=== PATIENT | female | born 1955 | race Caucasian/White ===

== ENCOUNTER 2021-01-17 12:47 | Outpatient (REF) | payer MEDICAID, SELFPAY ==
[2021-01-17 14:45] LABS: Vitamin B12 423 pg/mL (200-900)
[2021-01-17 14:54] LABS: Syphilis Screen Nonreactive (Nonreactive)
[2021-01-17 15:12] LABS: Erythrocyte Sedimentation Rate 9 MM/HR (0-20)
[2021-01-18 06:21] LABS: Lyme Abs Screen <0.90 index
[2021-01-19 14:27] LABS: ANA Pattern 2 Nuclear, Homogeneous; Anti Nuclear Antibody Screen POSITIVE (NEGATIVE)
== END 2021-01-17 12:48 | disposition home or self-care (01) ==
LOC: HO.LAB 12:47
PROVIDERS: PCP Internal Medicine; Visit Provider Psychiatry & Neurology Neurology
DX: F01.50 Vascular dementia, unspecified severity, without behavioral disturbance, psychotic disturbance, mood disturbance, and anxiety (principal)
CPT/HCPCS: 36415; 82607; 85652; 86038; 86039; 86617; 86618; 86780

== ENCOUNTER 2021-03-15 12:36 | Outpatient (REF) | payer MEDICAID, SELFPAY ==
--- NOTE | ~2021-03-15 | XR_ITS ---
EXAMINATION: XR CHEST CLINICAL INFORMATION: Unspecified COMPARISON: 02/21/2008 TECHNIQUE: 2 views of the chest were obtained. FINDINGS: No significant abnormality is noted involving the heart, lungs, mediastinum, bony thorax or soft tissues. XR/XR chest 2V IMPRESSION: Unremarkable examination.
== END 2021-03-15 12:37 | disposition home or self-care (01) ==
LOC: HO.XRAY 12:36
PROVIDERS: PCP Internal Medicine; Visit Provider Internal Medicine
DX: R41.0 Disorientation, unspecified (principal)
CPT/HCPCS: 71046

== ENCOUNTER 2021-12-07 13:44 | Outpatient (REF) | payer MEDICAID, SELFPAY ==
--- NOTE | 2021-12-07 16:00 | MHC.AU.ANR ---
Adult Audiological Evaluation Date of Visit: 12/07/21 Silk Examiner Used: Daughter translated Reason for Appointment: Ms. Spain was seen for a hearing evaluation to determine the status of her hearing. She was accompanied by her daughter at today's appointment. Ms. Spain states that her left ear is worse than her right ear, and she has tinnitus on the left side. Her daughter reports that Ms. Spain often complains of sensitivity to loud sounds, especially on the left side. 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 Throughout the appointment, Ms. Spain stated she had some ear pain right below her ear lobe. Ms. Spain is diagnosed with dementia. Does patient feel they have a hearing loss?: Yes If Yes, Which Ear?: Left Ear When Was Hearing Difficulty First Noticed?: years ago Hearing Handicap Inventory: HHIE SCORE: 28 Based on HHIE score, patient has: Severe perceived hearing handicap Ear History: Recent Ear Pain: Left Ear Recent Ear Infections: does not remember which ears or when Bothersome Tinnitus/Ringing/Noises in Ears: Left Ear Blocked/Full Sensation in Ear(s): Left Ear History of occupational noise exposure?: Yes, exposed when younger to factory noise Medical History: Medical History: Diabetes, Headache, High Blood Pressure, Migraines, Vascular dementia with behavior disturbance, type 2 diabetes, cataract surgery, mood disorder, Sun-downing, lumbar spondylosis Allergies: Penicillins, acetaminophen, penicillin V, codenine Medication List: Prilosec OTC, Lipitor, singulair, advair, protonix, meclizine HCL, proair, aspir, zofran, cyclobenzaprine HCl, nabumetone, melatonin, triamcinolone acetonide, acetaminophen, vitamin D, tylenol arthritis, lisinopril, asprinin, simvastatin, omeprazole, citalopram hydrobromide, risperidone, clonazepam, ibuprofen Otoscopy: Right Ear: Unremarkable Left Ear: Unremarkable Tympanometry: Tympanometry performed due to: To assess integrity of the middle ear system Right Ear: Reduced Middle Ear Compliance (Type As) Left Ear: Reduced Middle Ear Compliance (Type As) Hearing Evaluation: Transducer(s) Used: Insert Earphones, Bone Conduction Method: Conventional Audiometry Stimuli Used: Pure Tones Right Ear: Description of Hearing: Normal hearing 250-500 Hz, sloping to a moderate sensorineural hearing loss through 4000 Hz, rising to within normal limits thereafter. Left Ear: Description of Hearing: Mild sloping to a moderately severe sensorineural hearing loss from 250-2000 Hz, rising to a mild hearing loss through 8000 Hz. A 10-30 dB HL asymmetry is noted from 250-8000 Hz, left ear worse. Speech Recognition Threshold (SRT): Method Used: Monitored Live Voice Stimuli Used: Spondee Words Right Ear: 30 dB HL Left Ear: 50 dB HL Word Discrimination: Method: Recorded Lists Word Lists Used: Lista Bisil?bica (Chinese) Right Ear: 100% at 70 dB HL Left Ear: 96% at 85 dB HL Interpretation of Results: Borderline normal to moderate sensorineural hearing loss in the right ear and a moderate to moderately severe sensorineural hearing loss in the left ear. A 10-30 dB asymmetry is noted between ears, left ear worse at all frequencies. Reduced middle ear compliance bilaterally. Recommendations: Audiological re-evaluation in one year. Referral to Ear, Nose, and Throat is recommended. Patient should follow up with ENT due to significant asymmetry between ears. If medical clearance is obtained, patient should be considered a hearing aid candidate and return for a hearing aid evaluation. Diagnosis: Primary Diagnosis: H90.3 Bilateral Sensorineural Hearing Loss Services Performed: Services Performed: Comprehensive Audiological Evaluation (CPT 79130) Tympanometry (CPT 22781) Signature: Student/Clinical Fellow: Yes: Ofe Gaines B.A., [employer] I have reviewed/agreed with student/fellow documentation: Yes Provider: Kike Cifuentes, [facility]
== END 2021-12-07 13:45 | disposition home or self-care (01) ==
LOC: HO.SH 13:44
PROVIDERS: Visit Provider Internal Medicine
DX: Z01.118 Encounter for examination of ears and hearing with other abnormal findings (principal); H90.3 Sensorineural hearing loss, bilateral
CPT/HCPCS: 92557; 92567

== ENCOUNTER 2022-03-14 12:23 | Outpatient (REF) | payer MEDICARE, MEDICAID, SELFPAY ==
[2022-03-14 12:34] LABS: MANUAL DIFF FLAG NO
[2022-03-14 13:25] LABS: Basophils Percent Auto 0.3 % (0-2); Eosinophils Percent Auto 0.1 % (0-4); Hematocrit 37.7 % (37.0-47.0); Hemoglobin 12.7 g/dl (12.0-16.0); Imm Gran Abs Auto 0.02 X10*3/uL (0.00-0.03); Imm Gran Pct Auto 0.3 % (0.0-0.4); Lymphocytes Absolute Auto 2.2 X10*3/uL (1.2-4.9); Lymphocytes Percent Auto 27.6 % (20-40); Mean Corpuscular HGB Conc 33.7 g/dl (31.0-35.0); Mean Corpuscular Hemoglobin 30.2 pg (27.0-33.0); Mean Corpuscular Volume 89.5 fL (80.0-98.0); Mean Platelet Volume 9.9 fL (9.4-12.3); Monocytes Absolute Auto 0.7 X10*3/uL (0.1-1.2); Monocytes Percent Auto 8.3 % (2-11); Neutrophils Percent Auto 63.4 % (45-73); Platelet Count 298 X10*3/uL (160-400); Red Blood Count 4.21 X10*6/uL (4.20-5.50); Red Cell Distribution Width 12.7 % (11.0-16.0); White Blood Count 7.9 X10*3/uL (4.8-10.8)
[2022-03-14 14:07] LABS: Alanine Aminotransferase 13 U/L (0-31); Albumin Level 4.7 g/dL (3.5-5.0); Alkaline Phosphatase 59 U/L (39-117); Anion Gap 15 (12-20); Aspartate Amino Transferase 16 U/L (5-31); Bilirubin Total 0.4 mg/dL (0.0-1.0); Blood Urea Nitrogen 11 mg/dL (9-16); Calcium 9.7 mg/dL (8.4-10.2); Carbon Dioxide 27 mmol/L (22-29); Chloride 98 mmol/L (96-108); Estimated Glomerular Filt Rate > 60; Glucose Random 101 mg/dL (60-115); Potassium 3.8 mmol/L (3.3-5.1); Sodium 136 mmol/L (135-145); Total Protein 7.7 g/dL (6.5-8.0)
== END 2022-03-14 12:24 | disposition home or self-care (01) ==
LOC: HO.LAB 12:23
PROVIDERS: Visit Provider Nurse Practitioner
DX: Z01.818 Encounter for other preprocedural examination (principal); K21.9 Gastro-esophageal reflux disease without esophagitis
CPT/HCPCS: 36415; 80053; 85025; 99202

== ENCOUNTER 2022-05-12 09:31 | Emergency (ER) | payer MEDICARE, MEDICAID, SELFPAY ==
[2022-05-12 09:52] VITALS: BP 138/74; PULSE 78; O2SAT 98
[2022-05-12 10:49] VITALS: BP 142/83; PULSE 77; RESP 18; TEMP 37.1; O2SAT 99; BMI 26.5
[2022-05-12 10:58] LABS: MANUAL DIFF FLAG NO
[2022-05-12 11:00] LABS: Appearance Urine CLEAR; Color Urine YELLOW; Glucose Urine UA NEG (NEG); Leukocyte Esterase Urine 2+ (NEG); Nitrite Urine NEG (NEG); UACC Culture Trigger YES; Urine Blood NEG (NEG); Urine Ketones NEG (NEG); Urine Protein NEG (NEG-TRACE)
[2022-05-12 11:00] LABS: Basophils Percent Auto 0.2 % (0-2); Eosinophils Percent Auto 0.4 % (0-4); Hemoglobin 12.8 g/dl (12.0-16.0); Imm Gran Abs Auto 0.02 X10*3/uL (0.00-0.03); Imm Gran Pct Auto 0.4 % (0.0-0.4); Lymphocytes Absolute Auto 1.3 X10*3/uL (1.2-4.9); Lymphocytes Percent Auto 24.2 % (20-40); Mean Corpuscular HGB Conc 32.8 g/dl (31.0-35.0); Mean Corpuscular Hemoglobin 30.2 pg (27.0-33.0); Mean Platelet Volume 9.4 fL (9.4-12.3); Monocytes Absolute Auto 0.4 X10*3/uL (0.1-1.2); Monocytes Percent Auto 6.6 % (2-11); Neutrophils Absolute Auto 3.6 x10*3/uL (2.0-8.3); Neutrophils Percent Auto 68.2 % (45-73); Platelet Count 256 X10*3/uL (160-400); Red Blood Count 4.24 X10*6/uL (4.20-5.50); Red Cell Distribution Width 12.9 % (11.0-16.0); White Blood Count 5.3 X10*3/uL (4.8-10.8)
[2022-05-12 11:11] LABS: RBC Urine 0 /HPF (0); Squamous Epithelial Cell Urine 1+ /LPF
[2022-05-12 11:16] LABS: Alanine Aminotransferase 15 U/L (0-31); Albumin Level 4.4 g/dL (3.5-5.0); Alkaline Phosphatase 64 U/L (39-117); Anion Gap 13 (12-20); Aspartate Amino Transferase 16 U/L (5-31); Bilirubin Direct < 0.2 mg/dL (0.0-0.5); Bilirubin Total 0.5 mg/dL (0.0-1.0); Blood Urea Nitrogen 12 mg/dL (9-16); Calcium 9.2 mg/dL (8.4-10.2); Carbon Dioxide 30 mmol/L (22-29); Chloride 104 mmol/L (96-108); Estimated Glomerular Filt Rate > 60; Glucose Random 115 mg/dL (60-115); Lipase 41 U/L (8-78); Potassium 4.7 mmol/L (3.3-5.1); Sodium 142 mmol/L (135-145); Total Protein 7.2 g/dL (6.5-8.0)
[2022-05-12 11:21] LABS: IDNOW Serial# 16C4AD1C; Influenza A Negative (Negative); Influenza B2 Negative (Negative)
[2022-05-12 11:22] LABS: COVID-19 Test Negative (Negative)
[2022-05-12 12:00] VITALS: BP 139/82; PULSE 65; RESP 16; TEMP 36.8; O2SAT 99
--- NOTE | 2022-05-12 12:00 | ED.GENADULT ---
HPI - General Adult General Chief complaint: Weakness Stated complaint: dehydration Time Seen by Provider: 05/12/22 09:35 History of Present Illness HPI narrative: Patient with mild dementia brought by EMS from very hot apartment, her home care visiting nurse had noticed the patient was sweating and very hot and in apartment that was over 95 degrees so called EMS The patient herself says she feels warm but denies any other complaint , denies fever denies chills denies headache neck pain chest pain abdominal pain no nausea or vomiting Related Data Home Medications Medication Instructions Recorded Confirmed acetaminophen 650 mg 1,300 mg PO Q8H PRN 03/14/22 tablet,extended release aspirin 81 mg tablet,delayed 81 mg PO DAILY 03/14/22 release cholecalciferol (vitamin D3) 25 25 mcg PO DAILY 03/14/22 mcg (1,000 unit) capsule citalopram 20 mg tablet 20 mg PO DAILY 03/14/22 lisinopril 20 mg tablet 20 mg PO DAILY 03/14/22 melatonin 5 mg capsule 5 mg PO BEDTIME 03/14/22 metformin 500 mg tablet 500 mg PO BID 03/14/22 risperidone 0.5 mg tablet 0.5 mg PO BID 03/14/22 simvastatin 20 mg tablet 20 mg PO BEDTIME 03/14/22 Previous Rx's Medication Instructions Recorded pantoprazole 40 mg tablet,delayed 40 mg PO DAILY 30 days #30 tabs 03/14/22 release (Protonix) peg 3350-electrolytes 236 240 ml PO Q10M 1 day #4,000 mL 03/14/22 gram-22.74 gram-6.74 gram-5.86 gram solution (Golytely) Allergies Allergy/AdvReac Type Severity Reaction Status Date / Time Penicillins [PENICILLINS] Allergy Intermediate SYNCOPE Unverified 03/14/22 11:44 acetaminophen Allergy Unknown Abdominal Verified 03/14/22 11:44 [Tylenol-Codeine #3] Pain penicillin V Allergy Unknown Abdominal Verified 03/14/22 11:44 Pain codeine [CODEINE] AdvReac Intermediate NAUSEA & Unverified 03/14/22 11:44 VOMITING Penicillin Allergy Unknown Abdominal Uncoded 03/14/22 11:44 Pain Tylenol/Codeine #3 Allergy Unknown Abdominal Uncoded 03/14/22 11:44 Pain Review of Systems Review of Systems: Negatives no fall no headache no head injury no dizziness no weakness no confusion no fainting or feeling faint no headache no vision changes no stiff neck no chest pain no shortness of breath no palpitations no abdominal pain no nausea vomiting or diarrhea no dysuria no skin rash no numbness or weakness Yes all other systems are reviewed and are negative [facility] Social History Social History Advance Directives: No Advance Directives Information Provided: No Physical Exam ED Vital Signs: Vital Signs - 24 hr 05/12/22 10:49 05/12/22 12:00 Temperature 98.8 F 98.2 F Pulse Rate 77 65 Respiratory Rate 18 16 Blood Pressure 142/83 H 139/82 Pulse Oximetry 99 99 Oxygen Delivery Method Room Air Room Air BMI result Body Mass Index 26.5 General appearance is no acute distress, comfortable and cooperative The eyes pupils equal round reactive to light The pharynx is clear no redness swelling or exudate mucous membranes are moist Neck is supple Chest clear to auscultation bilateral Heart no murmur Abdomen soft nontender Extremities full range of motion x4 There is no edema, there is no calf swelling or tenderness no leg swelling Skin no rash Neuro gait and balance are normal Interaction both expression and comprehension are good Cerebellar exam is normal Cranial nerves 2-12 intact as tested Motor is 5/5 x4 and sensation is intact and symmetrical in extremities Course Course Course Narrative: The patient got a L of fluids from EMS, never had any complaint except feeling warm this morning Labs were checked with no acute abnormalities I called her daughter who said that the patient lives with her son in a 2nd floor apartment and does have an air conditioner and a fan but always turns them off as she thinks it is too expensive I discussed with the daughter the high risk of severe illness or from heat related illness during the see wave and the daughter agreed that Dee would come live with her for the duration of the he until temperatures are safe to be in her apartment without an air conditioner Well-appearing cheerful patient was discharged in the company of her daughter with a safe place to stay Medical Decision Making Lab Data Result diagrams: 05/12/22 10:53 05/12/22 10:53 Labs: Lab Results 05/12/22 05/12/22 05/12/22 Range/Units 10:52 10:53 10:53 WBC 5.3 (4.8-10.8) X10*3/uL RBC 4.24 (4.20-5.50) X10*6/uL Hgb 12.8 (12.0-16.0) g/dl Hct 39.0 (37.0-47.0) % MCV 92.0 (80.0-98.0) fL MCH 30.2 (27.0-33.0) pg MCHC 32.8 (31.0-35.0) g/dl RDW 12.9 (11.0-16.0) % Plt Count 256 (160-400) X10*3/uL MPV 9.4 (9.4-12.3) fL Immature Gran % (Auto) 0.4 (0.0-0.4) % Neut % (Auto) 68.2 (45-73) % Lymph % (Auto) 24.2 (20-40) % Upton % (Auto) 6.6 (2-11) % Eos % (Auto) 0.4 (0-4) % Baso % (Auto) 0.2 (0-2) % Lymph # (Auto) 1.3 (1.2-4.9) X10*3/uL Upton # (Auto) 0.4 (0.1-1.2) X10*3/uL Eos # (Auto) 0.0 (0.0-0.4) X10*3/uL Baso # (Auto) 0.0 (0.0-0.2) X10*3/uL Abs Immat Gran (auto) 0.02 (0.00-0.03) X10*3/uL Absolute Neuts (auto) 3.6 (2.0-8.3) x10*3/uL Absolute Nucleated RBC 0.000 (0.0-0.012) X10*3/uL Nucleated RBC % (auto) 0.0 (0.0-0.2) /100WBC Sodium 142 (135-145) mmol/L Potassium 4.7 D (3.3-5.1) mmol/L Chloride 104 (96-108) mmol/L Carbon Dioxide 30 H (22-29) mmol/L Anion Gap 13 (12-20) BUN 12 (9-16) mg/dL Creatinine 0.86 (0.5-1.4) mg/dL Estim Creat Clear Calc 58.0 Estimated GFR > 60 Random Glucose 115 (60-115) mg/dL Calcium 9.2 (8.4-10.2) mg/dL Total Bilirubin 0.5 (0.0-1.0) mg/dL Direct Bilirubin < 0.2 (0.0-0.5) mg/dL AST 16 (5-31) U/L ALT 15 (0-31) U/L Alkaline Phosphatase 64 (39-117) U/L Total Protein 7.2 (6.5-8.0) g/dL Albumin 4.4 (3.5-5.0) g/dL Lipase 41 (8-78) U/L Urine Color YELLOW Urine Appearance CLEAR Urine pH 7.0 (5.0-8.0) Ur Specific [place] 1.010 (1.005-1.025) Urine Protein NEG (NEG-TRACE) MG/DL Urine Glucose (UA) NEG (NEG) MG/DL Urine Ketones NEG (NEG) MG/DL Urine Blood NEG (NEG) Urine Nitrite NEG (NEG) Ur Leukocyte Esterase 2+ H (NEG) Urine RBC 0 (0) /HPF Urine WBC 5-9 H (0-4) /HPF Ur Squamous Epith Cells 1+ /LPF Urine Bacteria NONE /LPF COVID-19 ([facility]) (Negative) COVID-19 Clin Com Influenza Type A ([facility]) (Negative) Influenza Type B ([facility]) (Negative) Influenza A & B Note 05/12/22 05/12/22 Range/Units 10:53 10:53 WBC (4.8-10.8) X10*3/uL RBC (4.20-5.50) X10*6/uL Hgb (12.0-16.0) g/dl Hct (37.0-47.0) % MCV (80.0-98.0) fL MCH (27.0-33.0) pg MCHC (31.0-35.0) g/dl RDW (11.0-16.0) % Plt Count (160-400) X10*3/uL MPV (9.4-12.3) fL Immature Gran % (Auto) (0.0-0.4) % Neut % (Auto) (45-73) % Lymph % (Auto) (20-40) % Upton % (Auto) (2-11) % Eos % (Auto) (0-4) % Baso % (Auto) (0-2) % Lymph # (Auto) (1.2-4.9) X10*3/uL Upton # (Auto) (0.1-1.2) X10*3/uL Eos # (Auto) (0.0-0.4) X10*3/uL Baso # (Auto) (0.0-0.2) X10*3/uL Abs Immat Gran (auto) (0.00-0.03) X10*3/uL Absolute Neuts (auto) (2.0-8.3) x10*3/uL Absolute Nucleated RBC (0.0-0.012) X10*3/uL Nucleated RBC % (auto) (0.0-0.2) /100WBC Sodium (135-145) mmol/L Potassium (3.3-5.1) mmol/L Chloride (96-108) mmol/L Carbon Dioxide (22-29) mmol/L Anion Gap (12-20) BUN (9-16) mg/dL Creatinine (0.5-1.4) mg/dL Estim Creat Clear Calc Estimated GFR Random Glucose (60-115) mg/dL Calcium (8.4-10.2) mg/dL Total Bilirubin (0.0-1.0) mg/dL Direct Bilirubin (0.0-0.5) mg/dL AST (5-31) U/L ALT (0-31) U/L Alkaline Phosphatase (39-117) U/L Total Protein (6.5-8.0) g/dL Albumin (3.5-5.0) g/dL Lipase (8-78) U/L Urine Color Urine Appearance Urine pH (5.0-8.0) Ur Specific [place] (1.005-1.025) Urine Protein (NEG-TRACE) MG/DL Urine Glucose (UA) (NEG) MG/DL Urine Ketones (NEG) MG/DL Urine Blood (NEG) Urine Nitrite (NEG) Ur Leukocyte Esterase (NEG) Urine RBC (0) /HPF Urine WBC (0-4) /HPF Ur Squamous Epith Cells /LPF Urine Bacteria /LPF COVID-19 ([facility]) Negative (Negative) COVID-19 Clin Com See Note Influenza Type A ([facility]) Negative (Negative) Influenza Type B ([facility]) Negative (Negative) Influenza A & B Note See Note Discharge Plan Discharge Clinical Impression: Heat effect Patient Disposition: Home, Self-Care Additional Instructions: You were brought here by ambulance because your visiting nurse was concerned that your in a dangerous situation of an overheated apartment We checked labs and right now you appear to be well and her daughter came and says you can stay with her so we know you have a safe place to go during this heat wave Best plan is do not stay in your apartment alone until the he wave is gone, stay with her daughter until it is safe to go home Return any time any worse condition or any concerns Prescriptions: No Action peg 3350-electrolytes [Golytely] 236-22.74-6.74 -5.86 gram recon soln 240 ml PO Q10M 1 Days Qty: 4000 0RF Rx Instructions: until fecal effluent is clear; do not exceed a total volume of 2,000 mL risperidone 0.5 mg tablet 0.5 mg PO BID metformin 500 mg tablet 500 mg PO BID lisinopril 20 mg tablet 20 mg PO DAILY simvastatin 20 mg tablet 20 mg PO BEDTIME citalopram 20 mg tablet 20 mg PO DAILY acetaminophen 650 mg tablet extended release 1,300 mg PO Q8H PRN melatonin 5 mg capsule 5 mg PO BEDTIME aspirin 81 mg tablet,delayed release (DR/EC) 81 mg PO DAILY cholecalciferol (vitamin D3) 25 mcg (1,000 unit) capsule 25 mcg PO DAILY pantoprazole [Protonix] 40 mg tablet,delayed release (DR/EC) 40 mg PO DAILY 30 Days Qty: 30 6RF Interventions: ED Discharge Assessment Last Done: 05/12/22 12:09 Discharge Date/Time: 05/12/22 12:10
== END 2022-05-12 12:10 | disposition home or self-care (01) ==
PROVIDERS: Physician Assistant Medical; Emergency Provider Emergency Medicine; PCP Internal Medicine
DX: T67.9XXA Effect of heat and light, unspecified, initial encounter (principal); X58.XXXA Exposure to other specified factors, initial encounter; E11.9 Type 2 diabetes mellitus without complications; I10 Essential (primary) hypertension; E78.5 Hyperlipidemia, unspecified; Z20.822 Contact with and (suspected) exposure to COVID-19; Z79.82 Long term (current) use of aspirin; Z79.02 Long term (current) use of antithrombotics/antiplatelets; Z79.84 Long term (current) use of oral hypoglycemic drugs; Z79.899 Other long term (current) drug therapy; Y93.9 Activity, unspecified; Y92.039 Unspecified place in apartment as the place of occurrence of the external cause; Y99.9 Unspecified external cause status
CPT/HCPCS: 36415; 80048; 80076; 81001; 81003; 83690; 85025; 87086; 87502; 87635; 99283

== ENCOUNTER 2022-12-02 16:59 | Inpatient (IN) | payer MEDICARE, MEDICAID, SELFPAY ==
[2022-12-02] VITALS (9 sets, daily range): BP systolic 153–185; BP diastolic 81–101; PULSE 79–95; RESP 14–22; TEMP 35.1–37.1; O2SAT 97–100; BMI 29.1
--- NOTE | 2022-12-02 | ECG_ITS ---
Test Reason : cp Blood Pressure : / mmHG Vent. Rate : 084 BPM Atrial Rate : 084 BPM P-R Int : 142 ms QRS Dur : 082 ms QT Int : 394 ms P-R-T Axes : 071 066 053 degrees QTc Int : 465 ms Normal sinus rhythm Normal ECG When compared with ECG of 02-DEC-2022 18:02, ST elevation has replaced ST depression in Inferior leads ST no longer depressed in Lateral leads T wave inversion no longer evident in Lateral leads QT has shortened Referred By: Acosta Ledbetter Electronically Signed By:MUNA LORA MD
--- NOTE | ~2022-12-02 | MR_ITS ---
MRI OF THE BRAIN WITHOUT IV CONTRAST INDICATION: Patient confused/agitated. New onset seizure. COMPARISON: Head CT 12/02/2022. TECHNIQUE: Multiplanar multisequence MR imaging of the brain was obtained without IV contrast. FINDINGS: There is no hydrocephalus, extra-axial surface collection, or herniation. There is global cerebral volume loss. There is asymmetric left hippocampal volume loss and there are possible T2 signal changes within the left hippocampus that could reflect left-sided mesial temporal sclerosis which can be clinically correlated. There is moderate chronic microangiopathy. The major flow voids at the skull base are preserved. There is no acute infarct on diffusion-weighted imaging. There is no intracranial hemorrhage on the gradient recalled echo acquisition. Empty sella. The cerebellar tonsils are normally positioned. The cerebellum and brainstem are normal. The craniocervical junction is normal. Osseous marrow signal intensity is homogenous. The visualized soft tissues are unremarkable. MR/MR head/brain wo con IMPRESSION: No definite acute intracranial findings with assessment limited by the degree of motion artifact. There is global cerebral volume loss. There is asymmetric left hippocampal volume loss and there are possible T2 signal changes within the left hippocampus that could reflect left-sided mesial temporal sclerosis which can be clinically correlated. There is moderate chronic microangiopathy. Empty sella.
--- NOTE | ~2022-12-02 | CT_ITS ---
EXAMINATION: CT HEAD WITHOUT CONTRAST CLINICAL INFORMATION: Weakness and confusion. COMPARISON: CT head 07/15/2018. TECHNIQUE: Contiguous axial imaging was performed from the skull base to vertex without intravenous administration of contrast. This CT examination was performed using dose optimization techniques as appropriate, variously including the following: *Automated exposure control *Adjustment of mA and/or kV according to patient size (this includes techniques or standardized protocols for targeted exams where dose is matched to indication/reason for exam; i.e. extremities or head) *Use of iterative reconstruction technique DLP: 669 mGy-cm FINDINGS: There are scattered nonspecific foci of hypoattenuation within the perivertebral white matter that most likely represent a chronic manifestation of small vessel ischemia. Bueno-white matter differentiation is otherwise preserved and there is no evidence of acute territorial infarct. There is no acute hemorrhage or abnormal extra-axial collection. No intracranial mass effect or midline shift. Lateral and third ventricles are normal. No hydrocephalus. The calvarium and skull base are intact. Mastoid air cells and middle ear cavities are well-aerated. No active paranasal sinus disease. CT/CT head/brain wo IV con IMPRESSION: There are scattered chronic small vessel ischemic changes within the periventricular white matter. Otherwise unremarkable examination. No evidence of acute territorial infarct or hemorrhage.
--- NOTE | ~2022-12-02 | CT_ITS ---
EXAMINATION: CT ABDOMEN AND PELVIS WITH CONTRAST CLINICAL INFORMATION: 10/05/2018 CT scan of the pelvis abd pain COMPARISON: None. TECHNIQUE: Multidetector volumetric imaging was performed from the superior aspect of the liver through the pubic symphysis following administration of 85 mL Omnipaque 300 intravenous contrast. Sagittal and coronal reformatted images were obtained on the technologist workstation.. This CT examination was performed using dose optimization techniques as appropriate, variously including the following: *Automated exposure control *Adjustment of mA and/or kV according to patient size (this includes techniques or standardized protocols for targeted exams where dose is matched to indication/reason for exam; i.e. extremities or head) *Use of iterative reconstruction technique DLP: 720 mGy-cm FINDINGS: LUNG BASES: Linear scarring or atelectasis at the lung bases with possible consolidation within the left lung base. Infectious etiology cannot be excluded at the left lung base in particular. Vascular calcification seen. Small hiatal hernia with fluid seen in the lower esophagus. LIVER, GALLBLADDER, AND BILIARY TREE: Low-attenuation subcapsular likely thin septated complex 1 cm cyst in segment 8 laterally. No suspicious hepatic lesions nor biliary ductal dilatation. The gallbladder is unremarkable with no evidence of radiopaque gallstones, gallbladder wall thickening, or obvious pericholecystic inflammatory changes. PANCREAS: Unremarkable. SPLEEN: Unremarkable. ADRENAL GLANDS: There is a 2 cm left adrenal nodule seen. On the 11/13/2010 CT scanner for comparison and at that time there was a subtle 0.9 cm nodule in the left adrenal gland. The 1 cm interval growth from 2011 suggests a more indolent process such as an adrenal adenoma. Contralateral right adrenal gland is unremarkable. KIDNEYS AND URETERS: The kidneys are normal in size, shape, and attenuation. Incidental extrarenal right renal pelvis No hydronephrosis, hydroureter, or calculi seen. No perinephric stranding. BLADDER: Decompressed with Ngo catheter GASTROINTESTINAL TRACT: Scattered colonic diverticulosis but no colonic wall thickening or pericolonic inflammatory change to suggest diverticulitis. Normal-appearing appendix in the right lower quadrant. Visualized small bowel is unremarkable. Stomach is decompressed and difficult to assess ABDOMINAL WALL: Small fat-containing umbilical hernia LYMPHOVASCULAR STRUCTURES: Vascular calcification within the aorta iliac system. No bulky adenopathy PELVIC VISCERA: Presumably surgically absent. Small amount of likely physiologic free fluid in the dependent pelvis OSSEOUS STRUCTURES: Unremarkable. CT/CT abdomen pelvis w IV con IMPRESSION: Chronic appearing changes as described above. Airspace changes more likely due to atelectasis although early infiltrate at the left lung base cannot be excluded. I do not appreciate any acute intra-abdominal process.
--- NOTE | ~2022-12-02 | XR_ITS ---
EXAMINATION: XR CHEST CLINICAL INFORMATION: Intubated patient COMPARISON: 03/15/2021 TECHNIQUE: Frontal view of the chest was obtained. FINDINGS: Lungs of low volume without infiltrates or nodules. There is endotracheal tube with left and of the tube 4 cm above the felicitas. XR/XR chest 1V IMPRESSION: Well-positioned endotracheal tube
--- NOTE | 2022-12-02 17:10 | ED_ITS ---
HPI - Altered Mental Status General Chief Complaint: General Medical <MILAGRO Salmeron - Last Filed: 12/02/22 17:16> Stated Complaint: ams,high pressure <MILAGRO Salmeron - Last Filed: 12/02/22 17:16> Time Seen by Provider: 12/02/22 17:20 <MILAGRO Salmeron - Last Filed: 12/02/22 17:16> Source: family <Angela Kelley MD - Last Filed: 12/03/22 02:21> Mode of arrival: ambulatory <Angela Kelley MD - Last Filed: 12/03/22 02:21> History of Present Illness HPI narrative: 67-year-old female with known baseline dementia but does live on her own in the unit above her son but has visiting nurses who provide her with her medications in the morning and evening and family member at bedside states that she has been having some increased confusion, not following instructions and had multiple episodes of nausea and vomiting today with associated tremors and stiffness. History is not provided by the patient and the daughter states that typically the mother will answer questions and interact verbally a and that this is a complete change. She denies any recent fevers or chills. <Angela Kelley MD - Last Filed: 12/03/22 02:21> Related Data Home Medications: Home Medications Medication Instructions Recorded Confirmed acetaminophen 650 mg 1,300 mg PO Q8H PRN pain 03/14/22 12/02/22 tablet,extended release aspirin 81 mg tablet,delayed 81 mg PO DAILY 03/14/22 12/02/22 release cholecalciferol (vitamin D3) 25 25 mcg PO DAILY 03/14/22 12/02/22 mcg (1,000 unit) capsule citalopram 20 mg tablet 20 mg PO DAILY 03/14/22 12/02/22 lisinopril 20 mg tablet 20 mg PO DAILY 03/14/22 12/02/22 melatonin 5 mg capsule 5 mg PO BEDTIME 03/14/22 12/02/22 risperidone 0.5 mg tablet 0.5 mg PO BID 03/14/22 12/02/22 simvastatin 20 mg tablet 20 mg PO BEDTIME 03/14/22 12/02/22 omeprazole 20 mg capsule,delayed 1 cap PO DAILY 12/02/22 12/02/22 release <MILAGRO Salmeron - Last Filed: 12/02/22 17:16> Allergies/Adverse Reactions: Allergies Allergy/AdvReac Type Severity Reaction Status Date / Time Penicillins [PENICILLINS] Allergy Intermediate SYNCOPE Verified 12/02/22 23:39 codeine [CODEINE] AdvReac Intermediate NAUSEA & Verified 12/02/22 23:39 VOMITING <MILAGRO Salmeron - Last Filed: 12/02/22 17:16> Review of Systems Review of Systems: Pertinent positives and negatives as stated in HPI <Angela Kelley MD - Last Filed: 12/03/22 02:21> PMFSH Past Medical History Source: nursing notes reviewed <Angela Kelley MD - Last Filed: 12/03/22 02:21> Medical History: Medical History (Updated 12/03/22 @ 08:55 by Madhav Gauthier MD) Asthma Diabetes GERD (gastroesophageal reflux disease) High cholesterol Hypertension Lumbar spondylosis Vascular dementia <MILAGRO Salmeron - Last Filed: 12/02/22 17:16> Social History Social History: Social History Household Members: Family Unable to assess alcohol history related to: Unable to respond Patient Tobacco Use Status: Tobacco use Unknown Use of substances other than those prescribed or required for medical reasons: Unable to respond Currently Displaying Signs/Symptoms of Drug Intoxication Withdrawal: No Advance Directives: No Advance Directives Information Provided: No Recently lost weight without trying: Unsure Patient : No : No Poor oral hygiene: No service: No Current occupational status: disabled <MILAGRO Salmeron - Last Filed: 12/02/22 17:16> Physical Exam ED Vital Signs: Vital Signs - 24 hr 12/02/22 17:10 12/02/22 18:42 12/02/22 18:52 Temperature 97.5 F Pulse Rate 93 Respiratory Rate 20 Blood Pressure 154/98 H 171/99 H Pulse Oximetry 100 Oxygen Delivery Method Mechanical Ventilation Fraction of Inspired Oxygen 40 30 12/02/22 19:45 12/02/22 20:52 Temperature 98.1 F Pulse Rate 82 82 Respiratory Rate 20 20 Blood Pressure 160/89 H 185/101 H Pulse Oximetry 98 99 Oxygen Delivery Method Mechanical Ventilation Fraction of Inspired Oxygen BMI result Body Mass Index 29.1 <MILAGRO Salmeron - Last Filed: 12/02/22 17:16> Vital Signs - 24 hr 12/02/22 17:10 12/02/22 18:42 12/02/22 18:52 Temperature 97.5 F Pulse Rate 93 Respiratory Rate 20 Blood Pressure 154/98 H 171/99 H Pulse Oximetry 100 Oxygen Delivery Method Mechanical Ventilation Fraction of Inspired Oxygen 40 30 12/02/22 19:45 12/02/22 20:52 Temperature 98.1 F Pulse Rate 82 82 Respiratory Rate 20 20 Blood Pressure 160/89 H 185/101 H Pulse Oximetry 98 99 Oxygen Delivery Method Mechanical Ventilation Fraction of Inspired Oxygen BMI result Body Mass Index 29.1 VITAL SIGNS: Reviewed. GENERAL: Well developed, mild distress. HEAD: Normocephalic/atraumatic EYES: PERRLA, EOMI OROPHARYNX: no oral lesions noted, posterior pharynx clear, dry mucosa NECK: Supple, no adenopathy LUNGS: Normal breath sounds, no tachypnea. CARDIOVASCULAR: Regular rate and rhythm without noted murmurs, no JVD or lower extremity edema. ABDOMEN: Soft, non-tender, non-distended with bowel sounds. MUSCULOSKELETAL: No tenderness, deformities, or effusions noted on gross inspection. EXTREMITIES: No cyanosis, clubbing or edema. SKIN: Inspection of the skin reveals no rashes NEUROLOGIC: Alert and oriented x 1. Strength and sensation to light touch were grossly intact x 4 but noted to be tremulous, not following commands. <Angela Kelley MD - Last Filed: 12/03/22 02:21> Vital Signs - 24 hr 12/02/22 17:10 12/02/22 18:42 12/02/22 18:52 Temperature 97.5 F Pulse Rate 93 Respiratory Rate 20 Blood Pressure 154/98 H 171/99 H Pulse Oximetry 100 Oxygen Delivery Method Mechanical Ventilation Fraction of Inspired Oxygen 40 30 12/02/22 19:45 12/02/22 20:52 Temperature 98.1 F Pulse Rate 82 82 Respiratory Rate 20 20 Blood Pressure 160/89 H 185/101 H Pulse Oximetry 98 99 Oxygen Delivery Method Mechanical Ventilation Fraction of Inspired Oxygen BMI result Body Mass Index 29.1 <MILAGRO Dumont - Last Filed: 12/03/22 11:38> Course Course Course Narrative: RME - 67 y/o Japanese speaking female with history of HTN, DM, mild dementia who presents to the ER for evaluation of new onset confusion that started today. Family was notified by visiting nurse that patient was more co nfused and vomited up her meds this afternoon. Family noticed new onset tremor but she is awake and alert, eyes are twitching. Not speaking in triage. Ambulated into waiting room with assistance. Plan: CT head, EKG, CXR, labs. will need to go back to treatment room given AMS. <MILAGRO Salmeron - Last Filed: 12/02/22 17:16> Medications Administered Generic Name Dose Route Start Last Admin Trade Name Freq PRN Reason Stop Dose Admin Albuterol Sulfate 2.5 mg 12/03/22 01:55 12/03/22 08:45 Albuterol Sulfate (0.083%) 2.5 Mg/3 Ml Vial.Neb INHALE 2.5 mg RQ4H WHILE AWAKE AZUCENA Administration Heparin Sodium (Porcine) 5,000 unit 12/03/22 03:45 12/03/22 04:36 Heparin Sodium,Porcine 5,000 Unit/Ml Vial SUBCUT 5,000 unit Q12H AZUCENA Administration Levetiracetam 500 mg in 100 mls @ 400 mls/hr 12/03/22 09:00 12/03/22 08:40 Keppra IV Infused Q12H AZUCENA Infusion Insulin Human Lispro 0 unit 12/02/22 23:45 12/03/22 05:51 Insulin Lispro 100 Unit/Ml 3 Ml Vial SUBCUT Not Given Q6H AZUCENA Protocol Lactulose 200 gm 12/03/22 01:45 12/03/22 09:23 Lactulose 320 Gm/480 Ml Solution WA Not Given Q4H AZUCENA Discontinued Medications Generic Name Dose Route Start Last Admin Trade Name Freq PRN Reason Stop Dose Admin Etomidate 20 mg 12/02/22 18:34 12/02/22 18:17 Etomidate 20 Mg/10 Ml Vial IVPUSH 12/02/22 18:35 20 mg ONCE ONE Administration Fentanyl 25 mcg 12/02/22 23:22 12/02/22 23:32 Fentanyl Citrate/Pf 100 Mcg/2 Ml Vial IVPUSH 12/02/22 23:23 25 mcg ONCE ONE Administration Protocol Hydralazine HCl 5 mg 12/02/22 22:55 12/02/22 23:05 Hydralazine Hcl 20 Mg/Ml Vial IVPUSH 12/02/22 22:56 5 mg ONCE ONE Administration Protocol Propofol 1,000 mg in 100 mls @ 0 mls/hr 12/02/22 18:30 12/02/22 23:35 Diprivan IVCONT Infused .Q0M AZUCENA Titration Protocol Per Protocol Magnesium Sulfate 2 gm in 50 mls @ 25 mls/hr 12/02/22 18:42 12/02/22 19:40 Magnesium Sulfate/H2o IV 12/02/22 20:41 Infused ONCE ONE Infusion Potassium Chloride 10 meq in 100 mls @ 100 mls/hr 12/02/22 19:45 12/03/22 01:46 Potassium Chloride/H20 IV 12/02/22 23:44 Infused Q1H AZUCENA Infusion Magnesium Sulfate 2 gm in 50 mls @ 25 mls/hr 12/02/22 22:58 12/03/22 01:34 Magnesium Sulfate/H2o IV 12/03/22 00:57 Infused ONCE ONE Infusion Levetiracetam 1,000 mg in 100 mls @ 400 mls/hr 12/02/22 23:37 12/03/22 00:10 Keppra IV 12/02/22 23:51 Infused ONCE ONE Infusion Lactated Ringer's 1,000 mls @ 100 mls/hr 12/02/22 23:45 12/03/22 08:29 Lr IVCONT Infused .Q10H AZUCENA Infusion Doxycycline Hyclate 100 mg/ 250 mls @ 166.67 mls/hr 12/02/22 23:45 12/03/22 01:59 Sodium Chloride IV Infused Q12H AZUCENA Infusion Iohexol 100 ml 12/02/22 20:46 12/02/22 20:46 Iohexol 350 Mg/Ml 100 Ml Infus..Btl IV 12/02/22 20:47 85 ml ONCE ONE Administration Pantoprazole Sodium 40 mg 12/03/22 06:30 12/03/22 05:52 Pantoprazole Sodium 40 Mg/10 Ml Vial IVPUSH 40 mg DAILY@0630 AZUCENA Administration Potassium Chloride 40 meq 12/03/22 01:17 12/03/22 01:33 Potassium Chloride Er 20 Meq Tab.Er.Prt PO 12/03/22 01:18 Not Given ONCE ONE Rocuronium Cameron 100 mg 12/02/22 18:34 12/02/22 18:17 Rocuronium Cameron 50 Mg/5 Ml Vial IVPUSH 12/02/22 18:35 100 mg ONCE ONE Administration <MILAGRO Salmeron - Last Filed: 12/02/22 17:16> Medications Administered Generic Name Dose Route Start Last Admin Trade Name Freq PRN Reason Stop Dose Admin Albuterol Sulfate 2.5 mg 12/03/22 01:55 12/03/22 08:45 Albuterol Sulfate (0.083%) 2.5 Mg/3 Ml Vial.Neb INHALE 2.5 mg RQ4H WHILE AWAKE AZUCENA Administration Heparin Sodium (Porcine) 5,000 unit 12/03/22 03:45 12/03/22 04:36 Heparin Sodium,Porcine 5,000 Unit/Ml Vial SUBCUT 5,000 unit Q12H AZUCENA Administration Levetiracetam 500 mg in 100 mls @ 400 mls/hr 12/03/22 09:00 12/03/22 08:40 Keppra IV Infused Q12H AZUCENA Infusion Insulin Human Lispro 0 unit 12/02/22 23:45 12/03/22 05:51 Insulin Lispro 100 Unit/Ml 3 Ml Vial SUBCUT Not Given Q6H AZUCENA Protocol Lactulose 200 gm 12/03/22 01:45 12/03/22 09:23 Lactulose 320 Gm/480 Ml Solution WA Not Given Q4H AZUCENA Discontinued Medications Generic Name Dose Route Start Last Admin Trade Name Freq PRN Reason Stop Dose Admin Etomidate 20 mg 12/02/22 18:34 12/02/22 18:17 Etomidate 20 Mg/10 Ml Vial IVPUSH 12/02/22 18:35 20 mg ONCE ONE Administration Fentanyl 25 mcg 12/02/22 23:22 12/02/22 23:32 Fentanyl Citrate/Pf 100 Mcg/2 Ml Vial IVPUSH 12/02/22 23:23 25 mcg ONCE ONE Administration Protocol Hydralazine HCl 5 mg 12/02/22 22:55 12/02/22 23:05 Hydralazine Hcl 20 Mg/Ml Vial IVPUSH 12/02/22 22:56 5 mg ONCE ONE Administration Protocol Propofol 1,000 mg in 100 mls @ 0 mls/hr 12/02/22 18:30 12/02/22 23:35 Diprivan IVCONT Infused .Q0M AZUCENA Titration Protocol Per Protocol Magnesium Sulfate 2 gm in 50 mls @ 25 mls/hr 12/02/22 18:42 12/02/22 19:40 Magnesium Sulfate/H2o IV 12/02/22 20:41 Infused ONCE ONE Infusion Potassium Chloride 10 meq in 100 mls @ 100 mls/hr 12/02/22 19:45 12/03/22 01:46 Potassium Chloride/H20 IV 12/02/22 23:44 Infused Q1H AZUCENA Infusion Magnesium Sulfate 2 gm in 50 mls @ 25 mls/hr 12/02/22 22:58 12/03/22 01:34 Magnesium Sulfate/H2o IV 12/03/22 00:57 Infused ONCE ONE Infusion Levetiracetam 1,000 mg in 100 mls @ 400 mls/hr 12/02/22 23:37 12/03/22 00:10 Keppra IV 12/02/22 23:51 Infused ONCE ONE Infusion Lactated Ringer's 1,000 mls @ 100 mls/hr 12/02/22 23:45 12/03/22 08:29 Lr IVCONT Infused .Q10H AZUCENA Infusion Doxycycline Hyclate 100 mg/ 250 mls @ 166.67 mls/hr 12/02/22 23:45 12/03/22 01:59 Sodium Chloride IV Infused Q12H AZUCENA Infusion Iohexol 100 ml 12/02/22 20:46 12/02/22 20:46 Iohexol 350 Mg/Ml 100 Ml Infus..Btl IV 12/02/22 20:47 85 ml ONCE ONE Administration Pantoprazole Sodium 40 mg 12/03/22 06:30 12/03/22 05:52 Pantoprazole Sodium 40 Mg/10 Ml Vial IVPUSH 40 mg DAILY@0630 AZUCENA Administration Potassium Chloride 40 meq 12/03/22 01:17 12/03/22 01:33 Potassium Chloride Er 20 Meq Tab.Er.Prt PO 12/03/22 01:18 Not Given ONCE ONE Rocuronium Cameron 100 mg 12/02/22 18:34 12/02/22 18:17 Rocuronium Cameron 50 Mg/5 Ml Vial IVPUSH 12/02/22 18:35 100 mg ONCE ONE Administration <Angela Kelley MD - Last Filed: 12/03/22 02:21> Medications Administered Generic Name Dose Route Start Last Admin Trade Name Freq PRN Reason Stop Dose Admin Albuterol Sulfate 2.5 mg 12/03/22 01:55 12/03/22 08:45 Albuterol Sulfate (0.083%) 2.5 Mg/3 Ml Vial.Neb INHALE 2.5 mg RQ4H WHILE AWAKE AZUCENA Administration Heparin Sodium (Porcine) 5,000 unit 12/03/22 03:45 12/03/22 04:36 Heparin Sodium,Porcine 5,000 Unit/Ml Vial SUBCUT 5,000 unit Q12H AZUCENA Administration Levetiracetam 500 mg in 100 mls @ 400 mls/hr 12/03/22 09:00 12/03/22 08:40 Keppra IV Infused Q12H AZUCENA Infusion Insulin Human Lispro 0 unit 12/02/22 23:45 12/03/22 05:51 Insulin Lispro 100 Unit/Ml 3 Ml Vial SUBCUT Not Given Q6H AZUCENA Protocol Lactulose 200 gm 12/03/22 01:45 12/03/22 09:23 Lactulose 320 Gm/480 Ml Solution WA Not Given Q4H AZUCENA Discontinued Medications Generic Name Dose Route Start Last Admin Trade Name Freq PRN Reason Stop Dose Admin Etomidate 20 mg 12/02/22 18:34 12/02/22 18:17 Etomidate 20 Mg/10 Ml Vial IVPUSH 12/02/22 18:35 20 mg ONCE ONE Administration Fentanyl 25 mcg 12/02/22 23:22 12/02/22 23:32 Fentanyl Citrate/Pf 100 Mcg/2 Ml Vial IVPUSH 12/02/22 23:23 25 mcg ONCE ONE Administration Protocol Hydralazine HCl 5 mg 12/02/22 22:55 12/02/22 23:05 Hydralazine Hcl 20 Mg/Ml Vial IVPUSH 12/02/22 22:56 5 mg ONCE ONE Administration Protocol Propofol 1,000 mg in 100 mls @ 0 mls/hr 12/02/22 18:30 12/02/22 23:35 Diprivan IVCONT Infused .Q0M AZUCENA Titration Protocol Per Protocol Magnesium Sulfate 2 gm in 50 mls @ 25 mls/hr 12/02/22 18:42 12/02/22 19:40 Magnesium Sulfate/H2o IV 12/02/22 20:41 Infused ONCE ONE Infusion Potassium Chloride 10 meq in 100 mls @ 100 mls/hr 12/02/22 19:45 12/03/22 01:46 Potassium Chloride/H20 IV 12/02/22 23:44 Infused Q1H AZUCENA Infusion Magnesium Sulfate 2 gm in 50 mls @ 25 mls/hr 12/02/22 22:58 12/03/22 01:34 Magnesium Sulfate/H2o IV 12/03/22 00:57 Infused ONCE ONE Infusion Levetiracetam 1,000 mg in 100 mls @ 400 mls/hr 12/02/22 23:37 12/03/22 00:10 Keppra IV 12/02/22 23:51 Infused ONCE ONE Infusion Lactated Ringer's 1,000 mls @ 100 mls/hr 12/02/22 23:45 12/03/22 08:29 Lr IVCONT Infused .Q10H AZUCENA Infusion Doxycycline Hyclate 100 mg/ 250 mls @ 166.67 mls/hr 12/02/22 23:45 12/03/22 01:59 Sodium Chloride IV Infused Q12H AZUCENA Infusion Iohexol 100 ml 12/02/22 20:46 12/02/22 20:46 Iohexol 350 Mg/Ml 100 Ml Infus..Btl IV 12/02/22 20:47 85 ml ONCE ONE Administration Pantoprazole Sodium 40 mg 12/03/22 06:30 12/03/22 05:52 Pantoprazole Sodium 40 Mg/10 Ml Vial IVPUSH 40 mg DAILY@0630 AZUCENA Administration Potassium Chloride 40 meq 12/03/22 01:17 12/03/22 01:33 Potassium Chloride Er 20 Meq Tab.Er.Prt PO 12/03/22 01:18 Not Given ONCE ONE Rocuronium Cameron 100 mg 12/02/22 18:34 12/02/22 18:17 Rocuronium Cameron 50 Mg/5 Ml Vial IVPUSH 12/02/22 18:35 100 mg ONCE ONE Administration <MILAGRO Dumont - Last Filed: 12/03/22 11:38> Medical Decision Making Medical Decision Making MDM Narrative: 67-year-old female who is brought in by family members for change in mental status and noted to have a high blood pressure. It would seem that the afternoon visiting nurse informed the family that patient had taken her afternoon medications but then vomited afterwards. Patient does not provide any of the history which is a beebe departure according the family from her baseline although she does have underlying dementia. Patient has no elevated temperature but within nausea and vomiting and surgical history of hysterectomy provided by the family will insure that patient does not have a bowel obstruction. Imaging, labs, urinalysis will be obtained. 1800: Patient had a seizure with cyanotic changes and poor airway protection. Patient is currently a GCS 6 and will be intubated for airway protection. Patient has clearly bitten her tongue at the tip with some bleeding noted. I have kept family up-to-date and they are aware that the patient will be intubated for airway protection. 1839: On review of the EKG and noting the QTC and QT prolongation on review of patient's medication history she has noted risperidone which in conjunction with citalopram raises concerns for possible drug etiology. However, also on review patient's ammonia is noted to be elevated. Patient is currently intubated and will undergo further imaging studies to include CT angio of head and neck as well as abdomen/pelvis. I am continuing to keep the family members up-to-date. 1905: Order placed for soft restraints due to patient being intubated, chest x- ray read as tip of tube 4 cm from felicitas and will advance 2 cm, magnesium level noted to be low but have already ordered 2 g of Mag sulfate based on EKG find ings. <Angela Kelley MD - Last Filed: 12/03/22 02:21> Differential Diagnosis Differential Diagnoses: The differential diagnosis associated with the presentation includes <Angela Kelley MD - Last Filed: 12/03/22 02:21> Please see the discussion above <Angela Kelley MD - Last Filed: 12/03/22 02:21> Consult Healthcare Provider Management of the patient was discussed with: Shingles Roofer Helper <Angela Kelley MD - Last Filed: 12/03/22 02:21> Cattle Sorter: I discussed case with beam builder who recommend CT abdomen pelvis with IV contrast,, CT scan is negative for acute findings and patient has been accepted to the ICU. <Angela Kelley MD - Last Filed: 12/03/22 02:21> Lab Data Please see the discussion above <Angela Kelley MD - Last Filed: 12/03/22 02:21> Result Diagrams: 12/02/22 18:06 12/02/22 18:06 <MILAGRO Salmeron - Last Filed: 12/02/22 17:16> Labs: Lab Results 12/02/22 12/02/22 12/02/22 Range/Units 18:03 18:06 18:06 WBC 20.9 H (4.8-10.8) X10*3/uL RBC 3.99 L (4.20-5.50) X10*6/uL Hgb 12.1 (12.0-16.0) g/dl Hct 34.6 L (37.0-47.0) % MCV 86.7 (80.0-98.0) fL MCH 30.3 (27.0-33.0) pg MCHC 35.0 (31.0-35.0) g/dl RDW 11.8 (11.0-16.0) % Plt Count 276 (160-400) X10*3/uL MPV 9.4 (9.4-12.3) fL Immature Gran % (Auto) 0.6 H (0.0-0.4) % Neut % (Auto) 83.8 H (45-73) % Lymph % (Auto) 10.8 L (20-40) % Harding % (Auto) 4.6 (2-11) % Eos % (Auto) 0.0 (0-4) % Baso % (Auto) 0.2 (0-2) % Lymph # (Auto) 2.3 (1.2-4.9) X10*3/uL Harding # (Auto) 1.0 (0.1-1.2) X10*3/uL Eos # (Auto) 0.0 (0.0-0.4) X10*3/uL Baso # (Auto) 0.0 (0.0-0.2) X10*3/uL Abs Immat Gran (auto) 0.13 H (0.00-0.03) X10*3/uL Absolute Neuts (auto) 17.5 H (2.0-8.3) x10*3/uL Absolute Nucleated RBC 0.000 (0.0-0.012) X10*3/uL Nucleated RBC % (auto) 0.0 (0.0-0.2) /100WBC VBG pH (7.32-7.43) VBG pCO2 mmHg VBG pO2 mmHg VBG HCO3 (22-26) mmol/L VBG O2 Saturation % VBG Base Excess mmol/L Sodium 123 L (135-145) mmol/L Potassium 2.6 L D (3.3-5.1) mmol/L Chloride 85 L (96-108) mmol/L Carbon Dioxide 13 L (22-29) mmol/L Anion Gap 28 H (12-20) BUN 8 L (9-16) mg/dL Creatinine 0.76 (0.5-1.4) mg/dL Estim Creat Clear Calc 66.0 Estimated GFR > 60 POC Glucose 211 H (60-115) mg/dL Random Glucose 191 H (60-115) mg/dL Lactic Acid (0.5-2.0) mmol/L Calcium 8.8 (8.4-10.2) mg/dL Phosphorus 4.6 H (2.7-4.5) mg/dL Magnesium 1.2 L* (1.6-2.6) mg/dL Total Bilirubin 0.8 (0.0-1.0) mg/dL Direct Bilirubin 0.2 (0.0-0.5) mg/dL AST 22 (5-31) U/L ALT 16 (0-31) U/L Alkaline Phosphatase 70 (39-117) U/L Ammonia (13-55) umol/L Total Creatine Kinase 411 H (26-140) U/L Troponin I High Sens (<3.5-17.0) ng/L Total Protein 7.1 (6.5-8.0) g/dL Albumin 4.3 (3.5-5.0) g/dL TSH (0.32-4.0) uIU/mL Free T4 (0.71-1.85) ng/dL Urine Color Urine Appearance Urine pH (5.0-9.0) Ur Specific [place] (1.005-1.025) Urine Protein (Neg-Trace) mg/dL Urine Glucose (UA) (Negative) mg/dL Urine Ketones (Negative) mg/dL Urine Blood (Negative) Urine Nitrite (Negative) Ur Leukocyte Esterase (Negative) Salicylates < 5.0 L (15-30) mg/dL Urine Opiates Screen (Not Detect) Urine Fentanyl Screen (Not Detect) Acetaminophen < 17 (<30) mcg/mL Ur Barbiturates Screen (Not Detect) Ur Phencyclidine Scrn (Not Detect) Ur Amphetamines Screen (Not Detect) U Benzodiazepines Scrn (Not Detect) Urine Cocaine Screen (Not Detect) U Marijuana (THC) Screen (Not Detect) Ethyl Alcohol < 10 mg/dL COVID-19 ([facility]) (Negative) COVID-19 Clin Com Influenza Type A ([facility]) (Negative) Influenza Type B ([facility]) (Negative) Influenza A & B Note 12/02/22 12/02/22 12/02/22 Range/Units 18:06 18:06 18:06 WBC (4.8-10.8) X10*3/uL RBC (4.20-5.50) X10*6/uL Hgb (12.0-16.0) g/dl Hct (37.0-47.0) % MCV (80.0-98.0) fL MCH (27.0-33.0) pg MCHC (31.0-35.0) g/dl RDW (11.0-16.0) % Plt Count (160-400) X10*3/uL MPV (9.4-12.3) fL Immature Gran % (Auto) (0.0-0.4) % Neut % (Auto) (45-73) % Lymph % (Auto) (20-40) % Harding % (Auto) (2-11) % Eos % (Auto) (0-4) % Baso % (Auto) (0-2) % Lymph # (Auto) (1.2-4.9) X10*3/uL Harding # (Auto) (0.1-1.2) X10*3/uL Eos # (Auto) (0.0-0.4) X10*3/uL Baso # (Auto) (0.0-0.2) X10*3/uL Abs Immat Gran (auto) (0.00-0.03) X10*3/uL Absolute Neuts (auto) (2.0-8.3) x10*3/uL Absolute Nucleated RBC (0.0-0.012) X10*3/uL Nucleated RBC % (auto) (0.0-0.2) /100WBC VBG pH (7.32-7.43) VBG pCO2 mmHg VBG pO2 mmHg VBG HCO3 (22-26) mmol/L VBG O2 Saturation % VBG Base Excess mmol/L Sodium (135-145) mmol/L Potassium (3.3-5.1) mmol/L Chloride (96-108) mmol/L Carbon Dioxide (22-29) mmol/L Anion Gap (12-20) BUN (9-16) mg/dL Creatinine (0.5-1.4) mg/dL Estim Creat Clear Calc Estimated GFR POC Glucose (60-115) mg/dL Random Glucose (60-115) mg/dL Lactic Acid (0.5-2.0) mmol/L Calcium (8.4-10.2) mg/dL Phosphorus (2.7-4.5) mg/dL Magnesium (1.6-2.6) mg/dL Total Bilirubin (0.0-1.0) mg/dL Direct Bilirubin (0.0-0.5) mg/dL AST (5-31) U/L ALT (0-31) U/L Alkaline Phosphatase (39-117) U/L Ammonia 79 H (13-55) umol/L Total Creatine Kinase (26-140) U/L Troponin I High Sens 7.5 (<3.5-17.0) ng/L Total Protein (6.5-8.0) g/dL Albumin (3.5-5.0) g/dL TSH 0.19 L (0.32-4.0) uIU/mL Free T4 1.28 (0.71-1.85) ng/dL Urine Color Urine Appearance Urine pH (5.0-9.0) Ur Specific [place] (1.005-1.025) Urine Protein (Neg-Trace) mg/dL Urine Glucose (UA) (Negative) mg/dL Urine Ketones (Negative) mg/dL Urine Blood (Negative) Urine Nitrite (Negative) Ur Leukocyte Esterase (Negative) Salicylates (15-30) mg/dL Urine Opiates Screen (Not Detect) Urine Fentanyl Screen (Not Detect) Acetaminophen (<30) mcg/mL Ur Barbiturates Screen (Not Detect) Ur Phencyclidine Scrn (Not Detect) Ur Amphetamines Screen (Not Detect) U Benzodiazepines Scrn (Not Detect) Urine Cocaine Screen (Not Detect) U Marijuana (THC) Screen (Not Detect) Ethyl Alcohol mg/dL COVID-19 ([facility]) (Negative) COVID-19 Clin Com Influenza Type A ([facility]) (Negative) Influenza Type B ([facility]) (Negative) Influenza A & B Note 12/02/22 12/02/22 12/02/22 Range/Units 18:09 18:11 18:11 WBC (4.8-10.8) X10*3/uL RBC (4.20-5.50) X10*6/uL Hgb (12.0-16.0) g/dl Hct (37.0-47.0) % MCV (80.0-98.0) fL MCH (27.0-33.0) pg MCHC (31.0-35.0) g/dl RDW (11.0-16.0) % Plt Count (160-400) X10*3/uL MPV (9.4-12.3) fL Immature Gran % (Auto) (0.0-0.4) % Neut % (Auto) (45-73) % Lymph % (Auto) (20-40) % [place] % (Auto) (2-11) % Eos % (Auto) (0-4) % Baso % (Auto) (0-2) % Lymph # (Auto) (1.2-4.9) X10*3/uL [place] # (Auto) (0.1-1.2) X10*3/uL Eos # (Auto) (0.0-0.4) X10*3/uL Baso # (Auto) (0.0-0.2) X10*3/uL Abs Immat Gran (auto) (0.00-0.03) X10*3/uL Absolute Neuts (auto) (2.0-8.3) x10*3/uL Absolute Nucleated RBC (0.0-0.012) X10*3/uL Nucleated RBC % (auto) (0.0-0.2) /100WBC VBG pH 7.26 L (7.32-7.43) VBG pCO2 30 mmHg VBG pO2 153 mmHg VBG HCO3 13 L (22-26) mmol/L VBG O2 Saturation 99.0 % VBG Base Excess -11.8 mmol/L Sodium (135-145) mmol/L Potassium (3.3-5.1) mmol/L Chloride (96-108) mmol/L Carbon Dioxide (22-29) mmol/L Anion Gap (12-20) BUN (9-16) mg/dL Creatinine (0.5-1.4) mg/dL Estim Creat Clear Calc Estimated GFR POC Glucose (60-115) mg/dL Random Glucose (60-115) mg/dL Lactic Acid (0.5-2.0) mmol/L Calcium (8.4-10.2) mg/dL Phosphorus (2.7-4.5) mg/dL Magnesium (1.6-2.6) mg/dL Total Bilirubin (0.0-1.0) mg/dL Direct Bilirubin (0.0-0.5) mg/dL AST (5-31) U/L ALT (0-31) U/L Alkaline Phosphatase (39-117) U/L Ammonia (13-55) umol/L Total Creatine Kinase (26-140) U/L Troponin I High Sens (<3.5-17.0) ng/L Total Protein (6.5-8.0) g/dL Albumin (3.5-5.0) g/dL TSH (0.32-4.0) uIU/mL Free T4 (0.71-1.85) ng/dL Urine Color Urine Appearance Urine pH (5.0-9.0) Ur Specific [place] (1.005-1.025) Urine Protein (Neg-Trace) mg/dL Urine Glucose (UA) (Negative) mg/dL Urine Ketones (Negative) mg/dL Urine Blood (Negative) Urine Nitrite (Negative) Ur Leukocyte Esterase (Negative) Salicylates (15-30) mg/dL Urine Opiates Screen (Not Detect) Urine Fentanyl Screen (Not Detect) Acetaminophen (<30) mcg/mL Ur Barbiturates Screen (Not Detect) Ur Phencyclidine Scrn (Not Detect) Ur Amphetamines Screen (Not Detect) U Benzodiazepines Scrn (Not Detect) Urine Cocaine Screen (Not Detect) U Marijuana (THC) Screen (Not Detect) Ethyl Alcohol mg/dL COVID-19 ([facility]A) Negative (Negative) COVID-19 Clin Com See Note Influenza Type A (CISCO) Negative (Negative) Influenza Type B (CISCO) Negative (Negative) Influenza A & B Note See Note 12/02/22 12/02/22 12/02/22 Range/Units 19:27 20:08 20:59 WBC (4.8-10.8) X10*3/uL RBC (4.20-5.50) X10*6/uL Hgb (12.0-16.0) g/dl Hct (37.0-47.0) % MCV (80.0-98.0) fL MCH (27.0-33.0) pg MCHC (31.0-35.0) g/dl RDW (11.0-16.0) % Plt Count (160-400) X10*3/uL MPV (9.4-12.3) fL Immature Gran % (Auto) (0.0-0.4) % Neut % (Auto) (45-73) % Lymph % (Auto) (20-40) % [place] % (Auto) (2-11) % Eos % (Auto) (0-4) % Baso % (Auto) (0-2) % Lymph # (Auto) (1.2-4.9) X10*3/uL [place] # (Auto) (0.1-1.2) X10*3/uL Eos # (Auto) (0.0-0.4) X10*3/uL Baso # (Auto) (0.0-0.2) X10*3/uL Abs Immat Gran (auto) (0.00-0.03) X10*3/uL Absolute Neuts (auto) (2.0-8.3) x10*3/uL Absolute Nucleated RBC (0.0-0.012) X10*3/uL Nucleated RBC % (auto) (0.0-0.2) /100WBC VBG pH (7.32-7.43) VBG pCO2 mmHg VBG pO2 mmHg VBG HCO3 (22-26) mmol/L VBG O2 Saturation % VBG Base Excess mmol/L Sodium 122 L (135-145) mmol/L Potassium 3.2 L D (3.3-5.1) mmol/L Chloride 87 L (96-108) mmol/L Carbon Dioxide 19 L (22-29) mmol/L Anion Gap 19 (12-20) BUN 6 L (9-16) mg/dL Creatinine 0.71 (0.5-1.4) mg/dL Estim Creat Clear Calc 70.6 Estimated GFR > 60 POC Glucose (60-115) mg/dL Random Glucose 184 H (60-115) mg/dL Lactic Acid 8.5 H* (0.5-2.0) mmol/L Calcium 8.2 L D (8.4-10.2) mg/dL Phosphorus (2.7-4.5) mg/dL Magnesium (1.6-2.6) mg/dL Total Bilirubin (0.0-1.0) mg/dL Direct Bilirubin (0.0-0.5) mg/dL AST (5-31) U/L ALT (0-31) U/L Alkaline Phosphatase (39-117) U/L Ammonia (13-55) umol/L Total Creatine Kinase (26-140) U/L Troponin I High Sens (<3.5-17.0) ng/L Total Protein (6.5-8.0) g/dL Albumin (3.5-5.0) g/dL TSH (0.32-4.0) uIU/mL Free T4 (0.71-1.85) ng/dL Urine Color Urine Appearance Urine pH (5.0-9.0) Ur Specific [place] (1.005-1.025) Urine Protein (Neg-Trace) mg/dL Urine Glucose (UA) (Negative) mg/dL Urine Ketones (Negative) mg/dL Urine Blood (Negative) Urine Nitrite (Negative) Ur Leukocyte Esterase (Negative) Salicylates (15-30) mg/dL Urine Opiates Screen Not Detected (Not Detect) Urine Fentanyl Screen Not Detected (Not Detect) Acetaminophen (<30) mcg/mL Ur Barbiturates Screen Not Detected (Not Detect) Ur Phencyclidine Scrn Not Detected (Not Detect) Ur Amphetamines Screen Not Detected (Not Detect) U Benzodiazepines Scrn Not Detected (Not Detect) Urine Cocaine Screen Not Detected (Not Detect) U Marijuana (THC) Screen Not Detected (Not Detect) Ethyl Alcohol mg/dL COVID-19 ([facility]A) (Negative) COVID-19 Clin Com Influenza Type A (CISCO) (Negative) Influenza Type B (CISCO) (Negative) Influenza A & B Note 12/02/22 Range/Units 20:59 WBC (4.8-10.8) X10*3/uL RBC (4.20-5.50) X10*6/uL Hgb (12.0-16.0) g/dl Hct (37.0-47.0) % MCV (80.0-98.0) fL MCH (27.0-33.0) pg MCHC (31.0-35.0) g/dl RDW (11.0-16.0) % Plt Count (160-400) X10*3/uL MPV (9.4-12.3) fL Immature Gran % (Auto) (0.0-0.4) % Neut % (Auto) (45-73) % Lymph % (Auto) (20-40) % [place] % (Auto) (2-11) % Eos % (Auto) (0-4) % Baso % (Auto) (0-2) % Lymph # (Auto) (1.2-4.9) X10*3/uL [place] # (Auto) (0.1-1.2) X10*3/uL Eos # (Auto) (0.0-0.4) X10*3/uL Baso # (Auto) (0.0-0.2) X10*3/uL Abs Immat Gran (auto) (0.00-0.03) X10*3/uL Absolute Neuts (auto) (2.0-8.3) x10*3/uL Absolute Nucleated RBC (0.0-0.012) X10*3/uL Nucleated RBC % (auto) (0.0-0.2) /100WBC VBG pH (7.32-7.43) VBG pCO2 mmHg VBG pO2 mmHg VBG HCO3 (22-26) mmol/L VBG O2 Saturation % VBG Base Excess mmol/L Sodium (135-145) mmol/L Potassium (3.3-5.1) mmol/L Chloride (96-108) mmol/L Carbon Dioxide (22-29) mmol/L Anion Gap (12-20) BUN (9-16) mg/dL Creatinine (0.5-1.4) mg/dL Estim Creat Clear Calc Estimated GFR POC Glucose (60-115) mg/dL Random Glucose (60-115) mg/dL Lactic Acid (0.5-2.0) mmol/L Calcium (8.4-10.2) mg/dL Phosphorus (2.7-4.5) mg/dL Magnesium (1.6-2.6) mg/dL Total Bilirubin (0.0-1.0) mg/dL Direct Bilirubin (0.0-0.5) mg/dL AST (5-31) U/L ALT (0-31) U/L Alkaline Phosphatase (39-117) U/L Ammonia (13-55) umol/L Total Creatine Kinase (26-140) U/L Troponin I High Sens (<3.5-17.0) ng/L Total Protein (6.5-8.0) g/dL Albumin (3.5-5.0) g/dL TSH (0.32-4.0) uIU/mL Free T4 (0.71-1.85) ng/dL Urine Color Yellow Urine Appearance Clear Urine pH 6.5 (5.0-9.0) Ur Specific [place] 1.015 (1.005-1.025) Urine Protein Negative (Neg-Trace) mg/dL Urine Glucose (UA) Negative (Negative) mg/dL Urine Ketones Negative (Negative) mg/dL Urine Blood Negative (Negative) Urine Nitrite Negative (Negative) Ur Leukocyte Esterase Negative (Negative) Salicylates (15-30) mg/dL Urine Opiates Screen (Not Detect) Urine Fentanyl Screen (Not Detect) Acetaminophen (<30) mcg/mL Ur Barbiturates Screen (Not Detect) Ur Phencyclidine Scrn (Not Detect) Ur Amphetamines Screen (Not Detect) U Benzodiazepines Scrn (Not Detect) Urine Cocaine Screen (Not Detect) U Marijuana (THC) Screen (Not Detect) Ethyl Alcohol mg/dL COVID-19 ([facility]) (Negative) COVID-19 Clin Com Influenza Type A ([facility]CO) (Negative) Influenza Type B (CISCO) (Negative) Influenza A & B Note <MILAGRO Salmeron - Last Filed: 12/02/22 17:16> Lab Results 12/02/22 12/02/22 12/02/22 Range/Units 18:03 18:06 18:06 WBC 20.9 H (4.8-10.8) X10*3/uL RBC 3.99 L (4.20-5.50) X10*6/uL Hgb 12.1 (12.0-16.0) g/dl Hct 34.6 L (37.0-47.0) % MCV 86.7 (80.0-98.0) fL MCH 30.3 (27.0-33.0) pg MCHC 35.0 (31.0-35.0) g/dl RDW 11.8 (11.0-16.0) % Plt Count 276 (160-400) X10*3/uL MPV 9.4 (9.4-12.3) fL Immature Gran % (Auto) 0.6 H (0.0-0.4) % Neut % (Auto) 83.8 H (45-73) % Lymph % (Auto) 10.8 L (20-40) % [place] % (Auto) 4.6 (2-11) % Eos % (Auto) 0.0 (0-4) % Baso % (Auto) 0.2 (0-2) % Lymph # (Auto) 2.3 (1.2-4.9) X10*3/uL [place] # (Auto) 1.0 (0.1-1.2) X10*3/uL Eos # (Auto) 0.0 (0.0-0.4) X10*3/uL Baso # (Auto) 0.0 (0.0-0.2) X10*3/uL Abs Immat Gran (auto) 0.13 H (0.00-0.03) X10*3/uL Absolute Neuts (auto) 17.5 H (2.0-8.3) x10*3/uL Absolute Nucleated RBC 0.000 (0.0-0.012) X10*3/uL Nucleated RBC % (auto) 0.0 (0.0-0.2) /100WBC VBG pH (7.32-7.43) VBG pCO2 mmHg VBG pO2 mmHg VBG HCO3 (22-26) mmol/L VBG O2 Saturation % VBG Base Excess mmol/L Sodium 123 L (135-145) mmol/L Potassium 2.6 L D (3.3-5.1) mmol/L Chloride 85 L (96-108) mmol/L Carbon Dioxide 13 L (22-29) mmol/L Anion Gap 28 H (12-20) BUN 8 L (9-16) mg/dL Creatinine 0.76 (0.5-1.4) mg/dL Estim Creat Clear Calc 66.0 Estimated GFR > 60 POC Glucose 211 H (60-115) mg/dL Random Glucose 191 H (60-115) mg/dL Lactic Acid (0.5-2.0) mmol/L Calcium 8.8 (8.4-10.2) mg/dL Phosphorus 4.6 H (2.7-4.5) mg/dL Magnesium 1.2 L* (1.6-2.6) mg/dL Total Bilirubin 0.8 (0.0-1.0) mg/dL Direct Bilirubin 0.2 (0.0-0.5) mg/dL AST 22 (5-31) U/L ALT 16 (0-31) U/L Alkaline Phosphatase 70 (39-117) U/L Ammonia (13-55) umol/L Total Creatine Kinase 411 H (26-140) U/L Troponin I High Sens (<3.5-17.0) ng/L Total Protein 7.1 (6.5-8.0) g/dL Albumin 4.3 (3.5-5.0) g/dL TSH (0.32-4.0) uIU/mL Free T4 (0.71-1.85) ng/dL Urine Color Urine Appearance Urine pH (5.0-9.0) Ur Specific [place] (1.005-1.025) Urine Protein (Neg-Trace) mg/dL Urine Glucose (UA) (Negative) mg/dL Urine Ketones (Negative) mg/dL Urine Blood (Negative) Urine Nitrite (Negative) Ur Leukocyte Esterase (Negative) Salicylates < 5.0 L (15-30) mg/dL Urine Opiates Screen (Not Detect) Urine Fentanyl Screen (Not Detect) Acetaminophen < 17 (<30) mcg/mL Ur Barbiturates Screen (Not Detect) Ur Phencyclidine Scrn (Not Detect) Ur Amphetamines Screen (Not Detect) U Benzodiazepines Scrn (Not Detect) Urine Cocaine Screen (Not Detect) U Marijuana (THC) Screen (Not Detect) Ethyl Alcohol < 10 mg/dL COVID-19 ([facility]A) (Negative) COVID-19 Clin Com Influenza Type A ([facility]ISCO) (Negative) Influenza Type B ([facility]CO) (Negative) Influenza A & B Note 12/02/22 12/02/22 12/02/22 Range/Units 18:06 18:06 18:06 WBC (4.8-10.8) X10*3/uL RBC (4.20-5.50) X10*6/uL Hgb (12.0-16.0) g/dl Hct (37.0-47.0) % MCV (80.0-98.0) fL MCH (27.0-33.0) pg MCHC (31.0-35.0) g/dl RDW (11.0-16.0) % Plt Count (160-400) X10*3/uL MPV (9.4-12.3) fL Immature Gran % (Auto) (0.0-0.4) % Neut % (Auto) (45-73) % Lymph % (Auto) (20-40) % [place] % (Auto) (2-11) % Eos % (Auto) (0-4) % Baso % (Auto) (0-2) % Lymph # (Auto) (1.2-4.9) X10*3/uL [place] # (Auto) (0.1-1.2) X10*3/uL Eos # (Auto) (0.0-0.4) X10*3/uL Baso # (Auto) (0.0-0.2) X10*3/uL Abs Immat Gran (auto) (0.00-0.03) X10*3/uL Absolute Neuts (auto) (2.0-8.3) x10*3/uL Absolute Nucleated RBC (0.0-0.012) X10*3/uL Nucleated RBC % (auto) (0.0-0.2) /100WBC VBG pH (7.32-7.43) VBG pCO2 mmHg VBG pO2 mmHg VBG HCO3 (22-26) mmol/L VBG O2 Saturation % VBG Base Excess mmol/L Sodium (135-145) mmol/L Potassium (3.3-5.1) mmol/L Chloride (96-108) mmol/L Carbon Dioxide (22-29) mmol/L Anion Gap (12-20) BUN (9-16) mg/dL Creatinine (0.5-1.4) mg/dL Estim Creat Clear Calc Estimated GFR POC Glucose (60-115) mg/dL Random Glucose (60-115) mg/dL Lactic Acid (0.5-2.0) mmol/L Calcium (8.4-10.2) mg/dL Phosphorus (2.7-4.5) mg/dL Magnesium (1.6-2.6) mg/dL Total Bilirubin (0.0-1.0) mg/dL Direct Bilirubin (0.0-0.5) mg/dL AST (5-31) U/L ALT (0-31) U/L Alkaline Phosphatase (39-117) U/L Ammonia 79 H (13-55) umol/L Total Creatine Kinase (26-140) U/L Troponin I High Sens 7.5 (<3.5-17.0) ng/L Total Protein (6.5-8.0) g/dL Albumin (3.5-5.0) g/dL TSH 0.19 L (0.32-4.0) uIU/mL Free T4 1.28 (0.71-1.85) ng/dL Urine Color Urine Appearance Urine pH (5.0-9.0) Ur Specific [place] (1.005-1.025) Urine Protein (Neg-Trace) mg/dL Urine Glucose (UA) (Negative) mg/dL Urine Ketones (Negative) mg/dL Urine Blood (Negative) Urine Nitrite (Negative) Ur Leukocyte Esterase (Negative) Salicylates (15-30) mg/dL Urine Opiates Screen (Not Detect) Urine Fentanyl Screen (Not Detect) Acetaminophen (<30) mcg/mL Ur Barbiturates Screen (Not Detect) Ur Phencyclidine Scrn (Not Detect) Ur Amphetamines Screen (Not Detect) U Benzodiazepines Scrn (Not Detect) Urine Cocaine Screen (Not Detect) U Marijuana (THC) Screen (Not Detect) Ethyl Alcohol mg/dL COVID-19 ([facility]A) (Negative) COVID-19 Clin Com Influenza Type A ([facility]CO) (Negative) Influenza Type B (C[facility]CO) (Negative) Influenza A & B Note 12/02/22 12/02/22 12/02/22 Range/Units 18:09 18:11 18:11 WBC (4.8-10.8) X10*3/uL RBC (4.20-5.50) X10*6/uL Hgb (12.0-16.0) g/dl Hct (37.0-47.0) % MCV (80.0-98.0) fL MCH (27.0-33.0) pg MCHC (31.0-35.0) g/dl RDW (11.0-16.0) % Plt Count (160-400) X10*3/uL MPV (9.4-12.3) fL Immature Gran % (Auto) (0.0-0.4) % Neut % (Auto) (45-73) % Lymph % (Auto) (20-40) % [place] % (Auto) (2-11) % Eos % (Auto) (0-4) % Baso % (Auto) (0-2) % Lymph # (Auto) (1.2-4.9) X10*3/uL [place] # (Auto) (0.1-1.2) X10*3/uL Eos # (Auto) (0.0-0.4) X10*3/uL Baso # (Auto) (0.0-0.2) X10*3/uL Abs Immat Gran (auto) (0.00-0.03) X10*3/uL Absolute Neuts (auto) (2.0-8.3) x10*3/uL Absolute Nucleated RBC (0.0-0.012) X10*3/uL Nucleated RBC % (auto) (0.0-0.2) /100WBC VBG pH 7.26 L (7.32-7.43) VBG pCO2 30 mmHg VBG pO2 153 mmHg VBG HCO3 13 L (22-26) mmol/L VBG O2 Saturation 99.0 % VBG Base Excess -11.8 mmol/L Sodium (135-145) mmol/L Potassium (3.3-5.1) mmol/L Chloride (96-108) mmol/L Carbon Dioxide (22-29) mmol/L Anion Gap (12-20) BUN (9-16) mg/dL Creatinine (0.5-1.4) mg/dL Estim Creat Clear Calc Estimated GFR POC Glucose (60-115) mg/dL Random Glucose (60-115) mg/dL Lactic Acid (0.5-2.0) mmol/L Calcium (8.4-10.2) mg/dL Phosphorus (2.7-4.5) mg/dL Magnesium (1.6-2.6) mg/dL Total Bilirubin (0.0-1.0) mg/dL Direct Bilirubin (0.0-0.5) mg/dL AST (5-31) U/L ALT (0-31) U/L Alkaline Phosphatase (39-117) U/L Ammonia (13-55) umol/L Total Creatine Kinase (26-140) U/L Troponin I High Sens (<3.5-17.0) ng/L Total Protein (6.5-8.0) g/dL Albumin (3.5-5.0) g/dL TSH (0.32-4.0) uIU/mL Free T4 (0.71-1.85) ng/dL Urine Color Urine Appearance Urine pH (5.0-9.0) Ur Specific [place] (1.005-1.025) Urine Protein (Neg-Trace) mg/dL Urine Glucose (UA) (Negative) mg/dL Urine Ketones (Negative) mg/dL Urine Blood (Negative) Urine Nitrite (Negative) Ur Leukocyte Esterase (Negative) Salicylates (15-30) mg/dL Urine Opiates Screen (Not Detect) Urine Fentanyl Screen (Not Detect) Acetaminophen (<30) mcg/mL Ur Barbiturates Screen (Not Detect) Ur Phencyclidine Scrn (Not Detect) Ur Amphetamines Screen (Not Detect) U Benzodiazepines Scrn (Not Detect) Urine Cocaine Screen (Not Detect) U Marijuana (THC) Screen (Not Detect) Ethyl Alcohol mg/dL COVID-19 ([facility]A) Negative (Negative) COVID-19 Clin Com See Note Influenza Type A ([facility]CO) Negative (Negative) Influenza Type B (C[facility]CO) Negative (Negative) Influenza A & B Note See Note 12/02/22 12/02/22 12/02/22 Range/Units 19:27 20:08 20:59 WBC (4.8-10.8) X10*3/uL RBC (4.20-5.50) X10*6/uL Hgb (12.0-16.0) g/dl Hct (37.0-47.0) % MCV (80.0-98.0) fL MCH (27.0-33.0) pg MCHC (31.0-35.0) g/dl RDW (11.0-16.0) % Plt Count (160-400) X10*3/uL MPV (9.4-12.3) fL Immature Gran % (Auto) (0.0-0.4) % Neut % (Auto) (45-73) % Lymph % (Auto) (20-40) % [place] % (Auto) (2-11) % Eos % (Auto) (0-4) % Baso % (Auto) (0-2) % Lymph # (Auto) (1.2-4.9) X10*3/uL [place] # (Auto) (0.1-1.2) X10*3/uL Eos # (Auto) (0.0-0.4) X10*3/uL Baso # (Auto) (0.0-0.2) X10*3/uL Abs Immat Gran (auto) (0.00-0.03) X10*3/uL Absolute Neuts (auto) (2.0-8.3) x10*3/uL Absolute Nucleated RBC (0.0-0.012) X10*3/uL Nucleated RBC % (auto) (0.0-0.2) /100WBC VBG pH (7.32-7.43) VBG pCO2 mmHg VBG pO2 mmHg VBG HCO3 (22-26) mmol/L VBG O2 Saturation % VBG Base Excess mmol/L Sodium 122 L (135-145) mmol/L Potassium 3.2 L D (3.3-5.1) mmol/L Chloride 87 L (96-108) mmol/L Carbon Dioxide 19 L (22-29) mmol/L Anion Gap 19 (12-20) BUN 6 L (9-16) mg/dL Creatinine 0.71 (0.5-1.4) mg/dL Estim Creat Clear Calc 70.6 Estimated GFR > 60 POC Glucose (60-115) mg/dL Random Glucose 184 H (60-115) mg/dL Lactic Acid 8.5 H* (0.5-2.0) mmol/L Calcium 8.2 L D (8.4-10.2) mg/dL Phosphorus (2.7-4.5) mg/dL Magnesium (1.6-2.6) mg/dL Total Bilirubin (0.0-1.0) mg/dL Direct Bilirubin (0.0-0.5) mg/dL AST (5-31) U/L ALT (0-31) U/L Alkaline Phosphatase (39-117) U/L Ammonia (13-55) umol/L Total Creatine Kinase (26-140) U/L Troponin I High Sens (<3.5-17.0) ng/L Total Protein (6.5-8.0) g/dL Albumin (3.5-5.0) g/dL TSH (0.32-4.0) uIU/mL Free T4 (0.71-1.85) ng/dL Urine Color Urine Appearance Urine pH (5.0-9.0) Ur Specific [place] (1.005-1.025) Urine Protein (Neg-Trace) mg/dL Urine Glucose (UA) (Negative) mg/dL Urine Ketones (Negative) mg/dL Urine Blood (Negative) Urine Nitrite (Negative) Ur Leukocyte Esterase (Negative) Salicylates (15-30) mg/dL Urine Opiates Screen Not Detected (Not Detect) Urine Fentanyl Screen Not Detected (Not Detect) Acetaminophen (<30) mcg/mL Ur Barbiturates Screen Not Detected (Not Detect) Ur Phencyclidine Scrn Not Detected (Not Detect) Ur Amphetamines Screen Not Detected (Not Detect) U Benzodiazepines Scrn Not Detected (Not Detect) Urine Cocaine Screen Not Detected (Not Detect) U Marijuana (THC) Screen Not Detected (Not Detect) Ethyl Alcohol mg/dL COVID-19 ([facility]A) (Negative) COVID-19 Clin Com Influenza Type A (CISCO) (Negative) Influenza Type B (CISCO) (Negative) Influenza A & B Note 12/02/22 Range/Units 20:59 WBC (4.8-10.8) X10*3/uL RBC (4.20-5.50) X10*6/uL Hgb (12.0-16.0) g/dl Hct (37.0-47.0) % MCV (80.0-98.0) fL MCH (27.0-33.0) pg MCHC (31.0-35.0) g/dl RDW (11.0-16.0) % Plt Count (160-400) X10*3/uL MPV (9.4-12.3) fL Immature Gran % (Auto) (0.0-0.4) % Neut % (Auto) (45-73) % Lymph % (Auto) (20-40) % [place] % (Auto) (2-11) % Eos % (Auto) (0-4) % Baso % (Auto) (0-2) % Lymph # (Auto) (1.2-4.9) X10*3/uL [place] # (Auto) (0.1-1.2) X10*3/uL Eos # (Auto) (0.0-0.4) X10*3/uL Baso # (Auto) (0.0-0.2) X10*3/uL Abs Immat Gran (auto) (0.00-0.03) X10*3/uL Absolute Neuts (auto) (2.0-8.3) x10*3/uL Absolute Nucleated RBC (0.0-0.012) X10*3/uL Nucleated RBC % (auto) (0.0-0.2) /100WBC VBG pH (7.32-7.43) VBG pCO2 mmHg VBG pO2 mmHg VBG HCO3 (22-26) mmol/L VBG O2 Saturation % VBG Base Excess mmol/L Sodium (135-145) mmol/L Potassium (3.3-5.1) mmol/L Chloride (96-108) mmol/L Carbon Dioxide (22-29) mmol/L Anion Gap (12-20) BUN (9-16) mg/dL Creatinine (0.5-1.4) mg/dL Estim Creat Clear Calc Estimated GFR POC Glucose (60-115) mg/dL Random Glucose (60-115) mg/dL Lactic Acid (0.5-2.0) mmol/L Calcium (8.4-10.2) mg/dL Phosphorus (2.7-4.5) mg/dL Magnesium (1.6-2.6) mg/dL Total Bilirubin (0.0-1.0) mg/dL Direct Bilirubin (0.0-0.5) mg/dL AST (5-31) U/L ALT (0-31) U/L Alkaline Phosphatase (39-117) U/L Ammonia (13-55) umol/L Total Creatine Kinase (26-140) U/L Troponin I High Sens (<3.5-17.0) ng/L Total Protein (6.5-8.0) g/dL Albumin (3.5-5.0) g/dL TSH (0.32-4.0) uIU/mL Free T4 (0.71-1.85) ng/dL Urine Color Yellow Urine Appearance Clear Urine pH 6.5 (5.0-9.0) Ur Specific [place] 1.015 (1.005-1.025) Urine Protein Negative (Neg-Trace) mg/dL Urine Glucose (UA) Negative (Negative) mg/dL Urine Ketones Negative (Negative) mg/dL Urine Blood Negative (Negative) Urine Nitrite Negative (Negative) Ur Leukocyte Esterase Negative (Negative) Salicylates (15-30) mg/dL Urine Opiates Screen (Not Detect) Urine Fentanyl Screen (Not Detect) Acetaminophen (<30) mcg/mL Ur Barbiturates Screen (Not Detect) Ur Phencyclidine Scrn (Not Detect) Ur Amphetamines Screen (Not Detect) U Benzodiazepines Scrn (Not Detect) Urine Cocaine Screen (Not Detect) U Marijuana (THC) Screen (Not Detect) Ethyl Alcohol mg/dL COVID-19 (RAMA) (Negative) COVID-19 Clin Com Influenza Type A (CISCO) (Negative) Influenza Type B (CISCO) (Negative) Influenza A & B Note <Angela Kelley MD - Last Filed: 12/03/22 02:21> Lab Results 12/02/22 12/02/22 12/02/22 Range/Units 18:03 18:06 18:06 WBC 20.9 H (4.8-10.8) X10*3/uL RBC 3.99 L (4.20-5.50) X10*6/uL Hgb 12.1 (12.0-16.0) g/dl Hct 34.6 L (37.0-47.0) % MCV 86.7 (80.0-98.0) fL MCH 30.3 (27.0-33.0) pg MCHC 35.0 (31.0-35.0) g/dl RDW 11.8 (11.0-16.0) % Plt Count 276 (160-400) X10*3/uL MPV 9.4 (9.4-12.3) fL Immature Gran % (Auto) 0.6 H (0.0-0.4) % Neut % (Auto) 83.8 H (45-73) % Lymph % (Auto) 10.8 L (20-40) % [place] % (Auto) 4.6 (2-11) % Eos % (Auto) 0.0 (0-4) % Baso % (Auto) 0.2 (0-2) % Lymph # (Auto) 2.3 (1.2-4.9) X10*3/uL [place] # (Auto) 1.0 (0.1-1.2) X10*3/uL Eos # (Auto) 0.0 (0.0-0.4) X10*3/uL Baso # (Auto) 0.0 (0.0-0.2) X10*3/uL Abs Immat Gran (auto) 0.13 H (0.00-0.03) X10*3/uL Absolute Neuts (auto) 17.5 H (2.0-8.3) x10*3/uL Absolute Nucleated RBC 0.000 (0.0-0.012) X10*3/uL Nucleated RBC % (auto) 0.0 (0.0-0.2) /100WBC VBG pH (7.32-7.43) VBG pCO2 mmHg VBG pO2 mmHg VBG HCO3 (22-26) mmol/L VBG O2 Saturation % VBG Base Excess mmol/L Sodium 123 L (135-145) mmol/L Potassium 2.6 L D (3.3-5.1) mmol/L Chloride 85 L (96-108) mmol/L Carbon Dioxide 13 L (22-29) mmol/L Anion Gap 28 H (12-20) BUN 8 L (9-16) mg/dL Creatinine 0.76 (0.5-1.4) mg/dL Estim Creat Clear Calc 66.0 Estimated GFR > 60 POC Glucose 211 H (60-115) mg/dL Random Glucose 191 H (60-115) mg/dL Lactic Acid (0.5-2.0) mmol/L Calcium 8.8 (8.4-10.2) mg/dL Phosphorus 4.6 H (2.7-4.5) mg/dL Magnesium 1.2 L* (1.6-2.6) mg/dL Total Bilirubin 0.8 (0.0-1.0) mg/dL Direct Bilirubin 0.2 (0.0-0.5) mg/dL AST 22 (5-31) U/L ALT 16 (0-31) U/L Alkaline Phosphatase 70 (39-117) U/L Ammonia (13-55) umol/L Total Creatine Kinase 411 H (26-140) U/L Troponin I High Sens (<3.5-17.0) ng/L Total Protein 7.1 (6.5-8.0) g/dL Albumin 4.3 (3.5-5.0) g/dL TSH (0.32-4.0) uIU/mL Free T4 (0.71-1.85) ng/dL Urine Color Urine Appearance Urine pH (5.0-9.0) Ur Specific [place] (1.005-1.025) Urine Protein (Neg-Trace) mg/dL Urine Glucose (UA) (Negative) mg/dL Urine Ketones (Negative) mg/dL Urine Blood (Negative) Urine Nitrite (Negative) Ur Leukocyte Esterase (Negative) Salicylates < 5.0 L (15-30) mg/dL Urine Opiates Screen (Not Detect) Urine Fentanyl Screen (Not Detect) Acetaminophen < 17 (<30) mcg/mL Ur Barbiturates Screen (Not Detect) Ur Phencyclidine Scrn (Not Detect) Ur Amphetamines Screen (Not Detect) U Benzodiazepines Scrn (Not Detect) Urine Cocaine Screen (Not Detect) U Marijuana (THC) Screen (Not Detect) Ethyl Alcohol < 10 mg/dL COVID-19 ([facility]) (Negative) COVID-19 Clin Com Influenza Type A ([facility]) (Negative) Influenza Type B ([facility]) (Negative) Influenza A & B Note 12/02/22 12/02/22 12/02/22 Range/Units 18:06 18:06 18:06 WBC (4.8-10.8) X10*3/uL RBC (4.20-5.50) X10*6/uL Hgb (12.0-16.0) g/dl Hct (37.0-47.0) % MCV (80.0-98.0) fL MCH (27.0-33.0) pg MCHC (31.0-35.0) g/dl RDW (11.0-16.0) % Plt Count (160-400) X10*3/uL MPV (9.4-12.3) fL Immature Gran % (Auto) (0.0-0.4) % Neut % (Auto) (45-73) % Lymph % (Auto) (20-40) % [place] % (Auto) (2-11) % Eos % (Auto) (0-4) % Baso % (Auto) (0-2) % Lymph # (Auto) (1.2-4.9) X10*3/uL [place] # (Auto) (0.1-1.2) X10*3/uL Eos # (Auto) (0.0-0.4) X10*3/uL Baso # (Auto) (0.0-0.2) X10*3/uL Abs Immat Gran (auto) (0.00-0.03) X10*3/uL Absolute Neuts (auto) (2.0-8.3) x10*3/uL Absolute Nucleated RBC (0.0-0.012) X10*3/uL Nucleated RBC % (auto) (0.0-0.2) /100WBC VBG pH (7.32-7.43) VBG pCO2 mmHg VBG pO2 mmHg VBG HCO3 (22-26) mmol/L VBG O2 Saturation % VBG Base Excess mmol/L Sodium (135-145) mmol/L Potassium (3.3-5.1) mmol/L Chloride (96-108) mmol/L Carbon Dioxide (22-29) mmol/L Anion Gap (12-20) BUN (9-16) mg/dL Creatinine (0.5-1.4) mg/dL Estim Creat Clear Calc Estimated GFR POC Glucose (60-115) mg/dL Random Glucose (60-115) mg/dL Lactic Acid (0.5-2.0) mmol/L Calcium (8.4-10.2) mg/dL Phosphorus (2.7-4.5) mg/dL Magnesium (1.6-2.6) mg/dL Total Bilirubin (0.0-1.0) mg/dL Direct Bilirubin (0.0-0.5) mg/dL AST (5-31) U/L ALT (0-31) U/L Alkaline Phosphatase (39-117) U/L Ammonia 79 H (13-55) umol/L Total Creatine Kinase (26-140) U/L Troponin I High Sens 7.5 (<3.5-17.0) ng/L Total Protein (6.5-8.0) g/dL Albumin (3.5-5.0) g/dL TSH 0.19 L (0.32-4.0) uIU/mL Free T4 1.28 (0.71-1.85) ng/dL Urine Color Urine Appearance Urine pH (5.0-9.0) Ur Specific [place] (1.005-1.025) Urine Protein (Neg-Trace) mg/dL Urine Glucose (UA) (Negative) mg/dL Urine Ketones (Negative) mg/dL Urine Blood (Negative) Urine Nitrite (Negative) Ur Leukocyte Esterase (Negative) Salicylates (15-30) mg/dL Urine Opiates Screen (Not Detect) Urine Fentanyl Screen (Not Detect) Acetaminophen (<30) mcg/mL Ur Barbiturates Screen (Not Detect) Ur Phencyclidine Scrn (Not Detect) Ur Amphetamines Screen (Not Detect) U Benzodiazepines Scrn (Not Detect) Urine Cocaine Screen (Not Detect) U Marijuana (THC) Screen (Not Detect) Ethyl Alcohol mg/dL COVID-19 ([facility]) (Negative) COVID-19 Clin Com Influenza Type A ([facility]) (Negative) Influenza Type B ([facility]) (Negative) Influenza A & B Note 12/02/22 12/02/22 12/02/22 Range/Units 18:09 18:11 18:11 WBC (4.8-10.8) X10*3/uL RBC (4.20-5.50) X10*6/uL Hgb (12.0-16.0) g/dl Hct (37.0-47.0) % MCV (80.0-98.0) fL MCH (27.0-33.0) pg MCHC (31.0-35.0) g/dl RDW (11.0-16.0) % Plt Count (160-400) X10*3/uL MPV (9.4-12.3) fL Immature Gran % (Auto) (0.0-0.4) % Neut % (Auto) (45-73) % Lymph % (Auto) (20-40) % [place] % (Auto) (2-11) % Eos % (Auto) (0-4) % Baso % (Auto) (0-2) % Lymph # (Auto) (1.2-4.9) X10*3/uL [place] # (Auto) (0.1-1.2) X10*3/uL Eos # (Auto) (0.0-0.4) X10*3/uL Baso # (Auto) (0.0-0.2) X10*3/uL Abs Immat Gran (auto) (0.00-0.03) X10*3/uL Absolute Neuts (auto) (2.0-8.3) x10*3/uL Absolute Nucleated RBC (0.0-0.012) X10*3/uL Nucleated RBC % (auto) (0.0-0.2) /100WBC VBG pH 7.26 L (7.32-7.43) VBG pCO2 30 mmHg VBG pO2 153 mmHg VBG HCO3 13 L (22-26) mmol/L VBG O2 Saturation 99.0 % VBG Base Excess -11.8 mmol/L Sodium (135-145) mmol/L Potassium (3.3-5.1) mmol/L Chloride (96-108) mmol/L Carbon Dioxide (22-29) mmol/L Anion Gap (12-20) BUN (9-16) mg/dL Creatinine (0.5-1.4) mg/dL Estim Creat Clear Calc Estimated GFR POC Glucose (60-115) mg/dL Random Glucose (60-115) mg/dL Lactic Acid (0.5-2.0) mmol/L Calcium (8.4-10.2) mg/dL Phosphorus (2.7-4.5) mg/dL Magnesium (1.6-2.6) mg/dL Total Bilirubin (0.0-1.0) mg/dL Direct Bilirubin (0.0-0.5) mg/dL AST (5-31) U/L ALT (0-31) U/L Alkaline Phosphatase (39-117) U/L Ammonia (13-55) umol/L Total Creatine Kinase (26-140) U/L Troponin I High Sens (<3.5-17.0) ng/L Total Protein (6.5-8.0) g/dL Albumin (3.5-5.0) g/dL TSH (0.32-4.0) uIU/mL Free T4 (0.71-1.85) ng/dL Urine Color Urine Appearance Urine pH (5.0-9.0) Ur Specific [place] (1.005-1.025) Urine Protein (Neg-Trace) mg/dL Urine Glucose (UA) (Negative) mg/dL Urine Ketones (Negative) mg/dL Urine Blood (Negative) Urine Nitrite (Negative) Ur Leukocyte Esterase (Negative) Salicylates (15-30) mg/dL Urine Opiates Screen (Not Detect) Urine Fentanyl Screen (Not Detect) Acetaminophen (<30) mcg/mL Ur Barbiturates Screen (Not Detect) Ur Phencyclidine Scrn (Not Detect) Ur Amphetamines Screen (Not Detect) U Benzodiazepines Scrn (Not Detect) Urine Cocaine Screen (Not Detect) U Marijuana (THC) Screen (Not Detect) Ethyl Alcohol mg/dL COVID-19 (RAMA) Negative (Negative) COVID-19 Clin Com See Note Influenza Type A (CISCO) Negative (Negative) Influenza Type B (CISCO) Negative (Negative) Influenza A & B Note See Note 12/02/22 12/02/22 12/02/22 Range/Units 19:27 20:08 20:59 WBC (4.8-10.8) X10*3/uL RBC (4.20-5.50) X10*6/uL Hgb (12.0-16.0) g/dl Hct (37.0-47.0) % MCV (80.0-98.0) fL MCH (27.0-33.0) pg MCHC (31.0-35.0) g/dl RDW (11.0-16.0) % Plt Count (160-400) X10*3/uL MPV (9.4-12.3) fL Immature Gran % (Auto) (0.0-0.4) % Neut % (Auto) (45-73) % Lymph % (Auto) (20-40) % [place] % (Auto) (2-11) % Eos % (Auto) (0-4) % Baso % (Auto) (0-2) % Lymph # (Auto) (1.2-4.9) X10*3/uL [place] # (Auto) (0.1-1.2) X10*3/uL Eos # (Auto) (0.0-0.4) X10*3/uL Baso # (Auto) (0.0-0.2) X10*3/uL Abs Immat Gran (auto) (0.00-0.03) X10*3/uL Absolute Neuts (auto) (2.0-8.3) x10*3/uL Absolute Nucleated RBC (0.0-0.012) X10*3/uL Nucleated RBC % (auto) (0.0-0.2) /100WBC VBG pH (7.32-7.43) VBG pCO2 mmHg VBG pO2 mmHg VBG HCO3 (22-26) mmol/L VBG O2 Saturation % VBG Base Excess mmol/L Sodium 122 L (135-145) mmol/L Potassium 3.2 L D (3.3-5.1) mmol/L Chloride 87 L (96-108) mmol/L Carbon Dioxide 19 L (22-29) mmol/L Anion Gap 19 (12-20) BUN 6 L (9-16) mg/dL Creatinine 0.71 (0.5-1.4) mg/dL Estim Creat Clear Calc 70.6 Estimated GFR > 60 POC Glucose (60-115) mg/dL Random Glucose 184 H (60-115) mg/dL Lactic Acid 8.5 H* (0.5-2.0) mmol/L Calcium 8.2 L D (8.4-10.2) mg/dL Phosphorus (2.7-4.5) mg/dL Magnesium (1.6-2.6) mg/dL Total Bilirubin (0.0-1.0) mg/dL Direct Bilirubin (0.0-0.5) mg/dL AST (5-31) U/L ALT (0-31) U/L Alkaline Phosphatase (39-117) U/L Ammonia (13-55) umol/L Total Creatine Kinase (26-140) U/L Troponin I High Sens (<3.5-17.0) ng/L Total Protein (6.5-8.0) g/dL Albumin (3.5-5.0) g/dL TSH (0.32-4.0) uIU/mL Free T4 (0.71-1.85) ng/dL Urine Color Urine Appearance Urine pH (5.0-9.0) Ur Specific [place] (1.005-1.025) Urine Protein (Neg-Trace) mg/dL Urine Glucose (UA) (Negative) mg/dL Urine Ketones (Negative) mg/dL Urine Blood (Negative) Urine Nitrite (Negative) Ur Leukocyte Esterase (Negative) Salicylates (15-30) mg/dL Urine Opiates Screen Not Detected (Not Detect) Urine Fentanyl Screen Not Detected (Not Detect) Acetaminophen (<30) mcg/mL Ur Barbiturates Screen Not Detected (Not Detect) Ur Phencyclidine Scrn Not Detected (Not Detect) Ur Amphetamines Screen Not Detected (Not Detect) U Benzodiazepines Scrn Not Detected (Not Detect) Urine Cocaine Screen Not Detected (Not Detect) U Marijuana (THC) Screen Not Detected (Not Detect) Ethyl Alcohol mg/dL COVID-19 ([facility]A) (Negative) COVID-19 Clin Com Influenza Type A (CISCO) (Negative) Influenza Type B ([facility]ISCO) (Negative) Influenza A & B Note 12/02/22 Range/Units 20:59 WBC (4.8-10.8) X10*3/uL RBC (4.20-5.50) X10*6/uL Hgb (12.0-16.0) g/dl Hct (37.0-47.0) % MCV (80.0-98.0) fL MCH (27.0-33.0) pg MCHC (31.0-35.0) g/dl RDW (11.0-16.0) % Plt Count (160-400) X10*3/uL MPV (9.4-12.3) fL Immature Gran % (Auto) (0.0-0.4) % Neut % (Auto) (45-73) % Lymph % (Auto) (20-40) % [place] % (Auto) (2-11) % Eos % (Auto) (0-4) % Baso % (Auto) (0-2) % Lymph # (Auto) (1.2-4.9) X10*3/uL [place] # (Auto) (0.1-1.2) X10*3/uL Eos # (Auto) (0.0-0.4) X10*3/uL Baso # (Auto) (0.0-0.2) X10*3/uL Abs Immat Gran (auto) (0.00-0.03) X10*3/uL Absolute Neuts (auto) (2.0-8.3) x10*3/uL Absolute Nucleated RBC (0.0-0.012) X10*3/uL Nucleated RBC % (auto) (0.0-0.2) /100WBC VBG pH (7.32-7.43) VBG pCO2 mmHg VBG pO2 mmHg VBG HCO3 (22-26) mmol/L VBG O2 Saturation % VBG Base Excess mmol/L Sodium (135-145) mmol/L Potassium (3.3-5.1) mmol/L Chloride (96-108) mmol/L Carbon Dioxide (22-29) mmol/L Anion Gap (12-20) BUN (9-16) mg/dL Creatinine (0.5-1.4) mg/dL Estim Creat Clear Calc Estimated GFR POC Glucose (60-115) mg/dL Random Glucose (60-115) mg/dL Lactic Acid (0.5-2.0) mmol/L Calcium (8.4-10.2) mg/dL Phosphorus (2.7-4.5) mg/dL Magnesium (1.6-2.6) mg/dL Total Bilirubin (0.0-1.0) mg/dL Direct Bilirubin (0.0-0.5) mg/dL AST (5-31) U/L ALT (0-31) U/L Alkaline Phosphatase (39-117) U/L Ammonia (13-55) umol/L Total Creatine Kinase (26-140) U/L Troponin I High Sens (<3.5-17.0) ng/L Total Protein (6.5-8.0) g/dL Albumin (3.5-5.0) g/dL TSH (0.32-4.0) uIU/mL Free T4 (0.71-1.85) ng/dL Urine Color Yellow Urine Appearance Clear Urine pH 6.5 (5.0-9.0) Ur Specific [place] 1.015 (1.005-1.025) Urine Protein Negative (Neg-Trace) mg/dL Urine Glucose (UA) Negative (Negative) mg/dL Urine Ketones Negative (Negative) mg/dL Urine Blood Negative (Negative) Urine Nitrite Negative (Negative) Ur Leukocyte Esterase Negative (Negative) Salicylates (15-30) mg/dL Urine Opiates Screen (Not Detect) Urine Fentanyl Screen (Not Detect) Acetaminophen (<30) mcg/mL Ur Barbiturates Screen (Not Detect) Ur Phencyclidine Scrn (Not Detect) Ur Amphetamines Screen (Not Detect) U Benzodiazepines Scrn (Not Detect) Urine Cocaine Screen (Not Detect) U Marijuana (THC) Screen (Not Detect) Ethyl Alcohol mg/dL COVID-19 (RAMA) (Negative) COVID-19 Clin Com Influenza Type A ([facility]ISCO) (Negative) Influenza Type B ([facility]ISCO) (Negative) Influenza A & B Note <MILAGRO Dumont - Last Filed: 12/03/22 11:38> Independent Interpretation I performed an independent interpretation of an: EKG <Angela Kelley MD - Last Filed: 12/03/22 02:21> Interpretation: Sinus tachycardia, HR-104, no STEMI, WA/QRS is within normal limits, QTC - 633. <Angela Kelley MD - Last Filed: 12/03/22 02:21> Radiology Impression Radiologist Impression: My interpretation is in agreement with radiology's impression imaging study <Angela Kelley MD - Last Filed: 12/03/22 02:21> External Record Review External record reviewed: Outpatient record and Prior outpatient labs <Angela Kelley MD - Last Filed: 12/03/22 02:21> Chronic Conditions Patient?s care impacted by: Hypertension <Angela Kelley MD - Last Filed: 12/03/22 02:21> Procedures Intubation Time out performed: Yes <MILAGRO Dumont - Last Filed: 12/03/22 11:38> sedative: Etomidate <MILAGRO Dumont - Last Filed: 12/03/22 11:38> Mg Given: 20 <MILAGRO Dumont - Last Filed: 12/03/22 11:38> paralytic: Rocuronium <MILAGRO Dumont - Last Filed: 12/03/22 11:38> Mg Given: 100 <MILAGRO Dumont - Last Filed: 12/03/22 11:38> Laryngoscope: fiber optic video scope <MILAGRO Dumont - Last Filed: 12/03/22 11:38> ET Tube Size: 7.5 <MILAGRO Dumont - Last Filed: 12/03/22 11:38> ET Tube Uncuffed: Yes <MILAGRO Dumont - Last Filed: 12/03/22 11:38> Tube Secured Depth (cm): 23 <MILAGRO Dumont - Last Filed: 12/03/22 11:38> Tube Secured Location: lips <MILAGRO Dumont - Last Filed: 12/03/22 11:38> Tube Placement Confirmation: visualized tube passing through cords, equal breath sounds bilaterally and confirmation by capnometry <MILAGRO Dumont - Last Filed: 12/03/22 11:38> Patient Tolerated Procedure: well and no complications <MILAGRO Dumont - Last Filed: 12/03/22 11:38> Intubation Complications: none <Angela Kelley MD - Last Filed: 12/03/22 02:21> Critical Care Time Critical Care Time Critical Care Time: Yes <Angela Kelley MD - Last Filed: 12/03/22 02:21> Total Critical Care Time: 60 <MILAGRO Dumont - Last Filed: 12/03/22 11:38> Attestation: I personally attest to this time spent taking care of the patient. <Angela Kelley MD - Last Filed: 12/03/22 02:21> Discharge Plan Discharge Clinical Impression: Metabolic encephalopathy, Dehydration, Hyponatremia, Seizure <MILAGRO Salmeron - Last Filed: 12/02/22 17:16> Patient Disposition: Admitted As Inpatient <MILAGRO Salmeron - Last Filed: 12/02/22 17:16> Interventions: Admission Worksheet (ED) Last Done: 12/02/22 22:21 <MILAGRO Salmeron - Last Filed: 12/02/22 17:16> Discharge Date/Time: 12/02/22 22:22 <MILAGRO Salmeron - Last Filed: 12/02/22 17:16>
--- NOTE | 2022-12-02 17:11 | ECG_ITS ---
Test Reason : SEIZURE Blood Pressure : / mmHG Vent. Rate : 104 BPM Atrial Rate : 104 BPM P-R Int : 144 ms QRS Dur : 088 ms QT Int : 482 ms P-R-T Axes : 056 063 068 degrees QTc Int : [address] depressed inferolateral leads Prolonged QT Abnormal ECG When compared with ECG of 05-JUL-2008 14:13, Vent. rate has increased BY [address] now depressed in Inferior leads ST now depressed in Lateral leads T wave inversion now evident in Anterolateral leads QT has lengthened Referred By: Bharati Kulkarni Electronically Signed By:MUNA LORA MD
[2022-12-02 18:12] LABS: MANUAL DIFF FLAG NO
[2022-12-02 18:16] LABS: Venous Blood Gas Refer to POC result
[2022-12-02] MEDS: Rocuronium Bromide 50 MG/5 ML VIAL 100 MG IVPUSH (18:17)
[2022-12-02] MEDS: Etomidate 20 MG/10 ML VIAL IVPUSH (18:17)
[2022-12-02 18:18] LABS: Basophils Percent Auto 0.2 % (0-2); Hematocrit 34.6 % (37.0-47.0); Hemoglobin 12.1 g/dl (12.0-16.0); Imm Gran Abs Auto 0.13 X10*3/uL (0.00-0.03); Imm Gran Pct Auto 0.6 % (0.0-0.4); Lymphocytes Absolute Auto 2.3 X10*3/uL (1.2-4.9); Lymphocytes Percent Auto 10.8 % (20-40); Mean Corpuscular Hemoglobin 30.3 pg (27.0-33.0); Mean Corpuscular Volume 86.7 fL (80.0-98.0); Mean Platelet Volume 9.4 fL (9.4-12.3); Monocytes Percent Auto 4.6 % (2-11); Neutrophils Absolute Auto 17.5 x10*3/uL (2.0-8.3); Neutrophils Percent Auto 83.8 % (45-73); Platelet Count 276 X10*3/uL (160-400); Red Blood Count 3.99 X10*6/uL (4.20-5.50); Red Cell Distribution Width 11.8 % (11.0-16.0); White Blood Count 20.9 X10*3/uL (4.8-10.8)
[2022-12-02 18:18] LABS: VBG Base Excess -11.8 mmol/L; VBG HCO3 13 mmol/L (22-26); VBG pCO2 30 mmHg; VBG pH 7.26 (7.32-7.43); VBG pO2 153 mmHg
[2022-12-02 18:22] LABS: Ammonia 79 umol/L (13-55)
[2022-12-02 18:32] LABS: COVID-19 Test Negative (Negative); IDNOW Serial# 9DB6401D; IDNOW Serial# BCCEAD1C; Influenza A Negative (Negative); Influenza B2 Negative (Negative)
[2022-12-02] MEDS: propofoL 1,000 MG/100 ML VIAL 12.6 MG IVCONT (18:32)
[2022-12-02 18:38] LABS: Troponin-I High Sensitivity 7.5 ng/L (<3.5-17.0)
[2022-12-02 18:52] LABS: TSH reflex Free T4 0.19 uIU/mL (0.32-4.0)
[2022-12-02] MEDS: Magnesium Sulfate/H2O 2 GM/50 ML PIGGYBACK IV ×2 (19:00→23:15)
[2022-12-02 19:04] LABS: Acetaminophen LAB < 17 mcg/mL (<30); Alanine Aminotransferase 16 U/L (0-31); Albumin Level 4.3 g/dL (3.5-5.0); Alkaline Phosphatase 70 U/L (39-117); Anion Gap 28 (12-20); Aspartate Amino Transferase 22 U/L (5-31); Bilirubin Direct 0.2 mg/dL (0.0-0.5); Bilirubin Total 0.8 mg/dL (0.0-1.0); Blood Urea Nitrogen 8 mg/dL (9-16); Calcium 8.8 mg/dL (8.4-10.2); Carbon Dioxide 13 mmol/L (22-29); Chloride 85 mmol/L (96-108); Estimated Glomerular Filt Rate > 60; Glucose Random 191 mg/dL (60-115); Magnesium 1.2 mg/dL (1.6-2.6); Potassium 2.6 mmol/L (3.3-5.1); Salicylate < 5.0 mg/dL (15-30); Sodium 123 mmol/L (135-145); Total Protein 7.1 g/dL (6.5-8.0)
--- NOTE | 2022-12-02 19:05 | PC.NURSE ---
witnessed seizure by ED staff. patient unresponsive to stimuli. intubated for airway protection. 7.5 tube @ 23 lip. propofol drip started per DEC. soft wrist restraints in place for safety. miramontes placed.
[2022-12-02 19:49] LABS: Ethanol < 10 mg/dL
[2022-12-02 19:50] LABS: Lactic Acid 8.5 mmol/L (0.5-2.0)
[2022-12-02 19:52] LABS: Free T4 (Free Thyroxine) 1.28 ng/dL (0.71-1.85)
[2022-12-02 19:52] LABS: Glucose, Whole Blood 211 mg/dL (60-115)
--- NOTE | 2022-12-02 19:52 | PHA.MEDREC ---
Pharmacy Consult ? Medication Reconciliation Pharmacy has completed the medication reconciliation. Patient is intubated and has dementia. Unable to communicate to get med rec. Used claim history and previous discharge to compile med rec.
[2022-12-02] MEDS: Potassium Chloride/H20 10 MEQ/100 ML PIGGYBACK 100 MEQ IV ×3 (20:10→23:33)
[2022-12-02] MEDS: iohexoL 350 MG/ML 100 ML INFUS..BTL IV (20:46)
--- NOTE | 2022-12-02 21:04 | PC.NURSE ---
Assumed care of pt at 1900. Pt is intubated and sedated. 7.5 tube 23 at lip. Respiratory at bedside suctioning. Tube repositioned to 25 at lip. Propofol titrated to 50mcg as pt is moving bilateral upper extremities and trying to cough. Pt transferred to ct scan. Tolerated transfer well with no concerns. Family is at bedside and aware of plan of care.
[2022-12-02 21:10] LABS: Appearance Urine Clear; Color Urine Yellow; Glucose Urine UA Negative (Negative); Leukocyte Esterase Urine Negative (Negative); Nitrite Urine Negative (Negative); PH 6.5 (5.0-9.0); Specific Gravity - Urine 1.015 (1.005-1.025); Urine Blood Negative (Negative); Urine Ketones Negative (Negative); Urine Protein Negative (Neg-Trace)
[2022-12-02 21:18] LABS: Amphetamine Screen Urine Not Detected (Not Detect); Barbiturates, Urine Not Detected (Not Detect); Benzodiazepines Screen Urine Not Detected (Not Detect); Cannabinoid Screen Urine Not Detected (Not Detect); Cocaine Screen Urine Not Detected (Not Detect); Fentanyl, urine Not Detected (Not Detect); Opiate Screen Urine Not Detected (Not Detect); Phencyclidine Screen Urine Not Detected (Not Detect)
[2022-12-02 21:21] LABS: Anion Gap 19 (12-20); Blood Urea Nitrogen 6 mg/dL (9-16); Calcium 8.2 mg/dL (8.4-10.2); Carbon Dioxide 19 mmol/L (22-29); Chloride 87 mmol/L (96-108); Creatinine Clr Calc Pharmacy 70.6; Estimated Glomerular Filt Rate > 60; Glucose Random 184 mg/dL (60-115); Potassium 3.2 mmol/L (3.3-5.1); Sodium 122 mmol/L (135-145)
[2022-12-02 21:28] LABS: Reflex Lactate? Lactic Acid Added
--- NOTE | 2022-12-02 21:36 | P.HPCC_ITS ---
History of Present Illness Date of Service: 12/02/22 Attending physician on admission: Madhav Gauthier Chief Complaint: SEPSIS, BILATERAL PNA, MET ACIDOSIS, ELECTROLYTE ABN HPI: ?67-year-old patient with underlying history of obesity, asthma, diabetes, GERD, hyperlipidemia, hypertension, vascular dementia, lumbar spondylosis presented to the emergency room today with complaints of not being herself and some mental status changes as she was not able to follow commands a nd had multiple episodes of nausea and vomiting at home associated with some new tremor and stiffness of her body; as this was reported by the patient's visiting nurse to the patient's daughter. ? It seems she was triaged in the ER at 17:10 while in the ER, patient was noted to be normotensive with otherwise normal vital signs and no febrile, the patient had been moved to a room and later while going to CT reportedly the patient quickly decompensated and her mental status became even more alter with some shakiness movements, the patient was seen then by the physician Dr. Fiore who reports that the patient seemed to be in a postictal like state, she bit her tongue; no responsive even to painful stimuli, showing signs of cyanosis and given acuity symptoms and description of what had happened just prior to her seeing her, she was under the impression that the patient had a seizure and dec ided to intubate the patient for airway protection. ? A subsequent workup reveal a negative head CT indicating scattered chronic small-vessel ischemic changes within the periventricular white matter.? Otherwise unremarkable examination, no evidence of acute territorial infarct or hemorrhage.? Chest x-ray showed low lung volumes without infiltrates or nodules.? ET tube 4 cm above the felicitas. CT abdomen pelvis with IV contrast showed chronic appearing changes of scattered colonic diverticulosis without colonic wall thickening or pericolonic inflammatory changes to suggest diverticulitis.? Airspace changes in the lungs more likely atelectasis although early infiltrate at the left lung base cannot be excluded.? No evidence of intra-abdominal processes. ? Laboratory data obtained after the intubation showed a white count of 20.9, H&H of 12.1 and 34.6 respectively, platelets 236, sodium 122, potassium 3.2, chloride 87, carbon dioxide 19, anion gap 19, BUN 6, creatinine 0.71, random glucose 184, lactic acid 8.5 with a subsequent of 4.6.? Total CK 411, ammonia 79, LFTs normal, TSH 0.19, free T4 1.28. ?Venous blood gas pH 7.26, pCO2 30, PO2 153, HC03 13. respiratory panel, urinalysis and urine toxicology are all negative. ? Patient was then taken to the ICU for further care.? I spoke to patient's daughter who reports the patient does not have a history of seizures, she is not sure of what happened in the ER, reassures me, she wants her mom to be full code. ? ROS:? Unable to obtain ? Past Medical History:? As above ? Past Surgical History:? As above ? Family history:? Noncontributory ? Social History: ?Lives at home with 1 of her children.? Patient has been suffering from dementia for about a year so diagnosed by her PCP, however she is still able to perform her own activities of daily living maintain a good conversations, minimally forgetful.? She does have a visiting nurse.? No history of alcohol, tobacco or drug use. ? CODE STATUS: FULL CODE ? Allergies: NKDA ? Home Medications: See Med Rec ? Sepsis physical exam a 2130 p.m.. VS: ?Miriam 5 or 99, 7 9, 14, 98.8 F, 99% on AC, 20, 400, 5, 24 % FiO2 General:? Sedated, intubated Skin:? Intact, no lesions, edema, erythema, clubbing or cyanosis.? No ulcers. HEENT:? Head is normocephalic, atraumatic, pupils equal round reactive to light accommodation bilaterally.? Extraocular movements appear intact.? Buccal mucosa is moist, Neck is supple without lymphadenopathy. Cardiac:? Clear S1-S2, no murmurs rubs or gallops. Pulmonary:? Coarse lung sounds with minimal rhonchi at the left base, minor expiratory wheezing of the anterior upper chest, no crackles. Abdomen:? Protuberant, positive bowel sounds in all 4 quadrants.? Soft. ?Ngo catheter in place with yellow urine Musculoskeletal:? Passive range of motion of the upper and lower extremities at the major joints reveal no cogwheeling, no crepitus, there is no leg edema, no calf asymmetry. Neurologic:? As above, unable to further assess Vascular:? 2+ pulses upper and lower extremities distally. ?Less than 2nd c apillary refill at the finger and toes bilaterally of the upper and lower extremities respectively. ? SIGNIFICANT LABORATORY DATA:? As above ? REVIEW OF IMAGES: ?As above ? EKG REVIEW: ?To my view the EKG in the ER shows sinus tachycardia 104 beats per minute.? There is nonspecific ST and T-wave abnormalities in the inferior and lateral leads with questionable T-wave inversion in the anterior leads.? QTC 480 2 QTC 633.? No comparison available. ? ASSESSMENT : 1. Acute mental status changes with possible seizure activity 2. Status post intubation for airway protection in the setting of the above 3. Hypo smaller hypovolemic hyponatremia 4. Severe hypomagnesemia 5. Acute rhabdomyolysis (statin, prolonged immobility, related to questionable seizure activity although this is less likely as the patient did not have a confirmed or prolongued event) 6. Dysphagia ? ?New versus old r/o stroke 7. Acute metabolic and lactic acidosis likely due to Impaired tissue oxygenation in the setting of Seizures; ? SIRS/less likely Sepsis, r/o thiamine deff, liver disease, not DKA even though AG was 28 initially. 8. Systemic inflammatory response syndrome versus early sepsis causing #7 with the likely source of lung infection given the rhonchi heard on exam at the left lung and CT findings. 9. Metabolic encephalopathy question hepatic component, post ictal, TIA 10. Sick euthyroid syndrome 11. Underlying history of vascular dementia 12. Right hand Pill Rolling tremor (new according to the daughter) question underlying parkinsonism 13. Uncontrolled hypertension with possible hypertensive encephalopathy related crisis 14. Acute Hypokalemia 15. Hx of Diabetes but no medications for it are on the med rec, need to r/o Metformin intake which can be the cause of the Lactic acidosis ? PLAN OF CARE: Admit to ICU, monitor I and O's, vital signs, will reassess the need for keeping the patient intubated as I do not think this is needed at this point.? I will repeat a blood gas likely arterial for her initial numbers do not match her current tidal volumes or vent needs. If anything the patient is hypertensive, she does not appear to be significantly dehydrated, she has good urine output, my suspicion for sepsis is present, but there is no actual fever although this does not rule it out, I do not think the patient will tolerate 30 milligrams/kilogram of IV fluid bolus, rather I am concerned that she will go into CHF therefore I will do gentle hydration. IV hydralazine will be given to decrease her BP by 25% and will use it as needed after that. The patient does have QTc prolongation on EKG and I will start her on doxycycline rather than a beta-lactam with a macrolide for this last will increase the risk of further QT prolongation, fluoroquinolones not indicated due to the same reason as well as lowering the seizure threshold. Started the patient on Keppra 1000 mg IV load will follow with Keppra 500 mg IV every 12 hours, order an EEG for the morning and neurological consult has been requested. Will discontinue statin, recheck laboratories including lactic acid, correct electrolyte abnormalities, repeat ammonia level in the morning and order lactulose rectally for the patient cannot take anything by mouth. She will need a formal speech and swallow evaluation ? GI PROPHYLAXIS: ?IV ppi DVT PROPHYLAXIS: ?Heparin subQ b.i.d. ? Clinical update 12 40 a.m. on 12/03/2022 follow-up sepsis exam Although initially the patient arrived to the ICU intubated, patient did not seem to need mechanical support, if anything the patient was awake and following my commands despite of 50 mg of propofol drip. I switched the patient to pressure support and titrated her of propofol, administered 25 mg IV push of fentanyl and subsequently extubated her at 1130 pm on 12/02/2022 without any complications.? ? The patient satting 99% on room air and fully capable of following my commands given and Thai. Repeat laboratories showed a significant improvement in her white count; Her lactic acid has improved, she still has good urinary output. ? Currently her vital signs blood pressure 136/87, heart rate 85, respirations 21, O2 sat 97% room air, temperature 99 degrees F. Patient is alert, oriented to person, not talking, follows all commands in an accurate manner. HEENT normocephalic, atraumatic extraocular movements appear intact.? Pupils equal round reactive to light and accommodation bilaterally.? Tongue protrudes midline without deviation.? All facial movements are symmetrical and there is no drooping.? Her swallowing ability however appears to be compromise as she seems to cough when asked swallow her own saliva as well as with a single sip of water. Heart regular In rate and rhythm no murmurs rubs gallops Lungs coarse lung sounds at the bases particularly at the left with minimal rhonchi. Abdomen protuberant, positive bowel sounds in all 4 quadrants.? Soft and nontender. Musculoskeletal patient is able to flex and stent the upper extremities upon request the major joints.? Hand macaroni maker is weak but equal at 3/5 bilaterally.? Lower extremity range of motion request movement is slow and only possible at the toes and ankles, no edema, no asymmetry. ? Neuro: ?As above mentioned, there is no facial drooping, no apparent pronator drift, follows all commands.? [id number] test is possible with some ataxia of the left upper extremity.? Patient not able to perform heel to zelaya upon request.? Swallowing ability appears compromised. Vascular 2+ pulses upper and lower extremities bilaterally.? Less than 2nd capillary refill of the finger and toes bilaterally upper and lower extremities respectively. ? Revised Added assessment and plan Patient minimally talks, failed health swallow evaluation I am unable to perform a full neuro exam. EEG ordered, neuro consult requested, and started Keppra administration for seizure prevention, I will discuss the possibility of an MRI study to further rule out the possibility of a stroke. ? Patient will be kept NPO. ?Continue to monitor her mental status for the repeat labs chest after she came to the ICU show an increase of her sodium from 123-129 millimoles per L. with have like a more gentle correction I will continue with IV fluids and monitor for any further mental status changes which could represent CPM. ? As part of the encephalopathy treatment, we have been able to control her blood pressure and we will administer lactulose rectally to try to get her ammonia level down and see if her level of alertness improves. ?We might also consider a dedicated liver ultrasound rule out underlying fatty liver versus cirrhosis of followed etiologies although there is no active evidence of hepatitis. ? Repeat EKG to my view shows normal sinus rhythm.? No ST elevations, no ST depressions.? There is T-wave inversions and the preseptal leads also present on prior EKG, QTC 394/QTC 465 MS. ? Critical care time used for critical evaluation of this patient, diagnosis, treatment and coordination of care, review her records and documentation TOTAL CRITICAL CARE TIME 120?MIN . discussion and coordination with consultants, completely separate from any procedures performed. ? Patient's care was discussed in detail with Dr. Gauthier.? He is aware of all the above as well as the plan of care for this patient. [facility] Past Medical History Medical History (Updated 12/03/22 @ 08:55 by Madhav Gauthier MD) Asthma Diabetes GERD (gastroesophageal reflux disease) High cholesterol Hypertension Lumbar spondylosis Vascular dementia Social History Social History Household Members: Family Unable to assess alcohol history related to: Unable to respond Patient Tobacco Use Status: Tobacco use Unknown Use of substances other than those prescribed or required for medical reasons: Unable to respond Currently Displaying Signs/Symptoms of Drug Intoxication Withdrawal: No Advance Directives: No Advance Directives Information Provided: No Recently lost weight without trying: Unsure Patient : No : No Poor oral hygiene: No service: No Current occupational status: disabled Meds Allergies Allergy/AdvReac Type Severity Reaction Status Date / Time Penicillins [PENICILLINS] Allergy Intermediate SYNCOPE Verified 12/02/22 23:39 codeine [CODEINE] AdvReac Intermediate NAUSEA & Verified 12/02/22 23:39 VOMITING Active Medications: Current Medications Aspirin (Aspirin Enteric Coated 81 Mg Tablet.) 81 mg PO DAILY [facility] Propofol (Diprivan) 1,000 mg in 100 mls @ 0 mls/hr IVCONT .Q0M [facility]; Protocol Last Titration: 12/02/22 20:17 Dose: 50 mcg/kg/min, 21 mls/hr Potassium Chloride (Potassium Chloride/H20) 10 meq in 100 mls @ 100 mls/hr IV Q1H AZUCENA Stop: 12/02/22 23:44 Last Admin: 12/02/22 20:10 Dose: 100 mls/hr Lisinopril (Lisinopril 20 Mg Tablet) 20 mg PO DAILY [facility]; Protocol Non-Formulary Medication (Citalopram) 20 mg PO DAILY [facility] Omeprazole (Omeprazole 20 Mg Capsule.) 20 mg PO DAILY [facility] Pharmacy Consult (Consult Rx Perform Med Rec) 1 each MISCELLANE ONCE PRN PRN Reason: Consult order Risperidone (Risperidone 0.5 Mg Tablet) 0.5 mg PO BID [facility] Home Medications Medication Instructions Recorded Confirmed Last Taken Type acetaminophen 650 mg 1,300 mg PO Q8H PRN pain 03/14/22 12/02/22 Unknown History tablet,extended release aspirin 81 mg tablet,delayed 81 mg PO DAILY 03/14/22 12/02/22 Unknown History release cholecalciferol (vitamin D3) 25 25 mcg PO DAILY 03/14/22 12/02/22 Unknown History mcg (1,000 unit) capsule citalopram 20 mg tablet 20 mg PO DAILY 03/14/22 12/02/22 Unknown History lisinopril 20 mg tablet 20 mg PO DAILY 03/14/22 12/02/22 Unknown History melatonin 5 mg capsule 5 mg PO BEDTIME 03/14/22 12/02/22 Unknown History risperidone 0.5 mg tablet 0.5 mg PO BID 03/14/22 12/02/22 Unknown History simvastatin 20 mg tablet 20 mg PO BEDTIME 03/14/22 12/02/22 Unknown History omeprazole 20 mg capsule,delayed 1 cap PO DAILY 12/02/22 12/02/22 Unknown History release Physical Exam Vital Signs: Vital Signs: Last Vital Signs Temp 98.1 F 12/02/22 20:52 Pulse 82 12/02/22 20:52 Resp 20 12/02/22 20:52 BP 185/101 H 12/02/22 20:52 Pulse Ox 99 12/02/22 20:52 O2 Del Method 12/02/22 20:52 FiO2 30 12/02/22 18:52 BMI result Body Mass Index 29.1 Results Labs 12/02/22 18:06 12/02/22 20:08 Labs: Laboratory Results - last 24 hr 12/02/22 12/02/22 12/02/22 18:03 18:06 18:06 MCV 86.7 MCH 30.3 MCHC 35.0 RDW 11.8 Plt Count 276 MPV 9.4 Immature Gran % (Auto) 0.6 H Neut % (Auto) 83.8 H Lymph % (Auto) 10.8 L [place] % (Auto) 4.6 Eos % (Auto) 0.0 Baso % (Auto) 0.2 Lymph # (Auto) 2.3 [place] # (Auto) 1.0 Eos # (Auto) 0.0 Baso # (Auto) 0.0 Abs Immat Gran (auto) 0.13 H Absolute Neuts (auto) 17.5 H Absolute Nucleated RBC 0.000 Nucleated RBC % (auto) 0.0 VBG pH VBG pCO2 VBG pO2 VBG HCO3 VBG O2 Saturation VBG Base Excess Anion Gap 28 H Estim Creat Clear Calc 66.0 Estimated GFR > 60 POC Glucose 211 H Random Glucose 191 H Lactic Acid Calcium 8.8 Magnesium 1.2 L* Total Bilirubin 0.8 Direct Bilirubin 0.2 AST 22 ALT 16 Alkaline Phosphatase 70 Ammonia Total Creatine Kinase 411 H Troponin I High Sens Total Protein 7.1 Albumin 4.3 TSH Free T4 Urine Color Urine Appearance Urine pH Ur Specific [place] Urine Protein Urine Glucose (UA) Urine Ketones Urine Blood Urine Nitrite Ur Leukocyte Esterase Salicylates < 5.0 L Urine Opiates Screen Urine Fentanyl Screen Acetaminophen < 17 Ur Barbiturates Screen Ur Phencyclidine Scrn Ur Amphetamines Screen U Benzodiazepines Scrn Urine Cocaine Screen U Marijuana (THC) Screen Ethyl Alcohol < 10 COVID-19 (RAMA) COVID-19 Clin Com Influenza Type A (CISCO) Influenza Type B (CISCO) Influenza A & B Note 12/02/22 12/02/22 12/02/22 18:06 18:06 18:06 MCV MCH MCHC RDW Plt Count MPV Immature Gran % (Auto) Neut % (Auto) Lymph % (Auto) [place] % (Auto) Eos % (Auto) Baso % (Auto) Lymph # (Auto) [place] # (Auto) Eos # (Auto) Baso # (Auto) Abs Immat Gran (auto) Absolute Neuts (auto) Absolute Nucleated RBC Nucleated RBC % (auto) VBG pH VBG pCO2 VBG pO2 VBG HCO3 VBG O2 Saturation VBG Base Excess Anion Gap Estim Creat Clear Calc Estimated GFR POC Glucose Random Glucose Lactic Acid Calcium Magnesium Total Bilirubin Direct Bilirubin AST ALT Alkaline Phosphatase Ammonia 79 H Total Creatine Kinase Troponin I High Sens 7.5 Total Protein Albumin TSH 0.19 L Free T4 1.28 Urine Color Urine Appearance Urine pH Ur Specific [place] Urine Protein Urine Glucose (UA) Urine Ketones Urine Blood Urine Nitrite Ur Leukocyte Esterase Salicylates Urine Opiates Screen Urine Fentanyl Screen Acetaminophen Ur Barbiturates Screen Ur Phencyclidine Scrn Ur Amphetamines Screen U Benzodiazepines Scrn Urine Cocaine Screen U Marijuana (THC) Screen Ethyl Alcohol COVID-19 (RAMA) COVID-19 Clin Com Influenza Type A (CISCO) Influenza Type B (CISCO) Influenza A & B Note 12/02/22 12/02/22 12/02/22 18:09 18:11 18:11 MCV MCH MCHC RDW Plt Count MPV Immature Gran % (Auto) Neut % (Auto) Lymph % (Auto) [place] % (Auto) Eos % (Auto) Baso % (Auto) Lymph # (Auto) [place] # (Auto) Eos # (Auto) Baso # (Auto) Abs Immat Gran (auto) Absolute Neuts (auto) Absolute Nucleated RBC Nucleated RBC % (auto) VBG pH 7.26 L VBG pCO2 30 VBG pO2 153 VBG HCO3 13 L VBG O2 Saturation 99.0 VBG Base Excess -11.8 Anion Gap Estim Creat Clear Calc Estimated GFR POC Glucose Random Glucose Lactic Acid Calcium Magnesium Total Bilirubin Direct Bilirubin AST ALT Alkaline Phosphatase Ammonia Total Creatine Kinase Troponin I High Sens Total Protein Albumin TSH Free T4 Urine Color Urine Appearance Urine pH Ur Specific [place] Urine Protein Urine Glucose (UA) Urine Ketones Urine Blood Urine Nitrite Ur Leukocyte Esterase Salicylates Urine Opiates Screen Urine Fentanyl Screen Acetaminophen Ur Barbiturates Screen Ur Phencyclidine Scrn Ur Amphetamines Screen U Benzodiazepines Scrn Urine Cocaine Screen U Marijuana (THC) Screen Ethyl Alcohol COVID-19 (RAMA) Negative COVID-19 Clin Com See Note Influenza Type A (CISCO) Negative Influenza Type B (CISCO) Negative Influenza A & B Note See Note 12/02/22 12/02/22 12/02/22 19:27 20:08 20:59 MCV MCH MCHC RDW Plt Count MPV Immature Gran % (Auto) Neut % (Auto) Lymph % (Auto) [place] % (Auto) Eos % (Auto) Baso % (Auto) Lymph # (Auto) [place] # (Auto) Eos # (Auto) Baso # (Auto) Abs Immat Gran (auto) Absolute Neuts (auto) Absolute Nucleated RBC Nucleated RBC % (auto) VBG pH VBG pCO2 VBG pO2 VBG HCO3 VBG O2 Saturation VBG Base Excess Anion Gap 19 Estim Creat Clear Calc 70.6 Estimated GFR > 60 POC Glucose Random Glucose 184 H Lactic Acid 8.5 H* Calcium 8.2 L D Magnesium Total Bilirubin Direct Bilirubin AST ALT Alkaline Phosphatase Ammonia Total Creatine Kinase Troponin I High Sens Total Protein Albumin TSH Free T4 Urine Color Urine Appearance Urine pH Ur Specific [place] Urine Protein Urine Glucose (UA) Urine Ketones Urine Blood Urine Nitrite Ur Leukocyte Esterase Salicylates Urine Opiates Screen Not Detected Urine Fentanyl Screen Not Detected Acetaminophen Ur Barbiturates Screen Not Detected Ur Phencyclidine Scrn Not Detected Ur Amphetamines Screen Not Detected U Benzodiazepines Scrn Not Detected Urine Cocaine Screen Not Detected U Marijuana (THC) Screen Not Detected Ethyl Alcohol COVID-19 (RAMA) COVID-19 Clin Com Influenza Type A (CISCO) Influenza Type B (CISCO) Influenza A & B Note 12/02/22 20:59 MCV MCH MCHC RDW Plt Count MPV Immature Gran % (Auto) Neut % (Auto) Lymph % (Auto) [place] % (Auto) Eos % (Auto) Baso % (Auto) Lymph # (Auto) [place] # (Auto) Eos # (Auto) Baso # (Auto) Abs Immat Gran (auto) Absolute Neuts (auto) Absolute Nucleated RBC Nucleated RBC % (auto) VBG pH VBG pCO2 VBG pO2 VBG HCO3 VBG O2 Saturation VBG Base Excess Anion Gap Estim Creat Clear Calc Estimated GFR POC Glucose Random Glucose Lactic Acid Calcium Magnesium Total Bilirubin Direct Bilirubin AST ALT Alkaline Phosphatase Ammonia Total Creatine Kinase Troponin I High Sens Total Protein Albumin TSH Free T4 Urine Color Yellow Urine Appearance Clear Urine pH 6.5 Ur Specific [place] 1.015 Urine Protein Negative Urine Glucose (UA) Negative Urine Ketones Negative Urine Blood Negative Urine Nitrite Negative Ur Leukocyte Esterase Negative Salicylates Urine Opiates Screen Urine Fentanyl Screen Acetaminophen Ur Barbiturates Screen Ur Phencyclidine Scrn Ur Amphetamines Screen U Benzodiazepines Scrn Urine Cocaine Screen U Marijuana (THC) Screen Ethyl Alcohol COVID-19 (RAMA) COVID-19 Clin Com Influenza Type A (CISCO) Influenza Type B (CISCO) Influenza A & B Note Imaging Radiologist's Impressions: Impressions Head CT 12/02/22 17:25 IMPRESSION: There are scattered chronic small vessel ischemic changes within the periventricular white matter. Otherwise unremarkable examination. No evidence of acute territorial infarct or hemorrhage. Chest X-Ray 12/02/22 18:36 IMPRESSION: Well-positioned endotracheal tube Assessment and Plan Time Spent With Patient Time: Total time managing care of this patient today ____ minutes.
[2022-12-02 22:03] LABS: ~Lactic Acid-LAB USE ONLY 4.6 mmol/L (0.5-2.0)
--- NOTE | 2022-12-02 22:20 | PC.NURSE ---
Report given to RAFA Ornelas. Pt being transferred to ICU room 252. Family aware.
[2022-12-02] MEDS: propofoL 1,000 MG/100 ML VIAL 21 MG IVCONT (22:24)
[2022-12-02 23:03] LABS: ABG Base Excess -0.1 mmol/L; ABG HCO3 22 mmol/L (22-26); ABG pCO2 30 mmHg (32-45); ABG pH 7.47 (7.35-7.45); ABG pO2 87 mmHg (83-108)
[2022-12-02] MEDS: hydrALAZINE HCl 20 MG/ML VIAL 5 MG IVPUSH (23:05)
[2022-12-02] MEDS: fentaNYL citrate/PF 100 MCG/2 ML VIAL 25 MCG IVPUSH (23:32)
[2022-12-02 23:40] LABS: ABG Refer to POC result
[2022-12-02 23:45] LABS: Reflex Lactate? 2 Y
[2022-12-02] MEDS: Lactated Ringers 1,000 ML 100 ML IVCONT (23:45)
[2022-12-02 23:52] LABS: Glucose, Whole Blood 115 mg/dL (60-115)
[2022-12-02] MEDS: levETIRAcetam in NaCl (iso-os) 1,000 MG/100 ML PIGGYBACK 400 MG IV (23:54)
[2022-12-02 23:59] LABS: Phosphorus 4.6 mg/dL (2.7-4.5)
[2022-12-03] VITALS (17 sets, daily range): BP systolic 129–160; BP diastolic 66–98; PULSE 75–101; RESP 11–27; TEMP 36.2–37.9; O2SAT 94–100; BMI 29.0; BMI 27.0; BMI 26.9
[2022-12-03 00:23] LABS: Alanine Aminotransferase 16 U/L (0-31); Albumin Level 3.9 g/dL (3.5-5.0); Alkaline Phosphatase 63 U/L (39-117); Anion Gap 15 (12-20); Aspartate Amino Transferase 20 U/L (5-31); Bilirubin Total 0.9 mg/dL (0.0-1.0); Blood Urea Nitrogen 6 mg/dL (9-16); Calcium 8.7 mg/dL (8.4-10.2); Carbon Dioxide 24 mmol/L (22-29); Chloride 93 mmol/L (96-108); Creatinine Clr Calc Pharmacy 74.9; Estimated Glomerular Filt Rate > 60; Glucose Random 136 mg/dL (60-115); Magnesium 2.1 mg/dL (1.6-2.6); Phosphorus 3.6 mg/dL (2.7-4.5); Potassium 3.4 mmol/L (3.3-5.1); Sodium 129 mmol/L (135-145); Total Protein 6.4 g/dL (6.5-8.0)
[2022-12-03 00:24] LABS: ~Lactic Acid-LAB USE ONLY 2.9 mmol/L (0.5-2.0)
[2022-12-03] MEDS: Doxycycline Hyclate 100 MG in 0.9 % Sodium Chloride 250 ML 166.67 MG IV (00:25)
[2022-12-03] MEDS: Potassium Chloride/H20 10 MEQ/100 ML PIGGYBACK 100 MEQ IV (00:36)
[2022-12-03 00:37] LABS: MANUAL DIFF FLAG NO
[2022-12-03 00:38] LABS: Basophils Percent Auto 0.2 % (0-2); Hematocrit 31.3 % (37.0-47.0); Hemoglobin 11.5 g/dl (12.0-16.0); Imm Gran Abs Auto 0.03 X10*3/uL (0.00-0.03); Imm Gran Pct Auto 0.2 % (0.0-0.4); Lymphocytes Absolute Auto 1.2 X10*3/uL (1.2-4.9); Lymphocytes Percent Auto 9.7 % (20-40); Mean Corpuscular HGB Conc 36.7 g/dl (31.0-35.0); Mean Corpuscular Hemoglobin 30.7 pg (27.0-33.0); Mean Corpuscular Volume 83.7 fL (80.0-98.0); Mean Platelet Volume 9.6 fL (9.4-12.3); Monocytes Absolute Auto 0.9 X10*3/uL (0.1-1.2); Monocytes Percent Auto 7.5 % (2-11); Neutrophils Absolute Auto 10.1 x10*3/uL (2.0-8.3); Neutrophils Percent Auto 82.4 % (45-73); Platelet Count 225 X10*3/uL (160-400); Red Blood Count 3.74 X10*6/uL (4.20-5.50); Red Cell Distribution Width 11.9 % (11.0-16.0); White Blood Count 12.3 X10*3/uL (4.8-10.8)
[2022-12-03] MEDS: Lactulose 320 GM/480 ML SOLUTION 200 GM PR ×2 (02:10→06:26)
--- NOTE | 2022-12-03 02:40 | PC.NURSE ---
Patient confused tried to leave the unit stopped by hospital staff. Pt became agitated and combative. Code assist initiated. Zyprexa IM given per providers order.
[2022-12-03] MEDS: Heparin Sodium,Porcine 5,000 UNIT/ML VIAL 5000 UNIT SUBCUT ×2 (04:36→15:42)
[2022-12-03 05:00] LABS: VBG Base Excess 2.1 mmol/L; VBG HCO3 24 mmol/L (22-26); VBG pCO2 30 mmHg; VBG pO2 74 mmHg
[2022-12-03 05:04] LABS: Ammonia 38 umol/L (13-55); Venous Blood Gas Refer to POC result
[2022-12-03 05:25] LABS: MANUAL DIFF FLAG NO
[2022-12-03 05:32] LABS: Basophils Percent Auto 0.2 % (0-2); Hematocrit 33.2 % (37.0-47.0); Hemoglobin 11.9 g/dl (12.0-16.0); Imm Gran Abs Auto 0.05 X10*3/uL (0.00-0.03); Imm Gran Pct Auto 0.4 % (0.0-0.4); Lymphocytes Absolute Auto 1.1 X10*3/uL (1.2-4.9); Lymphocytes Percent Auto 9.4 % (20-40); Mean Corpuscular HGB Conc 35.8 g/dl (31.0-35.0); Mean Corpuscular Hemoglobin 30.5 pg (27.0-33.0); Mean Corpuscular Volume 85.1 fL (80.0-98.0); Mean Platelet Volume 10.1 fL (9.4-12.3); Monocytes Absolute Auto 0.8 X10*3/uL (0.1-1.2); Neutrophils Absolute Auto 9.9 x10*3/uL (2.0-8.3); Platelet Count 265 X10*3/uL (160-400); White Blood Count 11.9 X10*3/uL (4.8-10.8)
[2022-12-03 05:48] LABS: Alanine Aminotransferase 16 U/L (0-31); Alkaline Phosphatase 66 U/L (39-117); Anion Gap 14 (12-20); Aspartate Amino Transferase 20 U/L (5-31); Bilirubin Total 0.7 mg/dL (0.0-1.0); Blood Urea Nitrogen 5 mg/dL (9-16); Carbon Dioxide 26 mmol/L (22-29); Chloride 103 mmol/L (96-108); Creatinine Clr Calc Pharmacy 73.3; Estimated Glomerular Filt Rate > 60; Glucose Random 118 mg/dL (60-115); Magnesium 2.2 mg/dL (1.6-2.6); Potassium 3.6 mmol/L (3.3-5.1); Sodium 139 mmol/L (135-145); Total Protein 6.5 g/dL (6.5-8.0)
[2022-12-03] MEDS: Pantoprazole Sodium 40 MG/10 ML VIAL IVPUSH (05:52)
[2022-12-03 05:53] LABS: Glucose, Whole Blood 115 mg/dL (60-115)
[2022-12-03 07:18] LABS: Lactic Acid 1.6 mmol/L (0.5-2.0)
[2022-12-03 07:29] LABS: Troponin-I High Sensitivity 24.8 ng/L (<3.5-17.0)
--- NOTE | 2022-12-03 07:50 | PC.RT ---
Addendum entered by RT Ambrosio 12/04/22 08:03: Late entry: Vent order was eventually put in at 21:28 Original Note: pt was intubated yesterday in the ED MD/Provider. MD/provider was told by RT to place vent orders and never happened Pt then went to ICU overnight and then was extubated this am.
[2022-12-03] MEDS: levETIRAcetam in NaCl (iso-os) 500 MG/100 ML PIGGYBACK 400 MG IV (08:23)
[2022-12-03] MEDS: Albuterol Sulfate (0.083%) 2.5 MG/3 ML VIAL.NEB INHALE ×4 (08:45→20:21)
--- NOTE | 2022-12-03 08:48 | MHC.CM.PN ---
IMM EXPLAINED TO DAUGHTER/HCP CARLOS EDUARDO VIA TELEPHONE. WHITE COPY TO BE MAILED, YELLOW COPY TO CHART. PT LIVES WITH SON ON SECOND FLOOR OF AN [place]. ON [place] , DAUGHTER WILL BE TAKING MOTHER HOME WITH HER ( [address], [place]) PT HAS SERVICES THROUGH [facility], DAUGHTER UNSURE IF SHE HAS ANOTHER AGENCY IN ADDITION. OPEN TO REFERRAL TO [facility] IF REC. INDEPENDENT, NO DME + HCP +COVID VAX X2. PCP AT [facility]. DP: HOME WITH RESUMPTION OF SERVICES, [facility] IF REC. REFERRAL MADE. DAUGHTER WILL TRANSPORT HOME ON DC
--- NOTE | 2022-12-03 08:49 | P.PNCC_ITS ---
Subjective Subjective Date of Service: 12/03/22 Interval History: Lady with underlying history of obesity asthma, diabetes mellitus, hypertension, vascular dementia admitted on 12/02/2022 with acute mental status change and possible seizure with postictal state intubated in ER for hour protection. Upon arrival to intensive care unit patient awake and following commands on minimal ventilatory support. Patient extubated after the brief pressure support trial and had no further events overnight. No evidence of sepsis, elevated lactate and organ dysfunction are likely secondary to postictal state. Neurology evaluation requested. MRI brain is pending. Initial CT head negative. No events overnight. Critical Care Time (minutes): 0 Physical Exam Vital Signs: Vital Signs: Last Vital Signs Temp 100.2 F 12/03/22 08:00 Pulse 82 12/03/22 08:47 Resp 11 L 12/03/22 08:47 BP 151/91 H 12/03/22 08:00 Pulse Ox 95 12/03/22 08:00 O2 Del Method 12/03/22 08:00 FiO2 21 12/02/22 23:13 BMI result Body Mass Index 26.9 Const: General: no acute distress, alert and awake Eyes: Sclerae: sclerae normal EOM: EOMs intact bilaterally Neck: Neck: Yes no lymphadenopathy, Yes trachea midline and Yes supple Resp: Effort & Inspection: normal respiratory effort and no respiratory dist ress Auscultation: clear to auscultation bilaterally Cardio: Rate: regular rate Rhythm: regular rhythm Heart sounds: no gallops, no murmurs and no rubs GI: Palpation (GI): Soft to palpation and Other GI palpation findings present ( Nontender) Auscultation: normal bowel sounds Extrem: General: Yes no pedal edema, No clubbing and No cyanosis Objective Data Labs 12/03/22 04:53 12/03/22 04:54 Labs: Laboratory Results - last 24 hr 12/02/22 12/02/22 12/02/22 18:03 18:06 18:06 WBC 20.9 H RBC 3.99 L Hgb 12.1 Hct 34.6 L MCV 86.7 MCH 30.3 MCHC 35.0 RDW 11.8 Plt Count 276 MPV 9.4 Immature Gran % (Auto) 0.6 H Neut % (Auto) 83.8 H Lymph % (Auto) 10.8 L [place] % (Auto) 4.6 Eos % (Auto) 0.0 Baso % (Auto) 0.2 Lymph # (Auto) 2.3 [place] # (Auto) 1.0 Eos # (Auto) 0.0 Baso # (Auto) 0.0 Abs Immat Gran (auto) 0.13 H Absolute Neuts (auto) 17.5 H Absolute Nucleated RBC 0.000 Nucleated RBC % (auto) 0.0 O2 Saturation ABG pH at Pt Temp ABG pCO2 at Pt Temp ABG pO2 at Pt Temp ABG HCO3 ABG Base Excess (Actual) VBG pH VBG pCO2 VBG pO2 VBG HCO3 VBG O2 Saturation VBG Base Excess Sodium 123 L Potassium 2.6 L D Chloride 85 L Carbon Dioxide 13 L Anion Gap 28 H BUN 8 L Creatinine 0.76 Estim Creat Clear Calc 66.0 Estimated GFR > 60 POC Glucose 211 H Random Glucose 191 H Lactic Acid Lactic Acid F/U @ 2Hr Lactic Acid F/U @ 4Hr Calcium 8.8 Phosphorus 4.6 H Magnesium 1.2 L* Total Bilirubin 0.8 Direct Bilirubin 0.2 AST 22 ALT 16 Alkaline Phosphatase 70 Ammonia Total Creatine Kinase 411 H Troponin I High Sens Total Protein 7.1 Albumin 4.3 TSH Free T4 Urine Color Urine Appearance Urine pH Ur Specific [place] Urine Protein Urine Glucose (UA) Urine Ketones Urine Blood Urine Nitrite Ur Leukocyte Esterase Salicylates < 5.0 L Urine Opiates Screen Urine Fentanyl Screen Acetaminophen < 17 Ur Barbiturates Screen Ur Phencyclidine Scrn Ur Amphetamines Screen U Benzodiazepines Scrn Urine Cocaine Screen U Marijuana (THC) Screen Ethyl Alcohol < 10 COVID-19 (RAMA) COVID-19 Clin Com Influenza Type A (CISCO) Influenza Type B (CISCO) Influenza A & B Note 12/02/22 12/02/22 12/02/22 18:06 18:06 18:06 WBC RBC Hgb Hct MCV MCH MCHC RDW Plt Count MPV Immature Gran % (Auto) Neut % (Auto) Lymph % (Auto) [place] % (Auto) Eos % (Auto) Baso % (Auto) Lymph # (Auto) [place] # (Auto) Eos # (Auto) Baso # (Auto) Abs Immat Gran (auto) Absolute Neuts (auto) Absolute Nucleated RBC Nucleated RBC % (auto) O2 Saturation ABG pH at Pt Temp ABG pCO2 at Pt Temp ABG pO2 at Pt Temp ABG HCO3 ABG Base Excess (Actual) VBG pH VBG pCO2 VBG pO2 VBG HCO3 VBG O2 Saturation VBG Base Excess Sodium Potassium Chloride Carbon Dioxide Anion Gap BUN Creatinine Estim Creat Clear Calc Estimated GFR POC Glucose Random Glucose Lactic Acid Lactic Acid F/U @ 2Hr Lactic Acid F/U @ 4Hr Calcium Phosphorus Magnesium Total Bilirubin Direct Bilirubin AST ALT Alkaline Phosphatase Ammonia 79 H Total Creatine Kinase Troponin I High Sens 7.5 Total Protein Albumin TSH 0.19 L Free T4 1.28 Urine Color Urine Appearance Urine pH Ur Specific [place] Urine Protein Urine Glucose (UA) Urine Ketones Urine Blood Urine Nitrite Ur Leukocyte Esterase Salicylates Urine Opiates Screen Urine Fentanyl Screen Acetaminophen Ur Barbiturates Screen Ur Phencyclidine Scrn Ur Amphetamines Screen U Benzodiazepines Scrn Urine Cocaine Screen U Marijuana (THC) Screen Ethyl Alcohol COVID-19 (RAMA) COVID-19 Clin Com Influenza Type A (CISCO) Influenza Type B (CISCO) Influenza A & B Note 12/02/22 12/02/22 12/02/22 18:09 18:11 18:11 WBC RBC Hgb Hct MCV MCH MCHC RDW Plt Count MPV Immature Gran % (Auto) Neut % (Auto) Lymph % (Auto) [place] % (Auto) Eos % (Auto) Baso % (Auto) Lymph # (Auto) [place] # (Auto) Eos # (Auto) Baso # (Auto) Abs Immat Gran (auto) Absolute Neuts (auto) Absolute Nucleated RBC Nucleated RBC % (auto) O2 Saturation ABG pH at Pt Temp ABG pCO2 at Pt Temp ABG pO2 at Pt Temp ABG HCO3 ABG Base Excess (Actual) VBG pH 7.26 L VBG pCO2 30 VBG pO2 153 VBG HCO3 13 L VBG O2 Saturation 99.0 VBG Base Excess -11.8 Sodium Potassium Chloride Carbon Dioxide Anion Gap BUN Creatinine Estim Creat Clear Calc Estimated GFR POC Glucose Random Glucose Lactic Acid Lactic Acid F/U @ 2Hr Lactic Acid F/U @ 4Hr Calcium Phosphorus Magnesium Total Bilirubin Direct Bilirubin AST ALT Alkaline Phosphatase Ammonia Total Creatine Kinase Troponin I High Sens Total Protein Albumin TSH Free T4 Urine Color Urine Appearance Urine pH Ur Specific [place] Urine Protein Urine Glucose (UA) Urine Ketones Urine Blood Urine Nitrite Ur Leukocyte Esterase Salicylates Urine Opiates Screen Urine Fentanyl Screen Acetaminophen Ur Barbiturates Screen Ur Phencyclidine Scrn Ur Amphetamines Screen U Benzodiazepines Scrn Urine Cocaine Screen U Marijuana (THC) Screen Ethyl Alcohol COVID-19 (ARMA) Negative COVID-19 Clin Com See Note Influenza Type A (CISCO) Negative Influenza Type B (CISCO) Negative Influenza A & B Note See Note 12/02/22 12/02/22 12/02/22 19:27 20:08 20:59 WBC RBC Hgb Hct MCV MCH MCHC RDW Plt Count MPV Immature Gran % (Auto) Neut % (Auto) Lymph % (Auto) [place] % (Auto) Eos % (Auto) Baso % (Auto) Lymph # (Auto) [place] # (Auto) Eos # (Auto) Baso # (Auto) Abs Immat Gran (auto) Absolute Neuts (auto) Absolute Nucleated RBC Nucleated RBC % (auto) O2 Saturation ABG pH at Pt Temp ABG pCO2 at Pt Temp ABG pO2 at Pt Temp ABG HCO3 ABG Base Excess (Actual) VBG pH VBG pCO2 VBG pO2 VBG HCO3 VBG O2 Saturation VBG Base Excess Sodium 122 L Potassium 3.2 L D Chloride 87 L Carbon Dioxide 19 L Anion Gap 19 BUN 6 L Creatinine 0.71 Estim Creat Clear Calc 70.6 Estimated GFR > 60 POC Glucose Random Glucose 184 H Lactic Acid 8.5 H* Lactic Acid F/U @ 2Hr Lactic Acid F/U @ 4Hr Calcium 8.2 L D Phosphorus Magnesium Total Bilirubin Direct Bilirubin AST ALT Alkaline Phosphatase Ammonia Total Creatine Kinase Troponin I High Sens Total Protein Albumin TSH Free T4 Urine Color Urine Appearance Urine pH Ur Specific [place] Urine Protein Urine Glucose (UA) Urine Ketones Urine Blood Urine Nitrite Ur Leukocyte Esterase Salicylates Urine Opiates Screen Not Detected Urine Fentanyl Screen Not Detected Acetaminophen Ur Barbiturates Screen Not Detected Ur Phencyclidine Scrn Not Detected Ur Amphetamines Screen Not Detected U Benzodiazepines Scrn Not Detected Urine Cocaine Screen Not Detected U Marijuana (THC) Screen Not Detected Ethyl Alcohol COVID-19 (RAMA) COVID-19 Clin Com Influenza Type A (CISCO) Influenza Type B (CISCO) Influenza A & B Note 12/02/22 12/02/22 12/02/22 20:59 21:41 22:55 WBC RBC Hgb Hct MCV MCH MCHC RDW Plt Count MPV Immature Gran % (Auto) Neut % (Auto) Lymph % (Auto) [place] % (Auto) Eos % (Auto) Baso % (Auto) Lymph # (Auto) [place] # (Auto) Eos # (Auto) Baso # (Auto) Abs Immat Gran (auto) Absolute Neuts (auto) Absolute Nucleated RBC Nucleated RBC % (auto) O2 Saturation 97.0 ABG pH at Pt Temp 7.47 H ABG pCO2 at Pt Temp 30 L ABG pO2 at Pt Temp 87 ABG HCO3 22 ABG Base Excess (Actual) -0.1 VBG pH VBG pCO2 VBG pO2 VBG HCO3 VBG O2 Saturation VBG Base Excess Sodium Potassium Chloride Carbon Dioxide Anion Gap BUN Creatinine Estim Creat Clear Calc Estimated GFR POC Glucose Random Glucose Lactic Acid Lactic Acid F/U @ 2Hr 4.6 H* Lactic Acid F/U @ 4Hr Calcium Phosphorus Magnesium Total Bilirubin Direct Bilirubin AST ALT Alkaline Phosphatase Ammonia Total Creatine Kinase Troponin I High Sens Total Protein Albumin TSH Free T4 Urine Color Yellow Urine Appearance Clear Urine pH 6.5 Ur Specific [place] 1.015 Urine Protein Negative Urine Glucose (UA) Negative Urine Ketones Negative Urine Blood Negative Urine Nitrite Negative Ur Leukocyte Esterase Negative Salicylates Urine Opiates Screen Urine Fentanyl Screen Acetaminophen Ur Barbiturates Screen Ur Phencyclidine Scrn Ur Amphetamines Screen U Benzodiazepines Scrn Urine Cocaine Screen U Marijuana (THC) Screen Ethyl Alcohol COVID-19 (RAMA) COVID-19 Clin Com Influenza Type A (CISCO) Influenza Type B (CISCO) Influenza A & B Note 12/02/22 12/02/22 12/02/22 23:49 23:56 23:56 WBC RBC Hgb Hct MCV MCH MCHC RDW Plt Count MPV Immature Gran % (Auto) Neut % (Auto) Lymph % (Auto) [place] % (Auto) Eos % (Auto) Baso % (Auto) Lymph # (Auto) [place] # (Auto) Eos # (Auto) Baso # (Auto) Abs Immat Gran (auto) Absolute Neuts (auto) Absolute Nucleated RBC Nucleated RBC % (auto) O2 Saturation ABG pH at Pt Temp ABG pCO2 at Pt Temp ABG pO2 at Pt Temp ABG HCO3 ABG Base Excess (Actual) VBG pH VBG pCO2 VBG pO2 VBG HCO3 VBG O2 Saturation VBG Base Excess Sodium 129 L Potassium 3.4 Chloride 93 L Carbon Dioxide 24 Anion Gap 15 BUN 6 L Creatinine 0.67 Estim Creat Clear Calc 74.9 Estimated GFR > 60 POC Glucose 115 Random Glucose 136 H Lactic Acid Lactic Acid F/U @ 2Hr Lactic Acid F/U @ 4Hr 2.9 H* Calcium 8.7 D Phosphorus 3.6 Magnesium 2.1 Total Bilirubin 0.9 Direct Bilirubin AST 20 ALT 16 Alkaline Phosphatase 63 Ammonia Total Creatine Kinase 461 H Troponin I High Sens Total Protein 6.4 L Albumin 3.9 TSH Free T4 Urine Color Urine Appearance Urine pH Ur Specific [place] Urine Protein Urine Glucose (UA) Urine Ketones Urine Blood Urine Nitrite Ur Leukocyte Esterase Salicylates Urine Opiates Screen Urine Fentanyl Screen Acetaminophen Ur Barbiturates Screen Ur Phencyclidine Scrn Ur Amphetamines Screen U Benzodiazepines Scrn Urine Cocaine Screen U Marijuana (THC) Screen Ethyl Alcohol COVID-19 (RAMA) COVID-19 Clin Com Influenza Type A (CISCO) Influenza Type B (CISCO) Influenza A & B Note 12/03/22 12/03/22 12/03/22 00:24 04:52 04:53 WBC 12.3 H 11.9 H RBC 3.74 L 3.90 L Hgb 11.5 L 11.9 L Hct 31.3 L 33.2 L MCV 83.7 85.1 MCH 30.7 30.5 MCHC 36.7 H 35.8 H RDW 11.9 12.0 Plt Count 225 265 MPV 9.6 10.1 Immature Gran % (Auto) 0.2 0.4 Neut % (Auto) 82.4 H 83.0 H Lymph % (Auto) 9.7 L 9.4 L [place] % (Auto) 7.5 7.0 Eos % (Auto) 0.0 0.0 Baso % (Auto) 0.2 0.2 Lymph # (Auto) 1.2 1.1 L [place] # (Auto) 0.9 0.8 Eos # (Auto) 0.0 0.0 Baso # (Auto) 0.0 0.0 Abs Immat Gran (auto) 0.03 0.05 H Absolute Neuts (auto) 10.1 H 9.9 H Absolute Nucleated RBC 0.000 0.000 Nucleated RBC % (auto) 0.0 0.0 O2 Saturation ABG pH at Pt Temp ABG pCO2 at Pt Temp ABG pO2 at Pt Temp ABG HCO3 ABG Base Excess (Actual) VBG pH 7.50 H VBG pCO2 30 VBG pO2 74 VBG HCO3 24 VBG O2 Saturation 94.0 VBG Base Excess 2.1 Sodium Potassium Chloride Carbon Dioxide Anion Gap BUN Creatinine Estim Creat Clear Calc Estimated GFR POC Glucose Random Glucose Lactic Acid Lactic Acid F/U @ 2Hr Lactic Acid F/U @ 4Hr Calcium Phosphorus Magnesium Total Bilirubin Direct Bilirubin AST ALT Alkaline Phosphatase Ammonia Total Creatine Kinase Troponin I High Sens Total Protein Albumin TSH Free T4 Urine Color Urine Appearance Urine pH Ur Specific [place] Urine Protein Urine Glucose (UA) Urine Ketones Urine Blood Urine Nitrite Ur Leukocyte Esterase Salicylates Urine Opiates Screen Urine Fentanyl Screen Acetaminophen Ur Barbiturates Screen Ur Phencyclidine Scrn Ur Amphetamines Screen U Benzodiazepines Scrn Urine Cocaine Screen U Marijuana (THC) Screen Ethyl Alcohol COVID-19 (RAMA) COVID-19 Clin Com Influenza Type A (CISCO) Influenza Type B (CISCO) Influenza A & B Note 12/03/22 12/03/22 12/03/22 04:53 04:53 04:54 WBC RBC Hgb Hct MCV MCH MCHC RDW Plt Count MPV Immature Gran % (Auto) Neut % (Auto) Lymph % (Auto) [place] % (Auto) Eos % (Auto) Baso % (Auto) Lymph # (Auto) [place] # (Auto) Eos # (Auto) Baso # (Auto) Abs Immat Gran (auto) Absolute Neuts (auto) Absolute Nucleated RBC Nucleated RBC % (auto) O2 Saturation ABG pH at Pt Temp ABG pCO2 at Pt Temp ABG pO2 at Pt Temp ABG HCO3 ABG Base Excess (Actual) VBG pH VBG pCO2 VBG pO2 VBG HCO3 VBG O2 Saturation VBG Base Excess Sodium 139 Potassium 3.6 Chloride 103 Carbon Dioxide 26 Anion Gap 14 BUN 5 L Creatinine 0.66 Estim Creat Clear Calc 73.3 Estimated GFR > 60 POC Glucose Random Glucose 118 H Lactic Acid Lactic Acid F/U @ 2Hr Lactic Acid F/U @ 4Hr Calcium 9.0 Phosphorus Magnesium 2.2 Total Bilirubin 0.7 Direct Bilirubin AST 20 ALT 16 Alkaline Phosphatase 66 Ammonia 38 Total Creatine Kinase Troponin I High Sens 23.0 H D Total Protein 6.5 Albumin 4.0 TSH Free T4 Urine Color Urine Appearance Urine pH Ur Specific [place] Urine Protein Urine Glucose (UA) Urine Ketones Urine Blood Urine Nitrite Ur Leukocyte Esterase Salicylates Urine Opiates Screen Urine Fentanyl Screen Acetaminophen Ur Barbiturates Screen Ur Phencyclidine Scrn Ur Amphetamines Screen U Benzodiazepines Scrn Urine Cocaine Screen U Marijuana (THC) Screen Ethyl Alcohol COVID-19 (RAMA) COVID-19 Clin Com Influenza Type A (CISCO) Influenza Type B (CISCO) Influenza A & B Note 12/03/22 12/03/22 12/03/22 05:49 06:54 06:54 WBC RBC Hgb Hct MCV MCH MCHC RDW Plt Count MPV Immature Gran % (Auto) Neut % (Auto) Lymph % (Auto) [place] % (Auto) Eos % (Auto) Baso % (Auto) Lymph # (Auto) [place] # (Auto) Eos # (Auto) Baso # (Auto) Abs Immat Gran (auto) Absolute Neuts (auto) Absolute Nucleated RBC Nucleated RBC % (auto) O2 Saturation ABG pH at Pt Temp ABG pCO2 at Pt Temp ABG pO2 at Pt Temp ABG HCO3 ABG Base Excess (Actual) VBG pH VBG pCO2 VBG pO2 VBG HCO3 VBG O2 Saturation VBG Base Excess Sodium Potassium Chloride Carbon Dioxide Anion Gap BUN Creatinine Estim Creat Clear Calc Estimated GFR POC Glucose 115 Random Glucose Lactic Acid 1.6 Lactic Acid F/U @ 2Hr Lactic Acid F/U @ 4Hr Calcium Phosphorus Magnesium Total Bilirubin Direct Bilirubin AST ALT Alkaline Phosphatase Ammonia Total Creatine Kinase 395 H Troponin I High Sens Total Protein Albumin TSH Free T4 Urine Color Urine Appearance Urine pH Ur Specific [place] Urine Protein Urine Glucose (UA) Urine Ketones Urine Blood Urine Nitrite Ur Leukocyte Esterase Salicylates Urine Opiates Screen Urine Fentanyl Screen Acetaminophen Ur Barbiturates Screen Ur Phencyclidine Scrn Ur Amphetamines Screen U Benzodiazepines Scrn Urine Cocaine Screen U Marijuana (THC) Screen Ethyl Alcohol COVID-19 (RAMA) COVID-19 Clin Com Influenza Type A (CISCO) Influenza Type B (CISCO) Influenza A & B Note 12/03/22 06:54 WBC RBC Hgb Hct MCV MCH MCHC RDW Plt Count MPV Immature Gran % (Auto) Neut % (Auto) Lymph % (Auto) [place] % (Auto) Eos % (Auto) Baso % (Auto) Lymph # (Auto) [place] # (Auto) Eos # (Auto) Baso # (Auto) Abs Immat Gran (auto) Absolute Neuts (auto) Absolute Nucleated RBC Nucleated RBC % (auto) O2 Saturation ABG pH at Pt Temp ABG pCO2 at Pt Temp ABG pO2 at Pt Temp ABG HCO3 ABG Base Excess (Actual) VBG pH VBG pCO2 VBG pO2 VBG HCO3 VBG O2 Saturation VBG Base Excess Sodium Potassium Chloride Carbon Dioxide Anion Gap BUN Creatinine Estim Creat Clear Calc Estimated GFR POC Glucose Random Glucose Lactic Acid Lactic Acid F/U @ 2Hr Lactic Acid F/U @ 4Hr Calcium Phosphorus Magnesium Total Bilirubin Direct Bilirubin AST ALT Alkaline Phosphatase Ammonia Total Creatine Kinase Troponin I High Sens 24.8 H Total Protein Albumin TSH Free T4 Urine Color Urine Appearance Urine pH Ur Specific [place] Urine Protein Urine Glucose (UA) Urine Ketones Urine Blood Urine Nitrite Ur Leukocyte Esterase Salicylates Urine Opiates Screen Urine Fentanyl Screen Acetaminophen Ur Barbiturates Screen Ur Phencyclidine Scrn Ur Amphetamines Screen U Benzodiazepines Scrn Urine Cocaine Screen U Marijuana (THC) Screen Ethyl Alcohol COVID-19 (RAMA) COVID-19 Clin Com Influenza Type A (CISCO) Influenza Type B (CISCO) Influenza A & B Note Progress Note: A&P Assessment and plan (1) Seizure: Status: Acute (2) Metabolic encephalopathy: Status: Acute (3) Hyponatremia: Status: Acute (4) GERD (gastroesophageal reflux disease): Status: Acute (5) Vascular dementia: Status: Acute (6) Diabetes: Status: Acute (7) Hypertension: Status: Acute Plan Assessment: 67-year-old lady admitted with alteration of mental status seizure with postictal state intubated for airway protection and extubated upon arrival to the intensive care unit with no recurrence of seizure thereafter. Plan: Neuro: Likely new onset seizure with postictal state, now resolved. Neurology evaluation requested. Initial CT head normal. MRI brain requested. Continue on Keppra. Cardiac: No acute issues. Pulmonary: Intubated for airway protection, extubated upon arrival to intensive care unit. Renal: Acute metabolic acidosis a as of with hyponatremia likely combination intravascular volume depletion with postictal state, now resolved. Non oliguric. Continue to monitor renal indices and urine output. Endo: No acute issues. GI: No acute issues. ID: No evidence of sepsis, leukocytosis and elevated lactate are likely secondary to postictal state. Heme/Onc: No acute issues. Psych: No acute issues. Miscellaneous: No acute issues. Prophylaxis: heparin Diet: pending swallow evaluation Quality Stroke Does the patient have a stroke diagnosis?: No VTE Prior VTE?: No VTE Risk Level:: Medical - moderate - high VTE Device Contraindication: N/A - Device Ordered VTE Drug Contraindication: N/A - Med Ordered
--- NOTE | 2022-12-03 10:27 | PM.NEUROCN ---
History of Present Illness Data of Consult Service Date: 12/03/22 Primary Care Provider: Unknown Physician HPI Reason for consult: Possible new onset Sz and AMS This is a 67-year-old woman with history of obesity, asthma, diabetes, GERD, hyperlipidemia, hypertension, vascular dementia, lumbar spondylosis, who presented to the emergency room with mental status changes, inability to follow commands and had multiple episodes of nausea and vomiting at home associated with some tremulousness and stiffness of her body. In ER she had normal vital signs and was afebrile. Later, her mental status became even more altered with some shakiness movements, she bit her tongue; was unresponsive even to painful stimuli, showing signs of cyanosis so she was intubated for airway protection assuming a new onset Sz. ?Head CT showed scattered chronic small-vessel ischemic changes within the periventricular white matter. No evidence of acute territorial infarct or hemorrhage.?White count of 20.9, urinalysis and urine toxicology are all negative. She was admitted to ICU as a full code. She is now extubated and alert and oriented Review of Systems Review of Systems: Pertinent positives and negatives as stated in HPI [facility] Past Medical History Medical History (Updated 12/03/22 @ 08:55 by Madhav Gauthier MD) Asthma Diabetes GERD (gastroesophageal reflux disease) High cholesterol Hypertension Lumbar spondylosis Vascular dementia Social History Social History Household Members: Family Unable to assess alcohol history related to: Unable to respond Patient Tobacco Use Status: Tobacco use Unknown Use of substances other than those prescribed or required for medical reasons: Unable to respond Currently Displaying Signs/Symptoms of Drug Intoxication Withdrawal: No Advance Directives: No Advance Directives Information Provided: No Recently lost weight without trying: Unsure Patient : No : No Poor oral hygiene: No service: No Current occupational status: disabled Meds Allergies Allergy/AdvReac Type Severity Reaction Status Date / Time Penicillins [PENICILLINS] Allergy Intermediate SYNCOPE Verified 12/02/22 23:39 codeine [CODEINE] AdvReac Intermediate NAUSEA & Verified 12/02/22 23:39 VOMITING Active Medications: Current Medications Albuterol Sulfate (Albuterol Sulfate (0.083%) 2.5 Mg/3 Ml Vial.Neb) 2.5 mg INHALE RQ4H WHILE AWAKE AZUCENA Last Admin: 12/03/22 08:45 Dose: 2.5 mg Dextrose (Dextrose 50 % 25 Gm/50 Ml Syringe) 25 gm IVPUSH Q15M PRN; Protocol PRN Reason: per Hypoglycemia Standing Ord. Glucose (Glucose Gel 15 Gm Gel..Gram.) 15 gm PO Q15M PRN; Protocol PRN Reason: per Hypoglycemia Standing Ord. Heparin Sodium (Porcine) (Heparin Sodium,Porcine 5,000 Unit/Ml Vial) 5,000 unit SUBCUT Q12H AZUCENA Last Admin: 12/03/22 04:36 Dose: 5,000 unit Levetiracetam (Keppra) 500 mg in 100 mls @ 400 mls/hr IV Q12H AZUCENA Last Infusion: 12/03/22 08:40 Dose: Infused Insulin Human Lispro (Insulin Lispro 100 Unit/Ml 3 Ml Vial) 0 unit SUBCUT Q6H AZUCENA; Protocol Last Admin: 12/03/22 05:51 Dose: Not Given Lactulose (Lactulose 320 Gm/480 Ml Solution) 200 gm WI Q4H AZUCENA Last Admin: 12/03/22 09:23 Dose: Not Given Pharmacy Consult (Consult Rx Perform Med Rec) 1 each MISCELLANE ONCE PRN PRN Reason: Consult order Home Medications Medication Instructions Recorded Confirmed Last Taken Type acetaminophen 650 mg 1,300 mg PO Q8H PRN pain 03/14/22 12/02/22 Unknown History tablet,extended release aspirin 81 mg tablet,delayed 81 mg PO DAILY 03/14/22 12/02/22 Unknown History release cholecalciferol (vitamin D3) 25 25 mcg PO DAILY 03/14/22 12/02/22 Unknown History mcg (1,000 unit) capsule citalopram 20 mg tablet 20 mg PO DAILY 03/14/22 12/02/22 Unknown History lisinopril 20 mg tablet 20 mg PO DAILY 03/14/22 12/02/22 Unknown History melatonin 5 mg capsule 5 mg PO BEDTIME 03/14/22 12/02/22 Unknown History risperidone 0.5 mg tablet 0.5 mg PO BID 03/14/22 12/02/22 Unknown History simvastatin 20 mg tablet 20 mg PO BEDTIME 03/14/22 12/02/22 Unknown History omeprazole 20 mg capsule,delayed 1 cap PO DAILY 12/02/22 12/02/22 Unknown History release Physical Exam Vital Signs: Vital Signs: Last Vital Signs Temp 99.9 F 12/03/22 09:00 Pulse 85 12/03/22 09:00 Resp 18 12/03/22 09:00 BP 142/98 H 12/03/22 09:00 Pulse Ox 95 12/03/22 09:00 O2 Del Method 12/03/22 09:00 FiO2 21 12/02/22 23:13 BMI result Body Mass Index 26.9 Const: General: no acute distress, alert and awake Eyes: Sclerae: sclerae normal EOM: EOMs intact bilaterally Neck: Neck: Yes no lymphadenopathy, Yes trachea midline and Yes supple Resp: Effort & Inspection: normal respiratory effort and no respiratory distress Auscultation: clear to auscultation bilaterally Cardio: Rate: regular rate Rhythm: regular rhythm Heart sounds: no gallops, no murmurs and no rubs GI: Palpation (GI): Soft to palpation and Other GI palpation findings present ( Nontender) Auscultation: normal bowel sounds Neuro: Other: She is alert and oriented cooperative. Her cranial nerves II through XII are normal. The tip and left margin of the tongue are bitten and ecchymotic and sore. There is no facial asymmetry. No visual field cuts. There is no drift of the upper extremities. She moves all 4 extremities against gravity with a nonfocal examination. Plantar response is flexor. Neck is supple. Extrem: General: Yes no pedal edema, No clubbing and No cyanosis Results Labs 12/03/22 04:53 12/03/22 04:54 Labs: Short CBC 12/02/22 12/03/22 12/03/22 Range/Units 18:06 00:24 04:53 WBC 20.9 H 12.3 H 11.9 H (4.8-10.8) X10*3/uL Hgb 12.1 11.5 L 11.9 L (12.0-16.0) g/dl Hct 34.6 L 31.3 L 33.2 L (37.0-47.0) % Plt Count 276 225 265 (160-400) X10*3/uL BMP 12/02/22 12/02/22 12/02/22 18:06 20:08 23:56 Sodium 123 L 122 L 129 L Potassium 2.6 L D 3.2 L D 3.4 Chloride 85 L 87 L 93 L Carbon Dioxide 13 L 19 L 24 BUN 8 L 6 L 6 L Creatinine 0.76 0.71 0.67 Calcium 8.8 8.2 L D 8.7 D 12/03/22 04:54 Sodium 139 Potassium 3.6 Chloride 103 Carbon Dioxide 26 BUN 5 L Creatinine 0.66 Calcium 9.0 Cardiac Enzymes 12/02/22 12/02/22 12/03/22 Range/Units 18:06 23:56 06:54 Total Creatine Kinase 411 H 461 H 395 H (26-140) U/L Liver Function 12/02/22 12/02/22 12/03/22 Range/Units 18:06 23:56 04:54 Total Bilirubin 0.8 0.9 0.7 (0.0-1.0) mg/dL Direct Bilirubin 0.2 (0.0-0.5) mg/dL AST 22 20 20 (5-31) U/L ALT 16 16 16 (0-31) U/L Alkaline Phosphatase 70 63 66 (39-117) U/L Albumin 4.3 3.9 4.0 (3.5-5.0) g/dL Urine 12/02/22 Range/Units 20:59 Urine Color Yellow Urine Appearance Clear Urine pH 6.5 (5.0-9.0) Ur Specific [place] 1.015 (1.005-1.025) Urine Protein Negative (Neg-Trace) mg/dL Urine Glucose (UA) Negative (Negative) mg/dL Assessment and Plan (1) Seizure: Status: Acute 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 Mild vascular dementia. Recommendations: EEG. Start Keppra 250mg bid. (2) Metabolic encephalopathy: Status: Acute Probably a post ictal state rather than true metabolic encephalopathy (3) Hyponatremia: Status: Acute (4) GERD (gastroesophageal reflux disease): Status: Acute (5) Vascular dementia: Status: Acute (6) Diabetes: Status: Acute (7) Hypertension: Status: Acute Plan Assessment: 67-year-old lady admitted with alteration of mental status seizure with postictal state intubated for airway protection and extubated upon arrival to the intensive care unit with no recurrence of seizure thereafter. Plan: Neuro: Likely new onset seizure with postictal state, now resolved. Neurology evaluation requested. Initial CT head normal. MRI brain requested. Continue on Keppra. Cardiac: No acute issues. Pulmonary: Intubated for airway protection, extubated upon arrival to intensive care unit. Renal: Acute metabolic acidosis a as of with hyponatremia likely combination intravascular volume depletion with postictal state, now resolved. Non oliguric. Continue to monitor renal indices and urine output. Endo: No acute issues. GI: No acute issues. ID: No evidence of sepsis, leukocytosis and elevated lactate are likely secondary to postictal state. Heme/Onc: No acute issues. Psych: No acute issues. Miscellaneous: No acute issues. Prophylaxis: heparin Diet: pending swallow evaluation Time Spent With Patient Time: Total time managing care of this patient today ____ minutes. Procedures Date of Service Date of Service: 12/03/22
--- NOTE | 2022-12-03 11:10 | PM.EVENT ---
Event Note Date of Service: 12/03/22 Event Note: Hospitalist accept note 67yo F with asthma, DM2, HTN, vascular dementia admitted 12/02/22 with AMS + likely seizure, intubated for airway protection in ED, extubated upon arrival in ICU Normal head CT and no evidence of infection. On exam in NAD, answering questions appropriately in Mongolian, no focal motor findings. She has a somewhat tender hard palate mass. Lactic acidosis has resolved. Leukocytosis likely due to seizure; no evidence of sepsis. Plan to transfer to telemetry, Neuro consult, MRI brain. Seen by [employer]OR and recommended for ground mechanical diet/thin liquids. 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 Time Spent With Patient Time: Total time managing care of this patient today ____ minutes.
[2022-12-03 12:07] LABS: Glucose, Whole Blood 109 mg/dL (60-115)
--- NOTE | 2022-12-03 16:15 | PC.NURSE ---
Pt Turkmen speaking and insole rounder utilized PRN. Pt continues to be disoriented but cooperative. Pt continues to be on RA, tolerating. pt on tele: SR/ ST in the 100s. Pt brought to MRI, see report. ST recommended thin liquids and ground diet, tolerating well. Pt's miramontes dc'd per Md's request, voiding appropriately at bedside commode with a SBA. Plan to downgrade, patient and family updated, all questions answered. Pt started to report pain in mouth, upon assessment, mass noted to the roof of the mouth on hard palate, accepting MD made aware and no new orders at this time. Pt received IV Keppra per order and otherwise is resting in bed with no acute distress. Safety maintained throughout. Report given to receiving RAFA Hooper who will continue with plan of care. Pt left the unit at 1600.
[2022-12-03 16:43] LABS: Glucose, Whole Blood 121 mg/dL (60-115)
[2022-12-03 21:01] LABS: Glucose, Whole Blood 116 mg/dL (60-115)
[2022-12-03] MEDS: OLANZapine 10 MG VIAL IM (21:28)
[2022-12-04] VITALS: BP 131/60; PULSE 78; RESP 20; TEMP 36.7; O2SAT 97
[2022-12-04] MEDS: levETIRAcetam 500 MG TABLET PO (00:05)
--- NOTE | 2022-12-04 02:39 | PM.SEPBOLA4 ---
Sepsis Bolus Exclusion Sepsis Bolus Exclusion Date of Occurrence: 12/30/22 This patient met severe sepsis criteria due to the following condition(s):: Lactate>=4mmol/L In my clinical judgement the administration of 30 ml/kg of crystalloid would be detrimental to this patient due to the patient's following conditions:: Concern for fluid overload (pt not hypotensive, but at risk of fluid overload CHF, did not need to be fluid resucitated. ) Other (must be specific):: WBC > 12 K, mental status changes Replace the 30 mls/kg with (*zero amount not acceptable): *Note: One of the harris must be documented
[2022-12-04 04:00] VITALS: BP 166/80; PULSE 70; RESP 18; TEMP 36.5; O2SAT 98
[2022-12-04] MEDS: Heparin Sodium,Porcine 5,000 UNIT/ML VIAL 5000 UNIT SUBCUT (05:11)
[2022-12-04 05:27] VITALS: BMI 27.6
[2022-12-04 06:39] LABS: MANUAL DIFF FLAG NO
[2022-12-04 06:44] LABS: Basophils Percent Auto 0.3 % (0-2); Eosinophils Percent Auto 0.5 % (0-4); Hematocrit 32.9 % (37.0-47.0); Hemoglobin 11.3 g/dl (12.0-16.0); Imm Gran Abs Auto 0.02 X10*3/uL (0.00-0.03); Imm Gran Pct Auto 0.3 % (0.0-0.4); Lymphocytes Absolute Auto 1.6 X10*3/uL (1.2-4.9); Lymphocytes Percent Auto 25.4 % (20-40); Mean Corpuscular HGB Conc 34.3 g/dl (31.0-35.0); Mean Corpuscular Hemoglobin 29.8 pg (27.0-33.0); Mean Corpuscular Volume 86.8 fL (80.0-98.0); Mean Platelet Volume 9.7 fL (9.4-12.3); Monocytes Absolute Auto 0.6 X10*3/uL (0.1-1.2); Monocytes Percent Auto 8.9 % (2-11); Neutrophils Absolute Auto 4.1 x10*3/uL (2.0-8.3); Neutrophils Percent Auto 64.6 % (45-73); Platelet Count 237 X10*3/uL (160-400); Red Blood Count 3.79 X10*6/uL (4.20-5.50); Red Cell Distribution Width 12.6 % (11.0-16.0); White Blood Count 6.3 X10*3/uL (4.8-10.8)
[2022-12-04 07:07] LABS: Alanine Aminotransferase 15 U/L (0-31); Albumin Level 3.8 g/dL (3.5-5.0); Alkaline Phosphatase 58 U/L (39-117); Anion Gap 9 (12-20); Aspartate Amino Transferase 20 U/L (5-31); Bilirubin Total 0.5 mg/dL (0.0-1.0); Blood Urea Nitrogen 10 mg/dL (9-16); Calcium 8.9 mg/dL (8.4-10.2); Carbon Dioxide 29 mmol/L (22-29); Chloride 107 mmol/L (96-108); Creatinine Clr Calc Pharmacy 66.9; Estimated Glomerular Filt Rate > 60; Glucose Random 113 mg/dL (60-115); Magnesium 2.1 mg/dL (1.6-2.6); Phosphorus 3.5 mg/dL (2.7-4.5); Potassium 3.4 mmol/L (3.3-5.1); Sodium 142 mmol/L (135-145); Total Protein 6.3 g/dL (6.5-8.0)
[2022-12-04 07:35] LABS: Glucose, Whole Blood 108 mg/dL (60-115)
[2022-12-04 07:36] VITALS: BP 118/68; PULSE 70; RESP 16; TEMP 37.2; O2SAT 95
[2022-12-04] MEDS: Cholecalciferol (Vitamin D3) 25 MCG TABLET PO (09:22)
[2022-12-04] MEDS: levETIRAcetam 250 MG TABLET PO (09:22)
--- NOTE | 2022-12-04 10:31 | MHC.SLORD ---
Speech Language Pathology Order Status: PATROL DRIVER attempted to see pt for dysphagia tx this morning, pt fast asleep. No PO trials given this date. Updated whiteboard in pt's room- Pt was evaluated by PATROL DRIVER yesterday post-extubation and was recommended a GROUND/MECH ALTERED (NDD2) diet with THIN liquids, pills whole w/ liquid. Pt reported difficulty eating hard solids at home. Per RN note, pt tolerating diet well. PATROL DRIVER will continue to follow.
[2022-12-04 11:02] VITALS: BP 122/57; PULSE 74; RESP 16; TEMP 36.7; O2SAT 95
[2022-12-04 11:04] LABS: Glucose, Whole Blood 122 mg/dL (60-115)
--- NOTE | 2022-12-04 13:54 | P.F2F_ITS ---
Service Date Service Date: 12/04/22 Encounter Date of encounter: 12/04/22 Reasons for Services Signs and symptoms assessed: Impaired Cognition, Impaired Gait Pattern, Impaired Safety ,Impaired Standing Balance, Impaired Transfer Ability, Impaired Trunk Control,Muscle Weakness Reason for penitentiary: medication management, medication treatment and teach disease management Reason for physical therapy: home safety and mobility, therapeutic exercises, gait/transfer training, assess need for DME, ADL training and energy conservation MD Overseeing Care: [facility] Homebound: Leaving the home is medically contraindicated at this time without the asist of a device and/or another person due th the listed conditions above and below. Reason homebound: unsteady gait / fall risk, cognitively impaired / unsafe and weakness related to hospital stay Certification: Based on the above findings, I certify that this patient is confined to the home and needs intermittent penitentiary care, physical therapy and/or speech therapy, or continues to need occupational therapy. The patient is under my care, and I have initiated the establishment of the plan of care. The patient will be followed by a physician who will periodically review the plan of care. Time Spent With Patient Time: Total time managing care of this patient today ____ minutes.
--- NOTE | 2022-12-04 13:56 | P.DS_ITS ---
DS: Providers Provider Date of Service: 12/04/22 Date of admission: 12/02/22 21:28 Date of discharge: 12/04/22 Primary care physician: [facility] Consults: 12/02/22 23:44 Consult to Neurology Stat Consulting Provider: [facility] Reason for consultation: new onset sz Has provider been notified: Yes DS: Diagnosis Discharge Diagnosis (1) Seizure: Status: Acute (2) Metabolic encephalopathy: Status: Acute (3) Hyponatremia: Status: Acute (4) GERD (gastroesophageal reflux disease): Status: Acute (5) Vascular dementia: Status: Acute (6) Diabetes: Status: Acute (7) Hypertension: Status: Acute DS: Summary Hospital Course Hospital Course: from admission H+P by activity coordinator MILAGRO Vu, 12/02/22: 67-year-old patient with underlying history of obesity, asthma, diabetes, GERD, hyperlipidemia, hypertension, vascular dementia, lumbar spondylosis presented to the emergency room today with complaints of not being herself and some mental status changes as she was not able to follow commands and had multiple episodes of nausea and vomiting at home associated with some new tremor and stiffness of her body; as this was reported by the patient's visiting nurse to the patient's daughter. ? It seems she was triaged in the ER at 17:10 while in the ER, patient was noted to be normotensive with otherwise normal vital signs and no febrile, the patient had been moved to a room and later while going to CT reportedly the patient quickly decompensated and her mental status became even more alter with some shakiness movements, the patient was seen then by the physician Dr. Fiore who reports that the patient seemed to be in a postictal like state, she bit her tongue; no responsive even to painful stimuli, showing signs of cyanosis and given acuity symptoms and description of what had happened just prior to her seeing her, she was under the impression that the patient had a seizure and decided to intubate the patient for airway protection. ? A subsequent workup reveal a negative head CT indicating scattered chronic small-vessel ischemic changes within the periventricular white matter.? Otherwise unremarkable examination, no evidence of acute territorial infarct or hemorrhage.? Chest x-ray showed low lung volumes without infiltrates or nodules.? ET tube 4 cm above the felicitas. CT abdomen pelvis with IV contrast showed chronic appearing changes of scattered colonic diverticulosis without colonic wall thickening or pericolonic inflammatory changes to suggest diverticu litis.? Airspace changes in the lungs more likely atelectasis although early infiltrate at the left lung base cannot be excluded.? No evidence of intra- abdominal processes. ? Laboratory data obtained after the intubation showed a white count of 20.9, H&H of 12.1 and 34.6 respectively, platelets 236, sodium 122, potassium 3.2, chloride 87, carbon dioxide 19, anion gap 19, BUN 6, creatinine 0.71, random glucose 184, lactic acid 8.5 with a subsequent of 4.6.? Total CK 411, ammonia 79, LFTs normal, TSH 0.19, free T4 1.28. ?Venous blood gas pH 7.26, pCO2 30, PO2 153, HC03 13. respiratory panel, urinalysis and urine toxicology are all negative. ? Patient was then taken to the ICU for further care.? I spoke to patient's daughter who reports the patient does not have a history of seizures, she is not sure of what happened in the ER,? reassures me,? she wants her mom to be full code. 67yo F with asthma, DM2, HTN, vascular dementia admitted 12/02/22 with AMS + likely seizure, intubated for airway protection in ED, extubated upon arrival in ICU. Normal head CT and no evidence of infection. Lactic acidosis resolved.? Leukocytosis likely due to seizure; no evidence of sepsis. She was transferred to the [facility] [place] [place] on 12/03/22 and diet was advanced. 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 She was started on Keppra and discharged home with VNA services. 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 Time Spent with Patient Time attestation: Total time managing care of this patient today _35___ minutes. Discharge coordination time: Greater than 30 minutes Quality: Safe Use of Opioids Does Pt have an Active Cancer Diagnosis on the Problem List?: No Quality: Stroke Does the patient have a stroke diagnosis?: No Physical Exam Vital Signs: Vital Signs: Last Vital Signs Temp 98.1 F 12/04/22 11:02 Pulse 74 12/04/22 11:02 Resp 16 12/04/22 11:02 BP 122/57 L 03/01/23 11:02 Pulse Ox 95 12/04/22 11:02 O2 Del Method 12/04/22 11:02 FiO2 21 12/02/22 23:13 BMI result Body Mass Index 27.6 Gen: in no acute distress HEENT: sclera anicteric, moist mucus membranes, hard palate mass, bruising on tongue from biting Neck: supple Lungs: clear to auscultation bilaterally Heart: regular rate and rhythm, no murmurs Abd: soft, non-tender, non-distended Ext: no edema Skin: warm/well-perfused Neuro: alert and oriented x3, no focal findings Psych: appropriate affect DS: Data Data Completed and Pending Completed studies during hospitalization [Text1]: Laboratory Results WBC 6.3 X10*3/uL (4.8-10.8) 12/04/22 06:27 RBC 3.79 X10*6/uL (4.20-5.50) L 12/04/22 06:27 Hgb 11.3 g/dl (12.0-16.0) L 12/04/22 06:27 Hct 32.9 % (37.0-47.0) L 12/04/22 06:27 MCV 86.8 fL (80.0-98.0) 12/04/22 06:27 MCH 29.8 pg (27.0-33.0) 12/04/22 06:27 MCHC 34.3 g/dl (31.0-35.0) 12/04/22 06:27 RDW 12.6 % (11.0-16.0) 12/04/22 06:27 Plt Count 237 X10*3/uL (160-400) 12/04/22 06:27 MPV 9.7 fL (9.4-12.3) 12/04/22 06:27 Immature Gran % (Auto) 0.3 % (0.0-0.4) 12/04/22 06:27 Neut % (Auto) 64.6 % (45-73) 12/04/22 06:27 Lymph % (Auto) 25.4 % (20-40) 12/04/22 06:27 [place] % (Auto) 8.9 % (2-11) 12/04/22 06:27 Eos % (Auto) 0.5 % (0-4) 12/04/22 06: Baso % (Auto) 0.3 % (0-2) 12/04/22 06:27 Lymph # (Auto) 1.6 X10*3/uL (1.2-4.9) 12/04/22 06:27 [place] # (Auto) 0.6 X10*3/uL (0.1-1.2) 12/04/22 06: Eos # (Auto) 0.0 X10*3/uL (0.0-0.4) 12/04/22 06: Baso # (Auto) 0.0 X10*3/uL (0.0-0.2) 12/04/22 06: Abs Immat Gran (auto) 0.02 X10*3/uL (0.00-0.03) 12/04/22 06: Absolute Neuts (auto) 4.1 x10*3/uL (2.0-8.3) 12/04/22 06: Absolute Nucleated RBC 0.000 X10*3/uL (0.0-0.012) 12/04/22 06: Nucleated RBC % (auto) 0.0 /100WBC (0.0-0.2) 12/04/22 06: O2 Saturation 97.0 % 12/02/22 22:55 ABG pH at Pt Temp 7.47 (7.35-7.45) H 12/02/22 22:55 ABG pCO2 at Pt Temp 30 mmHg (32-45) L 12/02/22 22:55 ABG pO2 at Pt Temp 87 mmHg (83-108) 12/02/22 22:55 ABG HCO3 22 mmol/L (22-26) 12/02/22 22:55 ABG Base Excess (Actual) -0.1 mmol/L 12/02/22 22:55 VBG pH 7.50 (7.32-7.43) H 12/03/22 04:52 VBG pCO2 30 mmHg 12/03/22 04:52 VBG pO2 74 mmHg 12/03/22 04:52 VBG HCO3 24 mmol/L (22-26) 12/03/22 04:52 VBG O2 Saturation 94.0 % 12/03/22 04:52 VBG Base Excess 2.1 mmol/L 12/03/22 04:52 Sodium 142 mmol/L (135-145) 12/04/22 06:27 Potassium 3.4 mmol/L (3.3-5.1) 12/04/22 06:27 Chloride 107 mmol/L (96-108) 12/04/22 06:27 Carbon Dioxide 29 mmol/L (22-29) 12/04/22 06:27 Anion Gap 9 (12-20) L 12/04/22 06:27 BUN 10 mg/dL (9-16) 12/04/22 06:27 Creatinine 0.73 mg/dL (0.5-1.4) 12/04/22 06:27 Estim Creat Clear Calc 66.9 12/04/22 06:27 Estimated GFR > 60 12/04/22 06:27 POC Glucose 122 mg/dL (60-115) H 12/04/22 10:55 Random Glucose 113 mg/dL (60-115) 12/04/22 06:27 Lactic Acid 1.6 mmol/L (0.5-2.0) 12/03/22 06:54 Lactic Acid F/U @ 2Hr 4.6 mmol/L (0.5-2.0) H* 12/02/22 21:41 Lactic Acid F/U @ 4Hr 2.9 mmol/L (0.5-2.0) H* 12/02/22 23:56 Calcium 8.9 mg/dL (8.4-10.2) 12/04/22 06:27 Phosphorus 3.5 mg/dL (2.7-4.5) 12/04/22 06:27 Magnesium 2.1 mg/dL (1.6-2.6) 12/04/22 06:27 Total Bilirubin 0.5 mg/dL (0.0-1.0) 12/04/22 06:27 Direct Bilirubin 0.2 mg/dL (0.0-0.5) 12/02/22 18:06 AST 20 U/L (5-31) 12/04/22 06:27 ALT 15 U/L (0-31) 12/04/22 06:27 Alkaline Phosphatase 58 U/L (39-117) 12/04/22 06:27 Ammonia 38 umol/L (13-55) 12/03/22 04:53 Total Creatine Kinase 395 U/L (26-140) H 12/03/22 06:54 Troponin I High Sens 24.8 ng/L (<3.5-17.0) H 12/03/22 06:54 Total Protein 6.3 g/dL (6.5-8.0) L 12/04/22 06:27 Albumin 3.8 g/dL (3.5-5.0) 12/04/22 06:27 TSH 0.19 uIU/mL (0.32-4.0) L 12/02/22 18:06 Free T4 1.28 ng/dL (0.71-1.85) 12/02/22 18:06 Urine Color Yellow 12/02/22 20:59 Urine Appearance Clear 12/02/22 20:59 Urine pH 6.5 (5.0-9.0) 12/02/22 20:59 Ur Specific [place] 1.015 (1.005-1.025) 12/02/22 20:59 Urine Protein Negative mg/dL (Neg-Trace) 12/02/22 20:59 Urine Glucose (UA) Negative mg/dL (Negative) 12/02/22 20:59 Urine Ketones Negative mg/dL (Negative) 12/02/22 20:59 Urine Blood Negative (Negative) 12/02/22 20:59 Urine Nitrite Negative (Negative) 12/02/22 20:59 Ur Leukocyte Esterase Negative (Negative) 12/02/22 20:59 Salicylates < 5.0 mg/dL (15-30) L 12/02/22 18:06 Urine Opiates Screen Not Detected (Not Detect) 12/02/22 20:59 Urine Fentanyl Screen Not Detected (Not Detect) 12/02/22 20:59 Acetaminophen < 17 mcg/mL (<30) 12/02/22 18:06 Ur Barbiturates Screen Not Detected (Not Detect) 12/02/22 20:59 Ur Phencyclidine Scrn Not Detected (Not Detect) 12/02/22 20:59 Ur Amphetamines Screen Not Detected (Not Detect) 12/02/22 20:59 U Benzodiazepines Scrn Not Detected (Not Detect) 12/02/22 20:59 Urine Cocaine Screen Not Detected (Not Detect) 12/02/22 20:59 U Marijuana (THC) Screen Not Detected (Not Detect) 12/02/22 20:59 Ethyl Alcohol < 10 mg/dL 12/02/22 18:06 COVID-19 (RAMA) Negative (Negative) 12/02/22 18:11 COVID-19 Clin Com See Note 12/02/22 18:11 Influenza Type A (CISCO) Negative (Negative) 12/02/22 18:11 Influenza Type B (CISCO) Negative (Negative) 12/02/22 18:11 Influenza A & B Note See Note 12/02/22 18:[address] 12/02/22 17:25 IMPRESSION: There are scattered chronic small vessel ischemic changes within the periventricular white matter. Otherwise unremarkable examination. No evidence of acute territorial infarct or hemorrhage. Chest X-Ray 12/02/22 18:36 IMPRESSION: Well-positioned endotracheal tube Abdomen/Pelvis CT 12/02/22 20:49 IMPRESSION: Chronic appearing changes as described above. Airspace changes more likely due to atelectasis although early infiltrate at the left lung base cannot be excluded. I do not appreciate any acute intra-abdominal process. Brain MRI 12/03/22 11:27 IMPRESSION: No definite acute intracranial findings with assessment limited by the degree of motion artifact. There is global cerebral volume loss. There is asymmetric left hippocampal volume loss and there are possible T2 signal changes within the left hippocampus that could reflect left-sided mesial temporal sclerosis which can be clinically correlated. There is moderate chronic microangiopathy. Empty sella. 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, vascular dementia hard palate mass Referrals: [facility] [Primary Care Provider] - 1 Week Discharge Medications: New levetiracetam 250 mg Tablet 250 mg PO BID Qty: 60 0RF Continued omeprazole 20 mg capsule,delayed release(DR/EC) 1 cap PO DAILY risperidone 0.5 mg tablet 0.5 mg PO BID lisinopril 20 mg tablet 20 mg PO DAILY simvastatin 20 mg tablet 20 mg PO BEDTIME citalopram 20 mg tablet 20 mg PO DAILY acetaminophen 650 mg tablet extended release 1,300 mg PO Q8H PRN (Reason: pain) melatonin 5 mg capsule 5 mg PO BEDTIME aspirin 81 mg tablet,delayed release (DR/EC) 81 mg PO DAILY Label Comments: patient no longer takes it cholecalciferol (vitamin D3) 25 mcg (1,000 unit) capsule 25 mcg PO DAILY Discharge Orders: Discharge Order (Routine); Ordered 12/04/22 Ordered By: Rashid Mathews Diet: Advance to usual diet Activity on Discharge: As tolerated Stand Alone Forms: Patient Portal Discharge page Care Plan Goals: prevention of seizure Health Concerns: 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 Return to the hospital if you experience recurrent or worsening symptoms. Outpatient oral surgery referral for evaluation of hard palate mass Assessment: See Discharge Summary.
--- NOTE | 2022-12-04 15:04 | MHC.CM.PN ---
IMM 12/04/22 Patient is discharged to dtrs home today. PT eval recommends Home with supervision and assist vs STR. Patients dtr will take pt home with home care services. Pt preference is [facility]. The [facility] has been notified of discharge today. Patients dtr will provide transport home.
[2022-12-04 15:51] LABS: Glucose, Whole Blood 114 mg/dL (60-115)
[2022-12-04 16:00] VITALS: BP 154/78; PULSE 76; RESP 18; TEMP 37.1; O2SAT 97
== END 2022-12-04 17:49 | disposition home health service (06) | DRG 101 ==
LOC: HO.ED 18:49 → HO.EDOVER 21:37 → HO.ICU 22:06 → HO.IMC 12-03 15:13
PROVIDERS: Internal Medicine Pulmonary Disease; Physician Assistant; Admitting Provider Physician Assistant Medical; Emergency Provider Student in an Organized Health Care Education/Training Program; Visit Provider Family Medicine
DX: R56.9 Unspecified convulsions (principal); E87.1 Hypo-osmolality and hyponatremia; E87.21 Acute metabolic acidosis; E78.00 Pure hypercholesterolemia, unspecified; K21.9 Gastro-esophageal reflux disease without esophagitis; E11.9 Type 2 diabetes mellitus without complications; E86.0 Dehydration; F01.50 Vascular dementia, unspecified severity, without behavioral disturbance, psychotic disturbance, mood disturbance, and anxiety; I69.398 Other sequelae of cerebral infarction; M27.0 Developmental disorders of jaws; I10 Essential (primary) hypertension; Z20.822 Contact with and (suspected) exposure to COVID-19; Z88.0 Allergy status to penicillin; Z88.5 Allergy status to narcotic agent; Z79.82 Long term (current) use of aspirin; Z79.899 Other long term (current) drug therapy
CPT/HCPCS: 36415; 70450; 70551; 71045; 74177; 80048; 80053; 80076; 80143; 80179; 80307; 81003; 82077; 82140; 82550; 82803; 82947; 83605; 83735; 84100; 84439; 84443; 84484; 85025; 87040; 87502; 87635; 92610; 93005; 94002; 94799; 97162; 99285; C1758; J1643; J1953; J3010; J3475; Q9967

== ENCOUNTER 2023-03-07 12:59 | Inpatient (IN) | payer MEDICARE, MEDICAID, SELFPAY ==
--- NOTE | 2023-03-07 13:04 | ED_ITS ---
HPI - Seizure General Chief Complaint: Seizure Stated Complaint: ? Seizure L Side Facial Droop Time Seen by Provider: 03/07/23 13:04 Source: family Mode of arrival: ambulatory Limitations: altered mental status History of Present Illness HPI Narrative: Patient has a known history of seizure, today family found the patient sitting on her cough with dried blood coming out of her mouth. Patient is fully functional but has dementia. She normally talks MD complaint: seizure and possible seizure Onset (ago): hour(s) Witnessed: No Seizure History: Yes Place: Home Related Data Home Medications Medication Instructions Recorded Confirmed acetaminophen 650 mg 1,300 mg PO Q8H PRN pain 03/14/22 12/02/22 tablet,extended release aspirin 81 mg tablet,delayed 81 mg PO DAILY 03/14/22 12/02/22 release cholecalciferol (vitamin D3) 25 25 mcg PO DAILY 03/14/22 12/02/22 mcg (1,000 unit) capsule citalopram 20 mg tablet 20 mg PO DAILY 03/14/22 12/02/22 lisinopril 20 mg tablet 20 mg PO DAILY 03/14/22 12/02/22 melatonin 5 mg capsule 5 mg PO BEDTIME 03/14/22 12/02/22 risperidone 0.5 mg tablet 0.5 mg PO BID 03/14/22 12/02/22 simvastatin 20 mg tablet 20 mg PO BEDTIME 03/14/22 12/02/22 omeprazole 20 mg capsule,delayed 1 cap PO DAILY 12/02/22 12/02/22 release Previous Rx's Medication Instructions Recorded levetiracetam 250 mg tablet 250 mg PO BID #60 tabs 12/04/22 Allergies Allergy/AdvReac Type Severity Reaction Status Date / Time Penicillins [PENICILLINS] Allergy Intermediate SYNCOPE Verified 12/02/22 23:39 codeine [CODEINE] AdvReac Intermediate NAUSEA & Verified 12/02/22 23:39 VOMITING Review of Systems Review of Systems: Yes Unobtainable due to mental status PMFSH Past Medical History Medical History Asthma Dehydration Diabetes GERD (gastroesophageal reflux disease) High cholesterol Hypertension Hyponatremia Lumbar spondylosis Metabolic encephalopathy Seizure Vascular dementia Social History Social History Household Members: Family Unable to assess alcohol history related to: Unable to respond Alcohol intake: never Patient Tobacco Use Status: Tobacco use Unknown Smoked in Last 30 Days: No Use of substances other than those prescribed or required for medical reasons: No Advance Directives: Yes Advance Directives Information Provided: No Advance Directives on File: No service: No Current occupational status: disabled Physical Exam Vital Signs: Vital Signs: Last Vital Signs Temp 96.7 F L 03/07/23 14:30 Pulse 74 03/07/23 14:30 Resp 19 03/07/23 14:30 BP 135/81 03/07/23 14:30 Pulse Ox 95 03/07/23 14:30 O2 Del Method Room Air 03/07/23 14:30 BMI result Body Mass Index 27.1 Const: Other: female appearing lethargic confused Nutritional Appearance: average body habitus Limitations: altered mental status HEENT: Head: Yes normal to inspection Ears: external ears normal General nose exam: Normal external nose present Mouth: Normal oral and palatal mucosa present and oropharynx normal Throat: Yes posterior oropharynx normal Eyes: General: appearance normal, both eyes and all related structures Neck: Other: supple Neck: Yes normal visual inspection Chest: Chest palpation & inspection: normal inspection of the chest Resp: Auscultation: clear to auscultation bilaterally Cardio: Jugular venous distension: no JVD Rate: regular rate Rhythm: regular rhythm Heart sounds: S1 normal heart sound present and S2 normal heart sound present GI: Inspection: Yes normal to inspection Palpation (GI): Soft to palpation, nontender and No hepatosplenomegaly present Auscultation: normal bowel sounds : General: Yes no CVA tenderness Back/Spine/Pelvis: Back: no CVA tenderness Skin: General skin exam: no rashes or lesions noted Neuro: Other: right facial twitching right hand twitching and contraction Extrem: General: Yes normal to inspection Psych: Appearance: grossly normal Course Reevaluation(s) Reevaluation #1: Sodium and Magnesium low, started replacement will admit Time: 14:10 Reevaluation #2: I spent 40 minutes of critical care, with interventions, assessments, speaking to patient, consultants, and family. Time: 14:14 Reevaluation #3: Discussed with ICU, Hospitalist and renal. If patient sodium is improving will admit to tele Time: 15:46 Medications Administered Generic Name Dose Route Start Last Admin Trade Name Freq PRN Reason Stop Dose Admin Sodium Chloride 1,000 mls @ 200 mls/hr 03/07/23 14:00 03/07/23 14:53 Ns IVCONT 03/07/23 18:59 200 mls/hr .Q5H AZUCENA Administration Discontinued Medications Generic Name Dose Route Start Last Admin Trade Name Joel PRN Reason Stop Dose Admin Magnesium Sulfate 2 gm in 50 mls @ 25 mls/hr 03/07/23 13:56 03/07/23 14:52 Magnesium Sulfate/H2o IV 03/07/23 15:55 25 mls/hr ONCE ONE Administration Lorazepam 1 mg 03/07/23 13:15 03/07/23 13:29 Lorazepam 2 Mg/Ml Vial IVPUSH 03/07/23 13:16 1 mg STAT STA Administration Medical Decision Making Differential Diagnosis Differential Diagnoses: The differential diagnosis associated with the presentation includes (Seizure, hypomagnesemia, dehydration, UTI) Admission/Observation Consideration of admission/observation: Escalation of care including admission/observation considered (upon arrival this patient with seizure was considered for admission) Consult Healthcare Provider Management of the patient was discussed with: Hospitalist and Hospital Aide ([facility]) Lab Data MDM Lab Attestation statement: I reviewed the patient's lab results. 03/07/23 13:24 03/07/23 13:24 Labs: Lab Results 03/07/23 03/07/23 03/07/23 Range/Units 13:24 13:24 13:24 WBC 9.9 (4.8-10.8) X10*3/uL RBC 3.83 L (4.20-5.50) X10*6/uL Hgb 11.2 L (12.0-16.0) g/dl Hct 31.5 L (37.0-47.0) % MCV 82.2 (80.0-98.0) fL MCH 29.2 (27.0-33.0) pg MCHC 35.6 H (31.0-35.0) g/dl RDW 11.8 (11.0-16.0) % Plt Count 216 (160-400) X10*3/uL MPV 9.2 L (9.4-12.3) fL Immature Gran % (Auto) 0.8 H (0.0-0.4) % Neut % (Auto) 84.1 H (45-73) % Lymph % (Auto) 10.5 L (20-40) % [place] % (Auto) 4.6 (2-11) % Eos % (Auto) 0.0 (0-4) % Baso % (Auto) 0.0 (0-2) % Lymph # (Auto) 1.0 L (1.2-4.9) X10*3/uL [place] # (Auto) 0.5 (0.1-1.2) X10*3/uL Eos # (Auto) 0.0 (0.0-0.4) X10*3/uL Baso # (Auto) 0.0 (0.0-0.2) X10*3/uL Abs Immat Gran (auto) 0.08 H (0.00-0.03) X10*3/uL Absolute Neuts (auto) 8.3 (2.0-8.3) x10*3/uL Absolute Nucleated RBC 0.000 (0.0-0.012) X10*3/uL Nucleated RBC % (auto) 0.0 (0.0-0.2) /100WBC Sodium 120 L* (135-145) mmol/L Potassium 3.3 (3.3-5.1) mmol/L Chloride 85 L D (96-108) mmol/L Carbon Dioxide 24 (22-29) mmol/L Anion Gap 14 (12-20) BUN 8 L (9-16) mg/dL Creatinine 0.73 (0.5-1.4) mg/dL Estim Creat Clear Calc 68.2 Estimated GFR > 60 Random Glucose 144 H (60-115) mg/dL Calcium 9.2 (8.4-10.2) mg/dL Magnesium 1.4 L* (1.6-2.6) mg/dL Total Bilirubin 0.8 (0.0-1.0) mg/dL AST 20 (5-31) U/L ALT 14 (0-31) U/L Alkaline Phosphatase 78 (39-117) U/L Total Protein 7.2 (6.5-8.0) g/dL Albumin 4.1 (3.5-5.0) g/dL Discharge Plan Discharge Clinical Impression: Epileptic seizure, Acute hyponatremia, Hypomagnesemia Patient Disposition: Admitted As Inpatient Prescriptions: No Action omeprazole 20 mg capsule,delayed release(DR/EC) 1 cap PO DAILY levetiracetam 250 mg Tablet 250 mg PO BID Qty: 60 0RF risperidone 0.5 mg tablet 0.5 mg PO BID lisinopril 20 mg tablet 20 mg PO DAILY simvastatin 20 mg tablet 20 mg PO BEDTIME citalopram 20 mg tablet 20 mg PO DAILY acetaminophen 650 mg tablet extended release 1,300 mg PO Q8H PRN (Reason: pain) melatonin 5 mg capsule 5 mg PO BEDTIME aspirin 81 mg tablet,delayed release (DR/EC) 81 mg PO DAILY Patient Comments: patient no longer takes it cholecalciferol (vitamin D3) 25 mcg (1,000 unit) capsule 25 mcg PO DAILY
[2023-03-07 13:13] VITALS: BP 154/91; PULSE 90; RESP 20; TEMP 37.4; O2SAT 94; BMI 27.1
[2023-03-07] MEDS: LORazepam 2 MG/ML VIAL 1 MG IVPUSH (13:29)
[2023-03-07 13:30] VITALS: BP 148/81; PULSE 79; RESP 16
[2023-03-07 13:31] LABS: MANUAL DIFF FLAG NO
[2023-03-07 13:34] LABS: Hematocrit 31.5 % (37.0-47.0); Hemoglobin 11.2 g/dl (12.0-16.0); Imm Gran Abs Auto 0.08 X10*3/uL (0.00-0.03); Imm Gran Pct Auto 0.8 % (0.0-0.4); Lymphocytes Percent Auto 10.5 % (20-40); Mean Corpuscular HGB Conc 35.6 g/dl (31.0-35.0); Mean Corpuscular Hemoglobin 29.2 pg (27.0-33.0); Mean Corpuscular Volume 82.2 fL (80.0-98.0); Mean Platelet Volume 9.2 fL (9.4-12.3); Monocytes Absolute Auto 0.5 X10*3/uL (0.1-1.2); Monocytes Percent Auto 4.6 % (2-11); Neutrophils Absolute Auto 8.3 x10*3/uL (2.0-8.3); Neutrophils Percent Auto 84.1 % (45-73); Platelet Count 216 X10*3/uL (160-400); Red Blood Count 3.83 X10*6/uL (4.20-5.50); Red Cell Distribution Width 11.8 % (11.0-16.0); White Blood Count 9.9 X10*3/uL (4.8-10.8)
[2023-03-07 13:55] LABS: Magnesium 1.4 mg/dL (1.6-2.6)
[2023-03-07 13:59] LABS: Alanine Aminotransferase 14 U/L (0-31); Albumin Level 4.1 g/dL (3.5-5.0); Alkaline Phosphatase 78 U/L (39-117); Anion Gap 14 (12-20); Aspartate Amino Transferase 20 U/L (5-31); Bilirubin Total 0.8 mg/dL (0.0-1.0); Blood Urea Nitrogen 8 mg/dL (9-16); Calcium 9.2 mg/dL (8.4-10.2); Carbon Dioxide 24 mmol/L (22-29); Chloride 85 mmol/L (96-108); Creatinine Clr Calc Pharmacy 68.2; Estimated Glomerular Filt Rate > 60; Glucose Random 144 mg/dL (60-115); Potassium 3.3 mmol/L (3.3-5.1); Sodium 120 mmol/L (135-145); Total Protein 7.2 g/dL (6.5-8.0)
[2023-03-07 14:30] VITALS: BP 135/81; PULSE 74; RESP 19; TEMP 35.9; O2SAT 95
[2023-03-07] MEDS: Magnesium Sulfate/H2O 2 GM/50 ML PIGGYBACK IV ×2 (14:52→19:57)
[2023-03-07] MEDS: 0.9 % Sodium Chloride 1,000 ML 200 ML IVCONT (14:53)
--- NOTE | 2023-03-07 15:47 | ECG_ITS ---
Test Reason : SZ Blood Pressure : / mmHG Vent. Rate : 082 BPM Atrial Rate : 082 BPM P-R Int : 150 ms QRS Dur : 088 ms QT Int : 402 ms P-R-T Axes : 067 060 048 degrees QTc Int : 469 ms Normal sinus rhythm Normal ECG When compared with ECG of 03-DEC-2022 00:33, No significant change was found Referred By: Goran Olson Electronically Signed By:MUNA LORA MD
--- NOTE | 2023-03-07 16:15 | PHA.MEDREC ---
Pharmacy Consult ? Medication Reconciliation Spoke with patient daughter and she provide me a list of medications and she gave number of nurse that help patient with medications.Called patient nurse to confirm medications .Pharmacy has completed the medication reconciliation.
[2023-03-07 16:21] LABS: Osmolality, Serum 258 mosm/kg (281-305)
[2023-03-07 16:25] LABS: Anion Gap 16 (12-20); Blood Urea Nitrogen 7 mg/dL (9-16); Calcium 9.1 mg/dL (8.4-10.2); Carbon Dioxide 21 mmol/L (22-29); Chloride 88 mmol/L (96-108); Creatinine Clr Calc Pharmacy 71.1; Estimated Glomerular Filt Rate > 60; Glucose Random 137 mg/dL (60-115); Magnesium 1.5 mg/dL (1.6-2.6); Potassium 3.4 mmol/L (3.3-5.1); Sodium 122 mmol/L (135-145)
[2023-03-07 16:36] VITALS: BP 159/73; PULSE 73; RESP 16; O2SAT 95
--- NOTE | 2023-03-07 16:36 | PC.NURSE ---
Pt is asleep but easilyy arousable. Pt is lethargic when aroused, pt recognizes family at bedside and is aware of her surroundings but cannot sarry a conversation. reflexes are slow but = in all ext. pt is able to fix and focus on er staff. pt is tolerating own oral secretions and is protecting airway. pt remains in nsr in lead 2 with strong radial pulses and nonlabored spontaneous resps. awaiting admission.
--- NOTE | 2023-03-07 17:09 | P.HPHOSP_ITS ---
History of Present Illness Date of Service: 03/07/23 Attending physician on admission: Kaleigh Monroy Chief Complaint: Seizure Pt is a 68-year-old Burkinan-speaking female with a PMH significant for?asthma, HLD, HTN, GERD, vascular dementia, and lumbar spondylolysis who presents to the ED after family found patient sitting on couch with dried blood in the corner of her mouth and altered mental status after an apparent seizure. Patient is alert and oriented to self only and minimally responsive to questions. HPI provided by daughter who is at bedside. Pt was recenty admitted to the hospital for seizure and hyponatremia on 12/02/2022 through 12/04/2022 and discharged home on Keppra 250 bid. Pt lives by herself with help from family and VNA. She apparently did quite well after discharge, and was in her normal state of health up until this morning. Pt's daughter checked in on her at 08:30 and then went to drop her daughter off at school and run some errands. When she returned at [place] 10:00 she found her mother on the couch with AMS, blood in the corner of her mouth, and with twitching eyes, and clenched hands. Daughter also notes that patient is always constantly drinking water at home. In the ED labs were significant for stable normocytic anemia of 11.2/31.5, hyponatremia of 120, chloride of 85, magnesium of 1.4. Renal function baseline. EKG demonstrated normal sinus rhythm evidence of ST elevations or depressions. Pt was treated with lorazepam, IV magnesium, and 1 L IVF. Pt will be admitted to the hospital for treatment and further evaluation of altered mental status and seizure likely secondary to hyponatremia. Review of Systems Review of Systems: Likely seizure Altered mental status Patient incapable of providing HPI due to mentation [facility], [facility] Medical History Asthma Dehydration Diabetes GERD (gastroesophageal reflux disease) High cholesterol Hypertension Hyponatremia Lumbar spondylosis Metabolic encephalopathy Seizure Vascular dementia Social History Household Members: Family Unable to assess alcohol history related to: Unable to respond Alcohol intake: never Patient Tobacco Use Status: Tobacco use Unknown Smoked in Last 30 Days: No Use of substances other than those prescribed or required for medical reasons: No Currently Displaying Signs/Symptoms of Drug Intoxication Withdrawal: No Advance Directives: Yes Advance Directives Information Provided: No Advance Directives on File: No Advance Directives Date on File: 03/08/23 Do you have thoughts of harming others: None Do you have a plan to hurt others: No Plan Nutrition Risks: No Nutritional Risk Patient : No (refuses to answer) service: No Current occupational status: disabled Meds Allergies Allergy/AdvReac Type Severity Reaction Status Date / Time Penicillins [PENICILLINS] Allergy Intermediate SYNCOPE Verified 12/02/22 23:39 codeine [CODEINE] AdvReac Intermediate NAUSEA & Verified 12/02/22 23:39 VOMITING Active Medications: Current Medications Sodium Chloride (Ns) 1,000 mls @ 200 mls/hr IVCONT .Q5H AZUCENA Stop: 03/07/23 18:59 Last Admin: 03/07/23 14:53 Dose: 200 mls/hr Pharmacy Consult (Consult Rx Perform Med Rec) 1 each MISCELLANE ONCE PRN PRN Reason: Consult order Home Medications Medication Instructions Recorded Confirmed Last Taken Type acetaminophen 650 mg 1,300 mg PO Q12H PRN pain 03/14/22 03/07/23 Unknown History tablet,extended release aspirin 81 mg tablet,delayed 81 mg PO DAILY 03/14/22 03/07/23 Unknown History release cholecalciferol (vitamin D3) 25 25 mcg PO DAILY 03/14/22 03/07/23 Unknown History mcg (1,000 unit) capsule citalopram 20 mg tablet 20 mg PO DAILY 03/14/22 03/07/23 Unknown History lisinopril 20 mg tablet 20 mg PO DAILY 03/14/22 03/07/23 Unknown History melatonin 5 mg capsule 5 mg PO BEDTIME 03/14/22 03/07/23 Unknown History risperidone 0.5 mg tablet 0.5 mg PO BID 03/14/22 03/07/23 Unknown History simvastatin 20 mg tablet 20 mg PO BEDTIME 03/14/22 03/07/23 Unknown History omeprazole 20 mg capsule,delayed 1 cap PO DAILY 12/02/22 03/07/23 Unknown History release Physical Exam Vital Signs and Narrative: Vital Signs: Last Vital Signs Temp 96.7 F L 03/07/23 14:30 Pulse 73 03/07/23 16:36 Resp 16 03/07/23 16:36 BP 159/73 H 03/07/23 16:36 Pulse Ox 95 03/07/23 16:36 O2 Del Method Room Air 03/07/23 14:30 BMI result Body Mass Index 27.1 Constitutional: Alert, confused, restless. In no acute distress. Mental Status: Oriented to person only, not to place, time, or situation. Patient minimally responsive, not answering questions or following basic commands. Eyes: Pupils are equal, round, and reactive to light. Ear, Nose, and Throat: Oropharynx clear, mucous membranes moist. Ears and nose without deformities. Trachea midline. Respiratory: Clear to auscultation bilaterally. No wheezing, rales, or rhonchi. Cardiovascular: S1, S2 regular. No murmurs, rubs, or gallops. Gastrointestinal: Abdomen soft, non-tender, non-distended. Normal bowel sounds. Neurologic: Moves all extremities spontaneously. Skin: No rashes or lesions noted. Musculoskeletal: No cyanosis or clubbing. Extremities: No edema. Results Labs 03/07/23 13:24 03/07/23 16:02 Labs: Laboratory Results - last 24 hr 03/07/23 03/07/23 03/07/23 13:24 13:24 13:24 MCV 82.2 MCH 29.2 MCHC 35.6 H RDW 11.8 Plt Count 216 MPV 9.2 L Immature Gran % (Auto) 0.8 H Neut % (Auto) 84.1 H Lymph % (Auto) 10.5 L Phelps % (Auto) 4.6 Eos % (Auto) 0.0 Baso % (Auto) 0.0 Lymph # (Auto) 1.0 L [place] # (Auto) 0.5 Eos # (Auto) 0.0 Baso # (Auto) 0.0 Abs Immat Gran (auto) 0.08 H Absolute Neuts (auto) 8.3 Absolute Nucleated RBC 0.000 Nucleated RBC % (auto) 0.0 Anion Gap 14 Estim Creat Clear Calc 68.2 Estimated GFR > 60 Random Glucose 144 H Osmolality Calcium 9.2 Magnesium 1.4 L* Total Bilirubin 0.8 AST 20 ALT 14 Alkaline Phosphatase 78 Total Protein 7.2 Albumin 4.1 03/07/23 03/07/23 16:02 16:02 MCV MCH MCHC RDW Plt Count MPV Immature Gran % (Auto) Neut % (Auto) Lymph % (Auto) [place]helps % (Auto) Eos % (Auto) Baso % (Auto) Lymph # (Auto) [place]hel[place] # (Auto) Eos # (Auto) Baso # (Auto) Abs Immat Gran (auto) Absolute Neuts (auto) Absolute Nucleated RBC Nucleated RBC % (auto) Anion Gap 16 Estim Creat Clear Calc 71.1 Estimated GFR > 60 Random Glucose 137 H Osmolality 258 L Calcium 9.1 Magnesium 1.5 L Total Bilirubin AST ALT Alkaline Phosphatase Total Protein Albumin Assessment and Plan (1) Acute hyponatremia: Status: Acute (2) Hypomagnesemia: Status: Acute (3) Epileptic seizure: Status: Acute Plan Pt is a 68-year-old Burkinan-speaking female with a PMH significant for?asthma, HLD, HTN, GERD, vascular dementia, and lumbar spondylolysis who presents to the ED after family found patient sitting on couch with dried blood in the corner of her mouth and altered mental status after an apparent seizure. Labs were significant for sodium of 120 and magnesium of 1.4. Patient will be admitted to the hospital on telemetry for treatment and further evaluation of altered mental status and seizure in setting of hyponatremia. Hyponatremia Patient's sodium 120 at time of presentation Likely secondary to SIADH Pt received 1L NS in ED Patient will be placed on fluid restrictions Check BMP q4hr through tonight Checking urine osmolality and sodium Nephrology consult Monitor on telemetry Seizure Likely secondary to hyponatremia Continue Keppra Check Keppra levels Seizure precautions Acute toxic metabolic encephalopathy Secondary to hyponatremia versus postictal Patient currently not back to baseline, alert and oriented to self only Monitor mentation HLD Continue statin GERD Continue omeprazole Full Code Attending:?Dr. Monroy DVT Prophylaxis: Lovenox Pt will require a hospitalization of at least two nights for treatment of?beth atment and further evaluation of altered mental status and seizure in setting of hyponatremia. Time Spent With Patient Time: Total time managing care of this patient today ____ minutes. Quality Stroke Does the patient have a stroke diagnosis?: No VTE Prior VTE?: No VTE Risk Level:: Medical - moderate - high VTE Device Contraindication: Treatment Not Indicated VTE Drug Contraindication: N/A - Med Ordered
[2023-03-07 19:34] LABS: Anion Gap 11 (12-20); Blood Urea Nitrogen 5 mg/dL (9-16); Calcium 7.2 mg/dL (8.4-10.2); Carbon Dioxide 19 mmol/L (22-29); Chloride 99 mmol/L (96-108); Creatinine Clr Calc Pharmacy 92.1; Estimated Glomerular Filt Rate > 60; Glucose Random 126 mg/dL (60-115); Potassium 2.8 mmol/L (3.3-5.1); Sodium 126 mmol/L (135-145)
[2023-03-07] MEDS: Enoxaparin Sodium 40 MG/0.4 ML SYRINGE SUBCUT (19:57)
[2023-03-07 20:43] LABS: Osmolality Urine 165 mosm/kg (373-1093)
[2023-03-07] MEDS: Dextrose 5 % 1,000 ML 75 ML IVCONT (20:50)
[2023-03-07] MEDS: levETIRAcetam 250 MG TABLET PO (20:58)
[2023-03-07] MEDS: Atorvastatin Calcium 10 MG TABLET PO (20:58)
[2023-03-07] MEDS: Melatonin 3 MG TABLET 6 MG PO (20:59)
[2023-03-07] MEDS: risperiDONE 0.5 MG TABLET PO (20:59)
--- NOTE | 2023-03-07 22:08 | PC.NURSE ---
report given to RAFA Copeland pt to room 471
--- NOTE | 2023-03-07 22:14 | PC.NURSE ---
med rec completed by pharm
[2023-03-07 23:18] LABS: Anion Gap 13 (12-20); Blood Urea Nitrogen 6 mg/dL (9-16); Calcium 8.9 mg/dL (8.4-10.2); Carbon Dioxide 25 mmol/L (22-29); Chloride 94 mmol/L (96-108); Creatinine Clr Calc Pharmacy 73.2; Estimated Glomerular Filt Rate > 60; Glucose Random 157 mg/dL (60-115); Potassium 3.3 mmol/L (3.3-5.1); Sodium 129 mmol/L (135-145)
[2023-03-07 23:39] VITALS: BP 169/85; PULSE 73; RESP 20; TEMP 36.4; O2SAT 95
[2023-03-08] MEDS: Dextrose 5 % 1,000 ML 125 ML IVCONT (01:20)
[2023-03-08 02:55] VITALS: BP 176/83; PULSE 77; RESP 16; TEMP 36.7; O2SAT 95
[2023-03-08 03:09] LABS: Anion Gap 14 (12-20); Blood Urea Nitrogen 6 mg/dL (9-16); Calcium 9.2 mg/dL (8.4-10.2); Carbon Dioxide 28 mmol/L (22-29); Chloride 99 mmol/L (96-108); Creatinine Clr Calc Pharmacy 66.3; Estimated Glomerular Filt Rate > 60; Glucose Random 162 mg/dL (60-115); Potassium 3.3 mmol/L (3.3-5.1); Sodium 138 mmol/L (135-145)
[2023-03-08 05:11] VITALS: BP 162/76
[2023-03-08] MEDS: Dextrose 5 % 1,000 ML 500 ML IVCONT (06:06)
--- NOTE | 2023-03-08 06:09 | PM.EVENT ---
Event Note Date of Service: 03/08/23 Event Note: On review of patient's lab he was noted the patient's sodium was correcting too quickly, I started her on fluids at sodium of 126 on D5 water at 75 cc with repeat of her labs 2 hours later, showed a sodium of 129. I then increased her D5 water to 125 cc an hour and placed a message to director immunology, with recommendation to repeat BMP more frequently. BMP from this morning shows increased sodium to 138, nephrology recommended to start patient on D5 water at 100 cc an hour, will repeat BMP Patient clinically remains the same, alert and oriented only x1 since admission. Time Spent With Patient Time: Total time managing care of this patient today ____ minutes.
[2023-03-08 07:04] LABS: Magnesium 2.3 mg/dL (1.6-2.6)
[2023-03-08 07:05] LABS: Anion Gap 14 (12-20); Blood Urea Nitrogen 6 mg/dL (9-16); Calcium 9.5 mg/dL (8.4-10.2); Carbon Dioxide 28 mmol/L (22-29); Chloride 98 mmol/L (96-108); Creatinine Clr Calc Pharmacy 66.3; Estimated Glomerular Filt Rate > 60; Glucose Random 151 mg/dL (60-115); Potassium 3.2 mmol/L (3.3-5.1); Sodium 137 mmol/L (135-145)
[2023-03-08 07:08] LABS: Anion Gap 13 (12-20); Blood Urea Nitrogen 6 mg/dL (9-16); Calcium 9.5 mg/dL (8.4-10.2); Carbon Dioxide 28 mmol/L (22-29); Chloride 99 mmol/L (96-108); Creatinine Clr Calc Pharmacy 67.2; Estimated Glomerular Filt Rate > 60; Glucose Random 153 mg/dL (60-115); Potassium 3.3 mmol/L (3.3-5.1); Sodium 137 mmol/L (135-145)
[2023-03-08] MEDS: Potassium Chloride Packet 20 MEQ PACKET 40 MEQ PO (07:46)
[2023-03-08] MEDS: Aspirin Enteric Coated 81 MG TABLET.DR PO (07:46)
[2023-03-08] MEDS: levETIRAcetam 250 MG TABLET PO (07:46)
[2023-03-08] MEDS: risperiDONE 0.5 MG TABLET PO (07:46)
[2023-03-08] MEDS: lisinopriL 20 MG TABLET PO (07:47)
--- NOTE | 2023-03-08 07:48 | PC.NURSE ---
pt when admitted to [facility] had an order for D5W at 80mls/hr. Patient was alert and oriented x1. MD notified me to increase D5W to 125mls/hr at 01:17. At 06:05 order placed for 500mls/hr D5W. Patient was alert and oriented x1, arousable by name, much more talkative and had needed a 1:1 patient observer.
[2023-03-08 07:55] VITALS: BP 160/90; PULSE 84; RESP 18; TEMP 36.7; O2SAT 96
[2023-03-08 09:37] LABS: Anion Gap 17 (12-20); Blood Urea Nitrogen 6 mg/dL (9-16); Calcium 9.5 mg/dL (8.4-10.2); Carbon Dioxide 23 mmol/L (22-29); Chloride 99 mmol/L (96-108); Estimated Glomerular Filt Rate > 60; Glucose Random 114 mg/dL (60-115); Potassium 3.8 mmol/L (3.3-5.1); Sodium 135 mmol/L (135-145)
--- NOTE | 2023-03-08 10:41 | P.DS_ITS ---
DS: Providers Provider Date of Service: 03/08/23 Date of admission: 03/07/23 18:52 Primary care physician: [facility] Consults: 03/07/23 16:56 Consult to Physician Stat Consulting Provider: Pierce Irvin Reason for consultation: hyponatremia Has provider been notified: Yes 03/08/23 07:43 Consult for Sitter Routine Reason for consultation: delerium DS: Diagnosis Discharge Diagnosis (1) Acute hyponatremia: Status: Acute (2) Hypomagnesemia: Status: Acute (3) Epileptic seizure: Status: Acute DS: Summary Hospital Course Hospital Course: Admission note HPI Pt is a 68-year-old Setswana-speaking female with a PMH significant for?asthma, HLD, HTN, GERD, vascular dementia, and lumbar spondylolysis who presents to the ED after family found patient sitting on couch with dried blood in the corner of her mouth and altered mental status after an apparent seizure.? Patient is alert and oriented to self only and minimally responsive to questions.? HPI provided by daughter who is at bedside. Pt was recenty admitted to the hospital for seizure and hyponatremia on 12/02/2022 through 12/04/2022 and discharged home on Keppra 250 bid. Pt lives by herself with help from family and VNA. She apparently did quite well after discharge, and was in her normal state of health up until this morning. Pt's daughter checked in on her at 08:30 and then went to drop her daughter off at school and run some errands. When she returned at around 10:00 she found her mother on the couch with AMS, blood in the corner of her mouth, and with twitching eyes, and clenched hands.? Daughter also notes that patient is always constantly drinking water at home. In the ED labs were significant for stable normocytic anemia of 11.2/31.5, hyponatremia of 120, chloride of 85, magnesium of 1.4.? Renal function baseline.? EKG demonstrated normal sinus rhythm evidence of ST elevations or depressions. Pt was treated with lorazepam, IV magnesium, and 1 L IVF. Pt will be admitted to the hospital for treatment and further evaluation of altered mental status and seizure likely secondary to hyponatremia. Hospital course The patient was admitted for evaluation of hyponatremia and breakthrough seizure. she was altered at time of presentaiton likely post-ictal and related to hyponatremia itself. received NS 1 L in with improvement of sodium to 122 from 120. evaluated by quilting supervisor who recommended water restriction and monitoring sodium values overnight. the patient corrected herself rapidly overn ight to 126, 129, D5W was started at that point after discussing with quilting supervisor by office administration instructor. Sodium continued to go up to 139, 137 and 135 while on D5W as her mental status improved to baseline. she refused the IV fluids and was asked to drink plenty of water instead. she was not helping with the management of the over correction. 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 explained to her and her daughter extensively. No more seizure incidents were noted during hospital stay. The patient made quicker than expected improvement in her sodium level and mentation and inability to adhere to medical plan or following it will discharge her earlier than 2 nights stay. To recheck labs as outpatient next week. Time Spent with Patient Time attestation: Total time managing care of this patient today ____ minutes. Discharge coordination time: Greater than 30 minutes Quality: Safe Use of Opioids Does Pt have an Active Cancer Diagnosis on the Problem List?: No Quality: Stroke Does the patient have a stroke diagnosis?: No Physical Exam Vital Signs: Vital Signs: Last Vital Signs Temp 98.0 F 03/08/23 07:55 Pulse 84 03/08/23 07:55 Resp 18 03/08/23 07:55 BP 160/90 H 03/08/23 07:55 Pulse Ox 96 03/08/23 07:55 O2 Del Method Room Air 03/08/23 07:55 BMI result Body Mass Index 27.1 Const: Other: Constitutional : Awake, interactive, not in distress Neck : Normal inspection, Supple Cardiovascular : RRR, no JVP, no lower extremity edema Respiratory : good bilateral air entry, no crackles, wheezes or rhonchi Gastrointestinal: soft, lax, Normal bowel sounds, Non tender Skin : Warm, Dry Neurological : Alert & oriented to self only, No focal deficit DS: Data Data Completed and Pending Completed studies during hospitalization [Text1]: Procedures Insertion of Endotracheal Airway into Trachea, Via Natural or Artificial Opening (02/27/23) Respiratory Ventilation, Less than 24 Consecutive Hours (12/02/22) Labs on day of discharge: Laboratory Results - last 24 hr 03/07/23 03/07/23 03/07/23 13:24 13:24 13:24 WBC 9.9 RBC 3.83 L Hgb 11.2 L Hct 31.5 L MCV 82.2 MCH 29.2 MCHC 35.6 H RDW 11.8 Plt Count 216 MPV 9.2 L Immature Gran % (Auto) 0.8 H Neut % (Auto) 84.1 H Lymph % (Auto) 10.5 L [place] % (Auto) 4.6 Eos % (Auto) 0.0 Baso % (Auto) 0.0 Lymph # (Auto) 1.0 L [place] # (Auto) 0.5 Eos # (Auto) 0.0 Baso # (Auto) 0.0 Abs Immat Gran (auto) 0.08 H Absolute Neuts (auto) 8.3 Absolute Nucleated RBC 0.000 Nucleated RBC % (auto) 0.0 Sodium 120 L* Potassium 3.3 Chloride 85 L D Carbon Dioxide 24 Anion Gap 14 BUN 8 L Creatinine 0.73 Estim Creat Clear Calc 68.2 Estimated GFR > 60 Random Glucose 144 H Osmolality Calcium 9.2 Magnesium 1.4 L* Total Bilirubin 0.8 AST 20 ALT 14 Alkaline Phosphatase 78 Total Protein 7.2 Albumin 4.1 Urine Osmolality Ur Random Sodium 03/07/23 03/07/23 03/07/23 16:02 16:02 19:15 WBC RBC Hgb Hct MCV MCH MCHC RDW Plt Count MPV Immature Gran % (Auto) Neut % (Auto) Lymph % (Auto) [place] % (Auto) Eos % (Auto) Baso % (Auto) Lymph # (Auto) [place] # (Auto) Eos # (Auto) Baso # (Auto) Abs Immat Gran (auto) Absolute Neuts (auto) Absolute Nucleated RBC Nucleated RBC % (auto) Sodium 122 L 126 L Potassium 3.4 2.8 L Chloride 88 L 99 Carbon Dioxide 21 L 19 L Anion Gap 16 11 L BUN 7 L 5 L Creatinine 0.70 0.54 Estim Creat Clear Calc 71.1 92.1 Estimated GFR > 60 > 60 Random Glucose 137 H 126 H Osmolality 258 L Calcium 9.1 7.2 L D Magnesium 1.5 L Total Bilirubin AST ALT Alkaline Phosphatase Total Protein Albumin Urine Osmolality Ur Random Sodium 03/07/23 03/07/23 03/07/23 20:09 20:09 22:53 WBC RBC Hgb Hct MCV MCH MCHC RDW Plt Count MPV Immature Gran % (Auto) Neut % (Auto) Lymph % (Auto) [place] % (Auto) Eos % (Auto) Baso % (Auto) Lymph # (Auto) [place] # (Auto) Eos # (Auto) Baso # (Auto) Abs Immat Gran (auto) Absolute Neuts (auto) Absolute Nucleated RBC Nucleated RBC % (auto) Sodium 129 L Potassium 3.3 Chloride 94 L Carbon Dioxide 25 Anion Gap 13 BUN 6 L Creatinine 0.68 Estim Creat Clear Calc 73.2 Estimated GFR > 60 Random Glucose 157 H Osmolality Calcium 8.9 D Magnesium Total Bilirubin AST ALT Alkaline Phosphatase Total Protein Albumin Urine Osmolality 165 L Ur Random Sodium 42.0 03/08/23 03/08/23 03/08/23 02:46 06:07 06:07 WBC RBC Hgb Hct MCV MCH MCHC RDW Plt Count MPV Immature Gran % (Auto) Neut % (Auto) Lymph % (Auto) [place] % (Auto) Eos % (Auto) Baso % (Auto) Lymph # (Auto) [place] # (Auto) Eos # (Auto) Baso # (Auto) Abs Immat Gran (auto) Absolute Neuts (auto) Absolute Nucleated RBC Nucleated RBC % (auto) Sodium 138 137 Potassium 3.3 3.3 Chloride 99 99 Carbon Dioxide 28 28 Anion Gap 14 13 BUN 6 L 6 L Creatinine 0.75 0.74 Estim Creat Clear Calc 66.3 67.2 Estimated GFR > 60 > 60 Random Glucose 162 H 153 H Osmolality Calcium 9.2 9.5 Magnesium 2.3 Total Bilirubin AST ALT Alkaline Phosphatase Total Protein Albumin Urine Osmolality Ur Random Sodium 03/08/23 03/08/23 06:07 09:15 WBC RBC Hgb Hct MCV MCH MCHC RDW Plt Count MPV Immature Gran % (Auto) Neut % (Auto) Lymph % (Auto) [place] % (Auto) Eos % (Auto) Baso % (Auto) Lymph # (Auto) [place] # (Auto) Eos # (Auto) Baso # (Auto) Abs Immat Gran (auto) Absolute Neuts (auto) Absolute Nucleated RBC Nucleated RBC % (auto) Sodium 137 135 Potassium 3.2 L 3.8 Chloride 98 99 Carbon Dioxide 28 23 Anion Gap 14 17 BUN 6 L 6 L Creatinine 0.75 0.79 Estim Creat Clear Calc 66.3 63.0 Estimated GFR > 60 > 60 Random Glucose 151 H 114 Osmolality Calcium 9.5 9.5 Magnesium Total Bilirubin AST ALT Alkaline Phosphatase Total Protein Albumin Urine Osmolality Ur Random Sodium Discharge Plan Discharge Anticipated Discharge Date/Time: 03/08/23 10:26 Patient Disposition: Home, Self-Care Discharge Diagnosis: Hyponatremia, acute Hypomagnesemia Seizure Referrals: [facility] [Primary Care Provider] - 1 Week Discharge Medications: Continued omeprazole 20 mg capsule,delayed release(DR/EC) 1 cap PO DAILY levetiracetam 250 mg Tablet 250 mg PO BID Qty: 60 0RF risperidone 0.5 mg tablet 0.5 mg PO BID lisinopril 20 mg tablet 20 mg PO DAILY simvastatin 20 mg tablet 20 mg PO BEDTIME citalopram 20 mg tablet 20 mg PO DAILY acetaminophen 650 mg tablet extended release 1,300 mg PO Q12H PRN (Reason: pain) melatonin 5 mg capsule 5 mg PO BEDTIME aspirin 81 mg tablet,delayed release (DR/EC) 81 mg PO DAILY Patient Comments: patient no longer takes it cholecalciferol (vitamin D3) 25 mcg (1,000 unit) capsule 25 mcg PO DAILY Discharge Orders: Discharge Order (Routine); Ordered 03/08/23 Ordered By: Kaleigh Monroy Diet: Advance to usual diet Activity on Discharge: As tolerated Stand Alone Forms: Patient Portal Discharge page Care Plan Goals: Read below Health Concerns: Read below Plan of Treatment: Read below Assessment: You were admitted to the hospital for evaluation of seizure. noticed to have too low sodium level. admitted for monitoring as oral fluids were held with quick improvement of your sodium level back to normal. evaluated by quilting supervisor who believes that is a result of drinking too much water. Decrease your daily water intake to 2L Discharge Date/Time: 03/08/23 15:26
[2023-03-08 11:03] VITALS: BP 154/80
--- NOTE | 2023-03-08 13:24 | MHC.CM.PN ---
MD D/C order prior to CM interview. order for Pt's home, self-care. CM acknowledged.
[2023-03-08 13:34] LABS: Anion Gap 16 (12-20); Blood Urea Nitrogen 6 mg/dL (9-16); Calcium 9.5 mg/dL (8.4-10.2); Carbon Dioxide 25 mmol/L (22-29); Chloride 98 mmol/L (96-108); Creatinine Clr Calc Pharmacy 59.2; Estimated Glomerular Filt Rate > 60; Glucose Random 195 mg/dL (60-115); Potassium 3.8 mmol/L (3.3-5.1); Sodium 135 mmol/L (135-145)
--- NOTE | 2023-03-08 17:25 | PM.PNNEP ---
Subjective Subjective Date of Service: 03/08/23 Interval history: Seen and examined, events noted PT has been refusing medications and IVF SNa noted overnite with SNa incr too fast Physical Exam Vital Signs: Vital Signs: Last Vital Signs Temp 98.0 F 03/08/23 07:55 Pulse 84 03/08/23 07:55 Resp 18 03/08/23 07:55 BP 154/80 H 03/08/23 11:03 Pulse Ox 96 03/08/23 07:55 O2 Del Method Room Air 03/08/23 07:55 BMI result Body Mass Index 27.1 Const: Other: Constitutional : Awake, interactive, not in distress Neck : Normal inspection, Supple Cardiovascular : RRR, no JVP, no lower extremity edema Respiratory : good bilateral air entry, no crackles, wheezes or rhonchi Gastrointestinal: soft, lax, Normal bowel sounds, Non tender Skin : Warm, Dry Neurological : Alert & oriented to self only, No focal deficit Nutritional Appearance: average body habitus Limitations: altered mental status HEENT: Head: Yes normal to inspection Ears: external ears normal General nose exam: Normal external nose present Mouth: Normal oral and palatal mucosa present and oropharynx normal Throat: Yes posterior oropharynx normal Eyes: General: appearance normal, both eyes and all related structures Neck: Other: supple Neck: Yes normal visual inspection Chest: Chest palpation & inspection: normal inspection of the chest Resp: Auscultation: clear to auscultation bilaterally Cardio: Jugular venous distension: no JVD Rate: regular rate Rhythm: regular rhythm Heart sounds: S1 normal heart sound present and S2 normal heart sound present GI: Inspection: Yes normal to inspection Palpation (GI): Soft to palpation, nontender and No hepatosplenomegaly present Auscultation: normal bowel sounds : General: Yes no CVA tenderness Back/Spine/Pelvis: Back: no CVA tenderness Skin: General skin exam: no rashes or lesions noted Neuro: Other: right facial twitching right hand twitching and contraction Extrem: General: Yes normal to inspection Psych: Appearance: grossly normal Objective Data Labs 03/07/23 13:24 03/08/23 13:08 Labs: Laboratory Results - last 24 hr 03/07/23 03/07/23 03/07/23 19:15 20:09 20:09 Sodium 126 L Potassium 2.8 L Chloride 99 Carbon Dioxide 19 L Anion Gap 11 L BUN 5 L Creatinine 0.54 Estim Creat Clear Calc 92.1 Estimated GFR > 60 Random Glucose 126 H Calcium 7.2 L D Magnesium Urine Osmolality 165 L Ur Random Sodium 42.0 03/07/23 03/08/23 03/08/23 22:53 02:46 06:07 Sodium 129 L 138 137 Potassium 3.3 3.3 3.3 Chloride 94 L 99 99 Carbon Dioxide 25 28 28 Anion Gap 13 14 13 BUN 6 L 6 L 6 L Creatinine 0.68 0.75 0.74 Estim Creat Clear Calc 73.2 66.3 67.2 Estimated GFR > 60 > 60 > 60 Random Glucose 157 H 162 H 153 H Calcium 8.9 D 9.2 9.5 Magnesium Urine Osmolality Ur Random Sodium 03/08/23 03/08/23 03/08/23 06:07 06:07 09:15 Sodium 137 135 Potassium 3.2 L 3.8 Chloride 98 99 Carbon Dioxide 28 23 Anion Gap 14 17 BUN 6 L 6 L Creatinine 0.75 0.79 Estim Creat Clear Calc 66.3 63.0 Estimated GFR > 60 > 60 Random Glucose 151 H 114 Calcium 9.5 9.5 Magnesium 2.3 Urine Osmolality Ur Random Sodium 03/08/23 13:08 Sodium 135 Potassium 3.8 Chloride 98 Carbon Dioxide 25 Anion Gap 16 BUN 6 L Creatinine 0.84 Estim Creat Clear Calc 59.2 Estimated GFR > 60 Random Glucose 195 H Calcium 9.5 Magnesium Urine Osmolality Ur Random Sodium Procedures Date of Service Date of Service: 03/08/23 Assessment & Plan Assessment and plan (1) Acute hyponatremia: Status: Acute (2) Hypomagnesemia: Status: Acute (3) Epileptic seizure: Status: Acute Plan Euvolemic HypoNa with Chana garcia on adm and now too rapid self correction 120---> 139 and she refused IVF in an attempt to correct the too rapid correction. 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 So given she has done this before ( 11/2022) without apparent ill consequence we have opted not to do any additional interventions, We have expalined to her daughter to have her get repeat labs next week and encurage her to avoid excess fluid intake Pt is a 68-year-old Upper Sorbian-speaking female with a PMH significant for?asthma, HLD, HTN, GERD, vascular dementia, and lumbar spondylolysis who presents to the ED after family found patient sitting on couch with dried blood in the corner of her mouth and altered mental status after an apparent seizure. Labs were significant for sodium of 120 and magnesium of 1.4. Patient will be admitted to the hospital on telemetry for treatment and further evaluation of altered mental status and seizure in setting of hyponatremia. Hyponatremia Patient's sodium 120 at time of presentation Likely secondary to SIADH Pt received 1L NS in ED Patient will be placed on fluid restrictions Check BMP q4hr through tonight Checking urine osmolality and sodium Nephrology consult Monitor on telemetry Seizure Likely secondary to hyponatremia Continue Keppra Check Keppra levels Seizure precautions Acute toxic metabolic encephalopathy Secondary to hyponatremia versus postictal Patient currently not back to baseline, alert and oriented to self only Monitor mentation HLD Continue statin GERD Continue omeprazole Full Code Attending:?Dr. Monroy DVT Prophylaxis: Lovenox Pt will require a hospitalization of at least two nights for treatment of?treatment and further evaluation of altered mental status and seizure in setting of hyponatremia. Time Spent With Patient Time: Total time managing care of this patient today ____ minutes. Progress Note: Quality Stroke Does the patient have a stroke diagnosis?: No
--- NOTE | 2023-03-09 03:26 | CONS_ITS ---
DATE OF SERVICE: 03/07/2023 Asked to see patient to assist in evaluation, management of patient's severe hyponatremia as reflected by serum sodium of 120 on admission at 1 p.m. in the afternoon of the 2nd. I came down to the emergency room and saw the patient, discussed the case with the ER doctor. They are giving her normal saline, which I told them to stop because she has a history of hyponatremia back in November that corrected too fast as a self correction. In summary, patient is a 68-year-old female with a history of asthma, hyponatremia, hypertension, GERD, vascular dementia, and lumbar spinal stenosis, came to emergency room when she was found by a family member altered in mental status. There was concern that she may have had a seizure. In the emergency room, patient was conversant, but was confused. Her daughter was there and tells me that she does have significant dementia, but feels not back to her baseline. Daughter also states that she drinks a lot of water. She is aware that patient was admitted in the hospital back in November with a similar episode of low sodium and a question of a seizure episode. Details of the prior hospitalization again showed the hyponatremia and treated with and she had the relatively rapid self correction of the serum sodium. PAST MEDICAL HISTORY: Notable for as mentioned above. Asthma, dehydration, diabetes, GERD, hyperlipidemia, hypertension, 3 episodes of hyponatremia, vascular dementia, and seizures noted. MEDICATIONS: On admission are noted in the admitting notes. She is not on a thiazide diuretic. Her current medications are as noted in the electronic medical record. ALLERGIES: TO PENICILLIN AND CODEINE LISTED. SOCIAL HISTORY: She is nonsmoker, nondrinker. No illicit drug use. FAMILY HISTORY: Noncontributory. REVIEW OF SYSTEMS: As noted above. PHYSICAL EXAMINATION: VITAL SIGNS: Blood pressure of 150/80 with a heart rate in the 70s. HEAD: Atraumatic, normocephalic. NECK: Supple. Mucous membranes are moist. LUNGS: Breath sounds are bilaterally. CARDIAC: Regular rate, rhythm. ABDOMEN: Soft. EXTREMITIES: Show no edema. LABORATORY DATA: Show hemoglobin of 11.2, hematocrit 31.5. Sodium of 120, potassium 3.4, chloride 88, bicarb 21, BUN 7, creatinine 0.7, blood sugar 137. IMPRESSION: 68-year-old female with a history of hypertension, vascular dementia, diabetes, who was admitted to the hospital for what appears to be a seizure episode along with relatively severe hyponatremia of 120 and a history of a similar episode back in November, and a question of excessive fluid intake. 1. Euvolemic hyponatremia. Patient's clinical presentation would include syndrome of inappropriate antidiuretic hormone secretion and I do see in the computer a urinalysis in the past with specific gravity of less than 1.005, however back in November, there was no urine osm or urine sodium done. The psychogenic polydipsia is suggestive of a history of the daughter stating that she drinks a lot of fluids and back in November, she had relatively rapid self correction. We typically do not see rapid self correction except for in patients who have Thiazide diuretics or patients who have excessive fluid intake and developed psychogenic polydipsia-associated hyponatremia and then fluid restriction. Other concerns include syndrome of inappropriate antidiuretic hormone secretion if she is on multiple medications that could be associating with this. RECOMMENDATIONS: At this time include the followin. Discontinue the normal saline, which I have done. 2. Placement of Ngo to monitor urine output. 3. Obtain urine studies including urine osm, urine sodium, as well as the urine uric acid. 4. Obtain a serum uric acid level. 5. Obtain repeat stat and lytes to see which direction things are going. 6. Monitor serum sodiums every 2 to 3 hours, so we can make sure that her serum sodiums do not correct by more than 8 mEq in 24 hours. 7. Obtain a TSH and an a.m. cortisol level. I am concerned about the rapid self correction because she did this back in November and the daughter says she drinks an excessive amount of fluids. We will follow patient closely with the team. MD NOLAN Celeste/CHARAN / [id number]
[2023-03-11 16:48] LABS: Levetiracetam Keppra 3.1 mcg/mL (6.0-46.0)
== END 2023-03-08 15:26 | disposition home or self-care (01) | DRG 641 ==
LOC: HO.ED 16:08 → HO.EDOVER 19:14 → HO.IMC 21:44
PROVIDERS: Internal Medicine; Physician Assistant Medical; Admitting Provider Student in an Organized Health Care Education/Training Program; Emergency Provider Emergency Medicine; Visit Provider Student in an Organized Health Care Education/Training Program
DX: E87.1 Hypo-osmolality and hyponatremia (principal); G40.909 Epilepsy, unspecified, not intractable, without status epilepticus; E78.00 Pure hypercholesterolemia, unspecified; I10 Essential (primary) hypertension; E83.42 Hypomagnesemia; F01.50 Vascular dementia, unspecified severity, without behavioral disturbance, psychotic disturbance, mood disturbance, and anxiety; Z88.0 Allergy status to penicillin; Z88.5 Allergy status to narcotic agent; Z79.82 Long term (current) use of aspirin; Z79.899 Other long term (current) drug therapy
CPT/HCPCS: 36415; 80048; 80053; 80177; 83735; 83930; 83935; 84300; 85025; 93005; 99285; J1650; J2060; J3475

== ENCOUNTER 2023-06-02 09:18 | Inpatient (IN) | payer MEDICARE, MEDICAID, SELFPAY ==
--- NOTE | 2023-06-02 | EEG_ITS ---
FINDINGS: The waking background activity consists of low voltage fast frequencies seen intermixed with the poorly defined 8-9 hertz posterior alpha frequency and anteriorly with muscle artifacts. Intermittent 1-2 hertz delta seen from the temporal region bilaterally with the right sided predominance. Photic stimulation is without activation. Hyperventilation was omitted. No sleep stages are identified. No paroxysmal features were seen. IMPRESSION: This EEG is considered abnormal due to intermittent bitemporal slowing in the delta range right greater than left that may suggest bitemporal dysfunction possibly underlying previous strokes. No clearly epileptiform discharges are seen. MD AMARA Adams/MODL / [id number]
--- NOTE | ~2023-06-02 | CT_ITS ---
EXAMINATION: CT HEAD WITHOUT CONTRAST CLINICAL INFORMATION: 68-year-old female with seizures COMPARISON: CT scan and MRI from same day earlier. TECHNIQUE: Contiguous axial imaging was performed from the skull base to vertex without intravenous administration of contrast. This CT examination was performed using dose optimization techniques as appropriate, variously including the following: *Automated exposure control *Adjustment of mA and/or kV according to patient size (this includes techniques or standardized protocols for targeted exams where dose is matched to indication/reason for exam; i.e. extremities or head) *Use of iterative reconstruction technique DLP: 644 mGy-cm FINDINGS: There is no evidence of acute intracranial hemorrhage or territorial infarction. [place]-white matter differentiation is preserved. No abnormal mass effect or midline shift. No extra-axial fluid collections. Scattered periventricular and deep white matter hypoattenuation consistent with mild chronic microangiopathy. The ventricles and sulcal spaces are proportional without hydrocephalus and with mild widening of the ventricles and sulci.. Global volume loss with proportional ventricular and sulcal spaces; no hydrocephalus. No acute osseous findings. No soft tissue abnormalities. The mastoid air cells and the other paranasal sinuses are well aerated. CT/CT head/brain wo IV con IMPRESSION: No acute intracranial hemorrhage or CT-evidence of large territorial infarction. No mass effect. No interval change
[2023-06-02 09:28] VITALS: BP 150/74; BP 160/90; PULSE 71; PULSE 80; RESP 16; TEMP 37.2; O2SAT 97; BMI 26.2
--- NOTE | 2023-06-02 09:39 | ED_ITS ---
HPI - Seizure General Chief Complaint: Seizure Stated Complaint: ? SZ IN NIGHT,INCONT&BLOOD IN MOUTH PER FAMILY Time Seen by Provider: 06/02/23 09:30 Source: family (daughter) Mode of arrival: EMS Limitations: other (dementia) History of Present Illness HPI Narrative: This is a 68 years old female with history of dementia, history of hyponatremia, history of seizure, brought here by ambulance for a possible seizure. Seizure was no weakness however the daughter found urine in the floor and dry secretion the mouth. Patient arrived awake and alert neurologically intact MD complaint: possible seizure Onset (ago): hour(s) (2) Witnessed: No Seizure History: Yes Place: Home Possible Precipitating Event: other (Hyponatremia) Related Data Home Medications Medication Instructions Recorded Confirmed cholecalciferol (vitamin D3) 25 25 mcg PO DAILY 03/14/22 06/02/23 mcg (1,000 unit) capsule citalopram 20 mg tablet 20 mg PO DAILY 03/14/22 06/02/23 lisinopril 20 mg tablet 20 mg PO DAILY 03/14/22 06/02/23 melatonin 5 mg capsule 5 mg PO BEDTIME 03/14/22 06/02/23 risperidone 0.5 mg tablet 0.5 mg PO BID 03/14/22 06/02/23 simvastatin 20 mg tablet 20 mg PO BEDTIME 03/14/22 06/02/23 omeprazole 20 mg capsule,delayed 1 cap PO DAILY 12/02/22 06/02/23 release Previous Rx's Medication Instructions Recorded levetiracetam 250 mg tablet 250 mg PO BID #60 tabs 12/04/22 Allergies Allergy/AdvReac Type Severity Reaction Status Date / Time Penicillins [PENICILLINS] Allergy Intermediate SYNCOPE Verified 12/02/22 23:39 codeine [CODEINE] AdvReac Intermediate NAUSEA & Verified 12/02/22 23:39 VOMITING Review of Systems Eyes: Eyes: Reports no additional eye complaints Respiratory: Respiratory: Reports no additional respiratory complaints Psychiatric: Psychiatric: Reports no additional psychiatric complaints PMF Past Medical History Medical History Asthma Dehydration Diabetes GERD (gastroesophageal reflux disease) High cholesterol Hypertension Hyponatremia Lumbar spondylosis Metabolic encephalopathy Seizure Vascular dementia Social History Social History Household Members: Family Unable to assess alcohol history related to: Unable to respond Alcohol intake: never Patient Tobacco Use Status: Never used Tobacco Smoked in Last 30 Days: No Use of substances other than those prescribed or required for medical reasons: No Advance Directives: Yes Advance Directives on File: Yes Advance Directives Date on File: 03/08/23 Nutrition Risks: No Nutritional Risk service: No Current occupational status: disabled Physical Exam Vital Signs: Vital Signs: Last Vital Signs Temp 99 F 06/02/23 09:28 Pulse 85 06/02/23 16:25 Resp 16 06/02/23 16:25 BP 180/86 H 06/02/23 16:25 Pulse Ox 97 06/02/23 16:25 O2 Del Method Room Air 06/02/23 16:25 BMI result Body Mass Index 26.2 Const: Nutritional Appearance: well nourished Limitations: no limitations HEENT: Head: Yes normal to inspection Ears: hearing grossly normal bilaterally General nose exam: Normal external nose present Face and sinus: Yes normal facial exam Mouth: Normal oral and palatal mucosa present Throat: Yes posterior oropharynx normal Neck: Neck: Yes normal visual inspection Chest: Chest palpation & inspection: normal inspection of the chest Resp: Effort & Inspection: normal respiratory effort Cardio: Jugular venous distension: no JVD Palpation: normal PMI Rate: regular rate Rhythm: regular rhythm GI: Inspection: Yes normal to inspection Palpation (GI): Soft to palpation Skin: General skin exam: no rashes or lesions noted and elasticity normal Neuro: Other: She is awake alert no focal, she follow command, there is no deficit in strength. Cranial nerves intact Medications Administered Generic Name Dose Route Start Last Admin Trade Name Freq PRN Reason Stop Dose Admin Enoxaparin Sodium 40 mg 06/02/23 16:00 06/02/23 16:39 Enoxaparin Sodium 40 Mg/0.4 Ml Syringe SUBCUT 40 mg Q24H AZUCENA Administration Sodium Chloride 1,000 mls @ 100 mls/hr 06/02/23 11:15 06/02/23 11:39 Ns IVCONT 100 mls/hr .Q10H AZUCENA Administration Sodium Chloride 3 ml 06/02/23 16:00 06/02/23 16:30 0.9 % Sodium Chloride Flush 3 Ml Syringe IVFLUSH Not Given QSHIFT AZUCENA Discontinued Medications Generic Name Dose Route Start Last Admin Trade Name Freq PRN Reason Stop Dose Admin Levetiracetam 500 mg 06/02/23 14:51 06/02/23 15:27 Levetiracetam 500 Mg Tablet PO 06/02/23 14:52 500 mg ONCE ONE Administration Lisinopril 20 mg 06/02/23 15:39 06/02/23 16:38 Lisinopril 20 Mg Tablet PO 06/02/23 15:40 20 mg ONCE ONE Administration Protocol Medical Decision Making Medical Decision Making [facility] Narrative: Patient presented to emergency room with a possible seizure she history of hyponatremia. She is also on Keppra 250 mg b.i.d. for seizure will check blood work electrolytes ST-T UA and reassessed Differential Diagnosis Differential Diagnoses: The differential diagnosis associated with the presentation includes Seizure/hyponatremia/head bleed Admission/Observation Consideration of admission/observation: Escalation of care including admission/observation considered Consult Healthcare Provider Management of the patient was discussed with: Hospitalist Lab Data [facility] Lab Attestation statement: I reviewed the patient's lab results. 06/02/23 10:11 06/02/23 10:11 Labs: Lab Results 06/02/23 06/02/23 06/02/23 Range/Units 10:11 10:11 10:11 WBC 7.0 (4.8-10.8) X10*3/uL RBC 4.34 (4.20-5.50) X10*6/uL Hgb 13.2 (12.0-16.0) g/dl Hct 36.1 L (37.0-47.0) % MCV 83.2 (80.0-98.0) fL MCH 30.4 (27.0-33.0) pg MCHC 36.6 H (31.0-35.0) g/dl RDW 11.9 (11.0-16.0) % Plt Count 268 (160-400) X10*3/uL MPV 9.9 (9.4-12.3) fL Immature Gran % (Auto) 0.3 (0.0-0.4) % Neut % (Auto) 83.4 H (45-73) % Lymph % (Auto) 11.6 L (20-40) % [place] % (Auto) 4.6 (2-11) % Eos % (Auto) 0.0 (0-4) % Baso % (Auto) 0.1 (0-2) % Lymph # (Auto) 0.8 L (1.2-4.9) X10*3/uL [place] # (Auto) 0.3 (0.1-1.2) X10*3/uL Eos # (Auto) 0.0 (0.0-0.4) X10*3/uL Baso # (Auto) 0.0 (0.0-0.2) X10*3/uL Abs Immat Gran (auto) 0.02 (0.00-0.03) X10*3/uL Absolute Neuts (auto) 5.9 (2.0-8.3) x10*3/uL Absolute Nucleated RBC 0.000 (0.0-0.012) X10*3/uL Nucleated RBC % (auto) 0.0 (0.0-0.2) /100WBC Sodium 125 L (135-145) mmol/L Potassium 3.9 (3.3-5.1) mmol/L Chloride 93 L (96-108) mmol/L Carbon Dioxide 24 (22-29) mmol/L Anion Gap 12 (12-20) BUN 4 L (9-16) mg/dL Creatinine 0.66 (0.5-1.4) mg/dL Estim Creat Clear Calc 74.2 Estimated GFR > 60 Random Glucose 126 H (60-115) mg/dL Calcium 9.7 (8.4-10.2) mg/dL Magnesium 1.7 (1.6-2.6) mg/dL Total Bilirubin 0.8 (0.0-1.0) mg/dL AST 22 (5-31) U/L ALT 12 (0-31) U/L Alkaline Phosphatase 83 (39-117) U/L Troponin I High Sens 15.3 (<3.5-17.0) ng/L Total Protein 7.9 (6.5-8.0) g/dL Albumin 4.5 (3.5-5.0) g/dL Urine Color Urine Appearance Urine pH (5.0-9.0) Ur Specific [place] (1.005-1.025) Urine Protein (Neg-Trace) mg/dL Urine Glucose (UA) (Negative) mg/dL Urine Ketones (Negative) mg/dL Urine Blood (Negative) Urine Nitrite (Negative) Ur Leukocyte Esterase (Negative) Urine RBC (0-2) /HPF Urine WBC (0-5) /HPF Ur Squamous Epith Cells (0-2) /HPF Urine Bacteria (None Seen) Hyaline Casts (0-2) /LPF Urine Osmolality (373-1093) mosm/kg 06/02/23 06/02/23 Range/Units 14:44 14:44 WBC (4.8-10.8) X10*3/uL RBC (4.20-5.50) X10*6/uL Hgb (12.0-16.0) g/dl Hct (37.0-47.0) % MCV (80.0-98.0) fL MCH (27.0-33.0) pg MCHC (31.0-35.0) g/dl RDW (11.0-16.0) % Plt Count (160-400) X10*3/uL MPV (9.4-12.3) fL Immature Gran % (Auto) (0.0-0.4) % Neut % (Auto) (45-73) % Lymph % (Auto) (20-40) % [place] % (Auto) (2-11) % Eos % (Auto) (0-4) % Baso % (Auto) (0-2) % Lymph # (Auto) (1.2-4.9) X10*3/uL [place] # (Auto) (0.1-1.2) X10*3/uL Eos # (Auto) (0.0-0.4) X10*3/uL Baso # (Auto) (0.0-0.2) X10*3/uL Abs Immat Gran (auto) (0.00-0.03) X10*3/uL Absolute Neuts (auto) (2.0-8.3) x10*3/uL Absolute Nucleated RBC (0.0-0.012) X10*3/uL Nucleated RBC % (auto) (0.0-0.2) /100WBC Sodium (135-145) mmol/L Potassium (3.3-5.1) mmol/L Chloride (96-108) mmol/L Carbon Dioxide (22-29) mmol/L Anion Gap (12-20) BUN (9-16) mg/dL Creatinine (0.5-1.4) mg/dL Estim Creat Clear Calc Estimated GFR Random Glucose (60-115) mg/dL Calcium (8.4-10.2) mg/dL Magnesium (1.6-2.6) mg/dL Total Bilirubin (0.0-1.0) mg/dL AST (5-31) U/L ALT (0-31) U/L Alkaline Phosphatase (39-117) U/L Troponin I High Sens (<3.5-17.0) ng/L Total Protein (6.5-8.0) g/dL Albumin (3.5-5.0) g/dL Urine Color Yellow Urine Appearance Clear Urine pH 6.5 (5.0-9.0) Ur Specific [place] <= 1.005 (1.005-1.025) Urine Protein Negative (Neg-Trace) mg/dL Urine Glucose (UA) Negative (Negative) mg/dL Urine Ketones Negative (Negative) mg/dL Urine Blood Negative (Negative) Urine Nitrite Negative (Negative) Ur Leukocyte Esterase Negative (Negative) Urine RBC 0-2 (0-2) /HPF Urine WBC 0-5 (0-5) /HPF Ur Squamous Epith Cells 0-2 (0-2) /HPF Urine Bacteria None Seen (None Seen) Hyaline Casts 0-2 (0-2) /LPF Urine Osmolality 75 L (373-1093) mosm/kg Independent Interpretation I performed an independent interpretation of an: CT Scan Interpretation: negative Radiology Impression Discussion of test interpretation with radiology: I have reviewed the radiologist's reading. Radiologist Impression: NAD Independent Historian Clinical information obtained from an independent historian. History obtained from or confirmed by: Other (daughter) External Record Review External record reviewed: Inpatient record Chronic Conditions dementia Discharge Plan Discharge Clinical Impression: Acute hyponatremia, Seizure Patient Disposition: Admitted As Inpatient
[2023-06-02 10:15] LABS: MANUAL DIFF FLAG NO
--- NOTE | 2023-06-02 10:16 | PHA.MEDREC ---
Pharmacy Consult ? Medication Reconciliation Pharmacy has completed the medication reconciliation. Used list from [facility]
[2023-06-02 10:17] LABS: Basophils Percent Auto 0.1 % (0-2); Hematocrit 36.1 % (37.0-47.0); Hemoglobin 13.2 g/dl (12.0-16.0); Imm Gran Abs Auto 0.02 X10*3/uL (0.00-0.03); Imm Gran Pct Auto 0.3 % (0.0-0.4); Lymphocytes Absolute Auto 0.8 X10*3/uL (1.2-4.9); Lymphocytes Percent Auto 11.6 % (20-40); Mean Corpuscular HGB Conc 36.6 g/dl (31.0-35.0); Mean Corpuscular Hemoglobin 30.4 pg (27.0-33.0); Mean Corpuscular Volume 83.2 fL (80.0-98.0); Mean Platelet Volume 9.9 fL (9.4-12.3); Monocytes Absolute Auto 0.3 X10*3/uL (0.1-1.2); Monocytes Percent Auto 4.6 % (2-11); Neutrophils Absolute Auto 5.9 x10*3/uL (2.0-8.3); Neutrophils Percent Auto 83.4 % (45-73); Platelet Count 268 X10*3/uL (160-400); Red Blood Count 4.34 X10*6/uL (4.20-5.50); Red Cell Distribution Width 11.9 % (11.0-16.0)
[2023-06-02 10:30] LABS: Alanine Aminotransferase 12 U/L (0-31); Albumin Level 4.5 g/dL (3.5-5.0); Alkaline Phosphatase 83 U/L (39-117); Anion Gap 12 (12-20); Aspartate Amino Transferase 22 U/L (5-31); Bilirubin Total 0.8 mg/dL (0.0-1.0); Blood Urea Nitrogen 4 mg/dL (9-16); Calcium 9.7 mg/dL (8.4-10.2); Carbon Dioxide 24 mmol/L (22-29); Chloride 93 mmol/L (96-108); Creatinine Clr Calc Pharmacy 74.2; Estimated Glomerular Filt Rate > 60; Glucose Random 126 mg/dL (60-115); Magnesium 1.7 mg/dL (1.6-2.6); Potassium 3.9 mmol/L (3.3-5.1); Sodium 125 mmol/L (135-145); Total Protein 7.9 g/dL (6.5-8.0)
[2023-06-02 10:37] LABS: Troponin-I High Sensitivity 15.3 ng/L (<3.5-17.0)
[2023-06-02] MEDS: 0.9 % Sodium Chloride 1,000 ML 100 ML IVCONT (11:39)
[2023-06-02 15:05] LABS: Appearance Urine Clear; Color Urine Yellow; Glucose Urine UA Negative (Negative); Leukocyte Esterase Urine Negative (Negative); Nitrite Urine Negative (Negative); PH 6.5 (5.0-9.0); Specific Gravity - Urine <= 1.005 (1.005-1.025); Urine Blood Negative (Negative); Urine Ketones Negative (Negative); Urine Protein Negative (Neg-Trace)
[2023-06-02 15:10] LABS: Bacteria Urine None Seen (None Seen); Hyaline Casts Urine 0-2 /LPF (0-2); RBC Urine 0-2 /HPF (0-2); Squamous Epithelial Cell Urine 0-2 /HPF (0-2); WBC Urine 0-5 /HPF (0-5)
[2023-06-02 15:26] VITALS: BP 188/92; PULSE 91; RESP 16; O2SAT 97
[2023-06-02] MEDS: levETIRAcetam 500 MG TABLET PO ×2 (15:27→23:37)
--- NOTE | 2023-06-02 15:37 | PM.IMHP ---
History of Present Illness Date of Service: 06/02/23 Attending physician on admission: Rose Bush Chief Complaint: seizure 68-year-old female with history [id number] type 2 diabetes, history of seizure disorder, GERD, hypertension, vascular dementia with mood disturbance, and history of hyponatremia presented to the ED earlier this morning following unwitnessed seizure episode. The patient lives alone but her daughter lives next door. VNA nurse arrived just before 07:00 the patient was noted to have dried blood in her mouth, had been incontinent of urine, was disoriented, and tremulous which is her typical presentation following seizure. The patient is not a good historian secondary to her dementia. On arrival, patient hypertensive to 188/92. Vitals otherwise stable. Her daughter reports she did not take her medications this morning. Hematology studies are unremarkable. Renal function is baseline. Sodium 125, potassium 3.9, chloride 93. Troponin 15.3. Urinalysis unremarkable. Urine osmolality and serum osmolality pending. Keppra level pending. Head CT is negative for any acute intracranial abnormality. In the ED started on 1 L IV NS at 100 mL/hr and also given 500 mg Keppra. Per pt daughter who assists with history, the patient is supposed to be on fluid restrictions but often drinks too much due to excess thirst. Review of Systems Review of Systems: Yes Unobtainable due to mental condition and Unobtainable due to mental status [facility] Medical History Asthma Dehydration Diabetes GERD (gastroesophageal reflux disease) High cholesterol Hypertension Hyponatremia Lumbar spondylosis Metabolic encephalopathy Seizure Vascular dementia Social History Household Members: Family Unable to assess alcohol history related to: Unable to respond Alcohol intake: never Patient Tobacco Use Status: Tobacco use Unknown Smoked in Last 30 Days: No Use of substances other than those prescribed or required for medical reasons: No Advance Directives: Yes Advance Directives on File: Yes Advance Directives Date on File: 03/08/23 service: No Current occupational status: disabled Meds Allergies Allergy/AdvReac Type Severity Reaction Status Date / Time Penicillins [PENICILLINS] Allergy Intermediate SYNCOPE Verified 12/02/22 23:39 codeine [CODEINE] AdvReac Intermediate NAUSEA & Verified 12/02/22 23:39 VOMITING Active Medications: Current Medications Acetaminophen (Acetaminophen 325 Mg Tablet) 650 mg PO Q6H PRN PRN Reason: Pain, Mild (Pain Scale 1-3) Docusate Sodium (Docusate Sodium 100 Mg Capsule) 100 mg PO DAILY PRN PRN Reason: Constipation Enoxaparin Sodium (Enoxaparin Sodium 40 Mg/0.4 Ml Syringe) 40 mg SUBCUT Q24H REPLACED BY [facility] Sodium Chloride (Ns) 1,000 mls @ 100 mls/hr IVCONT .Q10H REPLACED BY [facility] Last Admin: 06/02/23 11:39 Dose: 100 mls/hr Ondansetron HCl (Ondansetron Hcl 4 Mg/2 Ml Vial) 4 mg IVPUSH Q8H PRN PRN Reason: Nausea and Vomiting Sodium Chloride (0.9 % Sodium Chloride Flush 3 Ml Syringe) 3 ml IVFLUSH QSHIFT REPLACED BY [facility] Home Medications Medication Instructions Recorded Confirmed Last Taken Type cholecalciferol (vitamin D3) 25 25 mcg PO DAILY 03/14/22 06/02/23 Unknown History mcg (1,000 unit) capsule citalopram 20 mg tablet 20 mg PO DAILY 03/14/22 06/02/23 Unknown History lisinopril 20 mg tablet 20 mg PO DAILY 03/14/22 06/02/23 Unknown History melatonin 5 mg capsule 5 mg PO BEDTIME 03/14/22 06/02/23 Unknown History risperidone 0.5 mg tablet 0.5 mg PO BID 03/14/22 06/02/23 Unknown History simvastatin 20 mg tablet 20 mg PO BEDTIME 03/14/22 06/02/23 Unknown History omeprazole 20 mg capsule,delayed 1 cap PO DAILY 12/02/22 06/02/23 Unknown History release Physical Exam Vital Signs and Narrative: Vital Signs: Last Vital Signs Temp 99 F 06/02/23 09:28 Pulse 91 06/02/23 15:26 Resp 16 06/02/23 15:26 BP 188/92 H 06/02/23 15:26 Pulse Ox 97 06/02/23 15:26 O2 Del Method Room Air 06/02/23 15:26 BMI result Body Mass Index 26.2 Constitutional - Awake and Alert, No apparent distress Eyes - PERRLA, EOMI Cardiovascular - S1S2, RRR, No edema Respiratory - Normal lung expansion, Normal respiratory effort, No respiratory distress, CTA bilaterally Gastrointestinal - NT / ND; +BS; No rebound or guarding Extremities - no calf tenderness bilaterally, no swelling Skin - Warm/Dry Neurological - Alert & oriented to self only, CN II-XII in tact, 4/5 strength BLE, 5/5 strength BUE Results Labs 06/02/23 10:11 06/02/23 10:11 Labs: Laboratory Results - last 24 hr 06/02/23 06/02/23 06/02/23 10:11 10:11 14:44 MCV 83.2 MCH 30.4 MCHC 36.6 H RDW 11.9 Plt Count 268 MPV 9.9 Immature Gran % (Auto) 0.3 Neut % (Auto) 83.4 H Lymph % (Auto) 11.6 L [place] % (Auto) 4.6 Eos % (Auto) 0.0 Baso % (Auto) 0.1 Lymph # (Auto) 0.8 L [place] # (Auto) 0.3 Eos # (Auto) 0.0 Baso # (Auto) 0.0 Abs Immat Gran (auto) 0.02 Absolute Neuts (auto) 5.9 Absolute Nucleated RBC 0.000 Nucleated RBC % (auto) 0.0 Anion Gap 12 Estim Creat Clear Calc 74.2 Estimated GFR > 60 Random Glucose 126 H Calcium 9.7 Magnesium 1.7 Total Bilirubin 0.8 AST 22 ALT 12 Alkaline Phosphatase 83 Total Protein 7.9 Albumin 4.5 Urine Color Yellow Urine Appearance Clear Urine pH 6.5 Ur Specific [place] <= 1.005 Urine Protein Negative Urine Glucose (UA) Negative Urine Ketones Negative Urine Blood Negative Urine Nitrite Negative Ur Leukocyte Esterase Negative Urine RBC 0-2 Urine WBC 0-5 Ur Squamous Epith Cells 0-2 Urine Bacteria None Seen Hyaline Casts 0-2 Imaging Radiologist's Impressions: Impressions Head CT 06/02/23 10:44 IMPRESSION: No acute intracranial hemorrhage or CT-evidence of large territorial infarction. No mass effect. No interval change Assessment and Plan (1) Acute hyponatremia: Status: Acute (2) Seizure: Status: Acute Plan 68-year-old female with history [id number] type 2 diabetes, history of seizure disorder, GERD, hypertension, vascular dementia with mood disturbance, and history of hyponatremia admitted for breakthrough seizure and hyponatremia. 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 per neurology note 03/28 #HTN -bp uncontrolled, morning med -give lisinopril 20 mg now and continue daily #Vascular dementia with behavioral disturbance -mentation back to baseline per daughter -continue home meds DVT prophylaxis-Lovenox Full code Patient requires inpatient stay of at least 2 midnights for management of breakthrough seizure as well as acute hyponatremia requiring IV fluid resuscitation to gradually correct sodium levels no faster than 8 millimoles per 24 hours requiring serial monitoring as well as expert consultation Time Spent With Patient Time: Total time managing care of this patient today ____ minutes. Quality Stroke Does the patient have a stroke diagnosis?: No VTE Prior VTE?: No VTE Risk Level:: Medical - moderate - high VTE Device Contraindication: Treatment Not Indicated VTE Drug Contraindication: N/A - Med Ordered
[2023-06-02 16:21] LABS: Osmolality Urine 75 mosm/kg (373-1093)
[2023-06-02 16:21] LABS: Osmolality, Serum 278 mosm/kg (281-305)
[2023-06-02 16:25] VITALS: BP 180/86; PULSE 85; RESP 16; O2SAT 97
[2023-06-02] MEDS: lisinopriL 20 MG TABLET PO (16:38)
[2023-06-02] MEDS: Enoxaparin Sodium 40 MG/0.4 ML SYRINGE SUBCUT (16:39)
[2023-06-02 17:49] LABS: Sodium 136 mmol/L (135-145)
[2023-06-02 18:09] LABS: Glucose, Whole Blood 129 mg/dL (60-115)
[2023-06-02 19:45] VITALS: BP 139/83; PULSE 92; RESP 18; TEMP 36.8; O2SAT 99
--- NOTE | 2023-06-02 20:23 | PC.NURSE ---
Attempted to call report at 20:23, Floor RN will call back.
[2023-06-02 21:14] LABS: Sodium 139 mmol/L (135-145)
[2023-06-02 21:48] VITALS: BMI 25.2
[2023-06-02 21:48] LABS: Glucose, Whole Blood 141 mg/dL (60-115)
[2023-06-02 22:19] LABS: Creatinine Urine 10.82 mg/dL; Sodium Urine Random < 20.0 mmol/L
[2023-06-02 22:33] LABS: Sodium 137 mmol/L (135-145)
[2023-06-02] MEDS: risperiDONE 0.5 MG TABLET PO (23:37)
[2023-06-02] MEDS: Atorvastatin Calcium 10 MG TABLET PO (23:37)
[2023-06-02] MEDS: Dextrose 5 % 1,000 ML 100 ML IVCONT (23:38)
[2023-06-02] MEDS: 0.9 % Sodium Chloride Flush 3 ML SYRINGE IVFLUSH (23:38)
[2023-06-02] MEDS: Melatonin 3 MG TABLET 6 MG PO (23:38)
--- NOTE | 2023-06-03 02:16 | PC.NURSE ---
Patient alert and oriented to self and place, hx of dementia. Patient resistive to care , refused vital signs, non compliant with keeping on tele monitor despite teaching and encouragement, MD notified. 1 to 1 sitter @ bedside .
[2023-06-03 04:00] VITALS: BP 151/85; PULSE 73; RESP 18; TEMP 36.1; O2SAT 98
[2023-06-03 06:05] LABS: MANUAL DIFF FLAG NO
[2023-06-03 06:08] LABS: Basophils Percent Auto 0.2 % (0-2); Hematocrit 35.4 % (37.0-47.0); Hemoglobin 12.4 g/dl (12.0-16.0); Imm Gran Abs Auto 0.01 X10*3/uL (0.00-0.03); Imm Gran Pct Auto 0.2 % (0.0-0.4); Lymphocytes Absolute Auto 1.4 X10*3/uL (1.2-4.9); Lymphocytes Percent Auto 21.1 % (20-40); Mean Corpuscular Hemoglobin 30.3 pg (27.0-33.0); Mean Corpuscular Volume 86.6 fL (80.0-98.0); Mean Platelet Volume 9.9 fL (9.4-12.3); Monocytes Absolute Auto 0.6 X10*3/uL (0.1-1.2); Monocytes Percent Auto 8.5 % (2-11); Neutrophils Absolute Auto 4.5 x10*3/uL (2.0-8.3); Platelet Count 240 X10*3/uL (160-400); Red Blood Count 4.09 X10*6/uL (4.20-5.50); Red Cell Distribution Width 12.4 % (11.0-16.0); White Blood Count 6.5 X10*3/uL (4.8-10.8)
[2023-06-03 06:21] LABS: Anion Gap 12 (12-20); Blood Urea Nitrogen 7 mg/dL (9-16); Calcium 9.3 mg/dL (8.4-10.2); Carbon Dioxide 27 mmol/L (22-29); Chloride 103 mmol/L (96-108); Creatinine Clr Calc Pharmacy 62.4; Estimated Glomerular Filt Rate > 60; Glucose Random 109 mg/dL (60-115); Potassium 3.6 mmol/L (3.3-5.1); Sodium 138 mmol/L (135-145)
[2023-06-03] MEDS: Omeprazole 20 MG CAPSULE.DR PO (06:30)
[2023-06-03 07:15] LABS: Glucose, Whole Blood 112 mg/dL (60-115)
[2023-06-03 07:33] VITALS: BP 140/82; PULSE 84; RESP 18; TEMP 36.7; O2SAT 98
--- NOTE | 2023-06-03 09:23 | MHC.CM.PN ---
Addendum entered by Patrizia Tovar 06/03/23 16:08: [facility] DOES NOT HAVE A COPY OF HCP ON FILE PER MEDICAL RECORDS. Original Note: IMM DELIVERED -RIGHTS EXPLAINED TO DAUGHTER CARLOS EDUARDO, WHITE COPY TO BE MAILED. PER CARLOS EDUARDO, SHE AND HER MOTHER HAVE ADJOINING APARTMENTS AND SHE WOULD LIKE MOTHER TO RETURN HOME. PT IS ACTIVE WITH [facility]. DAUGHTER BELIEVES THERE IS A COPY OF A HCP AT MD OFFICE, WILL REQUEST COPY. + COVID [facility]AX PCP AT [facility] BUT DAUGHTER CANNOT RECALL NAME OF PROVIDER. DP: HOME WITH RESUMPTION OF [facility]. FAMILY WILL TRANSPORT. CM WILL CONTINUE TO FOLLOW FOR ANY CHANGE IN DC PLAN OR NEEDS.
[2023-06-03] MEDS: levETIRAcetam 500 MG TABLET PO ×2 (09:52→19:43)
[2023-06-03] MEDS: Escitalopram Oxalate 10 MG TABLET PO (09:52)
[2023-06-03] MEDS: 0.9 % Sodium Chloride Flush 3 ML SYRINGE IVFLUSH (09:53)
[2023-06-03] MEDS: lisinopriL 20 MG TABLET PO (09:53)
[2023-06-03] MEDS: risperiDONE 0.5 MG TABLET PO ×2 (09:53→19:44)
[2023-06-03] MEDS: Dextrose 5 % 1,000 ML 100 ML IVCONT ×2 (09:54→19:49)
[2023-06-03] MEDS: Cholecalciferol (Vitamin D3) 25 MCG TABLET PO (09:54)
--- NOTE | 2023-06-03 10:37 | PM.CNNEP ---
History of Present Illness Reason for Consult Consult date: 06/03/23 Reason for consult: hyponatremia Chief Complaint Chief complaint: hyponatremia, seizure History of Present Illness Narrative: 68-year-old female with history [id number] type 2 diabetes, history of seizure disorder, GERD, hypertension, vascular dementia with mood disturbance, and history of hyponatremia presented to the ED earlier this morning following unwitnessed seizure episode.? The patient lives alone but her daughter lives next door.? VNA nurse arrived just before 07:00 the patient was noted to have dried blood in her mouth, had been incontinent of urine, was disoriented, and tremulous which is her typical presentation following seizure.? The patient is not a good historian secondary to her dementia.? On arrival, patient hypertensive to 188/92.? Vitals otherwise stable.? Her daughter reports she did not take her medications this morning.? Hematology studies are unremarkable.? Renal function is baseline.? Sodium 125, potassium 3.9, chloride 93.? Troponin 15.3.? Urinalysis unremarkable.? Urine osmolality and serum osmolality pending.? Keppra level pending.? Head CT is negative for any acute intracranial abnormality.? In the ED started on 1 L IV NS at 100 mL/hr and also given 500 mg Keppra. Per pt daughter who assists with history, the patient is supposed to be on fluid restrictions but often drinks too much due to excess thirst. Review of Systems Constitutional: Denies chills Eyes: Denies dry eyes Cardiovascular: Denies chest pain, Denies leg edema, Denies lightheadedness and Denies dyspnea Respiratory: Denies cough and Denies dyspnea Gastrointestinal: Denies abdominal pain, Denies constipation and Denies diarrhea Genitourinary: Denies urinary incontinence and Denies urinary urgency Musculoskeletal: Denies back pain and Denies numbness Skin/Breast: Denies dry skin Denies numbness and Reports convulsions Endocrine: Reports polydipsia PMFSH Past Medical History Medical History Asthma Dehydration Diabetes GERD (gastroesophageal reflux disease) High cholesterol Hypertension Hyponatremia Lumbar spondylosis Metabolic encephalopathy Seizure Vascular dementia Social History Social History Household Members: Family Housing: Apartment Do you presently have visiting nurse or other home services: Yes ([employer]) Unable to assess alcohol history related to: Unable to respond Alcohol intake: never Patient Tobacco Use Status: Never used Tobacco Second Hand Smoke Exposure: No Advance Directives Date on File: 03/08/23 service: No Current occupational status: disabled Meds Allergies Allergy/AdvReac Type Severity Reaction Status Date / Time Penicillins [PENICILLINS] Allergy Intermediate SYNCOPE Verified 12/02/22 23:39 codeine [CODEINE] AdvReac Intermediate NAUSEA & Verified 12/02/22 23:39 VOMITING Active Medications: Current Medications Acetaminophen (Acetaminophen 325 Mg Tablet) 650 mg PO Q6H PRN PRN Reason: Pain, Mild (Pain Scale 1-3) Atorvastatin Calcium (Atorvastatin Calcium 10 Mg Tablet) 10 mg PO BEDTIME [facility] Last Admin: 06/02/23 23:37 Dose: 10 mg Dextrose (Dextrose 50 % 25 Gm/50 Ml Syringe) 25 gm IVPUSH Q15M PRN; Protocol PRN Reason: per Hypoglycemia Standing Ord. Docusate Sodium (Docusate Sodium 100 Mg Capsule) 100 mg PO DAILY PRN PRN Reason: Constipation Enoxaparin Sodium (Enoxaparin Sodium 40 Mg/0.4 Ml Syringe) 40 mg SUBCUT Q24H [facility] Last Admin: 06/02/23 16:39 Dose: 40 mg Escitalopram Oxalate (Escitalopram Oxalate 10 Mg Tablet) 10 mg PO DAILY [facility] Last Admin: 06/03/23 09:52 Dose: 10 mg Glucose (Glucose Gel 15 Gm Gel..Gram.) 15 gm PO Q15M PRN; Protocol PRN Reason: per Hypoglycemia Standing Ord. Dextrose (D5w) 1,000 mls @ 100 mls/hr IVCONT .Q10H [facility] Last Admin: 06/03/23 09:54 Dose: 100 mls/hr Insulin Human Lispro (Insulin Lispro 100 Unit/Ml 3 Ml Vial) 0 unit SUBCUT QIDACHS [facility]; Protocol Last Admin: 06/03/23 07:56 Dose: Not Given Levetiracetam (Levetiracetam 500 Mg Tablet) 500 mg PO BID [facility] Last Admin: 06/03/23 09:52 Dose: 500 mg Lisinopril (Lisinopril 20 Mg Tablet) 20 mg PO DAILY [facility]; Protocol Last Admin: 06/03/23 09:53 Dose: 20 mg Melatonin (Melatonin 3 Mg Tablet) 6 mg PO BEDTIME [facility] Last Admin: 06/02/23 23:38 Dose: 6 mg Omeprazole (Omeprazole 20 Mg Capsule.) 20 mg PO DAILY@0630 [facility] Last Admin: 06/03/23 06:30 Dose: 20 mg Ondansetron HCl (Ondansetron Hcl 4 Mg/2 Ml Vial) 4 mg IVPUSH Q8H PRN PRN Reason: Nausea and Vomiting Risperidone (Risperidone 0.5 Mg Tablet) 0.5 mg PO BID [facility] Last Admin: 06/03/23 09:53 Dose: 0.5 mg Sodium Chloride (0.9 % Sodium Chloride Flush 3 Ml Syringe) 3 ml IVFLUSH QSHIFT [facility] Last Admin: 06/03/23 09:53 Dose: 3 ml Vitamin D (Cholecalciferol (Vitamin D3) 25 Mcg Tablet) 25 mcg PO DAILY [facility] Last Admin: 06/03/23 09:54 Dose: 25 mcg Home Medications Medication Instructions Recorded Confirmed Last Taken Type cholecalciferol (vitamin D3) 25 25 mcg PO DAILY 03/14/22 06/02/23 Unknown History mcg (1,000 unit) capsule citalopram 20 mg tablet 20 mg PO DAILY 03/14/22 06/02/23 Unknown History lisinopril 20 mg tablet 20 mg PO DAILY 03/14/22 06/02/23 Unknown History melatonin 5 mg capsule 5 mg PO BEDTIME 03/14/22 06/02/23 Unknown History risperidone 0.5 mg tablet 0.5 mg PO BID 03/14/22 06/02/23 Unknown History simvastatin 20 mg tablet 20 mg PO BEDTIME 03/14/22 06/02/23 Unknown History omeprazole 20 mg capsule,delayed 1 cap PO DAILY 12/02/22 06/02/23 Unknown History release Physical Exam Vital Signs: Last Vital Signs Temp 98.0 F 06/03/23 07:33 Pulse 84 06/03/23 07:33 Resp 18 06/03/23 07:33 BP 140/82 H 06/03/23 07:33 Pulse Ox 98 06/03/23 07:33 O2 Del Method Room Air 06/03/23 07:33 BMI result Body Mass Index 25.2 Comfortable Neck is supple Lung: Air entry equal Heart: S1,S2, normal. No rub Abd: Soft. BS + NS : Alert.No asterexis Ext: No edema Results Lab Results 06/03/23 05:54 06/03/23 05:54 Lab results: Chemistry 06/02/23 06/02/23 06/02/23 10:11 17:31 21:00 Sodium 125 L 136 139 Potassium 3.9 Carbon Dioxide 24 BUN 4 L Creatinine 0.66 Calcium 9.7 06/02/23 06/03/23 22:12 05:54 Sodium 137 138 Potassium 3.6 Carbon Dioxide 27 BUN 7 L Creatinine 0.77 Calcium 9.3 Hematology 06/02/23 06/03/23 10:11 05:54 WBC 7.0 6.5 Hgb 13.2 12.4 Plt Count 268 240 Urinalysis 06/02/23 14:44 Urine Color Yellow Urine Appearance Clear Urine pH 6.5 Ur Specific [place] <= 1.005 Urine Protein Negative Urine Glucose (UA) Negative Urine Ketones Negative Urine Blood Negative Urine Nitrite Negative Ur Leukocyte Esterase Negative Urine RBC 0-2 Urine WBC 0-5 Ur Squamous Epith Cells 0-2 Hyaline Casts 0-2 Urine Studies 06/02/23 06/02/23 14:44 14:44 Urine Osmolality 75 L Urine Creatinine 10.82 Assessment and Plan (1) Acute hyponatremia: Status: Acute Plan 68-year-old manWith a history of colon cancer and comes in with is severe hyponatremia. urine osmolality was less than 75. Since admission she has been spontaneously diuresing and Serum sodium improved to 138. She also has had IV normal saline hyponatremia most likely due to excessive free water intake. Recommendations Discontinue IV normal saline. Start half-normal saline or D5W to avoid rapid correction. Monitor serum sodium every 4 hours. Avoid thiazides. Restrict oral free water intake to 1.2 L per [address] Bush we will follow along with the team. Time Spent With Patient Time: Total time managing care of this patient today ____ minutes. Procedures Date of Service Date of Service: 06/03/23
[2023-06-03 10:51] LABS: Glucose, Whole Blood 134 mg/dL (60-115)
--- NOTE | 2023-06-03 10:55 | PM.NEUROCN ---
History of Present Illness Data of Consult Service Date: 06/03/23 Primary Care Provider: [facility] Reason for consult: unwitnessed seizure This is a 68-year-old female with history of type 2 diabetes, seizure disorder, GERD, hypertension, vascular dementia with mood disturbance, and hyponatremia presented to the ED following unwitnessed seizure episode.? The patient lives alone, and was found by VNA just before 07:00 with dried blood in her mouth, incontinent of urine, disoriented, and tremulous which is her typical presentation following seizure.? The patient is not a good historian secondary to her dementia.? On arrival, patient was hypertensive to 188/92. Her daughter reports she did not take her medications this morning.? Hematology studies are unremarkable.? Renal function is baseline.? Sodium 125, potassium 3.9, chloride 93.? Troponin 15.3.? Urinalysis unremarkable.? Urine osmolality and serum osmolality pending.? Keppra level pending.? Head CT is negative for any acute intracranial abnormality. Review of Systems Review of Systems: Yes Unobtainable due to mental condition and Unobtainable due to mental status Constitutional: Constitutional: Denies chills Eyes: Eyes: Reports no additional eye complaints and Denies dry eyes Cardiovascular: Cardiovascular: Denies chest pain, Denies leg edema, Denies lightheadedness and Denies dyspnea Respiratory: Respiratory: Reports no additional respiratory complaints, Denies cough and Denies dyspnea Gastrointestinal: Gastrointestinal: Denies abdominal pain, Denies constipation and Denies diarrhea Musculoskeletal: Musculoskeletal: Denies back pain and Denies numbness Integumentary/Breasts: Skin/Breast: Denies dry skin Neurologic: Denies numbness and Reports convulsions Psychiatric: Psychiatric: Reports no additional psychiatric complaints Endocrine: Endocrine: Reports polydipsia PMFSH Past Medical History Medical History Asthma Dehydration Diabetes GERD (gastroesophageal reflux disease) High cholesterol Hypertension Hyponatremia Lumbar spondylosis Metabolic encephalopathy Seizure Vascular dementia Social History Social History Household Members: Family Housing: Apartment Do you presently have visiting nurse or other home services: Yes ([employer]) Unable to assess alcohol history related to: Unable to respond Alcohol intake: never Patient Tobacco Use Status: Never used Tobacco Second Hand Smoke Exposure: No Advance Directives Date on File: 03/08/23 service: No Current occupational status: disabled Meds Allergies Allergy/AdvReac Type Severity Reaction Status Date / Time Penicillins [PENICILLINS] Allergy Intermediate SYNCOPE Verified 12/02/22 23:39 codeine [CODEINE] AdvReac Intermediate NAUSEA & Verified 12/02/22 23:39 VOMITING Active Medications: Current Medications Acetaminophen (Acetaminophen 325 Mg Tablet) 650 mg PO Q6H PRN PRN Reason: Pain, Mild (Pain Scale 1-3) Atorvastatin Calcium (Atorvastatin Calcium 10 Mg Tablet) 10 mg PO BEDTIME [facility] Last Admin: 06/02/23 23:37 Dose: 10 mg Dextrose (Dextrose 50 % 25 Gm/50 Ml Syringe) 25 gm IVPUSH Q15M PRN; Protocol PRN Reason: per Hypoglycemia Standing Ord. Docusate Sodium (Docusate Sodium 100 Mg Capsule) 100 mg PO DAILY PRN PRN Reason: Constipation Enoxaparin Sodium (Enoxaparin Sodium 40 Mg/0.4 Ml Syringe) 40 mg SUBCUT Q24H [facility] Last Admin: 06/02/23 16:39 Dose: 40 mg Escitalopram Oxalate (Escitalopram Oxalate 10 Mg Tablet) 10 mg PO DAILY [facility] Last Admin: 06/03/23 09:52 Dose: 10 mg Glucose (Glucose Gel 15 Gm Gel..Gram.) 15 gm PO Q15M PRN; Protocol PRN Reason: per Hypoglycemia Standing Ord. Dextrose (D5w) 1,000 mls @ 100 mls/hr IVCONT .Q10H [facility] Last Admin: 06/03/23 09:54 Dose: 100 mls/hr Insulin Human Lispro (Insulin Lispro 100 Unit/Ml 3 Ml Vial) 0 unit SUBCUT QIDACHS [facility]; Protocol Last Admin: 06/03/23 07:56 Dose: Not Given Levetiracetam (Levetiracetam 500 Mg Tablet) 500 mg PO BID [facility] Last Admin: 06/03/23 09:52 Dose: 500 mg Lisinopril (Lisinopril 20 Mg Tablet) 20 mg PO DAILY [facility]; Protocol Last Admin: 06/03/23 09:53 Dose: 20 mg Melatonin (Melatonin 3 Mg Tablet) 6 mg PO BEDTIME [facility] Last Admin: 06/02/23 23:38 Dose: 6 mg Omeprazole (Omeprazole 20 Mg Capsule.) 20 mg PO DAILY@0630 [facility] Last Admin: 06/03/23 06:30 Dose: 20 mg Ondansetron HCl (Ondansetron Hcl 4 Mg/2 Ml Vial) 4 mg IVPUSH Q8H PRN PRN Reason: Nausea and Vomiting Risperidone (Risperidone 0.5 Mg Tablet) 0.5 mg PO BID [facility] Last Admin: 06/03/23 09:53 Dose: 0.5 mg Sodium Chloride (0.9 % Sodium Chloride Flush 3 Ml Syringe) 3 ml IVFLUSH QSHIFT [facility] Last Admin: 06/03/23 09:53 Dose: 3 ml Vitamin D (Cholecalciferol (Vitamin D3) 25 Mcg Tablet) 25 mcg PO DAILY [facility] Last Admin: 06/03/23 09:54 Dose: 25 mcg Home Medications Medication Instructions Recorded Confirmed Last Taken Type cholecalciferol (vitamin D3) 25 25 mcg PO DAILY 03/14/22 06/02/23 Unknown History mcg (1,000 unit) capsule citalopram 20 mg tablet 20 mg PO DAILY 03/14/22 06/02/23 Unknown History lisinopril 20 mg tablet 20 mg PO DAILY 03/14/22 06/02/23 Unknown History melatonin 5 mg capsule 5 mg PO BEDTIME 03/14/22 06/02/23 Unknown History risperidone 0.5 mg tablet 0.5 mg PO BID 03/14/22 06/02/23 Unknown History simvastatin 20 mg tablet 20 mg PO BEDTIME 03/14/22 06/02/23 Unknown History omeprazole 20 mg capsule,delayed 1 cap PO DAILY 12/02/22 06/02/23 Unknown History release Physical Exam Vital Signs: Vital Signs: Last Vital Signs Temp 98.0 F 06/03/23 07:33 Pulse 84 06/03/23 07:33 Resp 18 06/03/23 07:33 BP 140/82 H 06/03/23 07:33 Pulse Ox 98 06/03/23 07:33 O2 Del Method Room Air 06/03/23 07:33 BMI result Body Mass Index 25.2 Const: Nutritional Appearance: well nourished Limitations: no limitations HEENT: Head: Yes normal to inspection Ears: hearing grossly normal bilaterally General nose exam: Normal external nose present Face and sinus: Yes normal facial exam Mouth: Normal oral and palatal mucosa present Throat: Yes posterior oropharynx normal Neck: Neck: Yes normal visual inspection Chest: Chest palpation & inspection: normal inspection of the chest Resp: Effort & Inspection: normal respiratory effort Cardio: Jugular venous distension: no JVD Palpation: normal PMI Rate: regular rate Rhythm: regular rhythm GI: Inspection: Yes normal to inspection Palpation (GI): Soft to palpation Skin: General skin exam: no rashes or lesions noted and elasticity normal Neuro: Other: She is awake alert, no focal findings , she follow command, there is no deficit in strength. Cranial nerves intact Results Labs 06/03/23 05:54 06/03/23 05:54 Labs: Short CBC 06/03/23 Range/Units 05:54 WBC 6.5 (4.8-10.8) X10*3/uL Hgb 12.4 (12.0-16.0) g/dl Hct 35.4 L (37.0-47.0) % Plt Count 240 (160-400) X10*3/uL BMP 06/02/23 06/02/23 06/02/23 17:31 21:00 22:12 Sodium 136 139 137 Potassium Chloride Carbon Dioxide BUN Creatinine Calcium 06/03/23 05:54 Sodium 138 Potassium 3.6 Chloride 103 Carbon Dioxide 27 BUN 7 L Creatinine 0.77 Calcium 9.3 Urine 06/02/23 Range/Units 14:44 Urine Color Yellow Urine Appearance Clear Urine pH 6.5 (5.0-9.0) Ur Specific [place] <= 1.005 (1.005-1.025) Urine Protein Negative (Neg-Trace) mg/dL Urine Glucose (UA) Negative (Negative) mg/dL Assessment and Plan (1) Seizure: Status: Acute Ct negative. EEG pending. Recom : increase Levetiracetam to 500mg bid. (2) Acute hyponatremia: Status: Acute already corrected Plan 68-year-old manWith a history of colon cancer and comes in with is severe hyponatremia. urine osmolality was less than 75. Since admission she has been spontaneously diuresing and Serum sodium improved to 138. She also has had IV normal saline hyponatremia most likely due to excessive free water intake. Recommendations Discontinue IV normal saline. Start half-normal saline or D5W to avoid rapid correction. Monitor serum sodium every 4 hours. Avoid thiazides. Restrict oral free water intake to 1.2 L per [address] Bush we will follow along with the team. Time Spent With Patient Time: Total time managing care of this patient today ____ minutes. Procedures Date of Service Date of Service: 06/03/23
[2023-06-03 12:00] VITALS: BP 136/77; PULSE 86; RESP 20; TEMP 36.8; O2SAT 99
[2023-06-03 13:23] LABS: Anion Gap 14 (12-20); Carbon Dioxide 25 mmol/L (22-29); Chloride 103 mmol/L (96-108); Potassium 3.6 mmol/L (3.3-5.1); Sodium 138 mmol/L (135-145)
--- NOTE | 2023-06-03 15:12 | P.PNIM_ITS ---
Subjective Subjective Date of Service: 06/03/23 Interval History: Patient pleasantly confused offers no acute complaints, no recurrent episodes of seizure, sodium 138, no other acute events overnight no nausea, no vomiting, no abdominal pain tolerating diet, no fever, chills documented. Review of Systems Unable to obtain due to dementia Physical Exam Vital Signs: Vital Signs: Last Vital Signs Temp 98.2 F 06/03/23 12:00 Pulse 86 06/03/23 12:00 Resp 20 06/03/23 12:00 BP 136/77 06/03/23 12:00 Pulse Ox 99 06/03/23 12:00 O2 Del Method Room Air 06/03/23 12:00 BMI result Body Mass Index 25.2 Const: Other: Gen: Awake alert, in no acute distress HEENT: sclera anicteric, Neck: supple Lungs: clear to auscultation bilaterally Heart: regular rate and rhythm, no murmurs Abd: soft, non-tender, non-distended Ext: no edema Skin: warm/well-perfused Neuro: Speech clear, no focal findings Psych poor insight Objective Data Active Medications Acetaminophen (Acetaminophen 325 Mg Tablet) 650 mg PO Q6H PRN PRN Reason: Pain, Mild (Pain Scale 1-3) Atorvastatin Calcium (Atorvastatin Calcium 10 Mg Tablet) 10 mg PO BEDTIME [facility] Last Admin: 06/02/23 23:37 Dose: 10 mg Documented By: KERLINE Dextrose (Dextrose 50 % 25 Gm/50 Ml Syringe) 25 gm IVPUSH Q15M PRN; Protocol PRN Reason: per Hypoglycemia Standing Ord. Docusate Sodium (Docusate Sodium 100 Mg Capsule) 100 mg PO DAILY PRN PRN Reason: Constipation Enoxaparin Sodium (Enoxaparin Sodium 40 Mg/0.4 Ml Syringe) 40 mg SUBCUT Q24H [facility] Last Admin: 06/02/23 16:39 Dose: 40 mg Documented By: JAVON Escitalopram Oxalate (Escitalopram Oxalate 10 Mg Tablet) 10 mg PO DAILY [facility] Last Admin: 06/03/23 09:52 Dose: 10 mg Documented By: MICAELA Glucose (Glucose Gel 15 Gm Gel..Gram.) 15 gm PO Q15M PRN; Protocol PRN Reason: per Hypoglycemia Standing Ord. Dextrose (D5w) 1,000 mls @ 100 mls/hr IVCONT .Q10H [facility] Last Admin: 06/03/23 09:54 Dose: 100 mls/hr Documented By: MICAELA Insulin Human Lispro (Insulin Lispro 100 Unit/Ml 3 Ml Vial) 0 unit SUBCUT QIDACHS [facility]; Protocol Last Admin: 06/03/23 12:43 Dose: Not Given Documented By: MICAELA Non-Admin Reason: No Insulin Coverage Levetiracetam (Levetiracetam 500 Mg Tablet) 500 mg PO BID [facility] Last Admin: 06/03/23 09:52 Dose: 500 mg Documented By: MICAELA Lisinopril (Lisinopril 20 Mg Tablet) 20 mg PO DAILY [facility]; Protocol Last Admin: 06/03/23 09:53 Dose: 20 mg Documented By: MICAELA Melatonin (Melatonin 3 Mg Tablet) 6 mg PO BEDTIME [facility] Last Admin: 06/02/23 23:38 Dose: 6 mg Documented By: KERLINE Omeprazole (Omeprazole 20 Mg Capsule.) 20 mg PO DAILY@0630 [facility] Last Admin: 06/03/23 06:30 Dose: 20 mg Documented By: KERLINE Ondansetron HCl (Ondansetron Hcl 4 Mg/2 Ml Vial) 4 mg IVPUSH Q8H PRN PRN Reason: Nausea and Vomiting Risperidone (Risperidone 0.5 Mg Tablet) 0.5 mg PO BID [facility] Last Admin: 06/03/23 09:53 Dose: 0.5 mg Documented By: MICAELA Sodium Chloride (0.9 % Sodium Chloride Flush 3 Ml Syringe) 3 ml IVFLUSH QSHIFT [facility] Last Admin: 06/03/23 09:53 Dose: 3 ml Documented By: MICAELA Vitamin D (Cholecalciferol (Vitamin D3) 25 Mcg Tablet) 25 mcg PO DAILY [facility] Last Admin: 06/03/23 09:54 Dose: 25 mcg Documented By: MICAELA Labs 06/03/23 05:54 06/03/23 12:30 Labs: Laboratory Results - last 24 hr 06/02/23 06/02/23 06/02/23 14:44 14:44 15:40 MCV MCH MCHC RDW Plt Count MPV Immature Gran % (Auto) Neut % (Auto) Lymph % (Auto) [place] % (Auto) Eos % (Auto) Baso % (Auto) Lymph # (Auto) [place] # (Auto) Eos # (Auto) Baso # (Auto) Abs Immat Gran (auto) Absolute Neuts (auto) Absolute Nucleated RBC Nucleated RBC % (auto) Anion Gap Estim Creat Clear Calc Estimated GFR POC Glucose Random Glucose Osmolality 278 L Calcium Urine Osmolality 75 L Ur Random Sodium < 20.0 Urine Creatinine 10.82 06/02/23 06/02/23 06/03/23 18:02 21:25 05:54 MCV 86.6 MCH 30.3 MCHC 35.0 RDW 12.4 Plt Count 240 MPV 9.9 Immature Gran % (Auto) 0.2 Neut % (Auto) 70.0 Lymph % (Auto) 21.1 [place] % (Auto) 8.5 Eos % (Auto) 0.0 Baso % (Auto) 0.2 Lymph # (Auto) 1.4 [place] # (Auto) 0.6 Eos # (Auto) 0.0 Baso # (Auto) 0.0 Abs Immat Gran (auto) 0.01 Absolute Neuts (auto) 4.5 Absolute Nucleated RBC 0.000 Nucleated RBC % (auto) 0.0 Anion Gap Estim Creat Clear Calc Estimated GFR POC Glucose 129 H 141 H Random Glucose Osmolality Calcium Urine Osmolality Ur Random Sodium Urine Creatinine 06/03/23 06/03/23 06/03/23 05:54 07:06 10:48 MCV MCH MCHC RDW Plt Count MPV Immature Gran % (Auto) Neut % (Auto) Lymph % (Auto) [place] % (Auto) Eos % (Auto) Baso % (Auto) Lymph # (Auto) [place] # (Auto) Eos # (Auto) Baso # (Auto) Abs Immat Gran (auto) Absolute Neuts (auto) Absolute Nucleated RBC Nucleated RBC % (auto) Anion Gap 12 Estim Creat Clear Calc 62.4 Estimated GFR > 60 POC Glucose 112 134 H Random Glucose 109 Osmolality Calcium 9.3 Urine Osmolality Ur Random Sodium Urine Creatinine 06/03/23 12:30 MCV MCH MCHC RDW Plt Count MPV Immature Gran % (Auto) Neut % (Auto) Lymph % (Auto) [place] % (Auto) Eos % (Auto) Baso % (Auto) Lymph # (Auto) [place] # (Auto) Eos # (Auto) Baso # (Auto) Abs Immat Gran (auto) Absolute Neuts (auto) Absolute Nucleated RBC Nucleated RBC % (auto) Anion Gap 14 Estim Creat Clear Calc Estimated GFR POC Glucose Random Glucose Osmolality Calcium Urine Osmolality Ur Random Sodium Urine Creatinine Assessment and Plan (1) Acute hyponatremia: Status: Acute (2) Seizure: Status: Acute Plan 68-year-old female with history [id number] type 2 diabetes, history of seizure disorder, GERD, hypertension, vascular dementia with mood disturbance, and history of hyponatremia admitted for breakthrough seizure and hyponatremia. #Acute hyponatremia -Na 125, on admission improved to 138 , continue IV D5W to avoid too rapid correction for restrict fluid 1.2 L Low serum osmolality of 75 suggestive of excessive water intake -Monitor sodium q4h #Breakthrough seizure -Post ictal state resolved -Unlikely to be related to Na 125 -Increase keppa to 500mg BID, keppra level pending -seen by Neurology T agreed with increase dose of Keppra to 500 b.i.d., EEG pending #HTN -bp is stable continue lisinopril 20 mg daily #Vascular dementia with behavioral disturbance -mentation back to baseline per daughter,continue home meds DVT prophylaxis-Lovenox Full code Patient requires continued inpatient hospitalization for close monitoring of sodium to avoid rapid correction and to follow-up on seizures Time Spent With Patient Time: Total time managing care of this patient today ____ minutes. Quality Stroke Does the patient have a stroke diagnosis?: No VTE Prior VTE?: No VTE Risk Level:: Medical - moderate - high VTE Device Contraindication: Treatment Not Indicated VTE Drug Contraindication: N/A - Med Ordered
[2023-06-03 15:40] VITALS: BP 148/79; PULSE 103; RESP 22; TEMP 36.6; O2SAT 98
[2023-06-03 16:32] LABS: Glucose, Whole Blood 157 mg/dL (60-115)
[2023-06-03 18:06] LABS: Anion Gap 15 (12-20); Carbon Dioxide 23 mmol/L (22-29); Chloride 103 mmol/L (96-108); Potassium 3.3 mmol/L (3.3-5.1); Sodium 138 mmol/L (135-145)
[2023-06-03] MEDS: Insulin Lispro 100 UNIT/ML 3 ML VIAL SUBCUT (18:25)
[2023-06-03 19:17] VITALS: BP 170/88; PULSE 106; RESP 22; TEMP 36.5; O2SAT 98
[2023-06-03] MEDS: Atorvastatin Calcium 10 MG TABLET PO (19:44)
[2023-06-03] MEDS: Melatonin 3 MG TABLET 6 MG PO (19:44)
[2023-06-03 19:53] LABS: Glucose, Whole Blood 153 mg/dL (60-115)
--- NOTE | 2023-06-03 20:21 | PC.NURSE ---
Assumed care at 09:30. Patient alert and oriented x4, but very forgetful regarding situation. Patient needs encouragement and redireaction regarding meds and care. She refused her lovenox today and MD aware. She denies knowledge of seizure history or knowledge of keppra. Patient redirectable, consented to take keppra. Pulls on IV, IV wrapped and patient redirected wiwth effect. 1:1 sitter. Continues on IV D5%, although serum sodium WNL. Good appetite. Poor ability to tolerate fluid restriction.
[2023-06-03 21:57] LABS: Anion Gap 13 (12-20); Carbon Dioxide 25 mmol/L (22-29); Chloride 103 mmol/L (96-108); Potassium 3.6 mmol/L (3.3-5.1); Sodium 137 mmol/L (135-145)
[2023-06-03 23:55] VITALS: BP 156/73; PULSE 75; RESP 20; TEMP 36.4; O2SAT 96
[2023-06-04 04:00] VITALS: BP 175/97; PULSE 73; RESP 20; TEMP 36.5; O2SAT 98
[2023-06-04] MEDS: Dextrose 5 % 1,000 ML 100 ML IVCONT (06:22)
[2023-06-04] MEDS: Omeprazole 20 MG CAPSULE.DR PO (06:22)
[2023-06-04 07:20] VITALS: BP 173/92; PULSE 77; RESP 20; TEMP 36.4; O2SAT 99
[2023-06-04 07:24] LABS: Anion Gap 15 (12-20); Blood Urea Nitrogen 12 mg/dL (9-16); Calcium 9.8 mg/dL (8.4-10.2); Carbon Dioxide 26 mmol/L (22-29); Chloride 100 mmol/L (96-108); Creatinine Clr Calc Pharmacy 60.8; Estimated Glomerular Filt Rate > 60; Glucose Random 160 mg/dL (60-115); Potassium 3.2 mmol/L (3.3-5.1); Sodium 138 mmol/L (135-145)
[2023-06-04 07:45] LABS: Glucose, Whole Blood 116 mg/dL (60-115)
[2023-06-04] MEDS: levETIRAcetam 500 MG TABLET PO (09:46)
[2023-06-04] MEDS: Escitalopram Oxalate 10 MG TABLET PO (09:46)
[2023-06-04] MEDS: lisinopriL 20 MG TABLET PO (09:46)
[2023-06-04] MEDS: risperiDONE 0.5 MG TABLET PO (09:46)
[2023-06-04] MEDS: Potassium Chloride ER 20 MEQ TAB.ER.PRT PO (09:46)
[2023-06-04] MEDS: 0.9 % Sodium Chloride Flush 3 ML SYRINGE IVFLUSH (09:47)
[2023-06-04] MEDS: Cholecalciferol (Vitamin D3) 25 MCG TABLET PO (09:47)
--- NOTE | 2023-06-04 10:38 | PM.DS ---
DS: Providers Provider Date of Service: 06/04/23 Date of admission: 06/02/23 15:31 Primary care physician: [facility] Consults: 06/02/23 15:34 Consult to Nephrology Routine Consulting Provider: Percy Diamond Reason for consultation: hyponatremia Consult to Neurology Routine Consulting Provider: [facility] Reason for consultation: breakthrough seizure DS: Diagnosis Discharge Diagnosis (1) Acute hyponatremia: Status: Acute (2) Seizure: Status: Acute DS: Summary Hospital Course Hospital Course: Date of Service: 06/02/23 Attending physician on admission: Rose Bush Chief Complaint: seizure 68-year-old female with history [id number] type 2 diabetes, history of seizure disorder, GERD, hypertension, vascular dementia with mood disturbance, and history of hyponatremia presented to the ED earlier this morning following unwitnessed seizure episode.? The patient lives alone but her daughter lives next door.? VNA nurse arrived just before 07:00 the patient was noted to have dried blood in her mouth, had been incontinent of urine, was disoriented, and tremulous which is her typical presentation following seizure.? The patient is not a good historian secondary to her dementia.? On arrival, patient hypertensive to 188/92.? Vitals otherwise stable.? Her daughter reports she did not take her medications this morning.? Hematology studies are unremarkable.? Renal function is baseline.? Sodium 125, potassium 3.9, chloride 93.? Troponin 15.3.? Urinalysis unremarkable.? Urine osmolality and serum osmolality pending.? Keppra level pending.? Head CT is negative for any acute intracranial abnormality.? In the ED started on 1 L IV NS at 100 mL/hr and also given 500 mg Keppra. Per pt daughter who assists with history, the patient is supposed to be on fluid restrictions but often drinks too much due to excess thirst. Hospital course 68-year-old female with history [id number] type 2 diabetes, history of seizure disorder, GERD, hypertension, vascular dementia with mood disturbance, and history of hyponatremia admitted for breakthrough seizure and hyponatremia. #Acute hyponatremia noted to have Na 125 on admission likely due to excessive free water intake, patient treated with fluid restriction and IV normal saline sodium improved to 138 recommend to restrict free water intake to 1.2 L daily. #Breakthrough seizure not related to hyponatremia, patient seen by Neurology dose of Keppra increased to 500 mg b.i.d. EEG obtained that showed no epileptiform activity. #HTN recommend to continue lisinopril 20 mg daily blood pressure remains stable #Vascular dementia with behavioral disturbance patient was continued on home medications patient had no behavioral issues during hospitalization. Time Spent with Patient Time attestation: Total time managing care of this patient today ____ minutes. Discharge coordination time: Greater than 30 minutes Quality: Safe Use of Opioids Does Pt have an Active Cancer Diagnosis on the Problem List?: No Quality: Stroke Does the patient have a stroke diagnosis?: No Physical Exam Vital Signs: Vital Signs: Last Vital Signs Temp 97.6 F 06/04/23 07:20 Pulse 77 06/04/23 07:20 Resp 20 06/04/23 07:20 BP 173/92 H 06/04/23 07:20 Pulse Ox 99 06/04/23 07:20 O2 Del Method Room Air 06/04/23 07:20 BMI result Body Mass Index 25.2 Const: Other: Gen:? Awake alert, in no acute distress HEENT: sclera anicteric, Neck: supple Lungs: clear to auscultation bilaterally Heart: regular rate and rhythm, no murmurs Abd: soft, non-tender, non-distended Ext: no edema Skin: warm/well-perfused Neuro:? Speech clear, no focal findings Psych poor insight DS: Data Data Completed and Pending Completed studies during hospitalization [Text1]: Procedures Insertion of Endotracheal Airway into Trachea, Via Natural or Artificial Opening (12/02/22) Respiratory Ventilation, Less than 24 Consecutive Hours (12/02/22) Labs on day of discharge: Laboratory Results - last 24 hr 06/03/23 06/03/23 06/03/23 10:48 12:30 16:27 Sodium 138 Potassium 3.6 Chloride 103 Carbon Dioxide 25 Anion Gap 14 BUN Creatinine Estim Creat Clear Calc Estimated GFR POC Glucose 134 H 157 H Random Glucose Calcium 06/03/23 06/03/23 06/03/23 17:40 19:47 21:38 Sodium 138 137 Potassium 3.3 3.6 Chloride 103 103 Carbon Dioxide 23 25 Anion Gap 15 13 BUN Creatinine Estim Creat Clear Calc Estimated GFR POC Glucose 153 H Random Glucose Calcium 06/04/23 06/04/23 06:16 07:17 Sodium 138 Potassium 3.2 L Chloride 100 Carbon Dioxide 26 Anion Gap 15 BUN 12 Creatinine 0.79 Estim Creat Clear Calc 60.8 Estimated GFR > 60 POC Glucose 116 H Random Glucose 160 H Calcium 9.8 Discharge Plan Discharge Anticipated Discharge Date/Time: 06/04/23 10:30 Patient Disposition: Home, Self-Care Discharge Diagnosis: Hyponatremia Breakthrough seizure Referrals: [facility] [Primary Care Provider] - 1 Week Discharge Medications: New levetiracetam 500 mg Tablet 500 mg PO BID Qty: 60 0RF Continued omeprazole 20 mg capsule,delayed release(DR/EC) 1 cap PO DAILY risperidone 0.5 mg tablet 0.5 mg PO BID lisinopril 20 mg tablet 20 mg PO DAILY simvastatin 20 mg tablet 20 mg PO BEDTIME citalopram 20 mg tablet 20 mg PO DAILY melatonin 5 mg capsule 5 mg PO BEDTIME cholecalciferol (vitamin D3) 25 mcg (1,000 unit) capsule 25 mcg PO DAILY Discontinued levetiracetam 250 mg Tablet 250 mg PO BID Qty: 60 0RF Discharge Orders: Discharge Order (Routine); Ordered 06/04/23 Ordered By: oRse Bush Diet: Advance to usual diet Activity on Discharge: As tolerated Stand Alone Forms: Patient Portal Discharge page Care Plan Goals: Increase dose of Keppra to 500 mg 1 tablet twice daily EEG showed no seizure activity Health Concerns: Continue all other home medications as before Plan of Treatment: Outpatient follow-up with primary care physician and Neurology Assessment: As above
[2023-06-04 12:00] VITALS: BP 165/78; PULSE 76; RESP 20; TEMP 36.3; O2SAT 98
[2023-06-04 12:06] LABS: Glucose, Whole Blood 126 mg/dL (60-115)
[2023-06-04] MEDS: Acetaminophen 325 MG TABLET 650 MG PO (13:19)
--- NOTE | 2023-06-04 15:41 | MHC.CM.PN ---
PT MEDICALLY CLEARED FOR D/C HOME W/RESUMP OF [facility] W/FAMILY FOR TRANSPORT
[2023-06-04 17:12] LABS: Glucose, Whole Blood 116 mg/dL (60-115)
[2023-06-05 09:38] LABS: Levetiracetam Keppra <2.0 mcg/mL (6.0-46.0)
== END 2023-06-04 17:42 | disposition home or self-care (01) | DRG 101 ==
LOC: HO.ED 15:28 → HO.EDOVER 15:57 → HO.IMC 19:39
PROVIDERS: Admitting Provider Physician Assistant; Emergency Provider Emergency Medicine; PCP Internal Medicine; Visit Provider Hospitalist
DX: G40.909 Epilepsy, unspecified, not intractable, without status epilepticus (principal); E87.1 Hypo-osmolality and hyponatremia; F01.518 Vascular dementia, unspecified severity, with other behavioral disturbance; Z91.148 Patient's other noncompliance with medication regimen for other reason; K21.9 Gastro-esophageal reflux disease without esophagitis; Z79.899 Other long term (current) drug therapy
CPT/HCPCS: 36415; 70450; 80048; 80051; 80053; 80177; 81001; 82947; 83735; 83930; 83935; 84295; 84300; 84484; 85025; 95816; 99285; J1650

== ENCOUNTER → 2023-06-02 15:31 | Outpatient (BNV) | payer MEDICARE, MEDICAID, SELFPAY | PROVIDERS: Admitting Provider Physician Assistant; Emergency Provider Emergency Medicine; Visit Provider Physician Assistant | DX: E87.1 Hypo-osmolality and hyponatremia (principal); R56.9 Unspecified convulsions | CPT/HCPCS: 99223; 99233; 99239 ==

== ENCOUNTER 2023-08-10 23:09 | Inpatient (IN) | payer MEDICARE, MEDICAID, SELFPAY ==
--- NOTE | 2023-08-10 | ECG_ITS ---
Test Reason : SEIZURE Blood Pressure : / mmHG Vent. Rate : 095 BPM Atrial Rate : 000 BPM P-R Int : 000 ms QRS Dur : 078 ms QT Int : 358 ms P-R-T Axes : 000 057 047 degrees QTc Int : 449 ms Poor data quality Normal sinus rhythm Possible with 1st degree A-V block RSR' or QR pattern in V1 suggests right ventricular conduction delay Nonspecific ST abnormality Abnormal ECG SD interval has increased Referred By: Generic ED Physician Electronically Signed By:TAMMY DELACRUZ MD
--- NOTE | ~2023-08-10 | CT_ITS ---
EXAMINATION: CT HEAD WITHOUT CONTRAST CLINICAL INFORMATION: Mental status change. COMPARISON: 06/02/2023. TECHNIQUE: Contiguous axial imaging was performed from the skull base to vertex without intravenous administration of contrast. This CT examination was performed using dose optimization techniques as appropriate, variously including the following: *Automated exposure control *Adjustment of mA and/or kV according to patient size (this includes techniques or standardized protocols for targeted exams where dose is matched to indication/reason for exam; i.e. extremities or head) *Use of iterative reconstruction technique DLP: 690 mGy-cm FINDINGS: There is cerebral volume loss with prominence of the lateral and the third ventricles. The cortical sulci are widened appropriately. The fourth ventricle and basal cisterns are normally outlined. There is mild to moderate bilateral periventricular and central white matter diminished attenuation. There is no acute territorial defect, hemorrhage or midline shift. The extra-axial spaces are unremarkable. Calvarium: Intact. Maxillofacial sinuses and mastoids: Clear as visualized. CT/CT head/brain wo IV con IMPRESSION: Mild cerebral volume loss and mild to moderate bilateral periventricular and central white matter diminished attenuation which is nonspecific but likely to represent microvascular disease. No acute intracranial abnormality.
[2023-08-10 23:09] VITALS: BP 140/92; PULSE 100; RESP 16; TEMP 36.4; O2SAT 99; BMI 29.3
[2023-08-10 23:57] VITALS: PULSE 95; RESP 16; O2SAT 100
--- NOTE | 2023-08-10 23:57 | PC.NURSE ---
pt from home. daughter at bedside reports pt last well known time was about 8pm, and reports pt has shut down and is no longer verbally responding, unsteady on her feet and contracted. pt daughter reports when pt has become like this in the past, she has had seizures. pt daughter reports pt has been told in the past her seizures are due to low sodium levels. pt placed on tele, o2 probe and seizure precautions in place.
[2023-08-11] VITALS (26 sets, daily range): BP systolic 113–211; BP diastolic 54–113; PULSE 71–111; RESP 13–29; TEMP 36.9–37.2; O2SAT 93–100; BMI 29.2
[2023-08-11 00:15] LABS: MANUAL DIFF FLAG NO
[2023-08-11 00:16] LABS: Basophils Percent Auto 0.1 % (0-2); Hematocrit 31.9 % (37.0-47.0); Hemoglobin 11.5 g/dl (12.0-16.0); Imm Gran Abs Auto 0.04 X10*3/uL (0.00-0.03); Imm Gran Pct Auto 0.4 % (0.0-0.4); Lymphocytes Absolute Auto 0.9 X10*3/uL (1.2-4.9); Lymphocytes Percent Auto 9.3 % (20-40); Mean Corpuscular HGB Conc 36.1 g/dl (31.0-35.0); Mean Corpuscular Volume 83.3 fL (80.0-98.0); Mean Platelet Volume 9.9 fL (9.4-12.3); Monocytes Absolute Auto 0.5 X10*3/uL (0.1-1.2); Monocytes Percent Auto 4.9 % (2-11); Neutrophils Absolute Auto 8.5 x10*3/uL (2.0-8.3); Neutrophils Percent Auto 85.3 % (45-73); Platelet Count 224 X10*3/uL (160-400); Red Blood Count 3.83 X10*6/uL (4.20-5.50); Red Cell Distribution Width 11.8 % (11.0-16.0); White Blood Count 9.9 X10*3/uL (4.8-10.8)
--- NOTE | 2023-08-11 00:24 | ED.GENADULT ---
HPI - General Adult General Chief complaint: Seizure Stated complaint: gen med Time Seen by Provider: 08/11/23 00:17 Source: family ( daughter) Mode of arrival: ambulatory Limitations: altered mental status History of Present Illness HPI narrative: 68-year-old female brought in by her daughter for evaluation of mental status change patient with history of early dementia, hyponatremia, and seizure taking Keppra, daughter noticed that the patient is having unusual bizarre behavior like mumbling speech and slamming doors and cabinets that usually happen if patient is hyponatremic. No witnessed fall or head injury. No fever, no chills. Related Data Home Medications Medication Instructions Recorded Confirmed cholecalciferol (vitamin D3) 25 25 mcg PO DAILY 03/14/22 07/03/23 mcg (1,000 unit) capsule citalopram 20 mg tablet 20 mg PO DAILY 03/14/22 07/03/23 lisinopril 20 mg tablet 20 mg PO DAILY 03/14/22 07/03/23 melatonin 5 mg capsule 5 mg PO BEDTIME 03/14/22 07/03/23 risperidone 0.5 mg tablet 0.5 mg PO BID 03/14/22 07/03/23 simvastatin 20 mg tablet 20 mg PO BEDTIME 03/14/22 06/02/23 omeprazole 20 mg capsule,delayed 1 cap PO DAILY 12/02/22 07/03/23 release Previous Rx's Medication Instructions Recorded levetiracetam 500 mg tablet 500 mg PO BID #60 tabs 06/04/23 peg 3350-electrolytes 236 240 ml PO Q10M #4,000 mL 07/03/23 gram-22.74 gram-6.74 gram-5.86 gram solution Allergies Allergy/AdvReac Type Severity Reaction Status Date / Time Penicillins [PENICILLINS] Allergy Intermediate SYNCOPE Verified 08/10/23 23:14 codeine [CODEINE] AdvReac Intermediate NAUSEA & Verified 08/10/23 23:14 VOMITING Review of Systems Review of Systems: All other systems are reviewed and are negative Constitutional: Reports as per HPI and Reports no additional constitutional complaints Eyes: Reports as per HPI and Reports no additional eye complaints Reports system reviewed and no additional complaints, except as documented Cardiovascular: Reports as per HPI and Reports no additional cardiovascular complaints Respiratory: Reports as per HPI and Reports no additional respiratory complaints Gastrointestinal: Reports as per HPI and Reports no additional gastrointestinal complaints Genitourinary: Reports no additional female genitourinary complaints Musculoskeletal: Reports no additional musculoskeletal complaints Skin/Breast: Reports system reviewed and no additional complaints, except as docu Psychiatric: Reports no additional psychiatric complaints Endocrine: Reports no additional endocrine complaints Hematologic/Lymphatic: Reports no additional hematologic/lymphatic complaints Allergic/Immunologic: Reports no additional allergic/immunologic complaints Reports system reviewed and no additional complaints, except as documented and Reports Abnormal speech present [facility] Past Medical History Medical History Seizure Hyponatremia Dehydration Metabolic encephalopathy GERD (gastroesophageal reflux disease) Asthma Lumbar spondylosis Vascular dementia High cholesterol Hypertension Diabetes Surgical History Hx of cystoscopy History of esophagogastroduodenoscopy (EGD) H/O colonoscopy Hx of rotator cuff surgery Social History Social History Household Members: Family Housing: Apartment Do you presently have visiting nurse or other home services: Yes ([employer] services) Unable to assess alcohol history related to: Unable to respond Alcohol intake: never Patient Tobacco Use Status: Never used Tobacco Smoked in Last 30 Days: No Second Hand Smoke Exposure: No Use of substances other than those prescribed or required for medical reasons: No Advance Directives: Yes Advance Directives on File: Yes Advance Directives Date on File: 03/08/23 Nutrition Risks: No Nutritional Risk service: No Current occupational status: disabled Physical Exam ED Vital Signs: Vital Signs - 24 hr 08/10/23 23:09 08/10/23 23:57 Temperature 97.6 F Pulse Rate 100 95 Respiratory Rate 16 16 Blood Pressure 140/92 H Pulse Oximetry 99 100 Oxygen Delivery Method Room Air Room Air BMI result Body Mass Index 29.3 Vital signs have been reviewed and appear to be correct. Blood pressure elevated. Heart rate normal. Respiratory rate normal. Temperature normal. Oxygen saturation normal. Appearance: Alert. No acute distress. Involuntary tremors bilaterally, patient this regard examiner. Head: Normal external exam. Normocephalic. Atraumatic. No Spence signs noted. No raccoon eyes noted Eyes: PERRLA. EOMI. Conjunctiva and sclera normal. Eyelids normal. ENT: TM's Normal. Pharynx normal. Uvula midline. Moist mucous membranes. No trismus noted. No drooling noted. No muffled voice noted. Neck: Normal inspection. Neck supple. FROM. No adenopathy. Thyroid Normal. No meningeal signs. No neck mass noted. CVS: Normal heart rate and rhythm. Heart sound normal. No murmurs noted. Pulses normal throughout. Respiratory: No respiratory distress. Painless inspiration. Breath sounds normal. No wheezes/rales/rhonchi noted. Chest nontender. No accessory muscle usage noted or decreased air movement noted. Abdomen: Soft and nontender. Bowel sounds normal in all 4 quadrants. No distention noted. No organomegaly noted. No visible injury noted. Back: No CVA tenderness. Full range of motion noted. Skin: Skin warm and dry. Normal skin color. Normal skin turgor. No rashes/lesions/lacerations noted. Extremities: No lower extremity edema. Extremities exhibit normal range of motion. Extremities nontender. Neuro: Cranial nerve exam: II-XII are grossly intact No motor deficit. No sensory deficit. Reflexes normal. Course Reevaluation(s) Reevaluation #1: patient witnessed to have tonic clonic seizure in the emergency department, the case was discussed with Dr. Diamond who recommended to administer 3% hypertonic saline in total of 60 cc over 2 hours. The case also discussed with Dr. Gauthier who accepted the patient to ICU. Time: 01:13 Medications Administered Generic Name Dose Route Start Last Admin Trade Name Freq PRN Reason Stop Dose Admin Sodium Chloride 60 mls @ 30 mls/hr 08/11/23 01:15 08/11/23 01:50 Sodium Chloride 3 % IV 08/11/23 03:14 30 mls/hr .Q2H ONE Administration Discontinued Medications Generic Name Dose Route Start Last Admin Trade Name Freq PRN Reason Stop Dose Admin Lorazepam 1 mg 08/11/23 00:22 08/11/23 00:32 Lorazepam 2 Mg/Ml Vial IVPUSH 08/11/23 00:23 1 mg ONCE ONE Administration Lorazepam 2 mg 08/11/23 01:09 08/11/23 01:14 Lorazepam 2 Mg/Ml Vial IVPUSH 08/11/23 01:10 2 mg ONCE ONE Administration Medical Decision Making Differential Diagnosis Differential Diagnoses: The differential diagnosis associated with the presentation includes ( Severe hyponatremia, seizure, electrolyte abnormality, dehydration, severe anemia, Intracranial pathology.) Admission/Observation Consideration of admission/observation: Escalation of care including admission/observation considered Consult Healthcare Provider Management of the patient was discussed with: [employer] (Dr. Gauthier/ Dr. Villar) Lab Data MDM Lab Attestation statement: I reviewed the patient's lab results. 08/10/23 23:56 08/10/23 23:56 Labs: Lab Results 08/10/23 Range/Units 23:56 WBC 9.9 (4.8-10.8) X10*3/uL RBC 3.83 L (4.20-5.50) X10*6/uL Hgb 11.5 L (12.0-16.0) g/dl Hct 31.9 L (37.0-47.0) % MCV 83.3 (80.0-98.0) fL MCH 30.0 (27.0-33.0) pg MCHC 36.1 H (31.0-35.0) g/dl RDW 11.8 (11.0-16.0) % Plt Count 224 (160-400) X10*3/uL MPV 9.9 (9.4-12.3) fL Immature Gran % (Auto) 0.4 (0.0-0.4) % Neut % (Auto) 85.3 H (45-73) % Lymph % (Auto) 9.3 L (20-40) % [place] % (Auto) 4.9 (2-11) % Eos % (Auto) 0.0 (0-4) % Baso % (Auto) 0.1 (0-2) % Lymph # (Auto) 0.9 L (1.2-4.9) X10*3/uL [place] # (Auto) 0.5 (0.1-1.2) X10*3/uL Eos # (Auto) 0.0 (0.0-0.4) X10*3/uL Baso # (Auto) 0.0 (0.0-0.2) X10*3/uL Abs Immat Gran (auto) 0.04 H (0.00-0.03) X10*3/uL Absolute Neuts (auto) 8.5 H (2.0-8.3) x10*3/uL Absolute Nucleated RBC 0.000 (0.0-0.012) X10*3/uL Nucleated RBC % (auto) 0.0 (0.0-0.2) /100WBC Sodium 118 L* (135-145) mmol/L Potassium 3.2 L (3.3-5.1) mmol/L Chloride 82 L (96-108) mmol/L Carbon Dioxide 24 (22-29) mmol/L Anion Gap 15 (12-20) BUN 5 L (9-16) mg/dL Creatinine 0.71 (0.5-1.4) mg/dL Estim Creat Clear Calc 72.7 Estimated GFR > 60 Random Glucose 154 H (60-115) mg/dL Calcium 8.8 D (8.4-10.2) mg/dL Total Bilirubin 0.6 (0.0-1.0) mg/dL AST 22 (5-31) U/L ALT 12 (0-31) U/L Alkaline Phosphatase 83 (39-117) U/L Total Protein 7.3 (6.5-8.0) g/dL Albumin 4.2 (3.5-5.0) g/dL Independent Interpretation I performed an independent interpretation of an: CT Scan ( Head: No acute intracranial pathology plan) Radiology Impression Discussion of test interpretation with radiology: I have reviewed the radiologist's reading. Chronic Conditions Patient?s care impacted by: Other ( Hyponatremia) Critical Care Time Critical Care Time Critical Care Time: Yes Total Critical Care Time: 60 Attestation: I spent 60 minutes providing critical care service to the patient, this including time spent at the bedside to evaluate the patient, reassess the patient, monitoring vital signs, review labs, and radiographic studies, counseling the patient/family, discussing the case with consultants, disposition the patient. Discharge Plan Discharge Clinical Impression: Generalized seizure, Acute hypernatremia Patient Disposition: Admitted As Inpatient
[2023-08-11] MEDS: LORazepam 2 MG/ML VIAL 1 MG IVPUSH ×2 (00:32→18:35)
[2023-08-11 00:39] LABS: Alanine Aminotransferase 12 U/L (0-31); Albumin Level 4.2 g/dL (3.5-5.0); Alkaline Phosphatase 83 U/L (39-117); Anion Gap 15 (12-20); Aspartate Amino Transferase 22 U/L (5-31); Bilirubin Total 0.6 mg/dL (0.0-1.0); Blood Urea Nitrogen 5 mg/dL (9-16); Calcium 8.8 mg/dL (8.4-10.2); Carbon Dioxide 24 mmol/L (22-29); Chloride 82 mmol/L (96-108); Creatinine Clr Calc Pharmacy 72.7; Estimated Glomerular Filt Rate > 60; Glucose Random 154 mg/dL (60-115); Potassium 3.2 mmol/L (3.3-5.1); Sodium 118 mmol/L (135-145); Total Protein 7.3 g/dL (6.5-8.0)
--- NOTE | 2023-08-11 00:55 | PC.NURSE ---
provider at bedside during pt seizure, verbal order ativan 2mg at this time.
--- NOTE | 2023-08-11 00:55 | PC.NURSE ---
pt had witnessed seizure by staff. pt given 2mg ativan, placed on non rebreather 15L sating at 100%. pt soiled self with urine. pt visibly bit tongue, mouth suctioned with blood return. pt repositioned and bed linens changed at this time.
[2023-08-11] MEDS: LORazepam 2 MG/ML VIAL IVPUSH (01:14)
--- NOTE | 2023-08-11 02:01 | PC.NURSE ---
3% sodium chloride hung at this time. only have access to 500cc bag for the 60cc infusion. second RN Rachel at bedside to confirm dose rate at this time.
[2023-08-11 03:27] LABS: Osmolality, Serum 249 mosm/kg (281-305)
--- NOTE | 2023-08-11 03:32 | PC.NURSE ---
report given to Emma in ICU.
--- NOTE | 2023-08-11 03:34 | PC.NURSE ---
miramontes placed at this time per provider order, pt tolerated procedure well. 1900 cc clear urine voided at this time.
[2023-08-11 03:51] LABS: Appearance Urine Clear; Color Urine Yellow; Glucose Urine UA 100 mg/dL (Negative); Leukocyte Esterase Urine Negative (Negative); Nitrite Urine Negative (Negative); PH 5.5 (5.0-9.0); Specific Gravity - Urine <= 1.005 (1.005-1.025); Urine Blood Negative (Negative); Urine Ketones Negative (Negative); Urine Protein Negative (Neg-Trace)
--- NOTE | 2023-08-11 03:55 | P.HPCC_ITS ---
History of Present Illness Date of Service: 08/11/23 Attending physician on admission: Madhav Gauthier Chief Complaint: Hyponatremia Ms. Grabiel Bass is a 68-year-old female with history of? [id number] type 2 diabetes, seizure disorder, GERD, hypertension, vascular dementia with mood disturbance, and hyponatremia who was brought to the ED by her daughter for bizarre behavior.? Her daughter stated that behavior changes usually happen if the patient is hyponatremic. She denies falls or head injury.? On arrival to the emergency room, the patient?s blood pressure was 140/92, heart rate 100, temp 97.6, with O2 sat 99% on room air.? Laboratory data significant for? ? Sodium 118, potassium 3.2, chloride 82,? glucose 154.??? ED course:? While in the ED, the patient had a witnessed tonic clonic seizure. She was given? Ativan and 60 mL of 3% saline. Review of Systems 2 Review of Systems: Yes Unobtainable due to mental status PMFSH Past Medical History Medical History Hypertension Seizure Hyponatremia Dehydration Metabolic encephalopathy GERD (gastroesophageal reflux disease) Asthma Lumbar spondylosis Vascular dementia High cholesterol Diabetes Surgical History Surgical History Hx of cystoscopy History of esophagogastroduodenoscopy (EGD) H/O colonoscopy Hx of rotator cuff surgery Social History Social History Household Members: Unknown / Unable to assess Housing: Unknown / Unable to assess Do you presently have visiting nurse or other home services: No Unable to assess alcohol history related to: Unknown Alcohol intake: never Patient Tobacco Use Status: Never used Tobacco Second Hand Smoke Exposure: No Advance Directives Date on File: 03/08/23 service: No Current occupational status: disabled Meds Allergies Allergy/AdvReac Type Severity Reaction Status Date / Time Penicillins [PENICILLINS] Allergy Intermediate SYNCOPE Verified 08/10/23 23:14 codeine [CODEINE] AdvReac Intermediate NAUSEA & Verified 08/10/23 23:14 VOMITING Active Medications: Current Medications Heparin Sodium (Porcine) (Heparin Sodium,Porcine 5,000 Unit/Ml Vial) 5,000 unit SUBCUT Q8H [facility] Home Medications Medication Instructions Recorded Confirmed Last Taken Type cholecalciferol (vitamin D3) 25 25 mcg PO DAILY 03/14/22 07/03/23 Unknown History mcg (1,000 unit) capsule citalopram 20 mg tablet 20 mg PO DAILY 03/14/22 07/03/23 Unknown History lisinopril 20 mg tablet 20 mg PO DAILY 03/14/22 07/03/23 Unknown History melatonin 5 mg capsule 5 mg PO BEDTIME 03/14/22 07/03/23 Unknown History risperidone 0.5 mg tablet 0.5 mg PO BID 03/14/22 07/03/23 Unknown History simvastatin 20 mg tablet 20 mg PO BEDTIME 03/14/22 06/02/23 Unknown History omeprazole 20 mg capsule,delayed 1 cap PO DAILY 12/02/22 07/03/23 Unknown History release Physical Exam 2 Vital Signs: Vital Signs: Last Vital Signs Temp 97.6 F 08/10/23 23:09 Pulse 78 08/11/23 02:45 Resp 19 08/11/23 02:45 BP 130/81 08/11/23 02:45 Pulse Ox 98 08/11/23 02:45 O2 Del Method Room Air 08/11/23 02:45 O2 Flow Rate 15 08/11/23 01:10 BMI result Body Mass Index 29.3 Const: General: comfortable, no acute distress and lethargic O rientation/consciousness: lethargic HEENT: Head: Yes normocephalic and Yes atraumatic General nose exam: Normal external nose present (Nares patent, septum midline, sinuses nontender bilaterally.) Mouth: Normal oral and palatal mucosa present (No thrush, tongue in midline, mucosa moist.) Neck: Neck: Yes supple (no thyromegaly, trachea midline.) Carotids: normal carotid upstroke Resp: Auscultation: clear to auscultation bilaterally (normal work of breathing, no accessory muscle use) Cardio: Jugular venous distension: no JVD Rate: regular rate Rhythm: r egular rhythm Heart sounds: no gallops, no murmurs and no rubs Peripheral pulses: Peripheral pulses 2+ throughout GI: Palpation (GI): Soft to palpation (nondistended.) and nontender Skin: General skin exam: no rashes or lesions noted Extrem: General: Yes full ROM, Yes capillary refill normal and Yes no clubbing, cyanosis or edema Psych: Affect: normal affect Attitude: cooperative Results Labs 08/10/23 23:56 08/10/23 23:56 Labs: Laboratory Results - last 24 hr 08/10/23 08/11/23 23:56 03:42 MCV 83.3 MCH 30.0 MCHC 36.1 H RDW 11.8 Plt Count 224 MPV 9.9 Immature Gran % (Auto) 0.4 Neut % (Auto) 85.3 H Lymph % (Auto) 9.3 L [place] % (Auto) 4.9 Eos % (Auto) 0.0 Baso % (Auto) 0.1 Lymph # (Auto) 0.9 L [place] # (Auto) 0.5 Eos # (Auto) 0.0 Baso # (Auto) 0.0 Abs Immat Gran (auto) 0.04 H Absolute Neuts (auto) 8.5 H Absolute Nucleated RBC 0.000 Nucleated RBC % (auto) 0.0 Anion Gap 15 Estim Creat Clear Calc 72.7 Estimated GFR > 60 Random Glucose 154 H Osmolality 249 L Calcium 8.8 D Total Bilirubin 0.6 AST 22 ALT 12 Alkaline Phosphatase 83 Total Protein 7.3 Albumin 4.2 Urine Color Yellow Urine Appearance Clear Urine pH 5.5 Ur Specific [place] <= 1.005 Urine Protein Negative Urine Glucose (UA) 100 H Urine Ketones Negative Urine Blood Negative Urine Nitrite Negative Ur Leukocyte Esterase Negative Imaging Radiologist's Impressions: Impressions Head CT 08/11/23 01:50 IMPRESSION: Mild cerebral volume loss and mild to moderate bilateral periventricular and central white matter diminished attenuation which is nonspecific but likely to represent microvascular disease. No acute intracranial abnormality. Assessment and Plan (1) Acute hypernatremia: Status: Acute (2) Generalized seizure: Status: Acute (3) Hypertension: Status: Acute Plan 68-year-old female with history of [id number] type 2 diabetes, seizure disorder, GERD, hypertension, vascular dementia with mood disturbance, and hyponatremia admitted for management of acute hyponatremia. Plan: Neuro: altered mental status due to acute hyponatremia. History of vascular dementia. Seizure disorder/witnessed tonic-clonic seizure. Ativan in ED.? Continue Keppra. Cardiac: ? History of hypertension.? Continue lisinopril. Pulmonary: No acute issues Renal: no acute issues Endo: Hyponatremia. has hx psychogenic polydipsia. UA, urine and serum osmo ordered.Given 3% saline in ED. 1500cc H2O restriction. Nephrology consult. GI:? no acute issues ID:? no acute issues. Heme/Onc:? No acute issues. Psych:? No acute issues. History of vascular dementia Miscellaneous: ? no acute issues Diet:? Regular diet with p.o. Water restriction 1500 ml/day. Prophylaxis: Heparin Case discussed with Dr. Gauthier. Total time managing care of this patient today: 60 minutes.
[2023-08-11 03:56] LABS: Bacteria Urine None Seen (None Seen); Hyaline Casts Urine 0-2 /LPF (0-2); RBC Urine 0-2 /HPF (0-2); Squamous Epithelial Cell Urine 0-2 /HPF (0-2); WBC Urine 0-5 /HPF (0-5)
[2023-08-11 04:01] LABS: Osmolality Urine 176 mosm/kg (373-1093)
[2023-08-11 04:38] LABS: VBG Base Excess -0.3 mmol/L; VBG HCO3 22 mmol/L (22-26); VBG pCO2 31 mmHg; VBG pH 7.46 (7.32-7.43); VBG pO2 67 mmHg
[2023-08-11 04:45] LABS: Venous Blood Gas Refer to POC result
[2023-08-11 04:52] LABS: MANUAL DIFF FLAG NO
[2023-08-11 04:54] LABS: Basophils Percent Auto 0.3 % (0-2); Hematocrit 33.6 % (37.0-47.0); Hemoglobin 12.2 g/dl (12.0-16.0); Imm Gran Abs Auto 0.03 X10*3/uL (0.00-0.03); Imm Gran Pct Auto 0.3 % (0.0-0.4); Lymphocytes Absolute Auto 0.9 X10*3/uL (1.2-4.9); Lymphocytes Percent Auto 9.1 % (20-40); Mean Corpuscular HGB Conc 36.3 g/dl (31.0-35.0); Mean Corpuscular Hemoglobin 30.4 pg (27.0-33.0); Mean Corpuscular Volume 83.8 fL (80.0-98.0); Mean Platelet Volume 10.2 fL (9.4-12.3); Monocytes Absolute Auto 0.4 X10*3/uL (0.1-1.2); Monocytes Percent Auto 3.8 % (2-11); Neutrophils Absolute Auto 8.9 x10*3/uL (2.0-8.3); Neutrophils Percent Auto 86.5 % (45-73); Platelet Count 222 X10*3/uL (160-400); Red Blood Count 4.01 X10*6/uL (4.20-5.50); Red Cell Distribution Width 11.8 % (11.0-16.0); White Blood Count 10.3 X10*3/uL (4.8-10.8)
[2023-08-11] MEDS: Heparin Sodium,Porcine 5,000 UNIT/ML VIAL 5000 UNIT SUBCUT ×3 (05:05→21:40)
[2023-08-11 05:13] LABS: Albumin Level 4.2 g/dL (3.5-5.0); Anion Gap 14 (12-20); Blood Urea Nitrogen 4 mg/dL (9-16); Calcium 8.9 mg/dL (8.4-10.2); Carbon Dioxide 22 mmol/L (22-29); Chloride 89 mmol/L (96-108); Creatinine Clr Calc Pharmacy 72.7; Estimated Glomerular Filt Rate > 60; Glucose Random 135 mg/dL (60-115); Magnesium 1.5 mg/dL (1.6-2.6); Phosphorus 2.4 mg/dL (2.7-4.5); Potassium 3.4 mmol/L (3.3-5.1); Sodium 122 mmol/L (135-145)
[2023-08-11] MEDS: Magnesium Sulfate/H2O 2 GM/50 ML PIGGYBACK IV (05:47)
[2023-08-11] MEDS: Potassium Phosphate/NS 15 MMOL/250 ML PLAST..BAG 62.5 MMOL IV (06:05)
--- NOTE | 2023-08-11 09:20 | P.CONNP_ITS ---
History of Present Illness Reason for Consult Consult date: 08/11/23 Reason for consult: Hyponatremia Chief Complaint Chief complaint: Hyponatremia History of Present Illness Narrative: Ms. Grabiel Bass is a 68-year-old female with history of? yya-izmscup-gzaenrser type 2 diabetes, seizure disorder, GERD, hypertension, vascular dementia with mood disturbance, and hyponatremia who was brought to the ED by her daughter for bizarre behavior.? Her daughter stated that behavior changes usually happen if the patient has hyponatremia. She denies falls or head injury.?She has no H/O uncontrolled thyroid disorders, liver failure, renal failure or heart failure. She is on Risperidone, Celexa as well as Stem at home. On arrival to the emergency room, the patient?s blood pressure was 140/92, heart rate 100, temp 97.6, with O2 sat 99% on room air.?Laboratory data significant for? Sodium 118, potassium 3.2, chloride 82,? glucose 154.?While in the ED, the patient had a witnessed tonic clonic seizure. She was given? Ativan and 60 ml of 3% saline. She was admitted to ICU for further medical management. Nephrology has been consulted to assist in her clinical care during her current hospital stay Review of Systems Review of Systems Yes Unobtainable due to mental condition PMFSH Past Medical History Medical History (Updated 08/11/23 @ 09:26 by Aftab Gupta MD) Hyponatremia Hypertension Seizure Dehydration Metabolic encephalopathy GERD (gastroesophageal reflux disease) Asthma Lumbar spondylosis Vascular dementia High cholesterol Diabetes Surgical History Surgical History Hx of cystoscopy History of esophagogastroduodenoscopy (EGD) H/O colonoscopy Hx of rotator cuff surgery Social History Social History Household Members: Unknown / Unable to assess Housing: Unknown / Unable to assess Do you presently have visiting nurse or other home services: No Unable to assess alcohol history related to: Unknown Alcohol intake: never Patient Tobacco Use Status: Never used Tobacco Smoked in Last 30 Days: No Second Hand Smoke Exposure: No Use of substances other than those prescribed or required for medical reasons: Unknown Advance Directives: Yes Advance Directives on File: Yes Advance Directives Date on File: 03/08/23 Do you have thoughts of harming others: None Do you have a plan to hurt others: No Plan Recently lost weight without trying: No How much weight loss: Unsure Eating poorly because of decreased appetite: No Nutrition screen score: 2 Nutrition Risks: No Nutritional Risk Patient : No : No Poor oral hygiene: No service: No Current occupational status: disabled Meds Allergies Allergy/AdvReac Type Severity Reaction Status Date / Time Penicillins [PENICILLINS] Allergy Intermediate SYNCOPE Verified 08/10/23 23:14 codeine [CODEINE] AdvReac Intermediate NAUSEA & Verified 08/10/23 23:14 VOMITING Active Medications: Current Medications Escitalopram Oxalate (Escitalopram Oxalate 10 Mg Tablet) 10 mg PO DAILY [facility] Heparin Sodium (Porcine) (Heparin Sodium,Porcine 5,000 Unit/Ml Vial) 5,000 unit SUBCUT Q8H AZUCENA Last Admin: 08/11/23 05:05 Dose: 5,000 unit Potassium Phosphate (Kphos) 15 mmol in 250 mls @ 62.5 mls/hr IV ONCE ONE Stop: 08/11/23 09:52 Last Admin: 08/11/23 06:05 Dose: 62.5 mls/hr Levetiracetam (Levetiracetam 500 Mg Tablet) 500 mg PO BID [facility] Lisinopril (Lisinopril 20 Mg Tablet) 20 mg PO DAILY [facility]; Protocol Risperidone (Risperidone 0.5 Mg Tablet) 0.5 mg PO BEDTIME [facility] Home Medications Medication Instructions Recorded Confirmed Last Taken Type cholecalciferol (vitamin D3) 25 25 mcg PO DAILY 03/14/22 07/03/23 Unknown History mcg (1,000 unit) capsule citalopram 20 mg tablet 20 mg PO DAILY 03/14/22 07/03/23 Unknown History lisinopril 20 mg tablet 20 mg PO DAILY 03/14/22 07/03/23 Unknown History melatonin 5 mg capsule 5 mg PO BEDTIME 03/14/22 07/03/23 Unknown History risperidone 0.5 mg tablet 0.5 mg PO BID 03/14/22 07/03/23 Unknown History simvastatin 20 mg tablet 20 mg PO BEDTIME 03/14/22 06/02/23 Unknown History omeprazole 20 mg capsule,delayed 1 cap PO DAILY 12/02/22 07/03/23 Unknown History release Physical Exam Vital Signs: Last Vital Signs Temp 98.8 F 08/11/23 08:00 Pulse 75 08/11/23 08:00 Resp 17 08/11/23 08:00 BP 151/83 H 08/11/23 08:00 Pulse Ox 100 08/11/23 08:00 O2 Del Method Room Air 08/11/23 08:00 O2 Flow Rate 15 08/11/23 01:10 BMI result Body Mass Index 29.2 Const General: no acute distress HEENT Head: Yes normocephalic Mouth: moist mucous membranes Eyes Eyelids: Yes eyelids normal Neck Neck: Yes supple Resp Auscultation: clear to auscultation bilaterally Cardio Jugular venous distension: no JVD Rhythm: regular rhythm Heart sounds: S1 normal heart sound present and S2 normal heart sound present GI Palpation (GI): Soft to palpation Skin General skin exam: no rashes or lesions noted Neuro General: moves all extremities Extrem General: Yes no pedal edema Results Lab Results 08/11/23 04:30 08/11/23 04:30 Lab results: Chemistry 08/10/23 08/11/23 23:56 04:30 Sodium 118 L* 122 L Potassium 3.2 L 3.4 Carbon Dioxide 24 22 BUN 5 L 4 L Creatinine 0.71 0.71 Calcium 8.8 D 8.9 Phosphorus 2.4 L Hematology 08/10/23 08/11/23 23:56 04:30 WBC 9.9 10.3 Hgb 11.5 L 12.2 Plt Count 224 222 Urinalysis 08/11/23 03:42 Urine Color Yellow Urine Appearance Clear Urine pH 5.5 Ur Specific [place] <= 1.005 Urine Protein Negative Urine Glucose (UA) 100 H Urine Ketones Negative Urine Blood Negative Urine Nitrite Negative Ur Leukocyte Esterase Negative Urine RBC 0-2 Urine WBC 0-5 Ur Squamous Epith Cells 0-2 Hyaline Casts 0-2 Urine Studies 08/11/23 03:42 Urine Osmolality 176 L Assessment and Plan (1) Hyponatremia: Status: Acute Plan Euvolemic hyponatremia Check cortisol and TSH if not done Had witnessed tonic clonic seizure in ER Was given 3 % saline in ER Na correction appropriate so far Has been on Risperidone/Celexa/Keppra Started PO Urea 30 Gram bid for today Shall closely follow up lytes C/W rest of current management Procedures Date of Service Date of Service: 08/11/23
--- NOTE | 2023-08-11 10:28 | PHA.MEDREC ---
Pharmacy Consult ? Medication Reconciliation Pharmacy has completed the medication reconciliation. Spoke to daughter (Tequila) and med list was faxed over from [facility].
[2023-08-11] MEDS: lisinopriL 20 MG TABLET PO (11:58)
[2023-08-11] MEDS: Escitalopram Oxalate 10 MG TABLET PO (11:58)
[2023-08-11] MEDS: levETIRAcetam Oral Soln 500 MG/5 ML PO ×2 (11:59→21:58)
[2023-08-11] MEDS: Urea 15 GM POWDER 30 GM PO (11:59)
[2023-08-11] MEDS: levETIRAcetam 500 MG TABLET PO (12:50)
[2023-08-11] MEDS: Throat Lozenge, Medicated LOZENGE 1 LOZENGE MUCOUS MEM (14:24)
[2023-08-11 14:54] LABS: Anion Gap 11 (12-20); Blood Urea Nitrogen 27 mg/dL (9-16); Calcium 9.7 mg/dL (8.4-10.2); Carbon Dioxide 27 mmol/L (22-29); Chloride 97 mmol/L (96-108); Creatinine Clr Calc Pharmacy 71.7; Estimated Glomerular Filt Rate > 60; Glucose Random 125 mg/dL (60-115); Magnesium 2.3 mg/dL (1.6-2.6); Phosphorus 3.2 mg/dL (2.7-4.5); Potassium 3.9 mmol/L (3.3-5.1); Sodium 131 mmol/L (135-145)
--- NOTE | 2023-08-11 15:40 | MHC.CM.PN ---
Attempted to meet w/pt x2 - sleeping: information obtained from pt's dtr Tequila. Pt lives w/dtr and has [facility] 2x daily for med admistration and [employer] care daily. Dtr assists with transportation and any needs pt has. Pt uses a cane and is getting additional DME through her PCP office (next appt 08/25) Tequila has a copy of HCP and will bring in for EMR. No additional services anticipated. Dtr to transport to home.
[2023-08-11 16:03] LABS: Sodium 132 mmol/L (135-145)
--- NOTE | 2023-08-11 16:11 | PM.EVENT ---
Event Note Date of Service: 08/11/23 Event Note: Ms. Spain is a 68 Y F with psychogenic polydipsia, recurrent hyponatremia, p/w confusion, found to be hyponatremic; in ED, suffered tonic-clonic seizure, given hypertonic saline, admitted ICU; no additional hypertonic saline administered; along with nephrology, given urea; upon re-check, sodium 131; urea d/jennifer, D5W at 100 mL/hr started; patient w/o appreciable neurological deficits Time Spent With Patient Time: Total time managing care of this patient today ____ minutes.
[2023-08-11] MEDS: Haloperidol Lactate 5 MG/ML VIAL IVPUSH (16:15)
[2023-08-11] MEDS: Haloperidol Lactate 5 MG/ML VIAL 1 MG IVPUSH (16:15)
[2023-08-11] MEDS: Dextrose 5 % 1,000 ML 100 ML IVCONT (16:19)
[2023-08-11] MEDS: LORazepam 2 MG/ML VIAL 0.5 MG IVPUSH (16:31)
[2023-08-11] MEDS: Haloperidol Lactate 5 MG/ML VIAL 2.5 MG IVPUSH (17:25)
[2023-08-11 18:14] LABS: Anion Gap 15 (12-20); Blood Urea Nitrogen 24 mg/dL (9-16); Calcium 9.6 mg/dL (8.4-10.2); Carbon Dioxide 22 mmol/L (22-29); Chloride 98 mmol/L (96-108); Creatinine Clr Calc Pharmacy 62.9; Estimated Glomerular Filt Rate > 60; Glucose Random 146 mg/dL (60-115); Magnesium 2.1 mg/dL (1.6-2.6); Phosphorus 2.4 mg/dL (2.7-4.5); Sodium 131 mmol/L (135-145)
--- NOTE | 2023-08-11 19:30 | PC.NURSE ---
Assumed care at 07:00. Patient initially confused, was only arousable to sternal rub, was not staying awake to interact, was communicated with in Andorran and also used interpretter. Patient was essentially nonverbal and was not following commands. By lunchtime, patient more alert, was following commands, was oriented to self only and only name and location of , but incorrect on birthday, otherwise completely confused, was pleasant in the afternoon and cooperative with delay in response to questions and limited replies. Patient gradually more alert but seemed to sundown, becoming very confused and restless, pulling on IVs and catheters, trying to get OOB without assistance despite frequent reminders and efforts to redirect, telesitter in use, sitter requested from nursing yarding supervisor who came to see patient, but none availble, [employer] for unit sitting with patient for much of shift 15:00-19:00, patient continuously with problematic behaviors. Patient's daughter, Tequila, updated regarding patient's status, and she relates patient sounds to be more drowsy and confused than baseline still. Patient was administered haldol IVP as per emar and then ativan IVP as per emar. Patient now resting at 19:00 and more cooperative. Patient was breathing easily on room air, 97-100% SpO2. LS dim. Sinus rhythm on monitor. No Edema. Patient with miramontes catheter, was putting out large amount of dilute urine, as much as 600 ccs/hour, MD notified, 1 mcg IVP DDAVP given per MD, with effect, UOP down to 60 cc/hour afterwards. Patient started day with serum Na of 118. Patient seen by nephro, and had 2 packets of urea, as per emar, patient Na up to 132 in afternoon 15:30, MD aware, patient started on D5W at 100 cc/hour. Patient passed swallow eval this early afternoon, had 50% of lunch, and 0% breakfast and dinner.
[2023-08-11 21:22] LABS: Sodium 129 mmol/L (135-145)
[2023-08-11] MEDS: risperiDONE 0.5 MG TABLET PO (21:40)
[2023-08-12] VITALS (16 sets, daily range): BP systolic 96–162; BP diastolic 55–94; PULSE 57–101; RESP 14–22; TEMP 36.3–37.4; O2SAT 87–100; BMI 26.7
[2023-08-12 01:03] LABS: Sodium 129 mmol/L (135-145)
[2023-08-12] MEDS: Dextrose 5 % 1,000 ML 100 ML IVCONT (02:49)
[2023-08-12 04:08] LABS: Sodium 129 mmol/L (135-145)
[2023-08-12] MEDS: Heparin Sodium,Porcine 5,000 UNIT/ML VIAL 5000 UNIT SUBCUT (06:14)
[2023-08-12 06:31] LABS: MANUAL DIFF FLAG NO
[2023-08-12 06:32] LABS: Venous Blood Gas Refer to POC result
[2023-08-12 06:34] LABS: VBG Base Excess 4.2 mmol/L; VBG HCO3 27 mmol/L (22-26); VBG pCO2 35 mmHg; VBG pH 7.49 (7.32-7.43); VBG pO2 91 mmHg
[2023-08-12 06:35] LABS: Basophils Percent Auto 0.1 % (0-2); Eosinophils Percent Auto 0.4 % (0-4); Hematocrit 34.8 % (37.0-47.0); Hemoglobin 12.4 g/dl (12.0-16.0); Imm Gran Abs Auto 0.03 X10*3/uL (0.00-0.03); Imm Gran Pct Auto 0.4 % (0.0-0.4); Lymphocytes Absolute Auto 2.8 X10*3/uL (1.2-4.9); Lymphocytes Percent Auto 35.2 % (20-40); Mean Corpuscular HGB Conc 35.6 g/dl (31.0-35.0); Mean Corpuscular Hemoglobin 30.4 pg (27.0-33.0); Mean Corpuscular Volume 85.3 fL (80.0-98.0); Mean Platelet Volume 9.9 fL (9.4-12.3); Monocytes Absolute Auto 0.7 X10*3/uL (0.1-1.2); Monocytes Percent Auto 8.4 % (2-11); Neutrophils Absolute Auto 4.4 x10*3/uL (2.0-8.3); Neutrophils Percent Auto 55.5 % (45-73); Platelet Count 238 X10*3/uL (160-400); Red Blood Count 4.08 X10*6/uL (4.20-5.50); Red Cell Distribution Width 12.1 % (11.0-16.0); White Blood Count 7.8 X10*3/uL (4.8-10.8)
[2023-08-12 06:45] LABS: Anion Gap 11 (12-20); Blood Urea Nitrogen 12 mg/dL (9-16); Carbon Dioxide 26 mmol/L (22-29); Chloride 93 mmol/L (96-108); Creatinine Clr Calc Pharmacy 72.7; Estimated Glomerular Filt Rate > 60; Glucose Random 111 mg/dL (60-115); Phosphorus 2.7 mg/dL (2.7-4.5); Potassium 3.2 mmol/L (3.3-5.1); Sodium 127 mmol/L (135-145)
[2023-08-12] MEDS: Potassium Chloride/H20 20 MEQ/100 ML PIGGYBACK 100 MEQ IV ×2 (07:30→09:55)
--- NOTE | 2023-08-12 07:35 | PM.CCPN ---
Subjective Subjective Date of Service: 08/12/23 Interval History: no significant overnight events Critical Care Time (minutes): 60 Physical Exam Vital Signs: Vital Signs: Last Vital Signs Temp 97.4 F 08/12/23 04:00 Pulse 84 08/12/23 07:00 Resp 18 08/12/23 07:00 BP 130/93 H 08/12/23 07:00 Pulse Ox 87 L 08/12/23 07:00 O2 Del Method Room Air 08/12/23 07:00 O2 Flow Rate 4 08/11/23 12:00 BMI result Body Mass Index 26.7 Const: General: cooperative, healthy appearing, comfortable, no acute distress, well developed, alert, awake and Physically active Orientation/consciousness: oriented to person HEENT: Head: Yes normal to inspection, Yes normocephalic and Yes atraumatic Eyes: General: appearance normal, both eyes and all related structures Neck: Neck: Yes normal visual inspection, Yes no meningeal signs and Yes supple Chest: Chest palpation & inspection: normal inspection of the chest Resp: Other: no appreciable rales, rhonchi, wheezing Effort & Inspection: normal respiratory effort Cardio: Rate: regular rate Rhythm: regular rhythm GI: Inspection: Yes normal to inspection, No Abdominal wall edema and No distended Palpation (GI): Soft to palpation, not firm, nontender, no guarding and not rigid Skin: General skin exam: no rashes or lesions noted Neuro: General: oriented to person, moves all extremities, no meningeal signs and no focal motor deficits Extrem: General: Yes normal to inspection, Yes capillary refill normal and Yes no clubbing, cyanosis or edema Psych: Appearance: grossly normal Objective Data Labs 08/12/23 06:21 08/12/23 06:21 Labs: Laboratory Results - last 24 hr 08/11/23 08/11/23 08/11/23 14:23 15:30 17:52 WBC RBC Hgb Hct MCV MCH MCHC RDW Plt Count MPV Immature Gran % (Auto) Neut % (Auto) Lymph % (Auto) [place] % (Auto) Eos % (Auto) Baso % (Auto) Lymph # (Auto) [place] # (Auto) Eos # (Auto) Baso # (Auto) Abs Immat Gran (auto) Absolute Neuts (auto) Absolute Nucleated RBC Nucleated RBC % (auto) VBG pH VBG pCO2 VBG pO2 VBG HCO3 VBG O2 Saturation VBG Base Excess Sodium 131 L 132 L 131 L Potassium 3.9 4.0 Chloride 97 98 Carbon Dioxide 27 22 Anion Gap 11 L 15 BUN 27 H 24 H Creatinine 0.72 0.82 Estim Creat Clear Calc 71.7 62.9 Estimated GFR > 60 > 60 Random Glucose 125 H 146 H Calcium 9.7 D 9.6 Phosphorus 3.2 2.4 L Magnesium 2.3 2.1 Albumin 08/11/23 08/12/23 08/12/23 21:06 00:17 03:50 WBC RBC Hgb Hct MCV MCH MCHC RDW Plt Count MPV Immature Gran % (Auto) Neut % (Auto) Lymph % (Auto) [place] % (Auto) Eos % (Auto) Baso % (Auto) Lymph # (Auto) [place] # (Auto) Eos # (Auto) Baso # (Auto) Abs Immat Gran (auto) Absolute Neuts (auto) Absolute Nucleated RBC Nucleated RBC % (auto) VBG pH VBG pCO2 VBG pO2 VBG HCO3 VBG O2 Saturation VBG Base Excess Sodium 129 L 129 L 129 L Potassium Chloride Carbon Dioxide Anion Gap BUN Creatinine Estim Creat Clear Calc Estimated GFR Random Glucose Calcium Phosphorus Magnesium Albumin 08/12/23 08/12/23 06:21 06:28 WBC 7.8 RBC 4.08 L Hgb 12.4 Hct 34.8 L MCV 85.3 MCH 30.4 MCHC 35.6 H RDW 12.1 Plt Count 238 MPV 9.9 Immature Gran % (Auto) 0.4 Neut % (Auto) 55.5 Lymph % (Auto) 35.2 [place] % (Auto) 8.4 Eos % (Auto) 0.4 Baso % (Auto) 0.1 Lymph # (Auto) 2.8 [place] # (Auto) 0.7 Eos # (Auto) 0.0 Baso # (Auto) 0.0 Abs Immat Gran (auto) 0.03 Absolute Neuts (auto) 4.4 Absolute Nucleated RBC 0.000 Nucleated RBC % (auto) 0.0 VBG pH 7.49 H VBG pCO2 35 VBG pO2 91 VBG HCO3 27 H VBG O2 Saturation 99.0 VBG Base Excess 4.2 Sodium 127 L Potassium 3.2 L Chloride 93 L Carbon Dioxide 26 Anion Gap 11 L BUN 12 Creatinine 0.68 Estim Creat Clear Calc 72.7 Estimated GFR > 60 Random Glucose 111 Calcium 9.0 D Phosphorus 2.7 Magnesium 2.0 Albumin 4.0 Progress Note: A&P Assessment and plan (1) Acute hypernatremia: Status: Acute (2) Generalized seizure: Status: Acute Plan Patient is a 68 Y F with metabolic syndrome, vascular dementia, complicated by psychogenic polydipsia, recurrent hyponatremia, presenting with encephalopathy, found to be hyponatremic; in ED, suffered tonic-clonic seizure, given hypertonic saline, admitted ICU N: no acute issues CV: no acute issues R: no acute issues GI: no acute issues; advance diet as tolerated : hyponatremia, c/b seizure, given hypertonic saline in setting of seizure; s/p DDAVP, on D5W gtt; continue to monitor sodium, urine output closely H: no acute issues ID: no acute issues E: diabetes mellitus; no significant hyperglyemia this admission P: anxiety, agitation, controlled w/ judicious anti-psychotic, benzodiazepine PRN Quality Stroke Does the patient have a stroke diagnosis?: No VTE Prior VTE?: No VTE Risk Level:: Medical - moderate - high VTE Device Contraindication: N/A - Device Ordered VTE Drug Contraindication: N/A - Med Ordered
[2023-08-12] MEDS: lisinopriL 20 MG TABLET PO (07:39)
[2023-08-12] MEDS: Escitalopram Oxalate 10 MG TABLET PO (07:40)
[2023-08-12] MEDS: levETIRAcetam 500 MG TABLET PO ×2 (07:40→20:11)
[2023-08-12 09:32] LABS: Sodium 126 mmol/L (135-145)
[2023-08-12 11:37] LABS: TSH reflex Free T4 0.11 uIU/mL (0.32-4.0)
[2023-08-12 12:21] LABS: Free T4 (Free Thyroxine) 1.29 ng/dL (0.71-1.85)
--- NOTE | 2023-08-12 13:33 | P.PNNP_ITS ---
Subjective Subjective Date of Service: 08/12/23 Interval history: No significant overnight events Physical Exam 2 Vital Signs: Vital Signs: Last Vital Signs Temp 99.3 F 08/12/23 12:00 Pulse 88 08/12/23 12:00 Resp 20 08/12/23 12:00 BP 118/94 H 08/12/23 11:00 Pulse Ox 95 08/12/23 12:00 O2 Del Method Room Air 08/12/23 12:00 O2 Flow Rate 4 08/11/23 12:00 BMI result Body Mass Index 26.7 Const: General: no acute distress HEENT: Mouth: Normal oral and palatal mucosa present Eyes: EOM: EOMs intact bilaterally Neck: Neck: Yes supple Resp: Auscultation: clear to auscultation bilaterally Cardio: Jugular venous distension: no JVD Rate: regular rate Rhythm: r egular rhythm GI: Palpation (GI): Soft to palpation Skin: General skin exam: no rashes or lesions noted Neuro: General: moves all extremities Objective Data Labs 08/12/23 06:21 08/12/23 09:07 Labs: Laboratory Results - last 24 hr 08/11/23 08/11/23 08/11/23 14:23 15:30 17:52 WBC RBC Hgb Hct MCV MCH MCHC RDW Plt Count MPV Immature Gran % (Auto) Neut % (Auto) Lymph % (Auto) [place] % (Auto) Eos % (Auto) Baso % (Auto) Lymph # (Auto) [place] # (Auto) Eos # (Auto) Baso # (Auto) Abs Immat Gran (auto) Absolute Neuts (auto) Absolute Nucleated RBC Nucleated RBC % (auto) VBG pH VBG pCO2 VBG pO2 VBG HCO3 VBG O2 Saturation VBG Base Excess Sodium 131 L 132 L 131 L Potassium 3.9 4.0 Chloride 97 98 Carbon Dioxide 27 22 Anion Gap 11 L 15 BUN 27 H 24 H Creatinine 0.72 0.82 Estim Creat Clear Calc 71.7 62.9 Estimated GFR > 60 > 60 Random Glucose 125 H 146 H Calcium 9.7 D 9.6 Phosphorus 3.2 2.4 L Magnesium 2.3 2.1 Albumin TSH Free T4 Random Cortisol 08/11/23 08/12/23 08/12/23 21:06 00:17 03:50 WBC RBC Hgb Hct MCV MCH MCHC RDW Plt Count MPV Immature Gran % (Auto) Neut % (Auto) Lymph % (Auto) [place] % (Auto) Eos % (Auto) Baso % (Auto) Lymph # (Auto) [place] # (Auto) Eos # (Auto) Baso # (Auto) Abs Immat Gran (auto) Absolute Neuts (auto) Absolute Nucleated RBC Nucleated RBC % (auto) VBG pH VBG pCO2 VBG pO2 VBG HCO3 VBG O2 Saturation VBG Base Excess Sodium 129 L 129 L 129 L Potassium Chloride Carbon Dioxide Anion Gap BUN Creatinine Estim Creat Clear Calc Estimated GFR Random Glucose Calcium Phosphorus Magnesium Albumin TSH Free T4 Random Cortisol 08/12/23 08/12/23 08/12/23 06:21 06:28 09:07 WBC 7.8 RBC 4.08 L Hgb 12.4 Hct 34.8 L MCV 85.3 MCH 30.4 MCHC 35.6 H RDW 12.1 Plt Count 238 MPV 9.9 Immature Gran % (Auto) 0.4 Neut % (Auto) 55.5 Lymph % (Auto) 35.2 [place] % (Auto) 8.4 Eos % (Auto) 0.4 Baso % (Auto) 0.1 Lymph # (Auto) 2.8 [place] # (Auto) 0.7 Eos # (Auto) 0.0 Baso # (Auto) 0.0 Abs Immat Gran (auto) 0.03 Absolute Neuts (auto) 4.4 Absolute Nucleated RBC 0.000 Nucleated RBC % (auto) 0.0 VBG pH 7.49 H VBG pCO2 35 VBG pO2 91 VBG HCO3 27 H VBG O2 Saturation 99.0 VBG Base Excess 4.2 Sodium 127 L 126 L Potassium 3.2 L Chloride 93 L Carbon Dioxide 26 Anion Gap 11 L BUN 12 Creatinine 0.68 Estim Creat Clear Calc 72.7 Estimated GFR > 60 Random Glucose 111 Calcium 9.0 D Phosphorus 2.7 Magnesium 2.0 Albumin 4.0 TSH 0.11 L Free T4 1.29 Random Cortisol 25.0 Procedures Date of Service Date of Service: 08/12/23 Assessment & Plan Assessment and plan (1) Hyponatremia: Status: Acute Assessment and Plan: Euvolemic hyponatremia Had witnessed tonic clonic seizure in ER Was given 3 % saline in ER Na correction was fast and was given D5W/DDAVP Has been on Risperidone/Celexa/Keppra Shall closely follow up lytes C/W rest of current management Progress Note: Quality Stroke Does the patient have a stroke diagnosis?: No
[2023-08-12] MEDS: Dextrose 5 % 1,000 ML 125 ML IVCONT (13:40)
--- NOTE | 2023-08-12 13:44 | PM.EVENT ---
Event Note Date of Service: 08/12/23 Event Note: Tranfer from ICU, discussed with Dr. Walker for psychogenic polydipsia with resultant hyponatremia secondary to vascular dementia Time Spent With Patient Time: Total time managing care of this patient today ____ minutes.
[2023-08-12] MEDS: Haloperidol Lactate 5 MG/ML VIAL 2.5 MG IVPUSH (14:27)
[2023-08-12 16:10] LABS: Sodium 130 mmol/L (135-145)
[2023-08-12] MEDS: LORazepam 2 MG/ML VIAL 0.5 MG IVPUSH (16:28)
[2023-08-12] MEDS: risperiDONE 0.5 MG TABLET PO (20:11)
[2023-08-12 21:52] LABS: Sodium 128 mmol/L (135-145)
[2023-08-13] MEDS: Melatonin 3 MG TABLET 6 MG PO (03:39)
[2023-08-13 04:00] VITALS: BP 126/63; PULSE 84; RESP 18; TEMP 36.6; O2SAT 98
[2023-08-13 07:25] VITALS: BP 129/76; PULSE 86; RESP 20; TEMP 36.4; O2SAT 98
[2023-08-13 08:29] LABS: Anion Gap 15 (12-20); Blood Urea Nitrogen 7 mg/dL (9-16); Calcium 10.1 mg/dL (8.4-10.2); Carbon Dioxide 26 mmol/L (22-29); Chloride 98 mmol/L (96-108); Creatinine Clr Calc Pharmacy 62.6; Estimated Glomerular Filt Rate > 60; Glucose Random 125 mg/dL (60-115); Potassium 4.2 mmol/L (3.3-5.1); Sodium 135 mmol/L (135-145)
[2023-08-13] MEDS: lisinopriL 20 MG TABLET PO (09:46)
[2023-08-13] MEDS: Escitalopram Oxalate 10 MG TABLET PO (09:46)
[2023-08-13] MEDS: levETIRAcetam 500 MG TABLET PO ×2 (09:47→17:11)
[2023-08-13 11:15] VITALS: BP 120/72; PULSE 76; RESP 20; TEMP 36.4; O2SAT 97
--- NOTE | 2023-08-13 12:22 | PM.DS ---
DS: Providers Provider Date of Service: 08/13/23 Date of admission: 08/11/23 00:59 Primary care physician: Jennyfer Rod MD Consults: 08/12/23 11:22 Consult for Sitter Routine Reason for consultation: High fall risk/impulsive/needs constant redirection DS: Diagnosis Discharge Diagnosis (1) Hyponatremia: Status: Acute DS: Summary Hospital Course Hospital Course: Ms. Grabiel Bass is a 68-year-old female with history of? odg-hnicqzc-xfixoikhj type 2 diabetes, seizure disorder, GERD, hypertension, vascular dementia with mood disturbance, and hyponatremia who was brought to the ED by her daughter for bizarre behavior.? Her daughter stated that behavior changes usually happen if the patient is hyponatremic. She denies falls or head injury.?On arrival to the emergency room, the patient?s blood pressure was 140/92, heart rate 100, temp 97.6, with O2 sat 99% on room air.?Laboratory data significant for? ? Sodium 118, potassium 3.2, chloride 82,? glucose 154.??? ED course:? While in the ED, the patient had a witnessed tonic clonic seizure. She was given? Ativan and 60 mL of 3% saline 68-year-old woman with history of psychogenic polydipsia with resultant hyponatremia. According to the patient's daughter the patient drink out of the bathroom sink toe does make it difficult to control and she also has dementia. Her initial sodium was 118 and she was given a portion of a 3% saline bag and transfer to the ICU due to having a tonic clonic seizure. Due to administration of the hypertonic saline her sodium did go up fairly fast, 118 to 131 and less than 24 hours, she was treated with DDAVP and placed on D5W. Patient is awake and alert, has been able to eat her meals. Sodium stable. Plan for discharge home with services. Seizure disorder. Continue [facility]. Continue medications Hypertension. Continue lisinopril GERD. Continue PPI Time Attestation Discharge coordination time: Greater than 30 minutes Quality: Safe Use of Opioids Does Pt have an Active Cancer Diagnosis on the Problem List?: No Quality: Stroke Does the patient have a stroke diagnosis?: No Physical Exam Vital Signs: Vital Signs: Last Vital Signs Temp 97.5 F 08/13/23 11:15 Pulse 76 08/13/23 11:15 Resp 20 08/13/23 11:15 BP 120/72 08/13/23 11:15 Pulse Ox 97 08/13/23 11:15 O2 Del Method Room Air 08/13/23 11:15 O2 Flow Rate 4 08/11/23 12:00 BMI result Body Mass Index 26.7 Appearing in no acute distress head is normocephalic atraumatic eyes pupils are PERRLA sclera is anicteric mouth throat mucous membranes are intact and moist neck is supple no lymphadenopathy, no JVD noted lung sounds are clear to auscultation heart regular rate rhythm, clear S1, S2 positive bowel sounds, abdomen is soft, nontender neuro patient is alert, confused chronically DS: Data Data Completed and Pending Completed studies during hospitalization [Text1]: Procedures Insertion of Endotracheal Airway into Trachea, Via Natural or Artificial Opening (12/02/22) Respiratory Ventilation, Less than 24 Consecutive Hours (12/02/22) Labs on day of discharge: Laboratory Results - last 24 hr 08/12/23 08/12/23 08/12/23 06:21 15:40 21:34 Hold Purple Top Sodium 130 L 128 L Potassium Chloride Carbon Dioxide Anion Gap BUN Creatinine Estim Creat Clear Calc Estimated GFR Random Glucose Calcium Free T4 1.29 08/13/23 07:40 Hold Purple Top SEE NOTE Sodium 135 Potassium 4.2 D Chloride 98 Carbon Dioxide 26 Anion Gap 15 BUN 7 L Creatinine 0.79 Estim Creat Clear Calc 62.6 Estimated GFR > 60 Random Glucose 125 H Calcium 10.1 D Free T4 Discharge Plan Discharge Anticipated Discharge Date/Time: 08/13/23 12:12 Patient Disposition: Home Health Service Discharge Diagnosis: Hyponatremia Psychogenic polydipsia Referrals: [facility] [Outside] - 1 Week Jennyfer Shafer MD [Primary Care Provider] - 1 Week Discharge Medications: Continued omeprazole 20 mg capsule,delayed release(DR/EC) 1 cap PO QAM levetiracetam 500 mg Tablet 500 mg PO BID Qty: 60 0RF acetaminophen 650 mg tablet extended release 1,300 mg PO Q8H PRN (Reason: Pain) melatonin 5 mg Tablet 5 mg PO BEDTIME risperidone 0.5 mg tablet 0.5 mg PO BID lisinopril 20 mg tablet 20 mg PO DAILY simvastatin 20 mg tablet 20 mg PO QPM citalopram 20 mg tablet 20 mg PO QAM cholecalciferol (vitamin D3) 25 mcg (1,000 unit) capsule 25 mcg PO DAILY Discharge Orders: Discharge Order (Routine); Ordered 08/13/23 Ordered By: Jemma Milan Diet: Advance to usual diet Activity on Discharge: As tolerated Stand Alone Forms: Patient Portal Discharge page Care Plan Goals: Closely monitor the amount of water and fluids that are ingested Health Concerns: Hyponatremia Psychogenic polydipsia Plan of Treatment: Follow-up with primary care provider as needed Take all medications as prescribed Assessment: See discharge summary
--- NOTE | 2023-08-13 12:23 | MHC.CM.PN ---
Pt has been medically cleared for DC, her daughter will pick her up and she will resume prior home care services.
[2023-08-13 13:32] LABS: Sodium 134 mmol/L (135-145)
[2023-08-13 15:34] VITALS: BP 150/72; PULSE 84; RESP 20; TEMP 36.7; O2SAT 98
--- NOTE | 2023-08-13 16:27 | PC.NURSE ---
Addendum entered by Dhara Mcadams RN 08/13/23 17:15: Pts daughter notified this RN pt would be unable to get night meds from [facility] at this time usually takes Keppra and Risperidone around 1700. Kristel Milan NP paged for ok to give meds early. Keppra and Risperidone given early prior to discharge and documented in MAR and reflected on discharge paperwork. Original Note: Pt alert to self pleasantly confused. OOB with steady gait ambulates with patient observer at all times. LSCTA denies SOB or CP refusing tele monitor. BS+X4 abdomen soft non-tender denies nausea/vomiting. Tolerating diet fluid restriction in place. Repeat sodium level completed in afternoon. Pt discharged to home with daughter late afternoon paperwork reviewed with daughter. IV removed cath intact.
[2023-08-13] MEDS: risperiDONE 0.5 MG TABLET PO (17:11)
[2023-08-14 17:48] LABS: Levetiracetam Keppra 12.4 mcg/mL (6.0-46.0)
== END 2023-08-13 17:17 | disposition home health service (06) | DRG 101 ==
LOC: HO.ED 08-11 00:32 → HO.EDOVER 08-11 01:05 → HO.ICU 08-11 03:28 → HO.IMC 08-12 15:09
PROVIDERS: Internal Medicine Critical Care Medicine; Internal Medicine Pulmonary Disease; Admitting Provider Nurse Practitioner Family; Emergency Provider Emergency Medicine; PCP Internal Medicine; Visit Provider Nurse Practitioner Acute Care
DX: G40.909 Epilepsy, unspecified, not intractable, without status epilepticus (principal); E87.1 Hypo-osmolality and hyponatremia; F01.518 Vascular dementia, unspecified severity, with other behavioral disturbance; K21.9 Gastro-esophageal reflux disease without esophagitis; I10 Essential (primary) hypertension; R63.1 Polydipsia; R41.82 Altered mental status, unspecified; Z79.899 Other long term (current) drug therapy
CPT/HCPCS: 36415; 70450; 80048; 80053; 80177; 81001; 82040; 82533; 82803; 83735; 83930; 83935; 84100; 84295; 84300; 84439; 84443; 85025; 93005; 99285; C1758; J1643; J2060; J2597; J3475; J7131

== ENCOUNTER → 2023-08-11 00:59 | Outpatient (BNV) | payer MEDICARE, MEDICAID, SELFPAY | PROVIDERS: Admitting Provider Nurse Practitioner Family; Emergency Provider Emergency Medicine; PCP Internal Medicine; Visit Provider Internal Medicine Critical Care Medicine | DX: E87.0 Hyperosmolality and hypernatremia (principal); R56.9 Unspecified convulsions | CPT/HCPCS: 99291; 99499 ==

== ENCOUNTER → 2023-08-11 00:59 | Outpatient (BNV) | payer MEDICARE, MEDICAID, SELFPAY | PROVIDERS: Admitting Provider Nurse Practitioner Family; Emergency Provider Emergency Medicine; PCP Internal Medicine; Visit Provider Internal Medicine Nephrology | DX: E87.1 Hypo-osmolality and hyponatremia (principal) | CPT/HCPCS: 99222; 99232 ==

== ENCOUNTER → 2023-08-11 00:59 | Outpatient (BNV) | payer MEDICARE, MEDICAID, SELFPAY | PROVIDERS: Admitting Provider Nurse Practitioner Family; Emergency Provider Emergency Medicine; PCP Internal Medicine; Visit Provider Nurse Practitioner Acute Care | DX: E87.1 Hypo-osmolality and hyponatremia (principal) | CPT/HCPCS: 99239; 99499 ==

== ENCOUNTER 2023-08-19 13:49 | Outpatient (REF) | payer MEDICARE, MEDICAID, SELFPAY ==
[2023-08-19 16:26] LABS: Anion Gap 15 (12-20); Blood Urea Nitrogen 10 mg/dL (9-16); Calcium 9.7 mg/dL (8.4-10.2); Carbon Dioxide 30 mmol/L (22-29); Chloride 98 mmol/L (96-108); Cholesterol 196 mg/dL (<200); Estimated Glomerular Filt Rate > 60; Glucose Random 138 mg/dL (60-115); HDL Cholesterol 51 mg/dL (>40); LDL Cholesterol Calculated 106 mg/dL (<100); Sodium 139 mmol/L (135-145); Triglycerides 197 mg/dL (<150)
== END 2023-08-19 13:50 | disposition home or self-care (01) ==
LOC: HO.HHCL 13:49
PROVIDERS: Visit Provider Internal Medicine
DX: R63.1 Polydipsia (principal); F54 Psychological and behavioral factors associated with disorders or diseases classified elsewhere; I10 Essential (primary) hypertension
CPT/HCPCS: 36415; 80048; 80061

== ENCOUNTER → 2023-10-03 13:30 | Outpatient (BNV) | payer MEDICARE, MEDICAID, SELFPAY | PROVIDERS: PCP Student in an Organized Health Care Education/Training Program; Visit Provider Radiology Diagnostic Radiology | DX: Z12.31 Encounter for screening mammogram for malignant neoplasm of breast (principal) | CPT/HCPCS: 77063; 77067 ==

== ENCOUNTER 2023-10-03 13:46 | Outpatient (REF) | payer MEDICARE, MEDICAID, SELFPAY ==
--- NOTE | ~2023-10-03 | MM_ITS ---
EXAMINATION: BONE DENSITOMETRY CLINICAL INDICATION: Menopause. COMPARISON: This is the patient's baseline examination. TECHNIQUE: Using a [employer] DXA System (software version: 13.1) manufactured by [employer], dual-energy x-ray absorptiometry was performed of the lumbar spine and left hip. The images are of good technical quality. Summary results are attached. FINDINGS: LEFT FEMUR, NECK: BMD 0.818 g/cm2, Z-score 0.0, T-score -1.6, osteopenia. LEFT FEMUR, TOTAL: BMD 0.856 g/cm2, Z-score 0.1, T-score -1.2, osteopenia. AP SPINE L1-L3 (excluding L4): The data of L1-L4 has been changed to exclude the L4 vertebral body, because degenerative sclerosis at this level may cause overestimation of lumbar spine density. BMD 1.150 g/cm2, Z-score 1.5, T-score -0.2, normal. IDENTIFIED RISK FACTORS: Menopause, rheumatoid arthritis, history of fracture (adult), dementia. HISTORY OF FRACTURE: Shoulder. MEDICATIONS: Vitamin D. MM/XR DEXA axial skeleton IMPRESSION: 1. DIAGNOSIS: Osteopenia based on the lowest T-score value of -1.6 in the femoral neck applying World Health Organization criteria. 2. 10-YEAR FRACTURE RISK PREDICTION, FRAX: Major osteoporotic fracture (clinical spine, forearm, hip or shoulder) 11.5%. Hip fracture 1.5%. 3. Treatment Recommendations: NOF guidelines recommend consideration for treatment in postmenopausal women and men age 50 and older presenting with the following: -A hip or vertebral (clinical or morphometric) fracture. -T-score less than or equal to -2.5 at the femoral neck or spine after appropriate evaluation to exclude secondary causes. -Low bone mass at the hip or spine and a 10-year fracture probability by FRAX of greater than or equal to 3% for hip fracture or greater than or equal to 20% for major osteoporotic fracture based on the [place] adapted WHO algorithm. 4. Other Recommendations: All treatment decisions require clinical judgment and consideration of individual patient factors, including patient preferences, comorbidities, previous drug use, risk factors not captured in the FRAX model (e.g. frailty, falls, vitamin D deficiency, increased bone turnover, interval significant decline in bone density) and possible under or overestimation of fracture risk by FRAX. Additional medical evaluation for secondary cause of low bone mineral density may be appropriate. FUTURE SCAN RECOMMENDATION: People with diagnosed cases of osteoporosis or at high risk for fracture should have regular bone mineral density tests. For patients eligible for Medicare, routine testing is allowed once every 2 years. The testing frequency can be increased to one year for patients who have rapidly progressing disease, those who are receiving or discontinuing medical therapy to restore bone mass, or have additional risk factors.
--- NOTE | ~2023-10-03 | MM_ITS ---
EXAMINATION: MM SCREENING DIGITAL BREAST TOMOSYNTHESIS, BILATERAL CLINICAL INFORMATION: Screening. Asymptomatic. COMPARISON: Mammography: The patient has not had a mammogram since 08/04/2012. Comparison made to that, 12/26/2011, 10/19/2010, and dating back to 2007. TECHNIQUE: Digital breast tomosynthesis is performed in both the craniocaudal and mediolateral oblique views along with computer-aided detection (CAD). Synthesized 2D images are generated from the tomosynthesis. In addition, additional full-field left MLO nipple in profile view was obtained. FINDINGS: The breasts are heterogeneously dense, which may obscure small masses (ACR BI-RADS breast composition Category c). There are bilateral vascular and dystrophic calcifications. No suspicious calcifications. No developing mass, architectural distortion, or other abnormality. No skin or axillary abnormalities. MM/MM tomosynthesis screening BI IMPRESSION: No mammographic evidence of malignancy. ASSESSMENT: BI-RADS BI-RADS 2 - Benign Findings RECOMMENDATION: Routine annual mammography screening. 1 year F/U This examination should not preclude the clinical evaluation of a suspicious palpable abnormality. This patient's information was entered into a reminder system with a target due date for their next mammogram.
== END 2023-10-03 13:47 | disposition home or self-care (01) ==
LOC: HO.MAMMO 13:46
PROVIDERS: PCP Student in an Organized Health Care Education/Training Program; Visit Provider Student in an Organized Health Care Education/Training Program
DX: Z12.31 Encounter for screening mammogram for malignant neoplasm of breast (principal); Z13.820 Encounter for screening for osteoporosis; Z78.0 Asymptomatic menopausal state
CPT/HCPCS: 77063; 77067; 77080

== ENCOUNTER 2023-10-15 11:12 | Outpatient (REF) | payer MEDICARE, MEDICAID, SELFPAY ==
[2023-10-15 12:57] LABS: Anion Gap 14 (12-20); Blood Urea Nitrogen 8 mg/dL (9-16); Calcium 9.7 mg/dL (8.4-10.2); Carbon Dioxide 30 mmol/L (22-29); Chloride 103 mmol/L (96-108); Estimated Glomerular Filt Rate > 60; Glucose Random 94 mg/dL (60-115); Potassium 4.3 mmol/L (3.3-5.1); Sodium 143 mmol/L (135-145)
[2023-10-15 13:16] LABS: T4 Thyroxine 8.2 ug/dL (4.5-12.0); Thyroid Stimulating Hormone 0.08 uIU/mL (0.32-4.0)
[2023-10-15 13:29] LABS: Folate 13.2 ng/mL (> or = 4.0); Vitamin B12 518 pg/mL (200-900)
== END 2023-10-15 11:13 | disposition home or self-care (01) ==
LOC: HO.LAB 11:12
PROVIDERS: PCP Internal Medicine; Visit Provider Psychiatry & Neurology Neurology
DX: R56.9 Unspecified convulsions (principal)
CPT/HCPCS: 36415; 80048; 82607; 82746; 84436; 84443

== ENCOUNTER 2024-01-19 00:47 | Inpatient (IN) | payer MEDICARE, MEDICAID, SELFPAY ==
--- NOTE | 2024-01-19 | ECG_ITS ---
Test Reason : SEIZURE Blood Pressure : / mmHG Vent. Rate : 084 BPM Atrial Rate : 084 BPM P-R Int : 158 ms QRS Dur : 084 ms QT Int : 392 ms P-R-T Axes : 060 057 049 degrees QTc Int : 463 ms Normal sinus rhythm Normal ECG When compared with ECG of 11-AUG-2023 00:04, No significant changes seen Referred By: Generic ED Physician Electronically Signed By:PATTIE SOARES
--- NOTE | ~2024-01-19 | CT_ITS ---
EXAMINATION: CT HEAD WITHOUT CONTRAST CLINICAL INFORMATION: Seizure. COMPARISON: 08/11/2023 TECHNIQUE: Contiguous axial imaging was performed from the skull base to vertex without intravenous administration of contrast. This CT examination was performed using dose optimization techniques as appropriate, variously including the following: *Automated exposure control *Adjustment of mA and/or kV according to patient size (this includes techniques or standardized protocols for targeted exams where dose is matched to indication/reason for exam; i.e. extremities or head) *Use of iterative reconstruction technique DLP: 1315 mGy-cm FINDINGS: There is mild cerebral volume loss with prominence of the lateral and the third ventricle. The cortical sulci are widened appropriately. The fourth ventricle and basal cisterns are normally outlined. There is persistent bilateral periventricular and central white matter areas of diminished attenuation. There is no acute territorial defect, hemorrhage or midline shift. The extra-axial spaces are unremarkable. Calvarium: Intact. Maxilla facial sinuses and mastoids: Clear as visualized. CT/CT head/brain wo IV con IMPRESSION: 1. No acute abnormality 2. Chronic small vessel ischemic changes.
[2024-01-19 00:51] VITALS: BP 128/76; BP 137/76; PULSE 92; PULSE 94; RESP 17; TEMP 36.1; O2SAT 98; BMI 24.0
[2024-01-19 01:08] LABS: MANUAL DIFF FLAG NO
[2024-01-19 01:09] LABS: Basophils Percent Auto 0.1 % (0-2); Hematocrit 33.4 % (37.0-47.0); Hemoglobin 12.3 g/dl (12.0-16.0); Imm Gran Abs Auto 0.03 X10*3/uL (0.00-0.03); Imm Gran Pct Auto 0.3 % (0.0-0.4); Lymphocytes Absolute Auto 0.9 X10*3/uL (1.2-4.9); Mean Corpuscular HGB Conc 36.8 g/dl (31.0-35.0); Mean Corpuscular Hemoglobin 30.4 pg (27.0-33.0); Mean Corpuscular Volume 82.7 fL (80.0-98.0); Mean Platelet Volume 9.7 fL (9.4-12.3); Monocytes Absolute Auto 0.4 X10*3/uL (0.1-1.2); Monocytes Percent Auto 4.6 % (2-11); Neutrophils Absolute Auto 8.3 x10*3/uL (2.0-8.3); Platelet Count 255 X10*3/uL (160-400); Red Blood Count 4.04 X10*6/uL (4.20-5.50); White Blood Count 9.6 X10*3/uL (4.8-10.8)
--- NOTE | 2024-01-19 01:10 | PC.NURSE ---
pt biba from home, per ems pt daughter on scene reporting pt had been post ictal after being placed in bed, unknown timing of seizure. pt daughter reports pt had last seizure 1 year ago and has not had one since. pt has dementia at baseline and is non verbal. ems placed 20G in left hand. seizure precautions in place.
[2024-01-19 01:23] LABS: Alanine Aminotransferase 18 U/L (0-31); Albumin Level 4.3 g/dL (3.5-5.0); Alkaline Phosphatase 92 U/L (39-117); Anion Gap 15 (12-20); Aspartate Amino Transferase 23 U/L (5-31); Bilirubin Total 0.5 mg/dL (0.0-1.0); Blood Urea Nitrogen 5 mg/dL (9-16); Calcium 9.1 mg/dL (8.4-10.2); Carbon Dioxide 18 mmol/L (22-29); Chloride 93 mmol/L (96-108); Creatinine Clr Calc Pharmacy 64.6; Estimated Glomerular Filt Rate > 60; Glucose Random 161 mg/dL (60-115); Potassium 3.4 mmol/L (3.3-5.1); Sodium 123 mmol/L (135-145); Total Protein 7.7 g/dL (6.5-8.0)
--- NOTE | 2024-01-19 02:31 | ED_ITS ---
HPI - Seizure General Chief Complaint: Seizure Stated Complaint: seizure Time Seen by Provider: 01/19/24 02:31 Source: family (Daughter) Mode of arrival: EMS Limitations: other (Patient has dementia) History of Present Illness HPI Narrative: 68-year-old female with a history of asthma, hyperlipidemia, hypertension, GERD, vascular dementia, seizure disorder, hyponatremia secondary to polydipsia who presents emergency department for evaluation of seizure. According to the daughter the patient was in bed and was incontinent and bit her tongue. Daughter states the patient has done this before when she has had seizures. The daughter also states the patient has a history of low sodium secondary to polydipsia. The family has shut off the water and the patient's apartment however there is water that can still be obtained from the bathroom and the daughter is concerned that the patient has been drinking too much water. The daughter states the patient did complain of stomach pain earlier in the day. She had no complaints of weakness. Seizure History: Yes Place: Home Related Data Home Medications ?Medication ?Instructions ?Recorded ?Confirmed cholecalciferol (vitamin D3) 25 25 mcg PO DAILY 03/14/22 08/11/23 mcg (1,000 unit) capsule citalopram 20 mg tablet 20 mg PO QAM 03/14/22 08/11/23 lisinopril 20 mg tablet 20 mg PO DAILY 03/14/22 08/11/23 risperidone 0.5 mg tablet 0.5 mg PO BID 03/14/22 08/11/23 simvastatin 20 mg tablet 20 mg PO QPM 03/14/22 08/11/23 omeprazole 20 mg capsule,delayed 1 cap PO QAM 12/02/22 08/11/23 release acetaminophen 650 mg 1,300 mg PO Q8H PRN Pain 08/11/23 08/11/23 tablet,extended release melatonin 5 mg tablet 5 mg PO BEDTIME 08/11/23 08/11/23 Previous Rx's ?Medication ?Instructions ?Recorded levetiracetam 500 mg tablet 500 mg PO BID #60 tabs 06/04/23 Allergies Allergy/AdvReac Type Severity Reaction Status Date / Time Penicillins [PENICILLINS] Allergy Intermediate SYNCOPE Verified 01/19/24 00:55 codeine [CODEINE] AdvReac Intermediate NAUSEA & Verified 01/19/24 00:55 VOMITING Review of Systems 2 Review of Systems: Yes Unobtainable due to mental status (Vascular dementia) [facility] Past Medical History [facility] Narrative: Social history: The patient lives alone in apartment that has a above her son and across the [place] from her daughter. According to the daughter, the patient does not drink alcohol, smoke cigarettes or use drugs. Medical History (Updated 01/19/24 @ 03:07 by Lei España MD) Hyponatremia Hypertension Seizure Dehydration Metabolic encephalopathy GERD (gastroesophageal reflux disease) Asthma Lumbar spondylosis Vascular dementia High cholesterol Diabetes Surgical History Hx of cystoscopy History of esophagogastroduodenoscopy (EGD) H/O colonoscopy Hx of rotator cuff surgery Social History Social History Household Members: Unknown / Unable to assess Housing: Unknown / Unable to assess Do you presently have visiting nurse or other home services: No Unable to assess alcohol history related to: Unable to respond Alcohol intake: never Comment: 1:1 sitter Patient Tobacco Use Status: Never used Tobacco Second Hand Smoke Exposure: No Use of substances other than those prescribed or required for medical reasons: Unable to respond Advance Directives: Yes Advance Directives on File: Yes Advance Directives Date on File: 03/08/23 service: No Current occupational status: disabled Physical Exam 2 Vital Signs: Vital Signs: Last Vital Signs Temp 97.0 F 01/19/24 00:51 Pulse 94 01/19/24 00:51 Resp 17 01/19/24 00:51 BP 137/76 01/19/24 00:51 Pulse Ox 98 01/19/24 00:51 O2 Del Method Room Air 01/19/24 00:51 BMI result Body Mass Index 24.0 Vital signs were normal Exam: General: Awake, oriented to person Head: Normocephalic, atraumatic EENT: PERRL, Lids normal, sclera normal, conjunctiva normal, nose normal , ears normal, throat without erythema or exudates Lung: breath sounds symmetric, no wheezing, rales or rhonchi Chest: symmetric movement, nontender Heart: regular rate and rhythm, normal S1, S2 no murmurs or rubs Abdomen: soft, non-tender, nondistended, normal bowel sounds Back: no vertebral tenderness, no CVAT Extremities: no deformities, moves all extremities symmetrically Neuro: Cranial nerves intact, strength symmetric Medical Decision Making Medical Decision Making [facility] Narrative: 68-year-old female with a history of asthma, hyperlipidemia, hypertension, GERD, vascular dementia, seizure disorder, hyponatremia secondary to polydipsia who presents emergency department for evaluation of unwitnessed seizure. According to the daughter the patient was in bed and was incontinent and bit her tongue. The patient has a history of hyponatremia secondary to polydipsia. Her daughter is concerned that the patient has been drinking too much water. Vital signs were unremarkable. Physical examination was unremarkable. Differential diagnosis: ?Includes but is not limited to epileptic seizure, seizure secondary to hyponatremia, electrolyte abnormalities, anemia Following evaluation was ordered: CBC, CMP, serum osmolality, urine osmolality, EKG Course: 02:59 My interpretation patient's laboratory evaluation is as follows: Anemia with an H&H of 12.3 and 33. Low sodium 123, low 90 3, low bicarb 18. Low potassium 3.4 glucose elevated 161. Patient's 12 EKG was unremarkable Patient's seizure disorder is most likely caused by her hyponatremia which is secondary to polydipsia. Patient will be fluid restricted and will not be allowed to drink any water. I did discuss admission over tiger text with the covering hospitalist, Dr. Wooten. Admission/Observation Consideration of admission/observation: Escalation of care including admission/observation considered Lab Data [facility] Lab Attestation statement: I reviewed the patient's lab results. 01/19/24 01:04 01/19/24 01:04 Labs: Lab Results 01/19/24 Range/Units 01:04 WBC 9.6 (4.8-10.8) X10*3/uL RBC 4.04 L (4.20-5.50) X10*6/uL Hgb 12.3 (12.0-16.0) g/dl Hct 33.4 L (37.0-47.0) % MCV 82.7 (80.0-98.0) fL MCH 30.4 (27.0-33.0) pg MCHC 36.8 H (31.0-35.0) g/dl RDW 12.0 (11.0-16.0) % Plt Count 255 (160-400) X10*3/uL MPV 9.7 (9.4-12.3) fL Immature Gran % (Auto) 0.3 (0.0-0.4) % Neut % (Auto) 86.0 H (45-73) % Lymph % (Auto) 9.0 L (20-40) % [place] % (Auto) 4.6 (2-11) % Eos % (Auto) 0.0 (0-4) % Baso % (Auto) 0.1 (0-2) % Lymph # (Auto) 0.9 L (1.2-4.9) X10*3/uL [place] # (Auto) 0.4 (0.1-1.2) X10*3/uL Eos # (Auto) 0.0 (0.0-0.4) X10*3/uL Baso # (Auto) 0.0 (0.0-0.2) X10*3/uL Abs Immat Gran (auto) 0.03 (0.00-0.03) X10*3/uL Absolute Neuts (auto) 8.3 (2.0-8.3) x10*3/uL Absolute Nucleated RBC 0.000 (0.0-0.012) X10*3/uL Nucleated RBC % (auto) 0.0 (0.0-0.2) /100WBC Sodium 123 L (135-145) mmol/L Potassium 3.4 D (3.3-5.1) mmol/L Chloride 93 L (96-108) mmol/L Carbon Dioxide 18 L (22-29) mmol/L Anion Gap 15 (12-20) BUN 5 L (9-16) mg/dL Creatinine 0.77 (0.5-1.4) mg/dL Estim Creat Clear Calc 64.6 Estimated GFR > 60 Random Glucose 161 H (60-115) mg/dL Calcium 9.1 D (8.4-10.2) mg/dL Total Bilirubin 0.5 (0.0-1.0) mg/dL AST 23 (5-31) U/L ALT 18 (0-31) U/L Alkaline Phosphatase 92 (39-117) U/L Total Protein 7.7 (6.5-8.0) g/dL Albumin 4.3 (3.5-5.0) g/dL Independent Interpretation I performed an independent interpretation of an: EKG Interpretation: My independent interpretation patient's 12 EKG done at 01:05 hours is as follows: Normal sinus rhythm rate of 84, normal MD interval, QRS duration QTC interval, no ST segment elevation, no ST T-wave abnormalities, no PACs, no PVCs- this is a normal EKG Independent Historian Clinical information obtained from an independent historian. History obtained from or confirmed by: Other (Daughter) External Record Review External record reviewed: Inpatient record Critical Care Time Critical Care Time Critical Care Time: Yes Total Critical Care Time: 35 Attestation: Critical Care: The patient was critically ill with a high probability of imminent or life threatening deterioration. I spent greater than 30 minutes of discontinuous time evaluating the patient,delivering critical care at the bedside, discussing and evaluating pertinent data with consultants. Critical care time does not include time spent performing separately billable procedures or teaching. Total time spent performing critical care was 35 minutes. Discharge Plan Discharge Patient Disposition: Admitted As Inpatient Prescriptions: No Action omeprazole 20 mg capsule,delayed release(DR/EC) 1 cap PO QAM levetiracetam 500 mg Tablet 500 mg PO BID Qty: 60 0RF acetaminophen 650 mg tablet extended release 1,300 mg PO Q8H PRN (Reason: Pain) melatonin 5 mg Tablet 5 mg PO BEDTIME risperidone 0.5 mg tablet 0.5 mg PO BID lisinopril 20 mg tablet 20 mg PO DAILY simvastatin 20 mg tablet 20 mg PO QPM citalopram 20 mg tablet 20 mg PO QAM cholecalciferol (vitamin D3) 25 mcg (1,000 unit) capsule 25 mcg PO DAILY Print Language: Uzbek
--- NOTE | 2024-01-19 02:50 | PC.NURSE ---
per , urine osmoloty not needed at this time.
[2024-01-19 03:14] LABS: Osmolality, Serum 264 mosm/kg (281-305)
--- NOTE | 2024-01-19 03:42 | P.HPHOSP_ITS ---
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 Patient is postictal at the time of my evaluation and has dementia at baseline. History obtained with the help of daughter at bedside. The daughter states that the patient lives alone next door and she found the patient to have blood at the side of her mouth, bit her tongue and had been incontinent of urine. This has happened before whenever she has had seizure. The daughter is concerned that the patient is drinking too much water from the bathroom. The patient has a nurse that comes to the home and she is compliant with her home medications including Keppra. Unable to obtain review of systems. Review of Systems 2 Review of Systems: Yes Unobtainable due to mental condition and Unobtainable due to mental status PMFSH Medical History Hyponatremia Hypertension Seizure Dehydration Metabolic encephalopathy GERD (gastroesophageal reflux disease) Asthma Lumbar spondylosis Vascular dementia High cholesterol Diabetes Surgical History Hx of cystoscopy History of esophagogastroduodenoscopy (EGD) H/O colonoscopy Hx of rotator cuff surgery Social History Household Members: Unknown / Unable to assess Housing: Unknown / Unable to assess Do you presently have visiting nurse or other home services: No Unable to assess alcohol history related to: Unable to respond Alcohol intake: never Comment: 1:1 sitter Patient Tobacco Use Status: Never used Tobacco Second Hand Smoke Exposure: No Use of substances other than those prescribed or required for medical reasons: Unable to respond Advance Directives: Yes Advance Directives on File: Yes Advance Directives Date on File: 03/08/23 service: No Current occupational status: disabled Meds Allergies Allergy/AdvReac Type Severity Reaction Status Date / Time Penicillins [PENICILLINS] Allergy Intermediate SYNCOPE Verified 01/19/24 00:55 codeine [CODEINE] AdvReac Intermediate NAUSEA & Verified 01/19/24 00:55 VOMITING Home Medications ?Medication ?Instructions ?Recorded ?Confirmed ?Last Taken ?Type cholecalciferol (vitamin D3) 25 25 mcg PO DAILY 03/14/22 08/11/23 Unknown History mcg (1,000 unit) capsule citalopram 20 mg tablet 20 mg PO QAM 03/14/22 08/11/23 Unknown History lisinopril 20 mg tablet 20 mg PO DAILY 03/14/22 08/11/23 Unknown History risperidone 0.5 mg tablet 0.5 mg PO BID 03/14/22 08/11/23 Unknown History simvastatin 20 mg tablet 20 mg PO QPM 03/14/22 08/11/23 Unknown History omeprazole 20 mg capsule,delayed 1 cap PO QAM 12/02/22 08/11/23 Unknown History release acetaminophen 650 mg 1,300 mg PO Q8H PRN Pain 08/11/23 08/11/23 Unknown History tablet,extended release melatonin 5 mg tablet 5 mg PO BEDTIME 08/11/23 08/11/23 Unknown History Physical Exam 2 Vital Signs and Narrative: Vital Signs: Last Vital Signs Temp 97.0 F 01/19/24 00:51 Pulse 94 01/19/24 00:51 Resp 17 01/19/24 00:51 BP 137/76 01/19/24 00:51 Pulse Ox 98 01/19/24 00:51 O2 Del Method Room Air 01/19/24 00:51 BMI result Body Mass Index 24.0 Elderly female lying in bed in no distress Neck supple, no JVD Regular rate and rhythm, S1-S2 heard Regular breath sounds bilaterally, no wheezing or crackles appreciated Abdomen soft nontender, no guarding, no rigidity Patient is drowsy awakens to verbal stimulus but quickly falls back asleep, unable to assess orientation No pedal edema Results Labs 01/19/24 01:04 01/19/24 01:04 Labs: Laboratory Results - last 24 hr 01/19/24 01/19/24 01:04 02:56 MCV 82.7 MCH 30.4 MCHC 36.8 H RDW 12.0 Plt Count 255 MPV 9.7 Immature Gran % (Auto) 0.3 Neut % (Auto) 86.0 H Lymph % (Auto) 9.0 L [place] % (Auto) 4.6 Eos % (Auto) 0.0 Baso % (Auto) 0.1 Lymph # (Auto) 0.9 L [place] # (Auto) 0.4 Eos # (Auto) 0.0 Baso # (Auto) 0.0 Abs Immat Gran (auto) 0.03 Absolute Neuts (auto) 8.3 Absolute Nucleated RBC 0.000 Nucleated RBC % (auto) 0.0 Anion Gap 15 Estim Creat Clear Calc 64.6 Estimated GFR > 60 Random Glucose 161 H Osmolality 264 L Calcium 9.1 D Magnesium 2.0 Total Bilirubin 0.5 AST 23 ALT 18 Alkaline Phosphatase 92 Total Protein 7.7 Albumin 4.3 Assessment and Plan (1) Seizure: Status: Acute (2) Acute hyponatremia: Status: Acute Plan This is a 68-year-old female with pertinent history of vascular dementia with mood disturbance, history of hospitalization due to 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 #. Acute hyponatremia in the setting of psychogenic polydipsia: Will admit patient and initiate fluid restriction. Closely monitor serum sodium #. Breakthrough seizure in a patient with seizure disorder: EEG ordered and consulted Neurology. Will obtain CT head #. Essential hypertension: Continue home antihypertensives #. Vascular dementia with mood disturbance: Continue home mood stabilizers. Maintain sleep-wake cycle #. Ktk-yqoprdr-kavrimzal diabetes mellitus: Initiating Accu-Cheks with sliding scale insulin Med rec pending DVT prophylaxis: Lovenox Full code Admit as inpatient and will require two night minimum hospital stay for close monitoring of serum sodium, evaluation of seizure disorder (as above), which is not possible in a lesser acute setting. Quality Stroke Does the patient have a stroke diagnosis?: No VTE Prior VTE?: No VTE Risk Level:: Medical - moderate - high VTE Device Contraindication: Treatment Not Indicated VTE Drug Contraindication: N/A - Med Ordered
[2024-01-19] MEDS: levETIRAcetam in NaCl (iso-os) 500 MG/100 ML PIGGYBACK 400 MG IV (04:01)
[2024-01-19] MEDS: Enoxaparin Sodium 40 MG/0.4 ML SYRINGE SUBCUT (04:04)
--- NOTE | 2024-01-19 04:15 | PC.NURSE ---
pt taken to CT at this time, at bedside discussing care of pt with pt daughter.
--- NOTE | 2024-01-19 05:05 | PC.NURSE ---
per , bladder scan pt, pt bladder scan showed >1700ml of urine, aware, plan to straight cath pt.
[2024-01-19 05:28] VITALS: BP 151/112; PULSE 88; RESP 20; TEMP 36.9; O2SAT 97
--- NOTE | 2024-01-19 05:30 | PC.NURSE ---
this rn straight cath pt, pt output of 1750 of clear urine.
[2024-01-19 05:32] LABS: Appearance Urine Clear; Color Urine Yellow; Glucose Urine UA Negative (Negative); Leukocyte Esterase Urine Negative (Negative); Nitrite Urine Negative (Negative); PH 5.5 (5.0-9.0); Specific Gravity - Urine <= 1.005 (1.005-1.025); Urine Blood Negative (Negative); Urine Ketones Trace mg/dL (Negative); Urine Protein Negative (Neg-Trace)
[2024-01-19 05:35] LABS: Bacteria Urine None Seen (None Seen); Hyaline Casts Urine 0-2 /LPF (0-2); RBC Urine 0-2 /HPF (0-2); Squamous Epithelial Cell Urine 0-2 /HPF (0-2); WBC Urine 0-5 /HPF (0-5)
[2024-01-19 05:40] LABS: Osmolality Urine 166 mosm/kg (373-1093)
[2024-01-19 05:55] LABS: MANUAL DIFF FLAG NO
[2024-01-19 06:01] LABS: Basophils Percent Auto 0.1 % (0-2); Hematocrit 34.4 % (37.0-47.0); Hemoglobin 12.6 g/dl (12.0-16.0); Imm Gran Abs Auto 0.03 X10*3/uL (0.00-0.03); Imm Gran Pct Auto 0.3 % (0.0-0.4); Lymphocytes Percent Auto 10.5 % (20-40); Mean Corpuscular HGB Conc 36.6 g/dl (31.0-35.0); Mean Corpuscular Hemoglobin 30.4 pg (27.0-33.0); Mean Corpuscular Volume 83.1 fL (80.0-98.0); Mean Platelet Volume 9.6 fL (9.4-12.3); Monocytes Absolute Auto 0.5 X10*3/uL (0.1-1.2); Monocytes Percent Auto 4.9 % (2-11); Neutrophils Absolute Auto 7.9 x10*3/uL (2.0-8.3); Neutrophils Percent Auto 84.2 % (45-73); Platelet Count 275 X10*3/uL (160-400); Red Blood Count 4.14 X10*6/uL (4.20-5.50); White Blood Count 9.4 X10*3/uL (4.8-10.8)
[2024-01-19 06:20] LABS: Anion Gap 13 (12-20); Blood Urea Nitrogen 4 mg/dL (9-16); Carbon Dioxide 20 mmol/L (22-29); Chloride 97 mmol/L (96-108); Creatinine Clr Calc Pharmacy 69.1; Estimated Glomerular Filt Rate > 60; Glucose Random 137 mg/dL (60-115); Potassium 3.7 mmol/L (3.3-5.1); Sodium 126 mmol/L (135-145)
[2024-01-19 06:24] VITALS: BP 154/88; PULSE 74; RESP 15; TEMP 36.9; O2SAT 97
[2024-01-19 07:13] LABS: Glucose, Whole Blood 126 mg/dL (60-115)
[2024-01-19] MEDS: 0.9 % Sodium Chloride Flush 3 ML SYRINGE IVFLUSH (08:48)
[2024-01-19 10:25] VITALS: BP 173/82; PULSE 76; RESP 18; TEMP 36.4; O2SAT 99
[2024-01-19 11:01] VITALS: BMI 23.0
[2024-01-19 11:23] LABS: Glucose, Whole Blood 133 mg/dL (60-115)
--- NOTE | 2024-01-19 11:41 | P.CNNE_ITS ---
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 Her daughter noted that she had blood in her mouth probably from tongue bite confusion and incontinence, the type of symptoms she previously had from seizure and was brought here. She was unable to provide any meaningful history. Review of Systems 2 Review of Systems: No recent cold or flu-like illness PMFSH Past Medical History Medical History Hyponatremia Hypertension Seizure Dehydration Metabolic encephalopathy GERD (gastroesophageal reflux disease) Asthma Lumbar spondylosis Vascular dementia High cholesterol Diabetes Surgical History Surgical History Hx of cystoscopy History of esophagogastroduodenoscopy (EGD) H/O colonoscopy Hx of rotator cuff surgery Social History Social History Household Members: Other Household Members Other:: Reported children lives in the same building. Housing: Apartment Unable to assess alcohol history related to: Unable to respond Alcohol intake: never Comment: 1:1 sitter Patient Tobacco Use Status: Never used Tobacco Second Hand Smoke Exposure: No Advance Directives Date on File: 03/08/23 service: No Current occupational status: disabled Meds Allergies Allergy/AdvReac Type Severity Reaction Status Date / Time Penicillins [PENICILLINS] Allergy Intermediate SYNCOPE Verified 01/19/24 00:55 codeine [CODEINE] AdvReac Intermediate NAUSEA & Verified 01/19/24 00:55 VOMITING Active Medications: Current Medications Acetaminophen (Acetaminophen 325 Mg Tablet) 650 mg PO Q6H PRN PRN Reason: Pain, Mild (Pain Scale 1-3) Enoxaparin Sodium (Enoxaparin Sodium 40 Mg/0.4 Ml Syringe) 40 mg SUBCUT Q24H AZUCENA Last Admin: 01/19/24 04:04 Dose: 40 mg Glucose (Glucose Gel 15 Gm Gel..Gram.) 15 gm PO Q15M PRN; Protocol PRN Reason: per Hypoglycemia Standing Ord. Dextrose (D10) 250 mls @ 750 mls/hr IV Q15M PRN; Protocol PRN Reason: per Hypoglycemia Standing Ord. Insulin Human Lispro (Insulin Lispro 100 Unit/Ml 3 Ml Vial) 0 [facility]; Protocol Last Admin: 01/19/24 11:37 Dose: Not Given Melatonin (Melatonin 3 Mg Tablet) 6 mg PO BEDTIME PRN PRN Reason: Insomnia Ondansetron HCl (Ondansetron Hcl 4 Mg/2 Ml Vial) 4 mg IVPUSH Q8H PRN PRN Reason: Nausea and Vomiting Sodium Chloride (0.9 % Sodium Chloride Flush 3 Ml Syringe) 3 ml IVFLUSH [facility] Last Admin: 01/19/24 08:48 Dose: 3 ml Home Medications ?Medication ?Instructions ?Recorded ?Confirmed ?Last Taken ?Type cholecalciferol (vitamin D3) 25 25 mcg PO DAILY 03/14/22 08/11/23 Unknown History mcg (1,000 unit) capsule citalopram 20 mg tablet 20 mg PO QAM 03/14/22 08/11/23 Unknown History lisinopril 20 mg tablet 20 mg PO DAILY 03/14/22 08/11/23 Unknown History risperidone 0.5 mg tablet 0.5 mg PO BID 03/14/22 08/11/23 Unknown History simvastatin 20 mg tablet 20 mg PO QPM 03/14/22 08/11/23 Unknown History omeprazole 20 mg capsule,delayed 1 cap PO QAM 12/02/22 08/11/23 Unknown History release acetaminophen 650 mg 1,300 mg PO Q8H PRN Pain 08/11/23 08/11/23 Unknown History tablet,extended release melatonin 5 mg tablet 5 mg PO BEDTIME 08/11/23 08/11/23 Unknown History Physical Exam 2 Vital Signs: Vital Signs: Last Vital Signs Temp 97.6 F 01/19/24 10:25 Pulse 76 01/19/24 10:25 Resp 18 01/19/24 10:25 BP 173/82 H 01/19/24 10:25 Pulse Ox 99 01/19/24 10:25 O2 Del Method Room Air 01/19/24 10:25 BMI result Body Mass Index 23.0 Neuro: Other: She is alert and awake looking around made eye contact told me her last name but resistant to examination and did not know what was going on. She said that she was in pain but could not tell me where the pain was. There was no obvious focal weakness. Face was symmetrical. Visual harris were full. Results Labs 01/19/24 05:48 01/19/24 05:48 Labs: Short CBC 01/19/24 01/19/24 Range/Units 01:04 05:48 WBC 9.6 9.4 (4.8-10.8) X10*3/uL Hgb 12.3 12.6 (12.0-16.0) g/dl Hct 33.4 L 34.4 L (37.0-47.0) % Plt Count 255 275 (160-400) X10*3/uL BMP 01/19/24 01/19/24 01:04 05:48 Sodium 123 L 126 L Potassium 3.4 D 3.7 Chloride 93 L 97 Carbon Dioxide 18 L 20 L BUN 5 L 4 L Creatinine 0.77 0.72 Calcium 9.1 D 9.0 Liver Function 01/19/24 Range/Units 01:04 Total Bilirubin 0.5 (0.0-1.0) mg/dL AST 23 (5-31) U/L ALT 18 (0-31) U/L Alkaline Phosphatase 92 (39-117) U/L Albumin 4.3 (3.5-5.0) g/dL Urine 01/19/24 Range/Units 05:26 Urine Color Yellow Urine Appearance Clear Urine pH 5.5 (5.0-9.0) Ur Specific [place] <= 1.005 (1.005-1.025) Urine Protein Negative (Neg-Trace) mg/dL Urine Glucose (UA) Negative (Negative) mg/dL Head CT revealed moderately severe diffuse atrophy and moderately severe chronic microvascular ischemic changes. Assessment and Plan (1) Seizure: Status: Acute 68 years old woman with underlying probably moderate to severe multifactorial dementia with vascular disease and seizure disorder. Serum sodium was somewhat low. She needs proper supervision to avoid complications and levetiracetam maintenance does for prevention of seizures. If not taking before, I would start with 500 mg twice a day and if she was taking this medicine before, I would increase by 500 mg twice a day (2) Multifactorial dementia: Status: Acute Procedures Date of Service Date of Service: 01/19/24
[2024-01-19] MEDS: Acetaminophen 325 MG TABLET 650 MG PO ×2 (12:42→19:53)
[2024-01-19] MEDS: levETIRAcetam 1,000 MG TABLET 1000 MG PO ×2 (12:42→19:54)
--- NOTE | 2024-01-19 15:14 | PHA.MEDREC ---
Pharmacy Consult ? Medication Reconciliation Pharmacy has completed the medication reconciliation. PT UNABLE TO RESPOND REGARDING MEDICATION TAKEN AT HOME. DAUGHTER IS UNSURE OF MEDICATIONS TAKEN AT HOME AND STATES MOTHER ONLY TAKES MEDICATION FILLED AT PHARMACY WHEN NURSE GIVES THEM TO HER. CLAIM HISTORY UTILIZED TO COMPLETE MED REC.
[2024-01-19 15:24] VITALS: BP 144/77; PULSE 81; RESP 18; TEMP 36.6; O2SAT 98
--- NOTE | 2024-01-19 15:40 | MHC.CM.PN ---
PT WITH VASCULAR DEMENTIA DIAGNOSIS, CM CALLED PTS DAUGHTER, CARLOS EDUARDO [phone] SHE REPORTS THE PT LIVES ALONE, HOWEVER SHE AND HER BROTHER LIVE IN THE SAME BUILDING, SHE LIVES NEXT DOOR AND HER BROTHER LIVES ON THE 1ST FLOOR. SHE SAYS THE PT IS ACTIVE WITH [facility] FOR 2X/DAY VISITS FOR MEDICATION ADMINISTRATION. SHE SAYS SHE IS UNSURE IF THEY PROVIDE THE SERVICE DIRECTLY, OR IF THEY ARRANGED FOR A VN AGENCY. TASK SENT TO [facility] TO DETERMINE IF THEY COULD TELL US WHAT SERVICES PT HAS. PT ALSO STARTED WITH [facility]ENTLY FOR DAILY [facility] RECEPTIONIST [facility] CARLOS EDUARDO SAYS SHE IS PTS HCP, COPY REQUESTED PCP: TRENA RUEDA DELIVERED DCP: [facility] DAUGHTER TO TRANSPORT
[2024-01-19] MEDS: lisinopriL 20 MG TABLET PO (16:22)
[2024-01-19] MEDS: Escitalopram Oxalate 10 MG TABLET PO (16:22)
[2024-01-19] MEDS: Omeprazole 20 MG CAPSULE.DR PO (16:22)
[2024-01-19 16:25] LABS: Glucose, Whole Blood 120 mg/dL (60-115)
[2024-01-19 19:13] VITALS: BP 141/69; PULSE 93; RESP 18; TEMP 36.7; O2SAT 97
[2024-01-19] MEDS: QUEtiapine Fumarate 25 MG TABLET PO (19:53)
[2024-01-19] MEDS: Atorvastatin Calcium 10 MG TABLET PO (19:54)
[2024-01-19] MEDS: Melatonin 3 MG TABLET 6 MG PO (19:54)
[2024-01-19 20:03] LABS: Glucose, Whole Blood 130 mg/dL (60-115)
--- NOTE | 2024-01-20 | EEG_ITS ---
FINDINGS: The waking background activity consists of a diffuse slow theta of 6 to 7 hertz at low voltage and poorly modulated with intermittent bifrontal and generalized 1 to 2 hertz delta slowing. Photic stimulation and hyperventilation were omitted. IMPRESSION: This is an abnormal EEG due to diffuse background slowing with a frontal accentuation consistent with a diffuse encephalopathic process. No epileptiform discharges were seen. MD AMARA Adams/CHARAN / [id number]
[2024-01-20 04:00] VITALS: BP 107/58; PULSE 70; RESP 18; TEMP 36.2; O2SAT 97
--- NOTE | 2024-01-20 05:03 | PC.NURSE ---
Pt has not voided since 4p yesterday until this time, bladder scan =264 ml, pt was encouraged to go to the BR, DR. Rojo was notified, no further order but will follow up in a few hours.
[2024-01-20] MEDS: Enoxaparin Sodium 40 MG/0.4 ML SYRINGE SUBCUT (05:25)
[2024-01-20] MEDS: Omeprazole 20 MG CAPSULE.DR PO (05:25)
[2024-01-20 06:31] LABS: MANUAL DIFF FLAG NO
[2024-01-20 06:53] LABS: Basophils Percent Auto 0.1 % (0-2); Eosinophils Percent Auto 0.3 % (0-4); Hematocrit 36.6 % (37.0-47.0); Hemoglobin 12.9 g/dl (12.0-16.0); Imm Gran Abs Auto 0.03 X10*3/uL (0.00-0.03); Imm Gran Pct Auto 0.4 % (0.0-0.4); Lymphocytes Absolute Auto 1.9 X10*3/uL (1.2-4.9); Lymphocytes Percent Auto 24.6 % (20-40); Mean Corpuscular HGB Conc 35.2 g/dl (31.0-35.0); Mean Corpuscular Hemoglobin 30.6 pg (27.0-33.0); Mean Corpuscular Volume 86.7 fL (80.0-98.0); Mean Platelet Volume 10.2 fL (9.4-12.3); Monocytes Absolute Auto 0.7 X10*3/uL (0.1-1.2); Monocytes Percent Auto 9.3 % (2-11); Neutrophils Absolute Auto 5.1 x10*3/uL (2.0-8.3); Neutrophils Percent Auto 65.3 % (45-73); Platelet Count 269 X10*3/uL (160-400); Red Blood Count 4.22 X10*6/uL (4.20-5.50); Red Cell Distribution Width 12.6 % (11.0-16.0); White Blood Count 7.8 X10*3/uL (4.8-10.8)
[2024-01-20 07:09] LABS: Anion Gap 14 (12-20); Blood Urea Nitrogen 7 mg/dL (9-16); Calcium 9.5 mg/dL (8.4-10.2); Carbon Dioxide 23 mmol/L (22-29); Chloride 101 mmol/L (96-108); Creatinine Clr Calc Pharmacy 62.2; Estimated Glomerular Filt Rate > 60; Glucose Random 109 mg/dL (60-115); Potassium 3.5 mmol/L (3.3-5.1); Sodium 134 mmol/L (135-145)
[2024-01-20 07:20] VITALS: BP 102/57; PULSE 73; RESP 16; TEMP 36.5; O2SAT 97
[2024-01-20 07:35] LABS: Glucose, Whole Blood 113 mg/dL (60-115)
[2024-01-20] MEDS: Escitalopram Oxalate 10 MG TABLET PO (08:39)
[2024-01-20] MEDS: QUEtiapine Fumarate 25 MG TABLET PO (08:39)
[2024-01-20] MEDS: levETIRAcetam 1,000 MG TABLET 1000 MG PO (08:39)
[2024-01-20] MEDS: 0.9 % Sodium Chloride Flush 3 ML SYRINGE IVFLUSH (08:40)
--- NOTE | 2024-01-20 09:41 | PM.DS ---
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 Patient is postictal at the time of my evaluation and has dementia at baseline. History obtained with the help of daughter at bedside. The daughter states that the patient lives alone next door and she found the patient to have blood at the side of her mouth, bit her tongue and had been incontinent of urine. This has happened before whenever she has had seizure. The daughter is concerned that the patient is drinking too much water from the bathroom. The patient has a nurse that comes to the home and she is compliant with her home medications including Keppra. Unable to obtain review of systems. Hospital course: #. Acute hyponatremia: Patient was admitted and placed on fluid restriction. Sodium improved appropriately over course of hospitalization. Sodium level is back to normal. Spoke to the daughter prior to discharge regarding limiting water intake to 1.2 L per day. #. Seizure disorder: Neurology was consulted and Keppra was increased to 1000 mg b.i.d. Status at Discharge Overall status at discharge: patient is back to baseline Time Attestation Discharge Coordination Time (in mins): 31 Quality: Safe Use of Opioids Does Pt have an Active Cancer Diagnosis on the Problem List?: No Quality: Stroke Does the patient have a stroke diagnosis?: No Physical Exam Vital Signs: Vital Signs: Last Vital Signs Temp 97.7 F 01/20/24 07:20 Pulse 73 01/20/24 07:20 Resp 16 01/20/24 07:20 BP 102/57 L 01/20/24 07:20 Pulse Ox 97 01/20/24 07:20 O2 Del Method Room Air 01/20/24 07:20 BMI result Body Mass Index 23.0 Elderly female lying in bed in no distress Neck supple, no JVD Regular rate and rhythm, S1-S2 heard Regular breath sounds bilaterally, no wheezing or crackles appreciated Abdomen soft nontender, no guarding, no rigidity Patient is awake and oriented to self No pedal edema DS: Data Data Completed and Pending Completed studies during hospitalization [Text1]: Procedures Insertion of Endotracheal Airway into Trachea, Via Natural or Artificial Opening (12/02/22) Respiratory Ventilation, Less than 24 Consecutive Hours (12/02/22) Labs on day of discharge: Laboratory Results - last 24 hr 01/19/24 01/19/24 01/19/24 11:20 16:09 19:56 WBC RBC Hgb Hct MCV MCH MCHC RDW Plt Count MPV Immature Gran % (Auto) Neut % (Auto) Lymph % (Auto) [place] % (Auto) Eos % (Auto) Baso % (Auto) Lymph # (Auto) [place] # (Auto) Eos # (Auto) Baso # (Auto) Abs Immat Gran (auto) Absolute Neuts (auto) Absolute Nucleated RBC Nucleated RBC % (auto) Sodium Potassium Chloride Carbon Dioxide Anion Gap BUN Creatinine Estim Creat Clear Calc Estimated GFR POC Glucose 133 H 120 H 130 H Random Glucose Calcium 01/20/24 01/20/24 05:55 07:19 WBC 7.8 RBC 4.22 Hgb 12.9 Hct 36.6 L MCV 86.7 MCH 30.6 MCHC 35.2 H RDW 12.6 Plt Count 269 MPV 10.2 Immature Gran % (Auto) 0.4 Neut % (Auto) 65.3 Lymph % (Auto) 24.6 [place] % (Auto) 9.3 Eos % (Auto) 0.3 Baso % (Auto) 0.1 Lymph # (Auto) 1.9 [place] # (Auto) 0.7 Eos # (Auto) 0.0 Baso # (Auto) 0.0 Abs Immat Gran (auto) 0.03 Absolute Neuts (auto) 5.1 Absolute Nucleated RBC 0.000 Nucleated RBC % (auto) 0.0 Sodium 134 L Potassium 3.5 Chloride 101 Carbon Dioxide 23 Anion Gap 14 BUN 7 L Creatinine 0.80 Estim Creat Clear Calc 62.2 Estimated GFR > 60 POC Glucose 113 Random Glucose 109 Calcium 9.5 Imaging Chest x-ray: Radiologist's impression: ITS Impressions Head CT 01/19/24 04:35 IMPRESSION: 1. No acute abnormality 2. Chronic small vessel ischemic changes. Discharge Plan Discharge Anticipated Discharge Date/Time: 01/20/24 16:00 Patient Disposition: Home, Self-Care Discharge Diagnosis: Acute hyponatremia Seizure disorder Referrals: Jennyfer Shafer MD [Primary Care Provider] - 1 Week Discharge Medications: New levetiracetam 1,000 mg Tablet 1,000 mg PO BID 30 Days Qty: 90 0RF Continued omeprazole 20 mg capsule,delayed release(DR/EC) 1 cap PO DAILY@0630 acetaminophen 650 mg tablet extended release 1,300 mg PO Q8H PRN (Reason: Pain) quetiapine 25 mg tablet 25 mg PO BID lisinopril 20 mg tablet 20 mg PO DAILY simvastatin 20 mg tablet 20 mg PO BEDTIME citalopram 20 mg tablet 20 mg PO DAILY Discontinued levetiracetam 500 mg Tablet 500 mg PO BID Qty: 60 0RF Discharge Orders: Discharge Order (Routine); Ordered 01/20/24 Ordered By: Mari Wooten Diet: Advance to usual diet Activity on Discharge: As tolerated Stand Alone Forms: Patient Portal Discharge page Print Language: Georgian Care Plan Goals: Follow-up with PCP within 1 week Health Concerns: Seizure disorder Hyponatremia due to psychogenic polydipsia Plan of Treatment: Increase Keppra to 1000 mg b.i.d. Limit water intake to 1.2 L per day Assessment: As above
--- NOTE | 2024-01-20 09:54 | MHC.CM.PN ---
EMR reviewed. Patient is medically cleared for dc home w/ resump of services. Active w/ [facility] (confirmed by RAFA Wood [phone]). Return referral and dc summary sent via [facility]. Daughter & son will provide transportation home ~4:30pm. RN aware. Daughter to bring copy of HCP today.
--- NOTE | 2024-01-20 11:34 | P.CDIM_ITS ---
PROVIDER RESPONSE TEXT: To clarify, the appropriate diagnosis supported by the clinical indicators: Clinically unable to determine (explain): Recurrent seizure but unable to determine type as happened at home QUERY TEXT: PHYSICIAN'S DOCUMENTATION REQUEST Date of Query: 01/20/2024 11:22 AM EDT Patient Name: Dee Lamas Admit Date: 01/19/2024 Dear Mari Wooten, A review of the medical record indicates additional documentation may be needed. Please review below and update the documentation accordingly. Clinical Indicators: Progress notes: Seizure PMH Seizures arrived blood in the mouth probably tongue biting, type of symptoms she previously had from seizures and was brought here before. Keppra was increased to 1000 mg b.i.d. If possible, please further clarify the type/etiology of seizure(s): Idiopathic Febrile please further specify simple or complex Absence Generalized epilepsy (grand mal, myoclonic, atonic, clonic, tonic-clonic, etc.) Focal or partial please further specify simple or complex Petit mal Recurrent please further specify type/etiology Other (explain) Clinically unable to determine (explain) Thank you, Jessika Glass, CCS, CDIS Use of terms such as suspected, likely, concern for, or probable (associated with a specific diagnosi s that is being evaluated, monitored, or treated as if it exists) are acceptable and can be coded in the inpatient se tting, when documented at the time of discharge. Please use your independent medical judgment in providing your response. THIS QUERY IS PART OF THE PERMANENT MEDICAL RECORD
[2024-01-20 12:17] LABS: Glucose, Whole Blood 119 mg/dL (60-115)
[2024-01-20 15:21] VITALS: BP 122/69; PULSE 98; RESP 18; TEMP 36.1; O2SAT 96
[2024-01-20 16:33] LABS: Glucose, Whole Blood 149 mg/dL (60-115)
== END 2024-01-20 18:32 | disposition home or self-care (01) | DRG 101 ==
LOC: HO.ED 03:07 → HO.EDOVER 03:47 → HO.S3 07:56
PROVIDERS: Admitting Provider Student in an Organized Health Care Education/Training Program; Emergency Provider Emergency Medicine Emergency Medical Services; PCP Internal Medicine; Visit Provider Student in an Organized Health Care Education/Training Program
DX: G40.909 Epilepsy, unspecified, not intractable, without status epilepticus (principal); E87.1 Hypo-osmolality and hyponatremia; F01.C3 Vascular dementia, severe, with mood disturbance; I10 Essential (primary) hypertension; E11.9 Type 2 diabetes mellitus without complications; E78.5 Hyperlipidemia, unspecified; K21.9 Gastro-esophageal reflux disease without esophagitis; Z79.899 Other long term (current) drug therapy
CPT/HCPCS: 36415; 70450; 80048; 80053; 81001; 82947; 83735; 83930; 83935; 84300; 85025; 93005; 95816; 99285; J1650; J1953

== ENCOUNTER → 2024-01-19 01:05 | Outpatient (BNV) | payer MEDICARE, MEDICAID, SELFPAY | PROVIDERS: Admitting Provider Student in an Organized Health Care Education/Training Program; Emergency Provider Emergency Medicine Emergency Medical Services; PCP Internal Medicine; Visit Provider Internal Medicine | DX: R56.9 Unspecified convulsions (principal) | CPT/HCPCS: 93010 ==

== ENCOUNTER → 2024-01-19 03:40 | Outpatient (BNV) | payer MEDICARE, MEDICAID, SELFPAY | PROVIDERS: Admitting Provider Student in an Organized Health Care Education/Training Program; Emergency Provider Emergency Medicine Emergency Medical Services; PCP Internal Medicine; Visit Provider Psychiatry & Neurology Neurology | DX: R56.9 Unspecified convulsions (principal); F02.80 Dementia in other diseases classified elsewhere, unspecified severity, without behavioral disturbance, psychotic disturbance, mood disturbance, and anxiety | CPT/HCPCS: 99222 ==

== ENCOUNTER → 2024-01-19 03:40 | Outpatient (BNV) | payer MEDICARE, MEDICAID, SELFPAY | PROVIDERS: Admitting Provider Student in an Organized Health Care Education/Training Program; Emergency Provider Emergency Medicine Emergency Medical Services; PCP Internal Medicine; Visit Provider Student in an Organized Health Care Education/Training Program | DX: R56.9 Unspecified convulsions (principal); F03.90 Unspecified dementia, unspecified severity, without behavioral disturbance, psychotic disturbance, mood disturbance, and anxiety | CPT/HCPCS: 99223; 99239 ==

== ENCOUNTER 2025-03-25 15:44 | Outpatient (REF) | payer MEDICARE, MEDICAID, SELFPAY ==
--- NOTE | ~2025-03-25 | MM_ITS ---
EXAMINATION: MM SCREENING DIGITAL BREAST TOMOSYNTHESIS, BILATERAL CLINICAL INFORMATION: Screening. Asymptomatic. COMPARISON: Mammography: Comparison is made with available priors TECHNIQUE: Digital breast mammography with tomosynthesis is performed in both the craniocaudal and mediolateral oblique views along with computer-aided detection (CAD). FINDINGS: The breasts are heterogeneously dense, which may obscure small masses (ACR BI-RADS breast composition Category c). There are no significant masses, abnormal calcifications, or other abnormalities. MM/MM tomosynthesis screening BI IMPRESSION: No mammographic evidence of malignancy. ASSESSMENT: BI-RADS BI-RADS 1 - Negative RECOMMENDATION: Routine annual mammography screening. 1 year F/U This examination should not preclude the clinical evaluation of a suspicious palpable abnormality. This patient's information was entered into a reminder system with a target due date for their next mammogram. Electronically signed by: Ginny Angulo DO 04/01/2025 08:38 AM EDT
--- OUTSIDE RECORDS SUMMARY | 2025-03-25 15:45 | XMS_ITS | Encounter Summary ---
Author Organization [facility] Address [address] [place] [address] [address], [place] [address] Care Team Providers Care Substitute Teacher Name Role Phone Jennyfer Shafer MD Primary Care Provide r Reason for Visit * Reason Comments Med Refill Encounter Details Date Type Department Care Team (Late Contact Info) Description 05/19/2023 Refill [facility] [address] [place] [address] Jennyfer Shafer MD [address] [place] [address] Social History Tobacco Use Types Packs/Day Years Used Date Smoking Tobacco: Never Passive Smoke Exposure: Never Smokeless Tobacco: Never Alcohol Use Standard Drinks/Week Comments Never 0 (1 standard drink = 0.6 oz pur e alcohol) Depression Answer Date Recorded Patient Health Questionnaire-9 Score 12 12/26/2022 Depression Answer Date Recorded Patient Health Questionnaire-2 Score 2 12/26/2022 Comments Unknown Sex and Gender Information Value Date Recorded Sex Assigned at Female 08/05/2022 10:14 AM EDT Legal Sex Female 10:14 AM EDT Gender Identity Female 08/05/2022 10:14 AM EDT Sexual Orientation Straight 08/05/2022 10 :14 AM EDT documented as of this encounter Plan of Treatment Upcoming Encounters Date Type Department Care Team (Late Contact Info) Description 05/13/2025 2:00 PM EDT Office Visit [facility] [address] [place] [address] Chantal Torres, OD [address] [place] [address] 07/19/2025 3:00 PM EDT Office Visit [facility] [address] [place] [address] Ekta Cao [address] [place] [address] documented as of this encounter Visit Diagnoses Not on filedocumented in this encounter Additional Health Concerns Assessment Noted Time PHQ-9 Depression Total Score: 12 023 1:37 PM EDT documented as of this encounter Care Teams Substitute Teacher Relationship Specialty Start Date End Date Jennyfer Shafer MD [address] [place] [address] PCP - General Family Medicine 09/07/18 [facility] 09/07/20 documented as of this encounter
== END 2025-03-25 15:45 | disposition home or self-care (01) ==
LOC: HO.MAMMO 15:44
PROVIDERS: PCP Internal Medicine; Visit Provider Internal Medicine
DX: Z12.31 Encounter for screening mammogram for malignant neoplasm of breast (principal)
CPT/HCPCS: 77063; 77067

== ENCOUNTER → 2025-03-25 15:45 | Outpatient (BNV) | payer MEDICARE, MEDICAID, SELFPAY | PROVIDERS: PCP Internal Medicine; Visit Provider Internal Medicine | DX: Z12.31 Encounter for screening mammogram for malignant neoplasm of breast (principal) | CPT/HCPCS: 77063; 77067 ==